=== PATIENT | male | born 1940 | race Caucasian/White ===

== ENCOUNTER 2019-09-02 11:31 | Outpatient (CLI) | payer MEDICARE, SELFPAY ==
--- NOTE | 2019-09-02 11:34 | ECG_ITS ---
Measurements Intervals [place] Rate: 80 P: MA: 0 QRS: -15 QRSD: 91 T: 8 QT: 382 QTc: 441 Interpretive Statements ATRIAL FIBRILLATION CONSIDER INFERIOR INFARCT, AGE INDETERMINATE BASELINE ARTIFACT- II, III, AVF ABNORMAL ECG Electronically Signed On 09-02-2019 12:53:15 CDT by Behzad Flores D.O.
[2019-09-02 12:10] LABS: Basophils Percent Auto 0.3 % (0.2-1.2); Eosinophils Absolute Auto 0.1 K/mm3 (0-0.3); Hematocrit 48.6 % (42.0-52.0); Hemoglobin 15.8 g/dL (14.0-18.0); Immature Granulocyte Absolute 0.06 K/mm3 (0.00-0.031); Immature Granulocyte Percent A 0.5 % (0-0.5); Lymphocytes Absolute Auto 2.02 K/mm3 (0.9-3.2); Lymphocytes Percent Auto 16.3 % (18.3-44.2); Mean Corpuscular HGB Conc 32.5 g/dl (32-36); Mean Corpuscular Hemoglobin 30.6 pg (26-34); Mean Corpuscular Volume 94.2 fl (80-100); Mean Platelet Volume 9.7 fl (7.4-10.4); Monocytes Absolute Auto 1.4 K/mm3 (0.1-0.6); Monocytes Percent Auto 11.6 % (2.6-8.5); Neutrophils Absolute Auto 8.7 K/mm3 (1.3-6.7); Neutrophils Percent Auto 70.3 % (45.5-73.1); Platelet Count Result 212 k/mm3 (150-375); Red Blood Count 5.16 M/mm3 (4.6-6.20); Red Cell Distribution Width 13.8 % (11.5-14.5); White Blood Count 12.4 K/mm3 (4.5-10.0)
[2019-09-02 12:21] LABS: INR 1.7; Partial Thromboplastin Time 32.8 SECONDS (22.3-36.8); Prothrombin Time 19.7 Seconds (11.1-14.7)
[2019-09-02 12:25] LABS: Blood Urea Nitrogen 17 mg/dL (9-20); Calcium 8.9 mg/dL (8.4-10.2); Carbon Dioxide 31 mmol/L (22-30); Chloride 99 mmol/L (98-107); Estimated Glomerular Filt Rate > 60; Glucose 102 mg/dL (75-110); Potassium 4.6 mmol/L (3.4-5.0); Sodium 138 mmol/L (137-145)
== END 2019-09-02 11:32 | disposition home or self-care (01) ==
LOC: ANHSURGERY 11:34
PROVIDERS: PCP Family Medicine; Visit Provider Urology
DX: Z01.818 Encounter for other preprocedural examination (principal); D49.4 Neoplasm of unspecified behavior of bladder; I10 Essential (primary) hypertension; Z79.899 Other long term (current) drug therapy; R94.31 Abnormal electrocardiogram [ECG] [EKG]
CPT/HCPCS: 36415; 80048; 85025; 85610; 85730; 87086; 93005

== ENCOUNTER 2019-11-12 10:12 | Outpatient (CLI) | payer MEDICARE, SELFPAY ==
[2019-11-12 10:54] LABS: Basophils Percent Auto 0.4 % (0.2-1.2); Eosinophils Absolute Auto 0.1 K/mm3 (0-0.3); Eosinophils Percent Auto 1.2 % (0-4.4); Hematocrit 48.9 % (42.0-52.0); Immature Granulocyte Absolute 0.07 K/mm3 (0.00-0.031); Immature Granulocyte Percent A 0.6 % (0-0.5); Lymphocytes Absolute Auto 1.79 K/mm3 (0.9-3.2); Mean Corpuscular HGB Conc 32.7 g/dl (32-36); Mean Corpuscular Hemoglobin 30.5 pg (26-34); Mean Corpuscular Volume 93.1 fl (80-100); Mean Platelet Volume 9.9 fl (7.4-10.4); Monocytes Absolute Auto 1.4 K/mm3 (0.1-0.6); Monocytes Percent Auto 12.3 % (2.6-8.5); Neutrophils Absolute Auto 7.8 K/mm3 (1.3-6.7); Neutrophils Percent Auto 69.5 % (45.5-73.1); Platelet Count Result 223 k/mm3 (150-375); Red Blood Count 5.25 M/mm3 (4.6-6.20); Red Cell Distribution Width 13.4 % (11.5-14.5); White Blood Count 11.2 K/mm3 (4.5-10.0)
[2019-11-12 11:03] LABS: INR 1.7; Prothrombin Time 19.6 Seconds (11.1-14.7)
[2019-11-12 11:04] LABS: Partial Thromboplastin Time 32.6 SECONDS (22.3-36.8)
[2019-11-12 11:08] LABS: Blood Urea Nitrogen 17 mg/dL (9-20); Calcium 8.8 mg/dL (8.4-10.2); Carbon Dioxide 30 mmol/L (22-30); Chloride 99 mmol/L (98-107); Estimated Glomerular Filt Rate > 60; Glucose 117 mg/dL (75-110); Sodium 137 mmol/L (137-145)
== END 2019-11-12 10:13 | disposition home or self-care (01) ==
LOC: ANHSURGERY 10:14
PROVIDERS: PCP Family Medicine; Visit Provider Urology
DX: Z01.818 Encounter for other preprocedural examination (principal); I10 Essential (primary) hypertension; N39.0 Urinary tract infection, site not specified; Z79.01 Long term (current) use of anticoagulants
CPT/HCPCS: 36415; 80048; 85025; 85610; 85730; 87077; 87086; 87088; 87186

== ENCOUNTER 2019-11-20 00:19 | Outpatient (CLI) | payer MEDICARE, SELFPAY ==
[2019-11-20 18:00] LABS: SARS-CoV-2 RNA PCR Negative
== END 2019-11-20 00:20 | disposition home or self-care (01) ==
LOC: ANHCOVIDDT 00:20
PROVIDERS: PCP Family Medicine; Visit Provider Urology
DX: Z01.812 Encounter for preprocedural laboratory examination (principal); Z20.828 Contact with and (suspected) exposure to other viral communicable diseases
CPT/HCPCS: 87635; C9803; U0003

== ENCOUNTER 2019-11-23 00:42 | Day surgery (SDC) | payer MEDICARE, SELFPAY ==
[2019-09-01 12:57] VITALS: BMI 35.2
[2019-11-23] VITALS (12 sets, daily range): BP systolic 91–165; BP diastolic 56–101; PULSE 71–88; RESP 12–20; TEMP 36.5–36.7; O2SAT 98–100
--- NOTE | 2019-11-23 08:21 | P.PNAN_ITS ---
Anes - Initial Pre Proc Eval Procedure: Operation Date: 11/23/19 13:30 Proposed Procedures p Transurethral Resection Bladder Tumor - Johnnie Craft MD Date/Time: 11/23/19 08:21 Surgeon: Johnnie Craft MD Pre Op Diagnosis: Bladder Tumor, Gross Hematuria Patient Data Age: 79 Gender: M Height: 1.7 m Weight: 102.06 kg Allergies Allergy/AdvReac Type Severity Reaction Status Date / Time No Known Allergies Allergy Verified 11/09/19 11:04 Home Medications Medication Instructions Recorded Confirmed Type carbidopa 25 mg-levodopa 100 mg 1 tablet PO TID 05/11/19 11/23/19 History tablet rivaroxaban 20 mg tablet 20 mg PO DAILY #30 tablet 05/17/19 11/23/19 Rx atorvastatin 20 mg tablet 20 mg PO DAILY #30 tablet 07/30/19 11/23/19 Rx metoprolol succinate 100 mg 100 mg PO DAILY #30 tablet 07/30/19 11/23/19 Rx tablet,extended release 24 hr furosemide 40 mg tablet 40 mg PO QAM #30 tablet 08/31/19 11/23/19 Rx potassium chloride 20 mEq 20 meq PO DAILY #30 tablet 08/31/19 11/23/19 Rx tablet,extended release Patient hx anesthesia problems: none Family hx anesthesia problems: none PMFSH Past Medical History Medical History (Updated 11/23/19 @ 08:23 by Jeffry Taylor MD) Bladder tumor HEMATURIA Chronic diastolic heart failure Claudication in peripheral vascular disease Essential (primary) hypertension History of DVT (deep vein thrombosis) 2005. TAKES XARELTO History of pulmonary embolism IFG (impaired fasting glucose) [facility] (current) use of anticoagulants Parkinson disease RT HAND SHAKES,SHUFFLING FEET Persistent atrial fibrillation Primary osteoarthritis, unspecified site Pure hypercholesterolemia Surgical History Surgical History (Updated 11/23/19 @ 08:23 by Jeffry Taylor MD) History of small bowel obstruction SMALL BOWEL RESECTION FOR OBSTRUCTION 2017 Social History Social History (Updated 11/09/19 @ 11:04 by Jenifer Aguirre) Smoking status: Never smoker Second hand tobacco smoke exposure: No Alcohol intake: current Drinks per week: 1 Substance use: never Substance use type: does not use Gender identity (if verbalized by the patient): Male Anes - Eval Final PreProcedure Day of Procedure 11/23/19 08:21 Patient weight: obese Heart: regular rate and rhythm Lungs: clear to auscultation and normal air movement Airway: Mallampati scale class II Neurological: alert and oriented Last oral intake: >/= 8 hours ASA classification: IV Emergent: no Anesthetic plan: proceed Anesthesia type and monitoring: general LMA and ETT Informed Consent: The patient's anesthetic plan and its attendant risks and benefits were discussed with the patient/family/POA. Questions were solicited and answers provided to the satisfaction of the patient/family/POA.
--- NOTE | 2019-11-23 11:12 | WPDHPUPDATE1 ---
History and Physical Update Update Date/Time: 11/23/19 11:12 History and Physical has been reviewed, including an updated exam of the patient. There are NO changes in the patient's condition. Risks, benefits, and alternatives have been discussed and questions answered. Patient agrees to proceed with procedure.
[2019-11-23] MEDS: LACTATED RINGERS 1,000 ML 30 ML IV CONT (12:00)
[2019-11-23 12:18] LABS: INR 1.1
[2019-11-23] MEDS: ceFAZolin 2 GM/D5W 50 ML 2 GM/50 ML BAG IVPB (12:44)
[2019-11-23] MEDS: LIDOCAINE HCL 2% GEL UROJET 10 ML PKG MUCOUS MEM (13:03)
--- NOTE | 2019-11-23 13:19 | SUR.OPER ---
Ebl=10ml
--- NOTE | 2019-11-23 13:21 | PM.PROC ---
Procedure Note - Detailed Date of procedure: 11/23/19 Pre-op diagnosis: Bladder Tumor, Gross Hematuria Post-op diagnosis: same Procedure performed: Transurethral resection of bladder tumor medium size approximately 3 cm Description of procedure: Patient was taken to the operative suite and correctly identified. Once general anesthesia was obtained he was placed in the dorsal lithotomy position and prepped and draped in the usual sterile fashion. Twenty-four [place] resectoscope sheath is inserted in the bladder. He has a tumor that encompassed about least 3 cm on the floor on the left. It was just lateral to the left ureteral orifice. We went ahead and resected the tumor and then sent the base as a separate specimen. Fulguration was used for hemostasis. There was good hemostasis at termination procedure. 2% viscous lidocaine was inserted into the urethra and an [address] This was connected to continuous bladder irrigation. That will be weaned to off in recovery room. He will be discharged home with Cook catheter with plans to remove it on Friday. Will plan on resuming his relative on Friday. Anesthesia: GLMA Surgeon: Johnnie Craft MD Estimated blood loss (mL): 10 Drains: Yes Packing: No Pathology: yes Complications: No immediate complications Condition: stable Disposition: PACU
--- NOTE | 2019-11-23 14:12 | SUR.PHASEI ---
glycine to three way simeon clamped at 1410. watching urine to see if remains clear. and will restart glycine as needed to maintain clear urine.
[2019-11-23] MEDS: hydrALAZINE HCL 20 MG/ML VIAL 5 MG IV PUSH (14:35)
--- NOTE | 2019-11-23 15:09 | SUR.PHASEI ---
1445- cbi bag remains clamped. no c/o pain. pt seems very anxious.
--- NOTE | 2019-11-23 16:11 | SUR.PHASEII ---
1545; PT AWAKE AND ALERT. PT ANXIOUS REGARDING GOING HOME WITH A VEGA. CLEARED WITH DIRECTOR TO BRING SPOUSE TO [place]. 1600; SPOUSE IN ROOM WEARING A MASK.
--- NOTE | 2019-11-23 16:44 | SUR.PHASEII ---
1640; DEMONSTRATED HOW TO CHANGE VEGA BAG TO LEG BAG TO PT AND . VERBALIZED UNDERSTANDING.
== END 2019-11-23 16:51 | disposition home or self-care (01) ==
PROVIDERS: PCP Family Medicine; Visit Provider Urology
PROC: 0TBB8ZZ Excision of Bladder, Via Natural or Artificial Opening Endoscopic (ICD-10-PCS; CPT 52235; principal; 2019-11-23 13:30)
DX: C67.0 Malignant neoplasm of trigone of bladder (principal); I11.0 Hypertensive heart disease with heart failure; I50.32 Chronic diastolic (congestive) heart failure; G20 Parkinson's disease; I70.219 Atherosclerosis of native arteries of extremities with intermittent claudication, unspecified extremity; I48.19 Other persistent atrial fibrillation; E78.00 Pure hypercholesterolemia, unspecified; M19.90 Unspecified osteoarthritis, unspecified site; Z86.711 Personal history of pulmonary embolism; Z86.718 Personal history of other venous thrombosis and embolism; Z79.01 Long term (current) use of anticoagulants; E66.9 Obesity, unspecified; Z68.35 Body mass index [BMI] 35.0-35.9, adult
CPT/HCPCS: 52235; 36415; 85610; 88305; 88307; A9270; J0360; J0690; J1100; J2405; J2704; J3010; J7120

== ENCOUNTER 2020-02-22 14:05 | Outpatient (CLI) | payer MEDICARE, SELFPAY ==
[2020-02-22 14:46] LABS: Anion Gap 9 mmol/L (8-16); Blood Urea Nitrogen 14 mg/dL (9-20); Calcium 8.6 mg/dL (8.4-10.2); Carbon Dioxide 28 mmol/L (22-30); Chloride 100 mmol/L (98-107); Estimated Glomerular Filt Rate > 60; Glucose 97 mg/dL (75-110); Potassium 4.1 mmol/L (3.4-5.0); Sodium 137 mmol/L (137-145)
== END 2020-02-22 14:06 | disposition home or self-care (01) ==
PROVIDERS: PCP Family Medicine; Visit Provider Family Medicine
DX: I10 Essential (primary) hypertension (principal)
CPT/HCPCS: 36415; 80048

== ENCOUNTER 2020-03-02 14:38 | Outpatient (CLI) | payer MEDICARE, SELFPAY ==
--- NOTE | ~2020-03-02 | US_ITS ---
EXAMINATION: US carotid duplex BI DATE: 03/02/2020 15:38 INDICATION: Transient ischemic attack TECHNIQUE: Grayscale, color Doppler, and pulsed Doppler images of the cervical carotid arteries were obtained. The degree of vessel stenosis is placed in one of the following categories: normal, <50%, 5 0-69%, >=70% but less than near-occlusion, near-occlusion, or total occlusion. Note that percent sten osis relative to normal distal artery lumen diameter is indirectly measured from velocity measurement s as described by Sliverio, et al. Radiology 2003; 229:340-346. Notes: Normal: Peak systolic velocity <125 centimeters/sec and no plaque <50%. Peak systolic velocity <125 ( EDV <40; ICA/CCA PSV ratio <2.0; used these factors only a tandem lesions or low cardiac output or co ntralateral disease) 50-69 %: PSV 125-230 (EDV 40-100; ratio 2-4) >= 70% but less than near occlusion: PSV greater than 230 (EDV > 100; ratio> 4.0) Near Occlusion: PSV that is variable; markedly narrowed lumen Occlusion: Absent flow on color/spectral Doppler and no lumen on lynn scale. COMPARISON: None. FINDINGS: RIGHT: The right common carotid artery (CCA) peak systolic velocity (PSV) is 65 cm/s. The right internal car otid artery (ICA) PSV is 90 cm/s. The right ICA end-diastolic velocity (EDV) is 28 cm/s. The right IC A/CCA PSV ratio is 1.4. The external carotid artery (ECA) PSV is 72 cm/s. There is antegrade flow in the right vertebral artery. LEFT: The left CCA PSV is 77 cm/s. The left ICA PSV is 77 cm/s. The left ICA EDV is 25 cm/s. The left ICA/C CA PSV ratio is 1.0. The ECA PSV is 85 cm/s. There is antegrade flow in the left vertebral artery. IMPRESSION: 1. Less than 50% stenosis in the right internal carotid artery by sonographic criteria. 2. Less than 50% stenosis in the left internal carotid artery by sonographic criteria. Reviewed, dictated and finalized at location A. IMPRESSION: 1. Less than 50% stenosis in the right internal carotid artery by sonographic shawna khan. 2. Less than 50% stenosis in the left internal carotid artery by sonographic susanna malloy.
--- NOTE | ~2020-03-02 | CT_ITS ---
EXAMINATION: CT brain wo con DATE: 03/02/2020 15:18 INDICATION: Transient ischemic attack TECHNIQUE: Computed tomography (CT) of the head was performed without intravenous contrast. The mA wa s adjusted according to patient size. Iterative reconstruction technique was employed. Exam dose: 68 1.00 mGy-cm total exam DLP. COMPARISON: None FINDINGS: There are chronic lacunar infarcts in the region of the anterior limb of the internal capsu le bilaterally. There is nonspecific diminished attenuation of the subcortical and periventricular cerebral white mat ter. There are prominent bilateral carotid siphon internal carotid artery calcifications. No intracranial mass lesion or hemorrhage, midline shift or mass effect. No subdural or epidural mil elizabeth. There is cerebral atrophy as well as cerebellar atrophy. No skull fracture or bone destruction. The mastoid air cells and included paranasal sinuses are sherif lly developed and aerated. 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 Reviewed, dictated and finalized at location A. IMPRESSION: Chronic bilateral lacunar infarcts of the anterior limb of the int ernal capsule Cerebral atherosclerosis and chronic small vessel ischemic changes of the cereb ral white matter Cerebral and cerebellar atrophy
== END 2020-03-02 14:39 | disposition home or self-care (01) ==
PROVIDERS: PCP Family Medicine; Visit Provider Family Medicine
DX: G45.9 Transient cerebral ischemic attack, unspecified (principal); I65.23 Occlusion and stenosis of bilateral carotid arteries; I67.2 Cerebral atherosclerosis; G31.9 Degenerative disease of nervous system, unspecified
CPT/HCPCS: 70450; 93880

== ENCOUNTER → 2020-05-09 11:58 | Outpatient (CLI) | payer MEDICARE, SELFPAY ==
--- NOTE | ~2020-05-09 | XR_ITS ---
XR chest 2V DATE: 05/09/2020 13:06 INDICATION: Cough TECHNIQUE: 2 views COMPARISON: 02/13/2018 portable AP chest at 0915 hours FINDINGS: No pulmonary infiltrate or consolidation, pleural effusion or pulmonary vascular congestion or pneumothorax is evident. Heart size appears borderline. There is aortic arch calcification. Degenerative changes of the thoracic and lumbar spine. IMPRESSION: Borderline heart size; no active pulmonary disease Reviewed, dictated and finalized at location B. ERYMAN ASSISTANT
== END ==
PROVIDERS: PCP Family Medicine; Visit Provider Family Medicine
DX: R05 Cough (principal)
CPT/HCPCS: 71046

== ENCOUNTER 2020-07-05 12:29 | Inpatient (IN) | payer MEDICARE, SELFPAY ==
--- NOTE | ~2020-07-05 | XR_ITS ---
XR chest 1V portable 07/09/2020 09:36 Indication: Leukocytosis Procedure: AP portable chest Comparison: Comparison to multiple prior studies sequentially, with oldest reviewed study dated 02/11. Findings: Subtle right upper lobe infiltrates. Heart size normal. No pleural effusion, edema or pneum othorax. Impression: 1: Subtle right upper lobe infiltrates which may represent atelectasis or pneumonia. Reviewed, dictated and finalized at location A. FIELD MANAGER Impression: 1: Subtle right upper lobe infiltrates which may represent atelectasis or pneum onia.
--- NOTE | ~2020-07-05 | XR_ITS ---
EXAMINATION: XR chest 1V portable EXAM DATE: 07/05/2020 13:05 INDICATION: Cough and weakness. TECHNIQUE: Portable AP frontal chest x-ray was obtained. Comparison is made to prior examination from 05/09/2020. FINDINGS: Prominent reticulation bilaterally most likely chronic interstitial lung disease. No conflu ent consolidation, pneumothorax or pleural effusion suspected. The cardiomediastinal silhouette is pr ominent but magnified on this AP technique. There are bony degenerative changes. There is no signific ant interval change. IMPRESSION: Chronic interstitial lung disease without superimposed acute opacities identified. Reviewed, dictated and finalized at location B. DIE INSPECTOR IMPRESSION: Chronic interstitial lung disease without superimposed acute opacit ies identified.
--- NOTE | ~2020-07-05 | CT_ITS ---
EXAMINATION: CT brain wo con DATE: 07/08/2020 10:42 INDICATION: Confusion and generalized weakness. TECHNIQUE: Computed tomography (CT) of the head was performed without intravenous contrast. The dose- length product was 681.00 mGy-cm. The mA was adjusted according to patient size. Iterative reconstruc tion technique was employed. COMPARISON: CT dated 03/02/2020 FINDINGS: Generalized atrophy. There are scattered mild periventricular and subcortical white matter changes, most likely related to small vessel ischemic disease (microangiopathy). Chronic bilateral la cunar infarctions of the caudate nucleus and left internal capsule. There is intracranial atheroscler osis. Paranasal sinuses and mastoids are pneumatized. No depressed skull fractures. IMPRESSION: 1. No acute intracranial abnormality. 2: Chronic bilateral lacunar infarctions. 3: Chronic age-related findings. Reviewed, dictated and finalized at location A. OLL SERVICES ANALYST
--- NOTE | ~2020-07-05 | XR_ITS ---
MODIFIED ESOPHAGRAM HISTORY: Dysphagia. TECHNIQUE: Modified barium esophagram was performed by speech pathologist under radiologist fluorosco pic guidance. This was recorded on tape. The exam was reviewed on 07/09/2020 11:48 WHITING CAN WORKER. The one flu oroscopic image. Fluoroscopy time is 1.2 minutes. FINDINGS: Lateral projection of the cervical spine demonstrates normal alignment. There is trace pe netration without aspiration with thin liquids. IMPRESSION: 1: Trace penetration without evidence for aspiration. 2: Please refer to speech pathologist report for additional detail. Reviewed, dictated and finalized at location A. ING CAN WORKER
--- NOTE | 2020-07-05 12:48 | ECG_ITS ---
Measurements Intervals [place] Rate: 85 P: SD: 0 QRS: -19 QRSD: 83 T: 5 QT: 366 QTc: 437 Interpretive Statements ATRIAL FIBRILLATION LOW QRS VOLTAGE IN PRECORDIAL LEADS CONSIDER INFERIOR INFARCT, AGE INDETERMINATE ABNORMAL ECG Electronically Signed On 07-05-2020 13:18:18 APPRAISAL SPECIALIST by Behzad Flores D.O.
--- NOTE | 2020-07-05 12:56 | ED.GENADULT ---
HPI - General Adult General Chief complaint: Weakness Stated complaint: INCREASED WEAKNESS Time Seen by Provider: 07/05/20 12:34 Source: RN notes reviewed History of Present Illness HPI narrative: Patient presents emergency department from home for weakness. Per the patient's he has had progressive weakness over the past 2 days and has been able to get up and ambulate secondary to weakness in his legs for the past day. The patient was recently seen by Dr. Craft for urology and was placed on Bactrim for urinary tract infection 2 days ago. also notes the patient has had some wheezing today as well as some swelling in his legs. The patient does have a history of heart failure. Per the the patient did have a fever of 100 yesterday denies any chest pain abdominal pain nausea vomiting or any other symptoms Related Data Home Medications Medication Instructions Recorded Confirmed sulfamethoxazole 07/05/20 Allergies Allergy/AdvReac Type Severity Reaction Status Date / Time No Known Allergies Allergy Verified 07/05/20 12:43 Review of Systems Review of Systems: Narrative: Gen.: Reports fever ENT: Denies congestion Respiratory: Reports wheezing and cough CV: Denies chest pain or palpitations GI: Denies abdominal pain nausea, emesis or diarrhea reports current UTI Musculoskeletal: Denies back pain or muscle pain Neuro: Reports weakness Skin: Denies rash Except as documented, all other systems reviewed and negative [facility] Past Medical History Medical History Bladder tumor HEMATURIA Chronic diastolic heart failure Claudication in peripheral vascular disease Essential (primary) hypertension History of DVT (deep vein thrombosis) 2005. TAKES XARELTO History of pulmonary embolism IFG (impaired fasting glucose) nursing home (current) use of anticoagulants Parkinson disease RT HAND SHAKES,SHUFFLING FEET Persistent atrial fibrillation Primary osteoarthritis, unspecified site Pure hypercholesterolemia Surgical History Surgical History (Updated 11/23/19 @ 08:23 by Jeffry Taylor MD) History of small bowel obstruction SMALL BOWEL RESECTION FOR OBSTRUCTION 2017 Family History Family History Father Family history of diabetes mellitus in first degree relative Family history of coronary artery disease Sibling Family history of diabetes mellitus in first degree relative Family history of coronary artery disease Mother Family history of coronary artery disease Social History Social History Smoking status: Never smoker Second hand tobacco smoke exposure: No Alcohol intake: current Drinks per week: 1 Substance use: never Substance use type: does not use Gender identity (if verbalized by the patient): Male Exam Narrative: Exam Narrative: APPEARANCE: No acute distress, nontoxic, resting in bed EYES: EOMI HEENT: Normocephalic, atraumatic, RESPIRATORY: No respiratory distress crackles in bilateral lower lung alfonso with wheezing upper lung alfonso CARDIOVASCULAR: Irregular irregular without murmurs rubs or gallops. ABDOMINAL: Soft, nontender, nondistended, no rebound or guarding MUSCULOSKELETAl: Moves all extremities. No clubbing, cyanosis 3+ edema the bilateral lower extremities NEURO: Awake and alert x 3. Following commands, speech normal, no focal deficits SKIN:: Warm, dry. No rashes lesions or abrasions PSYCHIATRIC: Normal affect/mood, Course Course Emergency Course: Discussed with SIDDHARTHA Acevedo for Dr. Ledbetter presentation work-up agrees with admission at this time. We did review the patient's last urine culture from October which is E. coli was resistant to Bactrim at that time and will place on Rocephin Discussed with JESSICA Ayoub for Dr. Craft presentation and work-up agrees with consult Discussed with patient an
[2020-07-05 13:13] VITALS: BP 119/66; PULSE 90; RESP 24; TEMP 36.6; O2SAT 98
[2020-07-05 13:46] VITALS: PULSE 92; RESP 20
[2020-07-05] MEDS: IPRATROPIUM BR 0.02% INH SOLN 0.5 MG/2.5 ML VIAL INHALATION (13:46)
[2020-07-05] MEDS: ALBUTEROL SULFATE NEB 2.5 MG/0.5 ML INH 5 MG INHALATION (13:46)
[2020-07-05 13:51] LABS: Basophils Percent Auto 0.3 % (0.2-1.2); Eosinophils Absolute Auto 0.2 K/mm3 (0-0.3); Eosinophils Percent Auto 1.4 % (0-4.4); Hematocrit 42.5 % (42.0-52.0); Immature Granulocyte Absolute 0.13 K/mm3 (0.00-0.031); Lymphocytes Percent Auto 8.2 % (18.3-44.2); Mean Corpuscular HGB Conc 32.9 g/dl (32-36); Mean Corpuscular Hemoglobin 30.4 pg (26-34); Mean Corpuscular Volume 92.2 fl (80-100); Mean Platelet Volume 10.5 fl (7.4-10.4); Monocytes Percent Auto 14.6 % (2.6-8.5); Neutrophils Percent Auto 74.5 % (45.5-73.1); Platelet Count Result 165 k/mm3 (150-375); Red Blood Count 4.61 M/mm3 (4.6-6.20); Red Cell Distribution Width 14.3 % (11.5-14.5); White Blood Count 13.4 K/mm3 (4.5-10.0)
[2020-07-05 13:55] VITALS: PULSE 96; RESP 20
[2020-07-05 14:05] LABS: Lactic Acid Reflex 1.4 mmol/L (0.7-2.1)
[2020-07-05 14:06] LABS: Alanine Aminotransferase 16 U/L (4-50); Albumin Level 3.1 g/dL (3.5-5.1); Alkaline Phosphatase 72 U/L (38-126); Anion Gap 4 mmol/L (8-16); Aspartate Amino Transferase 40 U/L (17-59); Bilirubin,Total 0.7 mg/dL (0.2-1.3); Blood Urea Nitrogen 17 mg/dL (9-20); Calcium 7.8 mg/dL (8.4-10.2); Carbon Dioxide 28 mmol/L (22-30); Chloride 99 mmol/L (98-107); Estimated CRCL calculation 75 ml/min; Estimated Glomerular Filt Rate > 60; Glucose 125 mg/dL (75-110); Potassium 4.1 mmol/L (3.4-5.0); Sodium 131 mmol/L (137-145)
[2020-07-05 14:12] LABS: INR 4.2; Prothrombin Time 40.7 Seconds (11.1-14.7)
[2020-07-05 14:13] LABS: Partial Thromboplastin Time 51.7 SECONDS (22.3-36.8)
[2020-07-05 14:17] LABS: NT Pro B Type Natriuretic Pept 1750 PG/ML (5-100); Troponin I < 0.012 ng/mL (0.000-0.034)
[2020-07-05 14:55] LABS: Add Urine Microscopic? YES; Appearance Urine Clear (Clear); Bacteria Urine Trace /hpf; Bilirubin Urine Negative (Negative); Blood Urine 1+ (Negative); Color Urine Yellow (Yellow); Glucose Urine UA Negative (Negative); Ketones Urine Negative (Negative); Leukocyte Esterase Ur 2+ LEU/UL (Negative); Mucus Urine Rare /lpf; Nitrate Urine Negative (Negative); Protein Urine 1+ mg/dL (Negative); Specific Grav Ur 1.018 (1.001-1.035); WBC Urine >75 /hpf
[2020-07-05 15:02] VITALS: BP 137/66; PULSE 60; O2SAT 97
[2020-07-05] MEDS: methylPREDNISolone SOD SUCC 125 MG VIAL IV PUSH (15:58)
--- NOTE | 2020-07-05 16:10 | WPDURCON ---
Assessment and Plan Assessment and plan (1) Acute UTI: Code(s): N39.0 - Urinary tract infection, site not specified Status: Acute Assessment and Plan: Start IV antibiotics, tailor to culture results. Initiate supportive care. Weakness and confusion likely secondary to infection. (2) Bladder tumor: Code(s): D49.4 - Neoplasm of unspecified behavior of bladder Status: Acute Assessment and Plan: Will continue plans to do a TURBT in 09/[address] Craft. No surgical care necessary at this time. Urology Consult Note HPI Date Seen: 07/05/20 Requesting Physician: Percy Ledbetter MD Primary Care Provider: Loy Florian MD Consult Narrative Narrative: Ace Sharp is a 79 year old male who presented to the ER with worsening weakness, wheezing and coughing that developed 2 days ago. He came by EMS. He is a patient of Dr. Craft' who was seen in our office last Friday on 06/28/2020 for a Cystoscopy which revealed a 3-4mm left UO tumor, a 4-5mmlesion and another right hemitrigone lesion at the 10'oclock position. He is to be scheduled for a TURBT in 09/2020. He had a urine culture done on that visit and it grew Klebsiella, sensitive to Bactrim, which he started on 07/03/2020. His WBc is 13.4 and creatinne is 0.80, UA is positive for infection and blood/urine cultures are pending. His states he ran a low grade fever yesterday and has become very confused and lethargic, she also notes a history of CHF and BLE edema within the past few days. Review of Systems Cardiovascular: Cardiovascular: Denies chest pain Respiratory: Respiratory: Reports cough and Reports wheezing Gastrointestinal: Gastrointestinal: Denies abdominal pain, Denies nausea and Denies vomiting Genitourinary: Genitourinary: Denies hematuria, Denies dysuria, Denies flank pain, Denies urinary frequency and Denies urinary urgency Musculoskeletal: Musculoskeletal: Reports muscle weakness PMFSH Past Medical History Medical History Bladder tumor HEMATURIA Chronic diastolic heart failure Claudication in peripheral vascular disease Essential (primary) hypertension History of DVT (deep vein thrombosis) 2005. TAKES XARELTO History of pulmonary embolism IFG (impaired fasting glucose) [facility] (current) use of anticoagulants Parkinson disease RT HAND SHAKES,SHUFFLING FEET Persistent atrial fibrillation Primary osteoarthritis, unspecified site Pure hypercholesterolemia Surgical History Surgical History History of small bowel obstruction SMALL BOWEL RESECTION FOR OBSTRUCTION 2017 Family History Family History Father Family history of diabetes mellitus in first degree relative Family history of coronary artery disease Sibling Family history of diabetes mellitus in first degree relative Family history of coronary artery disease Mother Family history of coronary artery disease Social History Social History Smoking status: Never smoker Second hand tobacco smoke exposure: No Alcohol intake: current Drinks per week: 1 Substance use: never Substance use type: does not use Gender identity (if verbalized by the patient): Male Meds Home Medications and Allergies Home Medications Medication Instructions Recorded Confirmed Type furosemide 40 mg tablet 40 mg PO QAM #30 tablet 08/31/19 11/23/19 Rx potassium chloride 20 mEq 20 meq PO DAILY #30 tablet 08/31/19 11/23/19 Rx tablet,extended release atorvastatin 20 mg tablet 20 mg PO DAILY #30 tablet 01/30/20 Rx metoprolol succinate 100 mg 100 mg PO DAILY #30 tablet 01/30/20 Rx tablet,extended release 24 hr carbidopa 25 mg-levodopa 100 mg 1 tablet PO TID #270 tablet 03/14/20 Rx tablet rivaroxaban 20 mg tablet 2
--- NOTE | 2020-07-05 16:38 | PC.NURSE ---
Addendum entered by Kimberlyn Olivia RN 07/05/20 17:55: BNP results also reviewed with physician. Original Note: Pt continues to have wheezing bilaterally after nebulizer treatment given. Pt has 3 plus lower extremity edema. CXR results reviewed. Notified Dr. Herr of above. New order for solumedrol given and to continue order for NS for admission due to uti and decreased PO intake.
--- NOTE | 2020-07-05 16:45 | ADMGEN ---
This patient, Ace Sharp, was admitted to Medical Room 343-01. Patient/family oriented to hospital policies and general routines including ID bracelet, bed and alarms, visiting hours, pain management, procedures, bathroom and other care routines, personal items, smoking policy, room service/diet, and visiting hours. Information on how to activate the Rapid Response Team has been discussed. Patient/Family are encouraged to report perceived risks to care and to ask questions if they do not understand what they are told or what they should do.
[2020-07-05] MEDS: SODIUM CHLORIDE 0.9% IV 1,000 ML 75 ML IV CONT (16:53)
[2020-07-05 16:56] VITALS: BMI 35.7
--- NOTE | 2020-07-05 17:15 | PM.IMHP ---
H&P: HPI History of Present Illness Date/Time: 07/05/20 17:15 Chief Complaint: Weakness. Narrative: This is a 79-year-old male with history of DVT and pulmonary embolism, persistent atrial fibrillation on long-term 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, chronic interstitial lung disease on imaging, hypertension, hyperlipidemia, parkinsonism, and papillary urothelial carcinoma of the bladder who presented to the emergency department today for evaluation of generalized weakness. He is a fair historian and is not very details with regards to how he has been feeling last couple of days, and in fact his notes that he has been a bit confused. In any regard, he was seen by Dr. Craft in office last Friday on 06/28/2020 for a follow-up cystoscopy and 2 lesions were identified and he has been scheduled for a TURBT in September. In any event, his urine was sampled and cultured at that time and his culture reportedly grew Klebsiella, sensitive to Bactrim, which he started on 07/03/2020. Yesterday he began running a low-grade fever with cough occasionally productive of creamy phlegm, wheezing with mild shortness of breath, and progressive weakness. Today he could barely walk ?because my legs felt like posts? and were weak. He was unaware that he had a fever but reports a low-grade fever of 100? yesterday. He denies chills and sweats. No headache. No sinus congestion, rhinorrhea, otalgia, or odynophagia. No anosmia or dysgeusia. Appetite has been fair any thinks he might be able to eat some dinner tonight. He denies nausea, vomiting, diarrhea. He had dysuria sometime last week but that has since cleared and he goes on to deny urinary frequency, hesitancy, hematuria, abdominal discomfort, and low back discomfort. No known exposure to those positive for COVID-19. Review of Systems Review of Systems: Narrative: Twelve systems were reviewed with pertinent positives and negatives as per HPI. He denies headache. Ambulates with a walker. He wears glasses. Slightly hard of hearing. He has chronic lower extremity edema which fluctuates frequently. He has a shuffling gait and occasional tremors of his upper extremities, worse when he is tired. He denies dysphagia and concerns for aspiration. He has inhaler but does not really use it. It was apparently given to him due to chronic interstitial lung disease. Except as documented, all other systems were reviewed and are negative. [facility] Past Medical History Medical History (Updated 07/05/20 @ 17:57 by Kristina Ge PA-C) Bladder tumor Chronic diastolic heart failure Echocardiogram on 03/23/2020 showed normal left ventricular systolic function and size with mild concentric left ventricular hypertrophy and ejection fraction measured at 74%. 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 Impaired fasting glucose Kidney stones Parkinson's disease Shuffling gait and right hand tremors. Persistent atrial fibrillation Primary osteoarthritis, unspecified site Pure hypercholesterolemia Rosacea Urothelial carcinoma of bladder (~11/2019) Followed by Dr. Craft. Cystoscopy in June 2020 demonstrated new lesions, scheduled for TURBT in September 2020. Surgical History Surgical History (Updated 07/05/20 @ 17:43 by Kristina Ge PA-C) History of ankle surgery ORIF right ankle fracture. History of basal cell carcinoma excision Excised from the left brow. History of resection of small bowel (~01/2018) Secondary to closed loop bowel obstruction. Family History Family History Father Family history of diabetes mellitus in first degree relative Family history of coronary artery disease Sibling Family history of diabetes mellitus in first degree relative Family history of coronary artery disease Mot
[2020-07-05 17:58] VITALS: BP 120/67; PULSE 96; RESP 18; TEMP 36.2; O2SAT 98
--- NOTE | 2020-07-05 18:35 | PC.NURSE ---
Patient being transferred to med/surg room 324 for PUI/covid pending. Report given.
--- NOTE | 2020-07-05 18:49 | ADMGEN ---
This patient, Ace Sharp, was admitted to [facility] Surg Room 324-01. Patient/family oriented to hospital policies and general routines including ID bracelet, bed and alarms, visiting hours, pain management, procedures, bathroom and other care routines, personal items, smoking policy, room service/diet, and visiting hours. Information on how to activate the Rapid Response Team has been discussed. Patient/Family are encouraged to report perceived risks to care and to ask questions if they do not understand what they are told or what they should do.
[2020-07-05 20:00] VITALS: BP 136/79; PULSE 100; RESP 20; RESP 22; TEMP 36.6; O2SAT 97
[2020-07-05 20:10] LABS: Anion Gap 4 mmol/L (8-16); Blood Urea Nitrogen 16 mg/dL (9-20); Calcium 7.9 mg/dL (8.4-10.2); Carbon Dioxide 26 mmol/L (22-30); Chloride 100 mmol/L (98-107); Creatine Kinase 41 U/L (55-170); Estimated CRCL calculation 76 ml/min; Estimated Glomerular Filt Rate > 60; Glucose 234 mg/dL (75-110); Sodium 130 mmol/L (137-145)
[2020-07-05] MEDS: CARBIDOPA/LEVODOPA 25/100 MG TABLET 1 TABLET PO (21:09)
[2020-07-05] MEDS: guaiFENesin 12 HR 600 MG TABCR 1200 MG PO (21:09)
[2020-07-06] VITALS (7 sets, daily range): BP systolic 115–144; BP diastolic 68–82; PULSE 56–88; RESP 18–20; TEMP 36.3–36.7; O2SAT 94–99; BMI 36.9
[2020-07-06 06:41] LABS: Basophils Percent Auto 0.1 % (0.2-1.2); Hematocrit 40.4 % (42.0-52.0); Hemoglobin 13.4 g/dL (14.0-18.0); Immature Granulocyte Absolute 0.15 K/mm3 (0.00-0.031); Immature Granulocyte Percent A 1.5 % (0-0.5); Lymphocytes Absolute Auto 0.56 K/mm3 (0.9-3.2); Lymphocytes Percent Auto 5.6 % (18.3-44.2); Mean Corpuscular HGB Conc 33.2 g/dl (32-36); Mean Corpuscular Hemoglobin 29.9 pg (26-34); Mean Corpuscular Volume 90.2 fl (80-100); Mean Platelet Volume 10.3 fl (7.4-10.4); Monocytes Absolute Auto 0.4 K/mm3 (0.1-0.6); Monocytes Percent Auto 4.3 % (2.6-8.5); Neutrophils Absolute Auto 8.9 K/mm3 (1.3-6.7); Neutrophils Percent Auto 88.5 % (45.5-73.1); Platelet Count Result 161 k/mm3 (150-375); Red Blood Count 4.48 M/mm3 (4.6-6.20)
[2020-07-06 06:49] LABS: INR 2.9
[2020-07-06 06:50] LABS: Partial Thromboplastin Time 43.9 SECONDS (22.3-36.8)
[2020-07-06 07:48] LABS: Anion Gap 3 mmol/L (8-16); Blood Urea Nitrogen 17 mg/dL (9-20); Calcium 7.7 mg/dL (8.4-10.2); Carbon Dioxide 27 mmol/L (22-30); Chloride 103 mmol/L (98-107); Creatine Kinase 44 U/L (55-170); Estimated CRCL calculation 87 ml/min; Estimated Glomerular Filt Rate > 60; Glucose 215 mg/dL (75-110); Lactate Dehydrogenase 339 U/L (313-618); Magnesium 1.9 mg/dL (1.6-2.3); Potassium 3.9 mmol/L (3.4-5.0); Sodium 133 mmol/L (137-145)
[2020-07-06 08:00] LABS: CRP 17.4 mg/dL (<1.0)
[2020-07-06 08:17] LABS: Thyroid Stimulating Hormone Reflex 0.986 uIU/mL (0.465-4.68)
[2020-07-06] MEDS: FUROSEMIDE 40 MG TABLET PO (09:34)
[2020-07-06] MEDS: METOPROLOL SUCCINATE EXT REL 100 MG TABCR PO (09:34)
[2020-07-06] MEDS: CARBIDOPA/LEVODOPA 25/100 MG TABLET 1 TABLET PO ×3 (09:34→17:00)
[2020-07-06] MEDS: POTASSIUM CHLORIDE 20 MEQ TABLET.ER PO (09:34)
[2020-07-06] MEDS: SODIUM CHLORIDE 0.9% IV 1,000 ML 75 ML IV CONT (09:35)
[2020-07-06] MEDS: guaiFENesin 12 HR 600 MG TABCR 1200 MG PO ×2 (09:35→21:04)
--- NOTE | 2020-07-06 12:16 | WPDUROPN2 ---
Progress Note: A&P Assessment and Plan (1) Acute UTI: Code(s): N39.0 - Urinary tract infection, site not specified Status: Acute Assessment and Plan: Improving on antibiotics, await culture results and tailor antibiotics if necessary. Subjective Subjective Date/Time Seen: 07/06/20 12:16 Improved today, patient states he doesn't remember how he got here yesterday or seeing me in the ER. He is sitting up in the chair in the room and is communicating well. He denies pain at this time. WBC is improved today 10.0 on antibiotics. Review of Systems Cardiovascular: Cardiovascular: Denies chest pain Respiratory: Respiratory: Reports no additional respiratory complaints Gastrointestinal: Gastrointestinal: Reports abdominal pain, Denies nausea and Denies vomiting Genitourinary: Genitourinary: Denies hematuria, Reports dysuria, Reports urinary frequency and Denies urinary hesitancy Exam Resp: Effort & Inspection: normal respiratory effort and Actively coughing Cardio: Rate: regular rate GI: GI Palp: Yes Soft to palpation and No Tenderness to palpation present (GI) : General: Yes no CVA tenderness Extrem: General: edema bilateral Objective Data Vital Signs Vital Signs: Vital Signs - 24 hr 07/05/20 13:13 07/05/20 13:46 07/05/20 13:55 Temperature 98 F Pulse Rate 90 92 96 Respiratory Rate 24 H 20 20 Blood Pressure 119/66 Pulse Oximetry 98 07/05/20 15:02 07/05/20 17:58 07/05/20 20:00 Temperature 97.2 F L 97.8 F Pulse Rate 60 96 100 Respiratory Rate 18 20 Blood Pressure 137/66 120/67 136/79 Pulse Oximetry 97 98 97 07/06/20 00:00 07/06/20 04:00 07/06/20 08:00 Temperature 97.3 F L 97.8 F 97.6 F Pulse Rate 56 L 82 88 Respiratory Rate 20 20 18 Blood Pressure 143/70 H 144/82 H 116/77 Pulse Oximetry 99 98 64 L Intake/Output Intake/Output: Intake & Output 07/03/20 07/04/20 07/05/20 07/06/20 23:59 23:59 23:59 23:59 Intake Total 290 1320 Output Total 350 500 Balance -60 820 Meds/Results Medications: Active Medications Generic Name Dose Route Start Last Admin Trade Name Freq PRN Reason Stop Dose Admin Albuterol 2 puff 07/05/20 18:00 Albuterol Sulfate (*Sp) Aerosol 1 Puff INHALATION QIDRT PRN Shortness Of Breath Carbidopa/Levodopa 1 tablet 07/05/20 17:00 07/06/20 09:34 Carbidopa/Levodopa 25/100 Mg Tablet PO 1 tablet TIDWM NAY Administration Furosemide 40 mg 07/06/20 09:00 07/06/20 09:34 Furosemide 40 Mg Tablet PO 40 mg QAM NAY Administration Guaifenesin 1,200 mg 07/05/20 21:00 07/06/20 09:35 Guaifenesin 12 Hr 600 Mg Tabcr PO 1,200 mg Q12HR NAY Administration Ceftriaxone Sodium/Dextrose 1 gm in 50 mls @ 100 mls/hr 07/06/20 14:00 Rocephin 1 Gm/D5w 50 Ml IVPB Q24H NAY Sodium Chloride 1,000 mls @ 75 mls/hr 07/05/20 15:15 07/06/20 09:35 Normal Saline Iv IV CONT 75 mls/hr .[id number] NAY Administration Metoprolol Succinate 100 mg 07/06/20 09:00 07/06/20 09:34 Metoprolol Succinate Ext Rel 100 Mg Tabcr PO 100 mg DAILY NAY Administration Potassium Chloride 20 meq 07/06/20 09:00 07/06/20 09:34 Potassium Chloride 20 Meq Tablet.Er PO 20 meq DAILY NAY Administration Radiology Results: ITS Impressions Chest X-Ray 07/05/20 13:07 IMPRESSION: Chronic interstitial lung disease without superimposed acute opacities identified. Labs Labs: Laboratory Results - last 24 hr 07/05/20 07/05/20 07/05/20 13:37 13:37 13:37 WBC 13.4 H RBC 4.61 Hgb 14.0 Hct 42.5 MCV 92.2 MCH 30.4 MCHC 32.9 RDW 14.3 Plt Count 165 MPV 10.5 H Immature Gran % (Auto) 1.0 H Neut % (Auto) 74.5 H Lymph % (Auto) 8.2 L [place] % (Auto) 14.6 H Eos % (Auto) 1.4 Baso % (Auto) 0.3 Lymph # (Auto) 1.10 [place] # (Auto) 2.0 H Eos # (Auto) 0.2 Baso # (Auto) 0.0 Abs Immat Gran (auto) 0.13 H Absolute Neuts (auto) 10.0 H Absolut
--- NOTE | 2020-07-06 14:22 | PCSTNOTE ---
A Modified Barium Swallow study was ordered but unable to be completed due to pending COVID test. A Bedside Swallow Evaluation was ordered and completed in place of MBS and a plan of care was devised. Please refer to the Bedside Swallow Evaluation in the EMR. Please note, silent aspiration cannot be ruled out at bedside.
--- NOTE | 2020-07-06 16:25 | PM.IMPN ---
Progress Note: A&P Assessment and Plan (1) Urinary tract infection: Code(s): N39.0 - Urinary tract infection, site not specified Status: Acute Assessment and Plan: The patient reports dysuria several days ago which has improved. He was treated with bactrim outpatient. Urinalysis is suspicious for UTI. Continue empiric ceftriaxone Await urine culture and adjust antibiotics per culture results (2) Generalized weakness: Code(s): R53.1 - Weakness Status: Acute Assessment and Plan: Likely secondary to UTI, deconditioning, and underlying Parkinson's disease. He is very eager to participate in physical therapy. Continue PT/OT Patient will likely benefit from rehab once ready for discharge (3) Cough: Code(s): R05 - Cough Status: Acute Assessment and Plan: Improved. Continue supportive care with expectorant COVID-19 test pending (4) Persistent atrial fibrillation: Code(s): I48.19 - Other persistent atrial fibrillation Status: Chronic Assessment and Plan: Chronic and persistent. Rate controlled. Continue metoprolol Continue rivaroxaban (5) Parkinson disease: Code(s): G20 - Parkinson's disease Status: Acute Assessment and Plan: He does note progressive weakness over the past 2-3 years. TORCH OPERATOR evaluated the patient and would like to continue Parkinson-specific therapy. No dietary changes are recommended. Continue carbidopa-levodopa Continue PT/OT (6) Chronic diastolic heart failure: Code(s): I50.32 - Chronic diastolic (congestive) heart failure Status: Chronic Assessment and Plan: He appeared a bit fluid positive on exam today. Will give additional 20mg IV furosemide Continue furosemide 40mg PO QD Monitor volume status closely with strict intake and output, daily weights (7) Essential hypertension: Code(s): I10 - Essential (primary) hypertension Status: Chronic Assessment and Plan: Blood pressures are at target. Most recent BP is 119/75. Continue metoprolol Continue furosemide Continue to monitor and adjust treatment as indicated (8) Hyponatremia: Code(s): E87.1 - Hypo-osmolality and hyponatremia Status: Acute Assessment and Plan: Sodium was low on arrival at 130. Sodium has improved to 133. He did receive gentle IV fluids which will be discontinued as he is tolerating p.o. intake well. Continue to monitor with BMP daily Stop IV fluids (9) Coagulopathy: Code(s): D68.9 - Coagulation defect, unspecified Status: Resolved Assessment and Plan: INR was 4.2 on admission so xarelto was held. He has no bleeding. Repeat INR is 2.9 today. Resume xarelto Subjective Date/time seen: 07/06/20 16:25 Mr. Sharp is a 79 y.o. male with PMH significant for Parkinson's disease, hyperlipidemia, congestive heart failure, hx of DVT, PE, and persistent atrial fibrillation on chronic 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, chronic interstitial lung disease, hypertension, and papillary urothelial carcinoma of the bladder who is seen in follow-up for urinary tract infection. He is doing much better today. He still feels a bit weak and deconditioned but feels better overall. He was having dysuria but this has improved. He has no abdominal pain, nausea, or vomiting. His appetite is good and he is eating well. He does not feel short of breath except with exertion and attributes this to being out of shape. He states that he did have a bit of a cough but this has improved. He notes leg swelling which is a chronic issue but seems a bit worse lately. Review of Systems Review of Systems: All systems reviewed & are unremarkable except as noted in HPI and below Exam Narrative: Exam Narrative: General: Very pleasant, well-developed, and well-nourished elderly 79 y.o. gentleman lying semi-recumbent in bed watching TV in no
[2020-07-06] MEDS: RIVAROXABAN 20 MG TABLET PO (17:00)
[2020-07-06] MEDS: FUROSEMIDE INJ 40 MG/4 ML VIAL 20 MG IV PUSH (17:00)
[2020-07-06 17:44] LABS: SARS-CoV-2 RNA PCR Negative
[2020-07-07 06:00] VITALS: BP 131/81; PULSE 103; RESP 20; TEMP 36.6; O2SAT 99
[2020-07-07 08:00] VITALS: PULSE 70; RESP 20; O2SAT 99
[2020-07-07 08:26] LABS: Basophils Absolute Auto 0.1 K/mm3 (0.0-0.1); Basophils Percent Auto 0.3 % (0.2-1.2); Eosinophils Absolute Auto 0.1 K/mm3 (0-0.3); Eosinophils Percent Auto 0.8 % (0-4.4); Hematocrit 43.7 % (42.0-52.0); Hemoglobin 14.6 g/dL (14.0-18.0); Immature Granulocyte Absolute 0.27 K/mm3 (0.00-0.031); Immature Granulocyte Percent A 1.9 % (0-0.5); Lymphocytes Absolute Auto 1.67 K/mm3 (0.9-3.2); Lymphocytes Percent Auto 11.5 % (18.3-44.2); Mean Corpuscular HGB Conc 33.4 g/dl (32-36); Mean Corpuscular Hemoglobin 30.6 pg (26-34); Mean Corpuscular Volume 91.6 fl (80-100); Mean Platelet Volume 9.9 fl (7.4-10.4); Monocytes Absolute Auto 1.6 K/mm3 (0.1-0.6); Monocytes Percent Auto 10.9 % (2.6-8.5); Neutrophils Absolute Auto 10.8 K/mm3 (1.3-6.7); Neutrophils Percent Auto 74.6 % (45.5-73.1); Platelet Count Result 243 k/mm3 (150-375); Red Blood Count 4.77 M/mm3 (4.6-6.20); Red Cell Distribution Width 14.2 % (11.5-14.5); White Blood Count 14.5 K/mm3 (4.5-10.0)
[2020-07-07 08:38] LABS: Anion Gap 4 mmol/L (8-16); Blood Urea Nitrogen 23 mg/dL (9-20); Calcium 7.7 mg/dL (8.4-10.2); Carbon Dioxide 28 mmol/L (22-30); Chloride 103 mmol/L (98-107); Estimated CRCL calculation 77 ml/min; Estimated Glomerular Filt Rate > 60; Glucose 142 mg/dL (75-110); Sodium 135 mmol/L (137-145)
[2020-07-07] MEDS: POTASSIUM CHLORIDE 20 MEQ TABLET.ER PO (09:44)
[2020-07-07 09:45] VITALS: PULSE 70
[2020-07-07] MEDS: METOPROLOL SUCCINATE EXT REL 100 MG TABCR PO (09:45)
[2020-07-07] MEDS: guaiFENesin 12 HR 600 MG TABCR 1200 MG PO ×2 (09:45→21:09)
[2020-07-07] MEDS: FUROSEMIDE 40 MG TABLET PO (09:45)
[2020-07-07] MEDS: CARBIDOPA/LEVODOPA 25/100 MG TABLET 1 TABLET PO ×4 (09:45→21:08)
[2020-07-07 10:39] LABS: Hemoglobin A1C 6.5 % (<5.7)
[2020-07-07 14:00] VITALS: BP 118/66; PULSE 91; RESP 20; TEMP 36.9; O2SAT 96
--- NOTE | 2020-07-07 14:21 | WPDUROPN2 ---
Progress Note: A&P Assessment and Plan (1) Acute UTI: Code(s): N39.0 - Urinary tract infection, site not specified Status: Acute Assessment and Plan: Continue IV antibiotics, urine culture negative from ER, likely d/t being on Bactrim x 2 days prior which was sensitive on his initial culture from 06/28/[address] Craft. It grew Klebsiella. I recommend going back on Bactrim DS x 7-10 days BID at discharge. The delay between the culture on 06/28/2020 and the date that the Bactrim was given was too long on 07/03/2020, which then caused a complicated UTI. He is responding very nicely to IV antibiotics. (2) Urothelial carcinoma of bladder: Onset Date: ~11/2019 Code(s): C67.9 - Malignant neoplasm of bladder, unspecified Status: Acute Assessment and Plan: Plan to follow up for TURBT in 09/2020 as planned. Will call patient to schedule. No further evaluation needed. Subjective Subjective Date/Time Seen: 07/07/20 14:21 Patient is doing very well, he c/o weakness and fatigue, but denies any abdominal pain, dysuria or flank pain. He is afebrile at this time and tolerating his diet. Review of Systems Cardiovascular: Cardiovascular: Denies chest pain Respiratory: Respiratory: Reports no additional respiratory complaints Gastrointestinal: Gastrointestinal: Denies abdominal pain, Denies nausea and Denies vomiting Genitourinary: Genitourinary: Denies hematuria, Denies dysuria, Denies flank pain, Denies urinary frequency and Denies urinary hesitancy Exam Resp: Effort & Inspection: normal respiratory effort Cardio: Rate: tachycardic GI: GI Palp: Yes Soft to palpation and No Tenderness to palpation present (GI) : General: Yes no CVA tenderness Extrem: General: edema (LE) bilateral Objective Data Vital Signs Vital Signs: Vital Signs - 24 hr 07/06/20 16:00 07/06/20 20:00 07/06/20 22:00 Temperature 97.9 F 97.4 F L Pulse Rate 87 83 Respiratory Rate 20 18 Blood Pressure 120/77 115/68 Pulse Oximetry 98 97 97 07/07/20 06:00 07/07/20 08:00 07/07/20 09:45 Temperature 97.9 F Pulse Rate 103 H 70 70 Respiratory Rate 20 20 Blood Pressure 131/81 Pulse Oximetry 99 99 Intake/Output Intake/Output: Intake & Output 07/04/20 07/05/20 07/06/20 07/07/20 23:59 23:59 23:59 23:59 Intake Total 290 2160 830 Output Total 350 975 550 Balance -60 1185 280 Meds/Results Medications: Active Medications Generic Name Dose Route Start Last Admin Trade Name Freq PRN Reason Stop Dose Admin Albuterol 2 puff 07/05/20 18:00 Albuterol Sulfate (*Sp) Aerosol 1 Puff INHALATION QIDRT PRN Shortness Of Breath Carbidopa/Levodopa 1 tablet 07/05/20 17:00 07/07/20 09:45 Carbidopa/Levodopa 25/100 Mg Tablet PO 1 tablet TIDWM NAY Administration Furosemide 40 mg 07/06/20 09:00 07/07/20 09:45 Furosemide 40 Mg Tablet PO 40 mg QAM NAY Administration Guaifenesin 1,200 mg 07/05/20 21:00 07/07/20 09:45 Guaifenesin 12 Hr 600 Mg Tabcr PO 1,200 mg Q12HR NAY Administration Ceftriaxone Sodium/Dextrose 1 gm in 50 mls @ 100 mls/hr 07/06/20 14:00 07/06/20 14:30 Rocephin 1 Gm/D5w 50 Ml IVPB Infused Q24H NAY Infusion Metoprolol Succinate 100 mg 07/06/20 09:00 07/07/20 09:45 Metoprolol Succinate Ext Rel 100 Mg Tabcr PO 100 mg DAILY NAY Administration Potassium Chloride 20 meq 07/06/20 09:00 07/07/20 09:44 Potassium Chloride 20 Meq Tablet.Er PO 20 meq DAILY NAY Administration Rivaroxaban 20 mg 07/06/20 17:00 07/06/20 17:00 Rivaroxaban 20 Mg Tablet PO 20 mg DAILY@1700 NAY Administration Radiology Results: ITS Impressions Chest X-Ray 07/05/20 13:07 IMPRESSION: Chronic interstitial lung disease without superimposed acute opacities identified. Labs Labs: Laboratory Results - last 24 hr 07/05/20 07/07/20 07/07/20 18:18 08:03 08:03 WBC 14.5 H RBC 4.77 Hgb 14.6 Hct 43.7 M
--- NOTE | 2020-07-07 15:43 | PM.IMPN ---
Progress Note: A&P Assessment and Plan (1) Urinary tract infection: Code(s): N39.0 - Urinary tract infection, site not specified Status: Acute Assessment and Plan: The patient reports dysuria several days ago which has improved. He was treated with bactrim outpatient but there was a delay. Our urine culture was obtained after he received antibiotics and negative but his urine culture outpatient demonstrates klebsiella. He continues to improve on IV antibiotics. WBC has improved. He is afebrile. Continue empiric ceftriaxone Plan for bactrim DS x7-10 days BID at discharge per urology recommendations Continue to monitor CBC (2) Generalized weakness: Code(s): R53.1 - Weakness Status: Acute Assessment and Plan: Likely secondary to UTI, deconditioning, and underlying Parkinson's disease. He is very eager to participate in physical therapy. Discussed with his today who notes progressive weakness over the past 6 months with limited mobility and has not been ambulating for 1 week. She notes he has not been exercising at home and does feel he will benefit from rehab. Vitamin B12 and folate are sufficient. Continue PT/OT Patient will likely benefit from rehab once ready for discharge (3) Cough: Code(s): R05 - Cough Status: Acute Assessment and Plan: Improved. Continue supportive care with expectorant COVID-19 test negative (4) Persistent atrial fibrillation: Code(s): I48.19 - Other persistent atrial fibrillation Status: Chronic Assessment and Plan: Chronic and persistent. Rate controlled. Continue metoprolol Continue rivaroxaban (5) Parkinson disease: Code(s): G20 - Parkinson's disease Status: Acute Assessment and Plan: He does note progressive weakness over the past 2-3 years, worsened in the past 6 months. He has hx of unsteady gait and tremor. ARTIFICIAL INSEMINATOR evaluated the patient and would like to continue Parkinson-specific therapy. No dietary changes are recommended. Continue carbidopa-levodopa, discussed with his who stated this was just increased by his neurologist to carbidopa 25-levodopa 100mg QID Continue PT/OT Rehab is anticipated at discharge (6) Chronic diastolic heart failure: Code(s): I50.32 - Chronic diastolic (congestive) heart failure Status: Chronic Assessment and Plan: He appeared a bit fluid positive on exam 07/08 with significant improvement following IV lasix. Continue furosemide 40mg PO QD Monitor volume status closely with strict intake and output, daily weights (7) Essential hypertension: Code(s): I10 - Essential (primary) hypertension Status: Chronic Assessment and Plan: Blood pressures are at target. Most recent BP is 127/72. Continue metoprolol Continue furosemide Continue to monitor and adjust treatment as indicated (8) Hyponatremia: Code(s): E87.1 - Hypo-osmolality and hyponatremia Status: Acute Assessment and Plan: Sodium was low on arrival at 130. He did receive gentle IV fluids which were discontinued as he is tolerating p.o. intake well and felt to be fluid positive with pedal edema. Sodium is stable at 134. Continue to monitor with BMP daily (9) Coagulopathy: Code(s): D68.9 - Coagulation defect, unspecified Status: Resolved Assessment and Plan: INR was 4.2 on admission so xarelto was held. He has no bleeding and repeat INR 2.9. Continue xarelto (10) Confusion: Code(s): R41.0 - Disorientation, unspecified Status: Acute Assessment and Plan: His noted confusion for 1 week prior to admission. I think this is most likely secondary to metabolic encephalopathy secondary to complicated UTI which is superimposed on underlying Parkinson's disease since there was a bit of delay in initiating antibiotics outpatient which h
[2020-07-07] MEDS: FUROSEMIDE INJ 40 MG/4 ML VIAL 20 MG IV PUSH (18:19)
[2020-07-07] MEDS: RIVAROXABAN 20 MG TABLET PO (18:19)
[2020-07-07 21:00] VITALS: BP 152/86; PULSE 106; RESP 20; TEMP 36.8; O2SAT 94
[2020-07-07 22:00] VITALS: BP 113/82; PULSE 104; RESP 20; TEMP 36; O2SAT 94
[2020-07-08 06:00] VITALS: BP 120/75; PULSE 87; RESP 20; TEMP 36; O2SAT 98
[2020-07-08 07:11] LABS: Basophils Percent Auto 0.3 % (0.2-1.2); Eosinophils Absolute Auto 0.2 K/mm3 (0-0.3); Eosinophils Percent Auto 1.8 % (0-4.4); Hematocrit 42.1 % (42.0-52.0); Hemoglobin 13.8 g/dL (14.0-18.0); Immature Granulocyte Absolute 0.22 K/mm3 (0.00-0.031); Lymphocytes Absolute Auto 1.81 K/mm3 (0.9-3.2); Lymphocytes Percent Auto 16.5 % (18.3-44.2); Mean Corpuscular HGB Conc 32.8 g/dl (32-36); Mean Corpuscular Hemoglobin 30.3 pg (26-34); Mean Corpuscular Volume 92.3 fl (80-100); Mean Platelet Volume 9.5 fl (7.4-10.4); Monocytes Absolute Auto 1.4 K/mm3 (0.1-0.6); Monocytes Percent Auto 13.1 % (2.6-8.5); Neutrophils Absolute Auto 7.3 K/mm3 (1.3-6.7); Neutrophils Percent Auto 66.3 % (45.5-73.1); Platelet Count Result 261 k/mm3 (150-375); Red Blood Count 4.56 M/mm3 (4.6-6.20); Red Cell Distribution Width 14.3 % (11.5-14.5)
[2020-07-08 07:22] LABS: Alanine Aminotransferase 17 U/L (4-50); Albumin Level 2.9 g/dL (3.5-5.1); Alkaline Phosphatase 63 U/L (38-126); Anion Gap 0 mmol/L (8-16); Aspartate Amino Transferase 24 U/L (17-59); Bilirubin,Total 0.5 mg/dL (0.2-1.3); Blood Urea Nitrogen 21 mg/dL (9-20); Carbon Dioxide 33 mmol/L (22-30); Chloride 101 mmol/L (98-107); Estimated CRCL calculation 76 ml/min; Estimated Glomerular Filt Rate > 60; Glucose 131 mg/dL (75-110); Magnesium 1.9 mg/dL (1.6-2.3); Potassium 3.9 mmol/L (3.4-5.0); Sodium 134 mmol/L (137-145)
[2020-07-08 08:09] VITALS: BP 124/82; PULSE 84; RESP 18; O2SAT 96
[2020-07-08 08:10] VITALS: PULSE 84
[2020-07-08] MEDS: METOPROLOL SUCCINATE EXT REL 100 MG TABCR PO (08:10)
[2020-07-08] MEDS: POTASSIUM CHLORIDE 20 MEQ TABLET.ER PO (08:11)
[2020-07-08] MEDS: CARBIDOPA/LEVODOPA 25/100 MG TABLET 1 TABLET PO ×4 (08:11→20:40)
[2020-07-08] MEDS: FUROSEMIDE 40 MG TABLET PO (08:11)
[2020-07-08] MEDS: guaiFENesin 12 HR 600 MG TABCR 1200 MG PO ×2 (08:11→20:40)
[2020-07-08 08:25] LABS: Folic Acid 7.8 ng/mL (2.76->20)
[2020-07-08 13:53] VITALS: BP 127/72; PULSE 92; RESP 16; TEMP 36.7; O2SAT 100
[2020-07-08] MEDS: RIVAROXABAN 20 MG TABLET PO (17:32)
[2020-07-08 21:53] VITALS: BP 121/75; PULSE 85; RESP 18; TEMP 36.1; O2SAT 100
[2020-07-09 06:00] VITALS: BP 141/88; PULSE 83; RESP 18; TEMP 36.1; O2SAT 100
[2020-07-09 08:16] VITALS: BP 134/83; PULSE 90; RESP 18; TEMP 36.4; O2SAT 98
[2020-07-09] MEDS: CARBIDOPA/LEVODOPA 25/100 MG TABLET 1 TABLET PO ×4 (08:19→21:05)
[2020-07-09] MEDS: POTASSIUM CHLORIDE 20 MEQ TABLET.ER PO (08:19)
[2020-07-09] MEDS: guaiFENesin 12 HR 600 MG TABCR 1200 MG PO ×2 (08:19→21:04)
[2020-07-09 08:20] VITALS: PULSE 90
[2020-07-09] MEDS: FUROSEMIDE 40 MG TABLET PO (08:20)
[2020-07-09] MEDS: METOPROLOL SUCCINATE EXT REL 100 MG TABCR PO (08:20)
[2020-07-09 08:31] LABS: Hematocrit 41.6 % (42.0-52.0); Mean Corpuscular HGB Conc 33.7 g/dl (32-36); Mean Platelet Volume 9.6 fl (7.4-10.4); Platelet Count Result 271 k/mm3 (150-375); Red Blood Count 4.52 M/mm3 (4.6-6.20); Red Cell Distribution Width 14.2 % (11.5-14.5); White Blood Count 12.2 K/mm3 (4.5-10.0)
[2020-07-09 08:43] LABS: Anion Gap 0 mmol/L (8-16); Blood Urea Nitrogen 16 mg/dL (9-20); Calcium 8.1 mg/dL (8.4-10.2); Carbon Dioxide 35 mmol/L (22-30); Chloride 99 mmol/L (98-107); Estimated CRCL calculation 87 ml/min; Estimated Glomerular Filt Rate > 60; Glucose 116 mg/dL (75-110); Potassium 4.3 mmol/L (3.4-5.0); Sodium 134 mmol/L (137-145)
--- NOTE | 2020-07-09 12:06 | PCSTNOTE ---
Please refer to the Modified Barium Swallow Evaluation in the EMR.
[2020-07-09 13:39] LABS: Add Urine Microscopic? YES; Appearance Urine Clear (Clear); Bilirubin Urine Negative (Negative); Blood Urine 1+ (Negative); Color Urine Yellow (Yellow); Glucose Urine UA Negative (Negative); Ketones Urine Negative (Negative); Leukocyte Esterase Ur Trace LEU/UL (Negative); Mucus Urine Rare /lpf; Nitrate Urine Negative (Negative); Protein Urine Negative (Negative); Specific Grav Ur 1.014 (1.001-1.035); Urobilinogen Urine Negative mg/dL (<2.0)
[2020-07-09 14:00] VITALS: BP 112/71; PULSE 96; RESP 18; TEMP 36.7; O2SAT 98
--- NOTE | 2020-07-09 15:16 | PM.IMPN ---
Progress Note: A&P Assessment and Plan (1) Urinary tract infection: Code(s): N39.0 - Urinary tract infection, site not specified Status: Acute Assessment and Plan: The patient reports dysuria several days ago which has improved. He was treated with bactrim outpatient but there was a delay. Our urine culture was obtained after he received antibiotics and negative but his urine culture outpatient demonstrates klebsiella. He continues to improve on IV antibiotics. WBC has improved. He is afebrile. Blood cultures demonstrate NGTD. Continue empiric ceftriaxone Plan for bactrim DS x7-10 days BID at discharge per urology recommendations Continue to monitor CBC (2) Generalized weakness: Code(s): R53.1 - Weakness Status: Acute Assessment and Plan: Likely secondary to UTI, deconditioning, and underlying Parkinson's disease. He is very eager to participate in physical therapy. Discussed with his today who notes progressive weakness over the past 6 months with limited mobility and has not been ambulating for 1 week. She notes he has not been exercising at home and does feel he will benefit from rehab. Vitamin B12 and folate are sufficient. Continue PT/OT Patient will likely benefit from rehab once ready for discharge (3) Cough: Code(s): R05 - Cough Status: Acute Assessment and Plan: Improved. Continue supportive care with expectorant COVID-19 test negative (4) Persistent atrial fibrillation: Code(s): I48.19 - Other persistent atrial fibrillation Status: Chronic Assessment and Plan: Chronic and persistent. Rate controlled. Continue metoprolol Continue rivaroxaban (5) Parkinson disease: Code(s): G20 - Parkinson's disease Status: Acute Assessment and Plan: He does note progressive weakness over the past 2-3 years, worsened in the past 6 months. He has hx of unsteady gait and tremor. WARRANTY MANAGER evaluated the patient and would like to continue Parkinson-specific therapy. No dietary changes are recommended. Continue carbidopa-levodopa, discussed with his who stated this was just increased by his neurologist to carbidopa 25-levodopa 100mg QID Continue PT/OT Rehab is anticipated at discharge (6) Chronic diastolic heart failure: Code(s): I50.32 - Chronic diastolic (congestive) heart failure Status: Chronic Assessment and Plan: He appeared a bit fluid positive on exam 07/07 with significant improvement following IV lasix. Continue furosemide 40mg PO QD Monitor volume status closely with strict intake and output, daily weights (7) Essential hypertension: Code(s): I10 - Essential (primary) hypertension Status: Chronic Assessment and Plan: Blood pressures are at target. Most recent BP is 127/72. Continue metoprolol Continue furosemide Continue to monitor and adjust treatment as indicated (8) Hyponatremia: Code(s): E87.1 - Hypo-osmolality and hyponatremia Status: Acute Assessment and Plan: Sodium was low on arrival at 130. He did receive gentle IV fluids which were discontinued as he is tolerating p.o. intake well. Sodium is stable at 134. Continue to monitor with BMP daily (9) Coagulopathy: Code(s): D68.9 - Coagulation defect, unspecified Status: Resolved Assessment and Plan: INR was 4.2 on admission so xarelto was held. He has no bleeding and repeat INR 2.9. Continue xarelto (10) Confusion: Code(s): R41.0 - Disorientation, unspecified Status: Acute Assessment and Plan: His noted confusion for 1 week prior to admission. I think this is most likely secondary to metabolic encephalopathy secondary to complicated UTI which is superimposed on underlying Parkinson's disease since there was a bit of delay in initiating antibiotics outpatient which has resolved. H
[2020-07-09] MEDS: RIVAROXABAN 20 MG TABLET PO (17:19)
--- NOTE | 2020-07-09 18:15 | PM.IMPN ---
Progress Note: A&P Assessment and Plan (1) Urinary tract infection: Code(s): N39.0 - Urinary tract infection, site not specified Status: Acute Assessment and Plan: The patient reports dysuria several days ago which has improved. He was treated with bactrim outpatient but there was a delay. Our urine culture was obtained after he received antibiotics and negative but his urine culture outpatient demonstrates klebsiella. He continues to improve on IV antibiotics. He is afebrile. Blood cultures demonstrate NGTD. WBC was elevated so I did repeat urine cultures. Continue empiric ceftriaxone Plan for bactrim DS x7-10 days BID at discharge per urology recommendations Continue to monitor CBC (2) Generalized weakness: Code(s): R53.1 - Weakness Status: Acute Assessment and Plan: Likely secondary to UTI, deconditioning, and underlying Parkinson's disease. He is very eager to participate in physical therapy. Discussed with his today who notes progressive weakness over the past 6 months with limited mobility and has not been ambulating for 1 week. She notes he has not been exercising at home and does feel he will benefit from rehab. Vitamin B12 and folate are sufficient. He did walk a few steps with therapy today. Continue PT/OT Patient will likely benefit from rehab once ready for discharge (3) Cough: Code(s): R05 - Cough Status: Acute Assessment and Plan: Improved. Continue supportive care with expectorant COVID-19 test negative (4) Persistent atrial fibrillation: Code(s): I48.19 - Other persistent atrial fibrillation Status: Chronic Assessment and Plan: Chronic and persistent. Rate controlled. Continue metoprolol Continue rivaroxaban (5) Parkinson disease: Code(s): G20 - Parkinson's disease Status: Acute Assessment and Plan: He does note progressive weakness over the past 2-3 years, worsened in the past 6 months. He has hx of unsteady gait and tremor. CREW CAR DRIVER evaluated the patient and would like to continue Parkinson-specific therapy. I did notice that his speech seems to be a bit hoarse. Initially, I was concerned that he may be at risk for aspiration if these were wet sounds and ordered modified barium swallow given his underlying Parkinson's disease. Modified barium swallow demonstrates trace penetration without overt aspiration appreciated. CXR demonstrates possible RUL infiltrate vs atelectasis however he is afebrile and this seems more consistent with atelectasis. Discussed with Portia Sumner and will try mildly thick liquids to see if he improves. Continue carbidopa-levodopa, discussed with his who stated this was just increased by his neurologist to carbidopa 25-levodopa 100mg QID Continue PT/OT Rehab is anticipated at discharge (6) Chronic diastolic heart failure: Code(s): I50.32 - Chronic diastolic (congestive) heart failure Status: Chronic Assessment and Plan: He appeared a bit fluid positive on exam 07/07 with significant improvement following IV lasix. Continue furosemide 40mg PO QD Monitor volume status closely with strict intake and output, daily weights (7) Essential hypertension: Code(s): I10 - Essential (primary) hypertension Status: Chronic Assessment and Plan: Blood pressures are at target. Most recent BP is 112/71. Continue metoprolol Continue furosemide Continue to monitor and adjust treatment as indicated (8) Hyponatremia: Code(s): E87.1 - Hypo-osmolality and hyponatremia Status: Acute Assessment and Plan: Sodium was low on arrival at 130. He did receive gentle IV fluids which were discontinued as he is tolerating p.o. intake well. Sodium is stable at 134. Continue to monitor with BMP daily (9) Coagulopathy: Code(s): D68.9 - Coagulation defect, unspecified Status:
[2020-07-09 22:00] VITALS: BP 129/75; PULSE 92; RESP 20; TEMP 36.6; O2SAT 100
[2020-07-10 06:00] VITALS: BP 132/75; PULSE 88; RESP 20; TEMP 36.5; O2SAT 98
[2020-07-10 06:17] LABS: Basophils Absolute Auto 0.1 K/mm3 (0.0-0.1); Basophils Percent Auto 0.6 % (0.2-1.2); Eosinophils Absolute Auto 0.2 K/mm3 (0-0.3); Eosinophils Percent Auto 1.5 % (0-4.4); Hematocrit 42.3 % (42.0-52.0); Hemoglobin 13.9 g/dL (14.0-18.0); Immature Granulocyte Absolute 0.41 K/mm3 (0.00-0.031); Immature Granulocyte Percent A 2.8 % (0-0.5); Lymphocytes Percent Auto 14.3 % (18.3-44.2); Mean Corpuscular HGB Conc 32.9 g/dl (32-36); Mean Corpuscular Hemoglobin 29.6 pg (26-34); Mean Platelet Volume 9.4 fl (7.4-10.4); Monocytes Absolute Auto 1.2 K/mm3 (0.1-0.6); Neutrophils Absolute Auto 10.7 K/mm3 (1.3-6.7); Neutrophils Percent Auto 72.8 % (45.5-73.1); Platelet Count Result 292 k/mm3 (150-375); White Blood Count 14.7 K/mm3 (4.5-10.0)
[2020-07-10 06:45] LABS: Anion Gap 3 mmol/L (8-16); Blood Urea Nitrogen 15 mg/dL (9-20); Carbon Dioxide 30 mmol/L (22-30); Chloride 99 mmol/L (98-107); Estimated CRCL calculation 100 ml/min; Estimated Glomerular Filt Rate > 60; Glucose 120 mg/dL (75-110); Potassium 4.2 mmol/L (3.4-5.0); Sodium 132 mmol/L (137-145)
[2020-07-10] MEDS: CARBIDOPA/LEVODOPA 25/100 MG TABLET 1 TABLET PO ×4 (08:12→21:14)
[2020-07-10] MEDS: guaiFENesin 12 HR 600 MG TABCR 1200 MG PO ×2 (08:12→21:14)
[2020-07-10] MEDS: POTASSIUM CHLORIDE 20 MEQ TABLET.ER PO (08:12)
[2020-07-10 08:13] VITALS: PULSE 77
[2020-07-10] MEDS: METOPROLOL SUCCINATE EXT REL 100 MG TABCR PO (08:13)
[2020-07-10] MEDS: FUROSEMIDE 40 MG TABLET PO (08:14)
--- NOTE | 2020-07-10 12:40 | PM.IMPN ---
Progress Note: A&P Assessment and Plan (1) Urinary tract infection: Code(s): N39.0 - Urinary tract infection, site not specified Status: Acute Assessment and Plan: The patient reports dysuria several days ago which has improved. He was treated with bactrim outpatient but there was a delay. Our urine culture was obtained after he received antibiotics and negative but his urine culture outpatient demonstrates klebsiella. He is afebrile. Blood cultures demonstrate NGTD. WBC increased so repeat urine culture was ordered and shows mixed madisny. Continue empiric ceftriaxone Plan for bactrim DS x7-10 days BID at discharge per urology recommendations Continue to monitor CBC (2) Aspiration pneumonia: Code(s): J69.0 - Pneumonitis due to inhalation of food and vomit Status: Acute Assessment and Plan: Repeat CXR demonstrated possible RUL infiltrate. He is afebrile but rales are worse in the RUL today with concern for possible aspiration with underlying Parkinson's disease and modified barium swallow demonstrating trace penetration uncontrolled with thin liquids. WBC has increased. Will stop ceftriaxone and initiate zosyn Discussed with METAL FABRICATING SHOP HELPER and will continue mildly thick liquids and Parkinson's specific exercises. He is doing very well on mildly thick liquids. Continue METAL FABRICATING SHOP HELPER therapy. If WBC improves, anticipate he can discharge on a PO antibiotic regimen (3) Generalized weakness: Code(s): R53.1 - Weakness Status: Acute Assessment and Plan: Likely secondary to UTI, deconditioning, and underlying Parkinson's disease. He is very eager to participate in physical therapy. Discussed with his today who notes progressive weakness over the past 6 months with limited mobility and has not been ambulating for 1 week. She notes he has not been exercising at home and does feel he will benefit from rehab. Vitamin B12 and folate are sufficient. He increased his walking distance with therapy and is eager to continue. Continue PT/OT Patient will likely benefit from rehab once ready for discharge (4) Cough: Code(s): R05 - Cough Status: Acute Assessment and Plan: Improved. Possibly secondary to aspiration pneumonia with plan as above. Continue supportive care with expectorant COVID-19 test negative (5) Persistent atrial fibrillation: Code(s): I48.19 - Other persistent atrial fibrillation Status: Chronic Assessment and Plan: Chronic and persistent. Rate controlled. Continue metoprolol Continue rivaroxaban (6) Parkinson disease: Code(s): G20 - Parkinson's disease Status: Acute Assessment and Plan: He does note progressive weakness over the past 2-3 years, worsened in the past 6 months. He has hx of unsteady gait and tremor. METAL FABRICATING SHOP HELPER evaluated the patient and would like to continue Parkinson-specific therapy. I did notice that his speech seems to be a bit hoarse. Initially, I was concerned that he may be at risk for aspiration if these were wet sounds and ordered modified barium swallow given his underlying Parkinson's disease. Modified barium swallow demonstrates trace penetration without overt aspiration appreciated. Discussed with Portia Sumner and will continue mildly thick liquids for now as well as speech therapy. Continue carbidopa-levodopa, discussed with his who stated this was just increased by his neurologist to carbidopa 25-levodopa 100mg QID Continue PT/OT Rehab is anticipated at discharge (7) Chronic diastolic heart failure: Code(s): I50.32 - Chronic diastolic (congestive) heart failure Status: Chronic Assessment and Plan: He appeared a bit fluid positive on exam 07/07 with significant improvement following IV lasix. Continue furosemide 40mg PO QD Monitor volume status closely with strict intake and output, daily weights (8) Essential hypertension
[2020-07-10 14:00] VITALS: BP 108/69; PULSE 89; RESP 18; TEMP 36.4; O2SAT 98
[2020-07-10 16:31] LABS: SARS-CoV-2 RNA PCR Negative
[2020-07-10] MEDS: RIVAROXABAN 20 MG TABLET PO (16:58)
[2020-07-10 22:00] VITALS: BP 101/63; PULSE 93; RESP 18; TEMP 36.2; O2SAT 100
[2020-07-11 06:00] VITALS: BP 106/64; PULSE 87; RESP 20; TEMP 36.2; O2SAT 96
[2020-07-11 06:26] LABS: Basophils Absolute Auto 0.1 K/mm3 (0.0-0.1); Basophils Percent Auto 0.6 % (0.2-1.2); Eosinophils Absolute Auto 0.3 K/mm3 (0-0.3); Eosinophils Percent Auto 1.8 % (0-4.4); Hematocrit 42.3 % (42.0-52.0); Immature Granulocyte Absolute 0.38 K/mm3 (0.00-0.031); Immature Granulocyte Percent A 2.5 % (0-0.5); Lymphocytes Absolute Auto 1.72 K/mm3 (0.9-3.2); Lymphocytes Percent Auto 11.2 % (18.3-44.2); Mean Corpuscular HGB Conc 33.1 g/dl (32-36); Mean Corpuscular Hemoglobin 29.7 pg (26-34); Mean Corpuscular Volume 89.8 fl (80-100); Mean Platelet Volume 9.1 fl (7.4-10.4); Monocytes Absolute Auto 1.3 K/mm3 (0.1-0.6); Monocytes Percent Auto 8.3 % (2.6-8.5); Neutrophils Absolute Auto 11.6 K/mm3 (1.3-6.7); Neutrophils Percent Auto 75.6 % (45.5-73.1); Platelet Count Result 294 k/mm3 (150-375); Red Blood Count 4.71 M/mm3 (4.6-6.20); Red Cell Distribution Width 14.1 % (11.5-14.5); White Blood Count 15.4 K/mm3 (4.5-10.0)
[2020-07-11 06:55] LABS: Anion Gap 1 mmol/L (8-16); Blood Urea Nitrogen 14 mg/dL (9-20); Carbon Dioxide 33 mmol/L (22-30); Chloride 97 mmol/L (98-107); Estimated CRCL calculation 77 ml/min; Estimated Glomerular Filt Rate > 60; Glucose 128 mg/dL (75-110); Potassium 4.2 mmol/L (3.4-5.0); Sodium 131 mmol/L (137-145)
[2020-07-11 08:21] LABS: CRP 7.4 mg/dL (<1.0)
[2020-07-11 09:04] VITALS: PULSE 84
[2020-07-11] MEDS: METOPROLOL SUCCINATE EXT REL 100 MG TABCR PO (09:04)
[2020-07-11] MEDS: guaiFENesin 12 HR 600 MG TABCR 1200 MG PO ×2 (09:04→22:36)
[2020-07-11] MEDS: CARBIDOPA/LEVODOPA 25/100 MG TABLET 1 TABLET PO ×4 (09:06→22:37)
[2020-07-11] MEDS: POTASSIUM CHLORIDE 20 MEQ TABLET.ER PO (09:06)
[2020-07-11] MEDS: FUROSEMIDE 40 MG TABLET PO (09:06)
--- NOTE | 2020-07-11 12:28 | PCNFU ---
Nutrition Follow-Up Complete: Inadequate oral Intake as related to UTI as evidenced by poor po intake reported. Goal: Adequate Intake of at least 75% of meals/supplements Progressing towards goal. We will continue current goal. Pt current nutrition is Heart Healthy with Mildly Thick liquids, Level 2. Last recorded weight is 105.3 kg down from 107.1 kg on admit. Bowel Motility:+BM reported 07/08 Labs Reviewed:Glu 128,Na 131 Meds Noted:KCL, Mucinex,Toprol,Lasix. Additional Notes: Nutrition follow up. Spoke with nursing today due to COVID precautions. Patient is alert and oriented today. Oral Intake has improved, today 75% of breakfast. Speech therapy is treating with swallowing exercises. Patient remains on Mildly Thick liquids, Level 2, no straws. Diet supplements: Ensure compact BID providing patient with 220 kcals and 9 gms protein. Monitoring: weight, labs, meds, oral intake every 5 days.
[2020-07-11 14:00] VITALS: BP 112/68; PULSE 75; RESP 18; TEMP 36.6; O2SAT 100
[2020-07-11] MEDS: RIVAROXABAN 20 MG TABLET PO (17:30)
--- NOTE | 2020-07-11 17:36 | PM.IMPN ---
Progress Note: A&P Assessment and Plan (1) Urinary tract infection: Code(s): N39.0 - Urinary tract infection, site not specified Status: Acute Assessment and Plan: The patient reports dysuria several days ago which has improved. He was treated with bactrim outpatient but there was a delay. Urine culture was obtained after he received antibiotics and was negative but his urine culture outpatient demonstrated klebsiella. He is afebrile. Blood cultures demonstrate NGTD. WBC increased so repeat urine culture was ordered and shows mixed madisyn. Continue empiric zosyn Plan for bactrim DS x7-10 days BID at discharge per urology recommendations Continue to monitor CBC (2) Aspiration pneumonia: Code(s): J69.0 - Pneumonitis due to inhalation of food and vomit Status: Acute Assessment and Plan: Repeat CXR demonstrated possible RUL infiltrate. He is afebrile but had worsening of his lung exam on 07/10 with concern for possible aspiration with underlying Parkinson's disease and modified barium swallow demonstrating trace penetration uncontrolled with thin liquids. WBC has increased but clinically he has improved. Continue IV zosyn Discussed with TRACTOR MECHANIC and will continue mildly thick liquids and Parkinson's specific exercises. He is doing very well on mildly thick liquids. Continue TRACTOR MECHANIC therapy. Continue supportive care to include expectorants, antipyretics as needed, cornet valve (3) Generalized weakness: Code(s): R53.1 - Weakness Status: Acute Assessment and Plan: Likely secondary to UTI, deconditioning, and underlying Parkinson's disease. His noted progressive weakness over the past 6 months with limited mobility and has not been ambulating for 1 week. She notes he has not been exercising at home and does feel he will benefit from rehab. Vitamin B12 and folate are sufficient. He increased his walking distance with therapy and is eager to continue. Continue PT/OT Care coordination following. Planning for rehab. He has been accepted for [facility] bed. (4) Persistent atrial fibrillation: Code(s): I48.19 - Other persistent atrial fibrillation Status: Chronic Assessment and Plan: Chronic and persistent. Rate controlled. Continue metoprolol Continue rivaroxaban (5) Parkinson disease: Code(s): G20 - Parkinson's disease Status: Acute Assessment and Plan: He does note progressive weakness over the past 2-3 years, worsened in the past 6 months. He has hx of unsteady gait and tremor. TRACTOR MECHANIC evaluated the patient and would like to continue Parkinson-specific therapy. Modified barium swallow demonstrates trace penetration without overt aspiration appreciated. Discussed with Portia Sumner and will continue mildly thick liquids for now as well as speech therapy. Continue carbidopa-levodopa, discussed with his who stated this was just increased by his neurologist to carbidopa 25-levodopa 100mg QID Continue PT/OT Rehab is anticipated at discharge (6) Chronic diastolic heart failure: Code(s): I50.32 - Chronic diastolic (congestive) heart failure Status: Chronic Assessment and Plan: He appeared a bit fluid positive on exam 07/07 with significant improvement following IV lasix. He is euvolemic on exam today Continue furosemide 40mg PO QD Monitor volume status closely with strict intake and output, daily weights (7) Essential hypertension: Code(s): I10 - Essential (primary) hypertension Status: Chronic Assessment and Plan: Blood pressures are at target. Most recent BP is 112/68. Continue metoprolol Continue furosemide Continue to monitor and adjust treatment as indicated (8) Hyponatremia: Code(s): E87.1 - Hypo-osmolality and hyponatremia Status: Acute Assessment and Plan: Sodium was low on arrival at 130. Sodium improved up to 135, however has slow
[2020-07-11 20:00] VITALS: PULSE 87; RESP 18; O2SAT 100
[2020-07-11 21:55] VITALS: BP 122/74; PULSE 83; RESP 18; TEMP 36.1; O2SAT 99
[2020-07-11] MEDS: SODIUM CHLORIDE 0.9% IV 1,000 ML 100 ML IV CONT (22:46)
[2020-07-12 06:00] VITALS: BP 127/66; PULSE 87; RESP 18; TEMP 36.4; O2SAT 100
[2020-07-12 06:30] LABS: Basophils Absolute Auto 0.1 K/mm3 (0.0-0.1); Basophils Percent Auto 0.5 % (0.2-1.2); Eosinophils Absolute Auto 0.3 K/mm3 (0-0.3); Eosinophils Percent Auto 1.8 % (0-4.4); Hematocrit 41.4 % (42.0-52.0); Hemoglobin 13.3 g/dL (14.0-18.0); Immature Granulocyte Absolute 0.33 K/mm3 (0.00-0.031); Immature Granulocyte Percent A 2.2 % (0-0.5); Lymphocytes Absolute Auto 1.67 K/mm3 (0.9-3.2); Lymphocytes Percent Auto 11.3 % (18.3-44.2); Mean Corpuscular HGB Conc 32.1 g/dl (32-36); Mean Corpuscular Hemoglobin 29.5 pg (26-34); Mean Corpuscular Volume 91.8 fl (80-100); Monocytes Absolute Auto 1.4 K/mm3 (0.1-0.6); Monocytes Percent Auto 9.4 % (2.6-8.5); Neutrophils Absolute Auto 11.1 K/mm3 (1.3-6.7); Neutrophils Percent Auto 74.8 % (45.5-73.1); Platelet Count Result 293 k/mm3 (150-375); Red Blood Count 4.51 M/mm3 (4.6-6.20); Red Cell Distribution Width 14.4 % (11.5-14.5); White Blood Count 14.8 K/mm3 (4.5-10.0)
[2020-07-12 06:45] LABS: Anion Gap -1 mmol/L (8-16); Blood Urea Nitrogen 13 mg/dL (9-20); Calcium 7.5 mg/dL (8.4-10.2); Carbon Dioxide 33 mmol/L (22-30); Chloride 100 mmol/L (98-107); Estimated CRCL calculation 69 ml/min; Estimated Glomerular Filt Rate > 60; Glucose 125 mg/dL (75-110); Potassium 4.2 mmol/L (3.4-5.0); Sodium 132 mmol/L (137-145)
[2020-07-12] MEDS: SODIUM CHLORIDE 0.9% IV 1,000 ML 100 ML IV CONT (08:03)
[2020-07-12 08:20] VITALS: PULSE 84
[2020-07-12] MEDS: FUROSEMIDE 40 MG TABLET PO (08:20)
[2020-07-12] MEDS: CARBIDOPA/LEVODOPA 25/100 MG TABLET 1 TABLET PO ×4 (08:20→19:46)
[2020-07-12] MEDS: guaiFENesin 12 HR 600 MG TABCR 1200 MG PO ×2 (08:20→19:47)
[2020-07-12] MEDS: METOPROLOL SUCCINATE EXT REL 100 MG TABCR PO (08:20)
[2020-07-12] MEDS: POTASSIUM CHLORIDE 20 MEQ TABLET.ER PO (08:21)
--- NOTE | 2020-07-12 12:58 | PM.DS ---
DS: Admitting Diagnosis Admitting Diagnosis Admitting Diagnosis: Weakness DS: Discharge Diagnosis Discharge Diagnosis (1) Urinary tract infection: Code(s): N39.0 - Urinary tract infection, site not specified Status: Acute Assessment and Plan: The patient reported dysuria several days prior to admission which resolved. he had an outpatient urine culture collected by his urologist and was started on Bactrim as an outpatient. Upon presentation to the ED, another urine culture was collected after he had been on antibiotics, therefore this was negative. Blood cultures showed NGTD. He was started on IV ceftriaxone for treatment of Klebsiella UTI, however upon development of aspiration pneumonia, he was transitioned to empiric Zosyn. He remained afebrile. He had mild leukocytosis which began trending downward. He will continue Augmentin for 7 days as an outpatient, based on initial susceptibility culture. This was discussed with Urology. He will need to follow-up with his urologist and will be contacted for an appointment. (2) Aspiration pneumonia: Code(s): J69.0 - Pneumonitis due to inhalation of food and vomit Status: Acute Assessment and Plan: There was concern for aspiration based on wet sounds and cough, especially in light of underlying Parkinson's disease and Trace penetration with thin liquids seen on modified barium swallow. He had worsening of his lung exam on 07/10. Repeat CXR was obtained and demonstrated possible RUL infiltrate. he was started on IV Zosyn. Aspiration precautions were initiated and he was transition to mildly thickened liquids with no straw. He continued to work with speech therapy for swallow exercise and will continue with speech therapy at [facility]. Supportive care provided including expectorants and Cornet valve. His lung sounds improved. He will continue Augmentin for 7 days to cover both UTI and aspiration pneumonia. (3) Generalized weakness: Code(s): R53.1 - Weakness Status: Acute Assessment and Plan: Likely secondary to UTI, deconditioning, and underlying Parkinson's disease. His noted progressive weakness over the past 6 months with limited mobility and he was not ambulating at home for 1 week. She notes he had not been exercising at home and does feel he will benefit from rehab. Vitamin B12 and folate are sufficient. He was evaluated by PT /OT and will continue with therapy at [address] He increased his walking distance with therapy and is eager to continue. (4) Parkinson disease: Code(s): G20 - Parkinson's disease Status: Acute Assessment and Plan: He noted progressive weakness over the past 2-3 years, worsened in the past 6 months. He has hx of unsteady gait and tremor. FRENCH PROFESSOR evaluated the patient and would like to continue Parkinson-specific therapy. Modified barium swallow demonstrated trace penetration without overt aspiration appreciated. Continue mildly thickened liquids with no straw as noted above. Continue speech therapy. Continue carbidopa-levodopa, discussed with his who stated this was just increased by his neurologist to carbidopa 25-levodopa 100mg QID. Continue rehab (5) Persistent atrial fibrillation: Code(s): I48.19 - Other persistent atrial fibrillation Status: Chronic Assessment and Plan: Chronic and persistent. Rate remained well controlled. Continue metoprolol and rivaroxaban (6) Chronic diastolic heart failure: Code(s): I50.32 - Chronic diastolic (congestive) heart failure Status: Chronic Assessment and Plan: He appeared a bit fluid positive on exam 07/07 with significant improvement following IV lasix. He was euvolemic following. Continue furosemide 40mg PO QD. continue heart healthy diet. (7) Essential hypertension: Code(s): I10 - Essential (primary) hypertension Status: Chronic Assessment
[2020-07-12 14:00] VITALS: BP 113/69; PULSE 86; RESP 18; TEMP 36.7; O2SAT 100
[2020-07-12] MEDS: RIVAROXABAN 20 MG TABLET PO (18:04)
[2020-07-12] MEDS: AMOXICILLIN/CLAVULANATE K 875-125 MG TAB 1 TABLET PO (19:45)
== END 2020-07-12 21:24 | disposition swing bed (61) | DRG 689 ==
LOC: ANHED 15:33 → ANH2MED 16:05 → ANH3MED 16:09 → ANH3MEDSUR 18:36
PROVIDERS: Family Medicine; Physician Assistant; Admitting Provider Internal Medicine; Emergency Provider Emergency Medicine; PCP Family Medicine; Visit Provider Physician Assistant
DX: N39.0 Urinary tract infection, site not specified (principal); G93.41 Metabolic encephalopathy; J69.0 Pneumonitis due to inhalation of food and vomit; I50.32 Chronic diastolic (congestive) heart failure; I48.19 Other persistent atrial fibrillation; G20 Parkinson's disease; E87.1 Hypo-osmolality and hyponatremia; Z20.822 Contact with and (suspected) exposure to COVID-19; C67.9 Malignant neoplasm of bladder, unspecified; I11.0 Hypertensive heart disease with heart failure; M19.91 Primary osteoarthritis, unspecified site; E78.5 Hyperlipidemia, unspecified; E78.00 Pure hypercholesterolemia, unspecified; I73.9 Peripheral vascular disease, unspecified; L71.9 Rosacea, unspecified; D68.9 Coagulation defect, unspecified; Z79.01 Long term (current) use of anticoagulants; Z86.711 Personal history of pulmonary embolism; Z86.718 Personal history of other venous thrombosis and embolism; Z85.828 Personal history of other malignant neoplasm of skin
CPT/HCPCS: 36415; 51701; 70450; 71045; 80048; 80053; 81001; 82550; 82607; 82728; 82746; 83036; 83605; 83615; 83735; 83880; 84443; 84484; 85025; 85027; 85610; 85730; 86140; 87040; 87086; 87088; 92526; 92610; 92611; 93005; 94640; 94667; 96361; 96365; 96375; 97110; 97116; 97161; 97165; 97530; 97535; 99285; A9270; C9803; G0378; J0696; J1940; J2543; J2930; J7030; U0003; U0005

== ENCOUNTER 2020-07-12 22:03 | Inpatient (IN) | payer MEDICARE, SELFPAY ==
--- NOTE | 2020-07-12 22:27 | WPDREHABHP ---
H&P: HPI History of Present Illness Date/Time: 07/12/20 22:27 Chief Complaint: Weakness following UTI/PNA and Parkinsons Narrative: Ace Sharp is a 79 year old male that was admitted to swing bed for weakness after a UTI as well as trouble with swallowing and speech. He admits significant frustration with brain fog, and not being able to speak as loud or fast as he wants to. The fatigue and weakness from his Parkinson's gives him significant distress. He really hopes the therapy improves his functioning. He also is anxious to get to and see his . He denies any pain or trouble breathing at this time. Review of Systems Constitutional Constitutional: Denies body ache(s), Denies chills, Reports fatigue, Reports lethargy, Denies night sweats and Reports weakness Eyes Eyes: Reports no additional eye complaints ENT Reports system reviewed and no additional complaints, except as documented Cardiovascular Cardiovascular: Denies chest pain, Denies lightheadedness and Denies palpitations Respiratory Respiratory: Reports no additional respiratory complaints and Denies dyspnea Gastrointestinal Gastrointestinal: Reports no additional gastrointestinal complaints Genitourinary Genitourinary: Reports no additional male genitourinary complaints Musculoskeletal Musculoskeletal: Reports no additional musculoskeletal complaints Integumentary/Breasts Skin/Breast: Reports system reviewed and no additional complaints, except as docu Neurologic Reports Abnormal speech present and Reports abnormal gait Comments: poor swallowing Psychiatric Psychiatric: Reports as per HPI [facility] Past Medical History Medical History Bladder tumor Chronic diastolic heart failure Echocardiogram on 03/23/2020 showed normal left ventricular systolic function and size with mild concentric left ventricular hypertrophy and ejection fraction measured at 74%. Claudication in peripheral vascular disease 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 terminal operations supervisor 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 Deep venous thrombosis (~2005) Essential hypertension History of pulmonary embolism (~2005) On long-term 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. Impaired fasting glucose Kidney stones Parkinson's disease Shuffling gait and right hand tremors. Persistent atrial fibrillation Primary osteoarthritis, unspecified site Pure hypercholesterolemia Rosacea Urothelial carcinoma of bladder (~11/2019) Followed by Dr. Craft. Cystoscopy in June 2020 demonstrated new lesions, scheduled for TURBT in September 2020. Surgical History Surgical History History of ankle surgery ORIF right ankle fracture. History of basal cell carcinoma excision Excised from the left brow. History of resection of small bowel (~01/2018) Secondary to closed loop bowel obstruction. Family History Family History Father Family history of diabetes mellitus in first degree relative Family history of coronary artery disease Sibling Family history of diabetes mellitus in first degree relative Family history of coronary artery disease Mother Family history of coronary artery disease Social History Social History Social History: The patient lives in [place] with his . 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 Lifelong nonsmoker. Consumes perhaps 1 alcoholic beverage a week. No illicit substance use. He designates his Jenise as his surrogate decision maker and wishes to be a full code. Spiritual care concerns: No Meds Home Medications and Allergies Home Medications Medication Instructions Recorded Confirmed Type furosemide 40 mg tablet 40 mg PO QAM #30 tablet 08/31/19 07/12/20 Rx potassium chloride 20 mEq 20 meq PO DAILY #30 tablet 08/31/19 07/12/20 Rx tablet,extended release atorvastatin 20 mg
[2020-07-12 22:29] VITALS: O2SAT 100
--- NOTE | 2020-07-12 22:50 | PC.NURSE ---
Dr Flores at bedside to examine pt
[2020-07-12 23:00] VITALS: BP 123/86; PULSE 80; RESP 18; TEMP 36.8; O2SAT 100
[2020-07-12 23:15] VITALS: BMI 34.8
--- NOTE | 2020-07-13 00:08 | ADMGEN ---
Ace Sharp, was admitted to 2nd Floor Room 205-2. Patient oriented to hospital room and general routines including ID bracelet, bed, pain management, procedures, bathroom and other care routines, personal items, room service/diet, and visiting hours. Patient encouraged to report perceived risks to care and to ask questions if they do not understand what they are told or what they should do.
[2020-07-13] MEDS: AMOXICILLIN/CLAVULANATE K 875-125 MG TAB 1 TABLET PO ×3 (00:11→21:20)
--- NOTE | 2020-07-13 00:15 | PC.NURSE ---
Given ice cream with medication
--- NOTE | 2020-07-13 03:37 | PC.NURSE ---
Very confused; incontinent of urine; trying to climb out of bed. States he has to go there. Reoriented to time, place, and situation. Gown and partial bed changed. Bed alarm activated for safety.
[2020-07-13 07:45] VITALS: BP 126/81; PULSE 89; RESP 18; TEMP 37; O2SAT 96
[2020-07-13 09:11] VITALS: PULSE 77
[2020-07-13] MEDS: POTASSIUM CHLORIDE 20 MEQ TABLET PO (09:11)
[2020-07-13] MEDS: METOPROLOL SUCCINATE EXT REL 50 MG TABCR 100 MG PO (09:11)
[2020-07-13] MEDS: ATORVASTATIN 10 MG TABLET 20 MG PO (09:11)
[2020-07-13] MEDS: FUROSEMIDE 40 MG TABLET PO (09:12)
[2020-07-13] MEDS: CARBIDOPA/LEVODOPA 25/100 MG TABLET 1 TABLET PO ×3 (09:12→18:38)
[2020-07-13 16:00] VITALS: BP 117/83; PULSE 86; RESP 18; TEMP 36.7; O2SAT 97
[2020-07-13] MEDS: RIVAROXABAN 10 MG TABLET 20 MG PO (18:00)
--- NOTE | 2020-07-13 21:13 | PC.NURSE ---
Patient notified nurse he needed to use urinal. Unable to hold himself.
--- NOTE | 2020-07-13 21:24 | PC.NURSE ---
Patient able to take medication whole-but did cut in half.. Offered to put to bed but asked if he could sleep in chair for now. Call light in reach. Able to use call light when needed
--- NOTE | 2020-07-13 23:30 | PC.NURSE ---
Patient resting in recliner. Call light in reach. Offered to assist to bed. Urinal offered. Declined.
[2020-07-14] VITALS: BP 135/89; PULSE 84; RESP 16; TEMP 36.4; O2SAT 94
--- NOTE | 2020-07-14 00:37 | PC.NURSE ---
Urinal offered. declined. Bed offered. declined
--- NOTE | 2020-07-14 03:01 | PC.NURSE ---
Patient resting in bedside chair.
--- NOTE | 2020-07-14 05:47 | PC.NURSE ---
Patient confused. Insisted he had not received am medication. When told he had stated nurse was a liar.Could not be convinced he had taken meds. Continues to insist he had a meeting today about Parkinsons.
--- NOTE | 2020-07-14 06:43 | PC.NURSE ---
Patient up in bedside chair. Still insists did not get medication.
[2020-07-14 07:20] VITALS: BP 118/75; PULSE 80; RESP 18; TEMP 37.3; O2SAT 95
[2020-07-14 09:22] VITALS: PULSE 80
[2020-07-14] MEDS: AMOXICILLIN/CLAVULANATE K 875-125 MG TAB 1 TABLET PO ×2 (09:22→21:27)
[2020-07-14] MEDS: POTASSIUM CHLORIDE 20 MEQ TABLET PO (09:22)
[2020-07-14] MEDS: ATORVASTATIN 10 MG TABLET 20 MG PO (09:22)
[2020-07-14] MEDS: CARBIDOPA/LEVODOPA 25/100 MG TABLET 1 TABLET PO ×3 (09:22→17:34)
[2020-07-14] MEDS: METOPROLOL SUCCINATE EXT REL 50 MG TABCR 100 MG PO (09:22)
[2020-07-14] MEDS: FUROSEMIDE 40 MG TABLET PO (09:23)
[2020-07-14 15:50] VITALS: BP 122/75; PULSE 87; RESP 18; TEMP 36.6; O2SAT 97
[2020-07-14] MEDS: RIVAROXABAN 10 MG TABLET 20 MG PO (17:34)
[2020-07-14 23:53] VITALS: BP 126/83; PULSE 86; RESP 20; TEMP 36.6; O2SAT 97
[2020-07-15 08:00] VITALS: BP 134/84; PULSE 86; RESP 18; TEMP 36.4; O2SAT 98
[2020-07-15 09:37] VITALS: PULSE 84
[2020-07-15] MEDS: ATORVASTATIN 10 MG TABLET 20 MG PO (09:37)
[2020-07-15] MEDS: FUROSEMIDE 40 MG TABLET PO (09:37)
[2020-07-15] MEDS: METOPROLOL SUCCINATE EXT REL 50 MG TABCR 100 MG PO (09:37)
[2020-07-15] MEDS: AMOXICILLIN/CLAVULANATE K 875-125 MG TAB 1 TABLET PO ×2 (09:37→21:06)
[2020-07-15] MEDS: POTASSIUM CHLORIDE 20 MEQ TABLET PO (09:37)
[2020-07-15] MEDS: CARBIDOPA/LEVODOPA 25/100 MG TABLET 1 TABLET PO ×3 (09:37→17:04)
[2020-07-15 16:00] VITALS: BP 120/77; PULSE 83; RESP 18; TEMP 36.2; O2SAT 97
[2020-07-15] MEDS: RIVAROXABAN 10 MG TABLET 20 MG PO (17:03)
[2020-07-15 23:25] VITALS: BP 145/90; PULSE 86; RESP 18; TEMP 36.7; O2SAT 97
--- NOTE | 2020-07-15 23:27 | PC.NURSE ---
Responded to call light, assisted patient with urinal, denies pain, oriented to person and place, re oriented on time of day, call light in reach
--- NOTE | 2020-07-16 00:41 | PC.NURSE ---
Called to room, assisted with urinal
--- NOTE | 2020-07-16 02:11 | PC.NURSE ---
Responded to call light, assisted with urinal, re oriented to time of day, states will stay in chair at this time, legs elevated
--- NOTE | 2020-07-16 03:40 | PC.NURSE ---
Responded to call light, assisted with urinal, voided 100ml, patient updated on time of day, denies any other needs
--- NOTE | 2020-07-16 04:30 | PC.NURSE ---
remains in chair per patient request to rest better, call light in reach, legs elevated
[2020-07-16 06:11] LABS: Hematocrit 45.4 % (37.0-46.0); Hemoglobin 14.4 g/dL (12.4-15.3); Mean Corpuscular HGB Conc 31.7 g/dL (32.0-36.0); Mean Corpuscular Hemoglobin 29.3 pg (27.0-31.0); Mean Corpuscular Volume 92.5 fL (78.0-102.0); Platelet Count Result 293 K/mm3 (150-420); Red Blood Count 4.91 M/mm3 (4.70-6.10); Red Cell Distribution Width 13.9 % (11.6-14.4); White Blood Count 10.8 K/mm3 (4.8-10.8)
--- NOTE | 2020-07-16 06:21 | PC.NURSE ---
Calling for urinal as needed, call light in reach, rested fair
[2020-07-16 06:22] LABS: Anion Gap 9 mmol/L (8-16); Blood Urea Nitrogen 9 mg/dL (7-18); Calcium 8.4 mg/dL (8.5-10.1); Carbon Dioxide 28 mmol/L (21-32); Chloride 99 mmol/L (98-108); Estimated CRCL calculation 77 ml/min; Estimated Glomerular Filt Rate > 60; Glucose 116 mg/dL (70-99); Osmolality Calculated 281 mOsm/kg (285-295); Potassium 4.2 mmol/L (3.5-5.1); Sodium 136 mmol/L (136-145)
--- NOTE | 2020-07-16 07:43 | PM.IMPN ---
Progress Note: A&P Assessment and Plan (1) Generalized weakness: Code(s): R53.1 - Weakness Status: Acute Assessment and Plan: 07/16/2020 physical therapy and occupational therapy working with patient and ordered increase strength and endurance with a goal of patient being able to perform some level of ADLs, also monitoring dietary intake for proper nutrition (2) Aspiration pneumonia: Code(s): J69.0 - Pneumonitis due to inhalation of food and vomit Status: Acute Assessment and Plan: 07/16/2020 patient is being given Augmentin twice a day last full day of dosing will be 07/17/2020, again speech therapy has been working with patient, patient has a flutter valve to assist with coughing up any phlegm (3) Parkinson disease: Code(s): G20 - Parkinson's disease Status: Acute Assessment and Plan: 07/16/2020 continue carbidopa levodopa combination, speech therapy assisting patient, continue with thickened liquids (4) Essential hypertension: Code(s): I10 - Essential (primary) hypertension Status: Chronic Assessment and Plan: 07/16/2020 continue metoprolol and Lasix, monitor vital signs, heart healthy diet, adjust medications as needed (5) Hyperlipidemia: Code(s): E78.5 - Hyperlipidemia, unspecified Status: Acute Assessment and Plan: 07/16/2020 continue atorvastatin home medication (6) Atrial fibrillation: Code(s): I48.91 - Unspecified atrial fibrillation Status: Acute Assessment and Plan: 07/16/2020 patient has history of atrial fibrillation will continue with metoprolol and Xarelto, may changed medications as needed Additional Plan 07/16/2020 patient has a history of PE and DVT, will continue Xarelto Subjective Date/time seen: 07/16/20 07:43 Patient says he is having a better time with speaking. He believes he is doing okay with physical therapy. Patient denies any difficulty with breathing no chest pain no abdominal issues. He says that his bowel and bladder function are normal. The only question patient had today was when physical therapy was going to show up. Review of Systems Constitutional: Constitutional: Reports no additional constitutional complaints Cardiovascular: Cardiovascular: Reports no additional cardiovascular complaints, Denies chest pain, Denies chest pain at rest and Denies chest pain with activity Respiratory: Respiratory: Reports no additional respiratory complaints, Denies dyspnea and Denies dyspnea on exertion Gastrointestinal: Gastrointestinal: Reports no additional gastrointestinal complaints Genitourinary: Genitourinary: Reports no additional male genitourinary complaints Musculoskeletal: Musculoskeletal: Reports muscle weakness Comments: Had some difficulty pulling himself up in his chair Exam Const: General: cooperative, comfortable, no acute distress, alert, awake, Physically active and tired appearing Nutritional Appearance: overweight Resp: Effort & Inspection: normal respiratory effort Auscultation: rhonchi (scattered throughout minimal) Cardio: Rate: regular rate Heart sounds: S1 normal heart sound present and S2 normal heart sound present GI: GI Palp: Yes Soft to palpation and No Tenderness to palpation present (GI) Auscultation: normal bowel sounds Extrem: General: other (tenderness bilateral lower extremities with nonpitting edema) Objective Data Vital Signs Vital Signs: Vital Signs - 24 hr 07/15/20 08:00 07/15/20 09:37 07/15/20 16:00 Temperature 97.6 F 97.2 F L Pulse Rate 86 84 83 Respiratory Rate 18 18 Blood Pressure 134/84 120/77 Pulse Oximetry 98 97 07/15/20 23:25 Temperature 98.1 F Pulse Rate 86 Respiratory Rate 18 Blood Pressure 145/90 H Pulse Oximetry 97 Intake/Output Intake/Output: Intake & Output 07/13/20 07/14/20 07/15/20 07/16/20 23:59 23:59 23:59 23:59 Intake Total 240 204 2402 100 Output Total 8328 421 4808 350 Balance -405 40 -
[2020-07-16 08:00] VITALS: BP 123/80; PULSE 94; RESP 16; TEMP 37.1; O2SAT 96
[2020-07-16] MEDS: FUROSEMIDE 40 MG TABLET PO (09:38)
[2020-07-16] MEDS: CARBIDOPA/LEVODOPA 25/100 MG TABLET 1 TABLET PO ×3 (09:38→17:16)
[2020-07-16] MEDS: ATORVASTATIN 10 MG TABLET 20 MG PO (09:38)
[2020-07-16 09:39] VITALS: PULSE 94
[2020-07-16] MEDS: METOPROLOL SUCCINATE EXT REL 50 MG TABCR 100 MG PO (09:39)
[2020-07-16] MEDS: AMOXICILLIN/CLAVULANATE K 875-125 MG TAB 1 TABLET PO ×2 (09:40→21:29)
[2020-07-16] MEDS: POTASSIUM CHLORIDE 20 MEQ TABLET PO (09:40)
[2020-07-16 16:00] VITALS: BP 118/87; PULSE 96; RESP 18; TEMP 36.8; O2SAT 96
[2020-07-16] MEDS: RIVAROXABAN 10 MG TABLET 20 MG PO (17:16)
--- NOTE | 2020-07-16 22:56 | PC.NURSE ---
Freelance Director and ore charger assisted patient with repositioning. Patient choosing not to get into bed and to sleep in recliner in room. Patient was assisted to standing positioning and cream applied to bottom per patient request, sore present to bottom, right side. Patient was educated per flex o writer operator about turning and repositioning and relieving pressure to bottom to promote healing.
--- NOTE | 2020-07-16 22:59 | PC.NURSE ---
Core Laying Machine Operator encouraging urinal use per patient. Core Laying Machine Operator to assist as needed. Patient able to hold urinal and place. Continue to encourage.
[2020-07-17] VITALS: BP 121/79; PULSE 88; RESP 20; TEMP 36.2; O2SAT 95
--- NOTE | 2020-07-17 06:32 | PC.NURSE ---
Patient has not slept this evening. Patient up in recliner, per request. Confusion noted redirection given several times. Patient continues to urinate frequently, small amounts between 75-125cc each time. Urine is yellow and slightly turbid. Currently patient is eating applesauce and alma crackers.
[2020-07-17 07:25] VITALS: BP 119/84; PULSE 94; RESP 18; TEMP 37.2; O2SAT 95
[2020-07-17 08:58] VITALS: PULSE 94
[2020-07-17] MEDS: FUROSEMIDE 40 MG TABLET PO (08:58)
[2020-07-17] MEDS: ATORVASTATIN 10 MG TABLET 20 MG PO (08:58)
[2020-07-17] MEDS: METOPROLOL SUCCINATE EXT REL 50 MG TABCR 100 MG PO (08:58)
[2020-07-17] MEDS: AMOXICILLIN/CLAVULANATE K 875-125 MG TAB 1 TABLET PO ×2 (08:58→21:45)
[2020-07-17] MEDS: CARBIDOPA/LEVODOPA 25/100 MG TABLET 1 TABLET PO ×3 (08:58→17:55)
[2020-07-17] MEDS: POTASSIUM CHLORIDE 20 MEQ TABLET PO (08:59)
[2020-07-17] MEDS: ACETAMINOPHEN 325 MG TABLET 650 MG PO (14:27)
[2020-07-17 16:45] VITALS: BP 104/67; PULSE 89; RESP 18; TEMP 37.1; O2SAT 97
[2020-07-17] MEDS: RIVAROXABAN 10 MG TABLET 20 MG PO (17:55)
--- NOTE | 2020-07-17 23:59 | PC.NURSE ---
Sitting up in recliner, states comfortable, call light, phone and belongings within reach. Reviewed use of call light.
[2020-07-18] VITALS: BP 110/80; PULSE 87; RESP 16; TEMP 36.8; O2SAT 94
--- NOTE | 2020-07-18 05:19 | PC.NURSE ---
Sleeping in recliner; skin pink, respirations easy/unlabored.
[2020-07-18 07:25] VITALS: BP 118/86; PULSE 92; RESP 18; TEMP 36.9; O2SAT 96
[2020-07-18 08:43] VITALS: PULSE 92
[2020-07-18] MEDS: METOPROLOL SUCCINATE EXT REL 50 MG TABCR 100 MG PO (08:43)
[2020-07-18] MEDS: POTASSIUM CHLORIDE 20 MEQ TABLET PO (08:43)
[2020-07-18] MEDS: ATORVASTATIN 10 MG TABLET 20 MG PO (08:44)
[2020-07-18] MEDS: AMOXICILLIN/CLAVULANATE K 875-125 MG TAB 1 TABLET PO ×2 (08:44→21:10)
[2020-07-18] MEDS: FUROSEMIDE 40 MG TABLET PO (08:44)
[2020-07-18] MEDS: CARBIDOPA/LEVODOPA 25/100 MG TABLET 1 TABLET PO ×3 (08:45→16:43)
[2020-07-18 16:40] VITALS: BP 113/66; PULSE 87; RESP 18; TEMP 37.1; O2SAT 95
[2020-07-18] MEDS: RIVAROXABAN 10 MG TABLET 20 MG PO (16:42)
[2020-07-19] VITALS: BP 114/87; PULSE 86; RESP 18; TEMP 36.6; O2SAT 98
--- NOTE | 2020-07-19 04:13 | PC.NURSE ---
pt incontinent of urine, assisted to stand with jyoti steady/ gait belt x2 RN, tiffany care provided and clean linens, returned to chair, pt tolerated well
[2020-07-19 07:50] VITALS: BP 108/66; PULSE 96; RESP 18; TEMP 36.6; O2SAT 97
[2020-07-19 08:53] VITALS: PULSE 96
[2020-07-19] MEDS: CARBIDOPA/LEVODOPA 25/100 MG TABLET 1 TABLET PO ×3 (08:53→16:53)
[2020-07-19] MEDS: FUROSEMIDE 40 MG TABLET PO (08:53)
[2020-07-19] MEDS: METOPROLOL SUCCINATE EXT REL 50 MG TABCR 100 MG PO (08:53)
[2020-07-19] MEDS: POTASSIUM CHLORIDE 20 MEQ TABLET PO (08:53)
[2020-07-19] MEDS: ATORVASTATIN 10 MG TABLET 20 MG PO (08:54)
[2020-07-19] MEDS: AMOXICILLIN/CLAVULANATE K 875-125 MG TAB 1 TABLET PO ×2 (08:55→21:10)
[2020-07-19 16:00] VITALS: BP 98/72; PULSE 95; RESP 18; TEMP 36.3; O2SAT 96
[2020-07-19] MEDS: RIVAROXABAN 10 MG TABLET 20 MG PO (16:53)
[2020-07-20] VITALS: BP 100/71; PULSE 86; RESP 20; TEMP 36.7; O2SAT 95
[2020-07-20 08:00] VITALS: BP 110/68; PULSE 90; RESP 20; TEMP 37.2; O2SAT 95
[2020-07-20 08:44] VITALS: PULSE 84
[2020-07-20] MEDS: POTASSIUM CHLORIDE 20 MEQ TABLET PO (08:44)
[2020-07-20] MEDS: FUROSEMIDE 40 MG TABLET PO (08:44)
[2020-07-20] MEDS: AMOXICILLIN/CLAVULANATE K 875-125 MG TAB 1 TABLET PO ×2 (08:44→22:08)
[2020-07-20] MEDS: ATORVASTATIN 10 MG TABLET 20 MG PO (08:44)
[2020-07-20] MEDS: METOPROLOL SUCCINATE EXT REL 50 MG TABCR 100 MG PO (08:44)
[2020-07-20] MEDS: CARBIDOPA/LEVODOPA 25/100 MG TABLET 1 TABLET PO ×3 (08:45→16:51)
[2020-07-20 16:00] VITALS: BP 108/68; PULSE 78; RESP 20; TEMP 36.6; O2SAT 95
[2020-07-20] MEDS: RIVAROXABAN 10 MG TABLET 20 MG PO (16:50)
[2020-07-21] VITALS: BP 109/65; PULSE 90; RESP 20; TEMP 37.1; O2SAT 96
[2020-07-21 05:44] LABS: Hematocrit 44.4 % (37.0-46.0); Hemoglobin 14.2 g/dL (12.4-15.3); Mean Corpuscular Hemoglobin 29.9 pg (27.0-31.0); Mean Corpuscular Volume 93.5 fL (78.0-102.0); Mean Platelet Volume 9.4 fl (8.7-11.0); Platelet Count Result 226 K/mm3 (150-420); Red Blood Count 4.75 M/mm3 (4.70-6.10); Red Cell Distribution Width 14.2 % (11.6-14.4)
[2020-07-21 06:02] LABS: Anion Gap 8 mmol/L (8-16); Blood Urea Nitrogen 17 mg/dL (7-18); Calcium 8.4 mg/dL (8.5-10.1); Carbon Dioxide 28 mmol/L (21-32); Chloride 101 mmol/L (98-108); Estimated CRCL calculation 81 ml/min; Estimated Glomerular Filt Rate > 60; Glucose 118 mg/dL (70-99); Osmolality Calculated 286 mOsm/kg (285-295); Potassium 3.9 mmol/L (3.5-5.1); Sodium 137 mmol/L (136-145)
[2020-07-21 08:00] VITALS: BP 174/66; PULSE 80; RESP 20; TEMP 37.2; O2SAT 96
[2020-07-21 09:12] VITALS: PULSE 74
[2020-07-21] MEDS: FUROSEMIDE 40 MG TABLET PO (09:12)
[2020-07-21] MEDS: AMOXICILLIN/CLAVULANATE K 875-125 MG TAB 1 TABLET PO ×2 (09:12→22:04)
[2020-07-21] MEDS: METOPROLOL SUCCINATE EXT REL 50 MG TABCR 100 MG PO (09:12)
[2020-07-21] MEDS: CARBIDOPA/LEVODOPA 25/100 MG TABLET 1 TABLET PO ×3 (09:12→17:02)
[2020-07-21] MEDS: ATORVASTATIN 10 MG TABLET 20 MG PO (09:12)
[2020-07-21] MEDS: POTASSIUM CHLORIDE 20 MEQ TABLET PO (09:13)
[2020-07-21 16:00] VITALS: BP 112/69; PULSE 85; RESP 18; TEMP 37; O2SAT 98
[2020-07-21] MEDS: RIVAROXABAN 10 MG TABLET 20 MG PO (17:02)
--- NOTE | 2020-07-21 20:58 | PC.NURSE ---
Pt. sitting in chair, watching TV, legs elevated. Denies any c/o at this time. Call whatley in reach.
[2020-07-22] VITALS: BP 112/78; PULSE 84; RESP 20; TEMP 36.3; O2SAT 98
--- NOTE | 2020-07-22 07:19 | P.PN_ITS ---
Progress Note: A&P Assessment and Plan (1) Generalized weakness: Code(s): R53.1 - Weakness <Roque GomesPATRICK - Last Filed: 07/22/20 07:33> Status: Acute <Roque GomesPATRICK - Last Filed: 07/22/20 07:33> Assessment and Plan: ? Exhibit tolerance during physical activity as evidenced by a normal fluctuation of vital signs during physical activity. ? Patient will be ability to perform required activities of daily living. ? Provide appropriate nutrition for healing and strength. ? Use appropriate to prevent falls. ? Continue physical therapy/occupational therapy. <Ikertristan ThaiPATRICK Jay - Last Filed: 07/22/20 07:33> (2) Aspiration pneumonia: Qualifiers: Aspiration pneumonia type: unspecified Laterality: unspecified laterality Lung location: unspecified part of lung Qualified Code(s): J69.0 - Pneumonitis due to inhalation of food and vomit <Roque ThaiPATRICK Jay - Last Filed: 07/22/20 07:33> Code(s): J69.0 - Pneumonitis due to inhalation of food and vomit <Roque AndreRICO JayBradyKary - Last Filed: 07/22/20 07:33> Status: Acute <Roque GomesRICOBradyKary - Last Filed: 07/22/20 07:33> Assessment and Plan: * Augmentin completed on 07/17/2020 * Continue speech therapy * flutter valve to assist with coughing up any phlegm <PATRICK Echevarria - Last Filed: 07/22/20 07:33> (3) Parkinson disease: Code(s): G20 - Parkinson's disease <Ikertristan ThaiPTARICK Jay - Last Filed: 07/22/20 07:33> Status: Acute <Roque GomesPATRICK - Last Filed: 07/22/20 07:33> Assessment and Plan: * continue carbidopa levodopa combination, speech therapy assisting patient, * continue with thickened liquids <Roque ThaiPATRICK Jay - Last Filed: 07/22/20 07:33> (4) Essential (primary) hypertension: Code(s): I10 - Essential (primary) hypertension <Roque GomesPATRICK - Last Filed: 07/22/20 07:33> Status: Acute <Roque GomesPATRICK - Last Filed: 07/22/20 07:33> Assessment and Plan: * Continue metoprolol and Lasix * Vital signs as ordered * Adjust medications <Roque GomesPATRICK - Last Filed: 07/22/20 07:33> (5) Hyperlipidemia: Qualifiers: Hyperlipidemia type: unspecified Qualified Code(s): E78.5 - Hyperlipidemia, unspecified <Roque GomesPATRICK - Last Filed: 07/22/20 07:33> Code(s): E78.5 - Hyperlipidemia, unspecified <Roque GomesPATRICK - Last Filed: 07/22/20 07:33> Status: Acute <Roque GomesPATRICK - Last Filed: 07/22/20 07:33> Assessment and Plan: * Continue atorvastatin <Roque Lopez PATRICK Gomes - Last Filed: 07/22/20 07:33> (6) Atrial fibrillation: Qualifiers: Atrial fibrillation type: unspecified Qualified Code(s): I48.91 - Unspecified atrial fibrillation <Roque GomesPATRCIK - Last Filed: 07/22/20 07:33> Code(s): I48.91 - Unspecified atrial fibrillation <Roque GomesPATRICK - Last Filed: 07/22/20 07:33> Status: Acute <Roque GomesPATRICK - Last Filed: 07/22/20 07:33> Assessment and Plan: * Controlled * Continue metoprolol and Xarelto <Roque Lopez PATRICK Gomes - Last Filed: 06/25 07:33> Review of Systems Review of Systems: All systems reviewed & are unremarkable except as noted in HPI and below (10 point system review) <Roque Lopez PATRICK Gomes - Last Filed: 07/22/20 07:33> Exam Narrative: Exam Narrative: GENERAL: This is a well-nourished
--- NOTE | 2020-07-22 07:19 | WPDPN ---
Progress Note: A&P Assessment and Plan (1) Generalized weakness: Code(s): R53.1 - Weakness <Roque ThaiPATRICK Jay - Last Filed: 07/22/20 07:33> Status: Acute <Ikertristan ThaiPATRICK Jay - Last Filed: 07/22/20 07:33> Assessment and Plan: ? Exhibit tolerance during physical activity as evidenced by a normal fluctuation of vital signs during physical activity. ? Patient will be ability to perform required activities of daily living. ? Provide appropriate nutrition for healing and strength. ? Use appropriate to prevent falls. ? Continue physical therapy/occupational therapy. <PATRICK Echevarria - Last Filed: 07/22/20 07:33> (2) Aspiration pneumonia: Qualifiers: Aspiration pneumonia type: unspecified Laterality: unspecified laterality Lung location: unspecified part of lung Qualified Code(s): J69.0 - Pneumonitis due to inhalation of food and vomit <PATRICK Echevarria - Last Filed: 07/22/20 07:33> Code(s): J69.0 - Pneumonitis due to inhalation of food and vomit <PATRICK Echevarria - Last Filed: 07/22/20 07:33> Status: Acute <PATRICK Echevarria - Last Filed: 07/22/20 07:33> Assessment and Plan: Augmentin completed on 07/17/2020 Continue speech therapy flutter valve to assist with coughing up any phlegm <PATRICK Echevarria - Last Filed: 07/22/20 07:33> (3) Parkinson disease: Code(s): G20 - Parkinson's disease <PATRICK Echevarria - Last Filed: 07/22/20 07:33> Status: Acute <PATRICK Echevarria - Last Filed: 07/22/20 07:33> Assessment and Plan: continue carbidopa levodopa combination, speech therapy assisting patient, continue with thickened liquids <PATRICK Echevarria - Last Filed: 07/22/20 07:33> (4) Essential (primary) hypertension: Code(s): I10 - Essential (primary) hypertension <Roque Gomes SAP SOLUTION MANAGER CONSULTANT-C - Last Filed: 07/22/20 07:33> Status: Acute <Roque Gomes SAP SOLUTION MANAGER CONSULTANTBradyKary - Last Filed: 07/22/20 07:33> Assessment and Plan: Continue metoprolol and Lasix Vital signs as ordered Adjust medications <Roque Gomes SAP SOLUTION MANAGER CONSULTANT-C - Last Filed: 07/22/20 07:33> (5) Hyperlipidemia: Qualifiers: Hyperlipidemia type: unspecified Qualified Code(s): E78.5 - Hyperlipidemia, unspecified <Roque Gomes SAP SOLUTION MANAGER CONSULTANT-C - Last Filed: 07/22/20 07:33> Code(s): E78.5 - Hyperlipidemia, unspecified <Roque Gomes SAP SOLUTION MANAGER CONSULTANTBradyKary - Last Filed: 07/22/20 07:33> Status: Acute <Roque Gomes SAP SOLUTION MANAGER CONSULTANT-C - Last Filed: 07/22/20 07:33> Assessment and Plan: Continue atorvastatin <Roque GomesPATRICK - Last Filed: 07/22/20 07:33> (6) Atrial fibrillation: Qualifiers: Atrial fibrillation type: unspecified Qualified Code(s): I48.91 - Unspecified atrial fibrillation <Roque GomesPATRICK - Last Filed: 07/22/20 07:33> Code(s): I48.91 - Unspecified atrial fibrillation <Roque Gomes SAP SOLUTION MANAGER CONSULTANT-C - Last Filed: 07/22/20 07:33> Status: Acute <Roque GomesPATRICK - Last Filed: 07/22/20 07:33> Assessment and Plan: Controlled Continue metoprolol and Xarelto <Roque Gomes SAP SOLUTION MANAGER CONSULTANT-C - Last Filed: 07/22/20 07:33> Review of Systems Review of Systems: All systems reviewed & are unremarkable except as noted in HPI and below (10 point system review) <Roque GomesPATRICK - Last Filed: 07/22/20 07:33> Exam Narrative: Exam Narrative: GENERAL: This is a well-nourished, well-developed patient, in no apparent distress. HEAD: normocephalic, atraumatic. EYES: PERRL. Sclera clear/white. Vision is grossly intact. EARS: External ears normal, auditory canals clear and without drainage, TMs normal without perforation. Hearing grossly intact. NOSE: External nose normal with no obvious nasal discharge, nares without redness, no rhinorrhea. THROAT: Mucous membran
[2020-07-22 08:00] VITALS: BP 117/77; PULSE 90; RESP 16; TEMP 37.3; O2SAT 98
[2020-07-22] MEDS: ATORVASTATIN 10 MG TABLET 20 MG PO (08:42)
[2020-07-22] MEDS: FUROSEMIDE 40 MG TABLET PO (08:42)
[2020-07-22] MEDS: AMOXICILLIN/CLAVULANATE K 875-125 MG TAB 1 TABLET PO ×2 (08:42→21:12)
[2020-07-22 08:43] VITALS: PULSE 90
[2020-07-22] MEDS: METOPROLOL SUCCINATE EXT REL 50 MG TABCR 100 MG PO (08:43)
[2020-07-22] MEDS: POTASSIUM CHLORIDE 20 MEQ TABLET PO (08:44)
[2020-07-22] MEDS: CARBIDOPA/LEVODOPA 25/100 MG TABLET 1 TABLET PO ×3 (08:44→17:21)
[2020-07-22 16:00] VITALS: BP 120/84; PULSE 84; RESP 18; TEMP 36.9; O2SAT 99
[2020-07-22] MEDS: RIVAROXABAN 10 MG TABLET 20 MG PO (17:21)
[2020-07-23] VITALS: BP 114/81; PULSE 90; RESP 20; TEMP 36.7; O2SAT 97
[2020-07-23 05:07] LABS: Hematocrit 45.7 % (37.0-46.0); Hemoglobin 14.4 g/dL (12.4-15.3); Mean Corpuscular HGB Conc 31.5 g/dL (32.0-36.0); Mean Corpuscular Hemoglobin 29.2 pg (27.0-31.0); Mean Corpuscular Volume 92.7 fL (78.0-102.0); Mean Platelet Volume 9.6 fl (8.7-11.0); Platelet Count Result 214 K/mm3 (150-420); Red Blood Count 4.93 M/mm3 (4.70-6.10); Red Cell Distribution Width 14.4 % (11.6-14.4); White Blood Count 10.6 K/mm3 (4.8-10.8)
[2020-07-23 05:17] LABS: Anion Gap 8 mmol/L (8-16); Blood Urea Nitrogen 14 mg/dL (7-18); Calcium 8.4 mg/dL (8.5-10.1); Carbon Dioxide 28 mmol/L (21-32); Chloride 98 mmol/L (98-108); Estimated CRCL calculation 75 ml/min; Estimated Glomerular Filt Rate > 60; Glucose 121 mg/dL (70-99); Osmolality Calculated 279 mOsm/kg (285-295); Sodium 134 mmol/L (136-145)
[2020-07-23 08:00] VITALS: BP 111/65; PULSE 95; RESP 20; TEMP 36.9; O2SAT 94
[2020-07-23 08:27] VITALS: PULSE 95
[2020-07-23] MEDS: METOPROLOL SUCCINATE EXT REL 50 MG TABCR 100 MG PO (08:27)
[2020-07-23] MEDS: CARBIDOPA/LEVODOPA 25/100 MG TABLET 1 TABLET PO ×3 (08:27→16:48)
[2020-07-23] MEDS: ATORVASTATIN 10 MG TABLET 20 MG PO (08:27)
[2020-07-23] MEDS: POTASSIUM CHLORIDE 20 MEQ TABLET PO (08:28)
[2020-07-23] MEDS: FUROSEMIDE 40 MG TABLET PO (08:28)
--- NOTE | 2020-07-23 12:55 | PC.NURSE ---
Sitting in recliner sleeping.
--- NOTE | 2020-07-23 14:16 | PC.NURSE ---
Ambulated to bed after passing stool with steady gait. Assisted to get into bed. Turned to right side. Back and buttock washed with skin cleanser wipes. Lotion applied to back, skin cream applied to buttocks. Buttocks dull red purple, advised patient of need to stay on side for two hours to prevent pressure sore formation. Patient agrees to same. Call light, phone and belongings within reach.
--- NOTE | 2020-07-23 15:50 | PC.NURSE ---
Found sitting at side of bed; States he wants Jenise called to pick him up. States he's at [facility] house and needs to get home to go to school. Reoriented, agitated, called Jenise and patient spoke with Jenise at length, verbalizes understanding of need to stay at hospital.
[2020-07-23 16:00] VITALS: BP 117/79; PULSE 94; RESP 20; TEMP 37.2; O2SAT 100
[2020-07-23] MEDS: RIVAROXABAN 10 MG TABLET 20 MG PO (16:48)
[2020-07-23 18:07] LABS: BNP 87.8 pg/mL (0-100)
--- NOTE | 2020-07-23 21:11 | PC.NURSE ---
pt assisted to bed with walker, gait belt and 2 RN's, pt tolerated well. pt confused, bed alarm on
[2020-07-23 23:32] VITALS: BP 109/67; PULSE 90; RESP 20; TEMP 36.6; O2SAT 98
--- NOTE | 2020-07-24 00:14 | PC.NURSE ---
pt confused and attempted to get out of bed, bed alarm activated, pt sitting on side of bed stated he was wet, pt cleaned with bath wipes, barrier cream applied, linen changed, pt assisted to supine position, bed alarm reset
--- NOTE | 2020-07-24 02:00 | PC.NURSE ---
pt sleeping, no evidence of distress noted, call light and belongings within reach
[2020-07-24 08:00] VITALS: BP 109/74; PULSE 84; RESP 18; TEMP 36.9; O2SAT 96
[2020-07-24 09:49] VITALS: PULSE 72
[2020-07-24] MEDS: CARBIDOPA/LEVODOPA 25/100 MG TABLET 1 TABLET PO ×3 (09:49→16:42)
[2020-07-24] MEDS: FUROSEMIDE 40 MG TABLET PO (09:49)
[2020-07-24] MEDS: POTASSIUM CHLORIDE 20 MEQ TABLET PO (09:49)
[2020-07-24] MEDS: METOPROLOL SUCCINATE EXT REL 50 MG TABCR 100 MG PO (09:49)
[2020-07-24] MEDS: ATORVASTATIN 10 MG TABLET 20 MG PO (09:49)
[2020-07-24 15:32] VITALS: BP 103/71; PULSE 80; RESP 20; TEMP 36.4; O2SAT 98
[2020-07-24] MEDS: RIVAROXABAN 10 MG TABLET 20 MG PO (16:42)
--- NOTE | 2020-07-24 19:12 | PC.NURSE ---
[facility] Ur[facility] offered but declined. Call light in reach.
--- NOTE | 2020-07-24 20:10 | PC.NURSE ---
Patient sitting up in recliner. Repositioned for comfort. Offered and encouraged to sleep in bed. Patient refused. Urinal offered.
--- NOTE | 2020-07-24 22:04 | PC.NURSE ---
Assisted patient to bed. Up with gait belt and assist of 1.
--- NOTE | 2020-07-24 23:45 | PC.NURSE ---
Patient rquested useo urinal. Barrrier cream applied to groin
[2020-07-25] VITALS: BP 108/70; PULSE 72; RESP 16; TEMP 36.6; O2SAT 96
--- NOTE | 2020-07-25 03:48 | PC.NURSE ---
Patient requested gibran
--- NOTE | 2020-07-25 04:21 | PC.NURSE ---
Patient resting in bed at this time.
[2020-07-25 07:59] VITALS: BP 101/74; PULSE 96; RESP 16; TEMP 37.2; O2SAT 95
[2020-07-25 08:34] VITALS: PULSE 96
[2020-07-25] MEDS: METOPROLOL SUCCINATE EXT REL 50 MG TABCR 100 MG PO (08:34)
[2020-07-25] MEDS: CARBIDOPA/LEVODOPA 25/100 MG TABLET 1 TABLET PO ×2 (08:35→12:57)
[2020-07-25] MEDS: FUROSEMIDE 40 MG TABLET PO (08:35)
[2020-07-25] MEDS: POTASSIUM CHLORIDE 20 MEQ TABLET PO (08:35)
[2020-07-25] MEDS: ATORVASTATIN 10 MG TABLET 20 MG PO (08:35)
--- NOTE | 2020-07-25 12:50 | PM.DS ---
DS: Admitting Diagnosis Admitting Diagnosis Admitting Diagnosis: atrial fib aspiration pneumonia generalized weakness Parkinson's DS: Discharge Diagnosis Discharge Diagnosis (1) Generalized weakness: Code(s): R53.1 - Weakness Status: Acute Assessment and Plan: 07/25/2020 patient has been working with physical therapy and occupational therapy to increase his strength and endurance to the may perform his activities of daily living with as minimal assistance as possible upon discharge, patient is to have [facility] for alf and physical therapy. (2) Aspiration pneumonia: Qualifiers: Aspiration pneumonia type: unspecified Laterality: unspecified laterality Lung location: unspecified part of lung Qualified Code(s): J69.0 - Pneumonitis due to inhalation of food and vomit Code(s): J69.0 - Pneumonitis due to inhalation of food and vomit Status: Acute Assessment and Plan: Augmentin completed on 07/17/2020 Continue speech therapy flutter valve to assist with coughing up any phlegm (3) Parkinson disease: Code(s): G20 - Parkinson's disease Status: Acute Assessment and Plan: continue carbidopa levodopa combination, speech therapy assisting patient, continue with thickened liquids 07/25/2020 patient may benefit from follow-up with primary care provider or neurologist as medications may need to be increased her changed (4) Essential (primary) hypertension: Code(s): I10 - Essential (primary) hypertension Status: Acute Assessment and Plan: Continue metoprolol and Lasix Vital signs as ordered Adjust medications 07/25/2020 no changes made (5) Hyperlipidemia: Qualifiers: Hyperlipidemia type: unspecified Qualified Code(s): E78.5 - Hyperlipidemia, unspecified Code(s): E78.5 - Hyperlipidemia, unspecified Status: Acute Assessment and Plan: Continue atorvastatin (6) Atrial fibrillation: Qualifiers: Atrial fibrillation type: unspecified Qualified Code(s): I48.91 - Unspecified atrial fibrillation Code(s): I48.91 - Unspecified atrial fibrillation Status: Acute Assessment and Plan: Controlled Continue metoprolol and Xarelto DS: Summary Hospital Course Hospital Course: patient was admitted to swing bed for physical reconditioning and speech therapy and according to PTSD notes patient has been improving however would still benefit from physical therapy at home Time Spent with Patient Time attestation: Total time spent providing and/or coordinating discharge services: < 30 minutes Exam Const: General: cooperative, comfortable, no acute distress, alert, awake and Physically active Nutritional Appearance: overweight Resp: Effort & Inspection: normal respiratory effort Auscultation: clear to auscultation bilaterally Cardio: Rate: regular rate Heart sounds: S1 normal heart sound present and S2 normal heart sound present GI: GI Palp: Yes Soft to palpation and No Tenderness to palpation present (GI) Auscultation: normal bowel sounds Extrem: General: edema (nonpitting) Other: right arm resistance to passive movement due to Parkinson's Discharge Plan Discharge Attending physician on discharge: Mg Bradshaw Discharging Clinician: Ace Acosta Anticipated Discharge Date/Time: 07/24/20 11:00 Patient Disposition: Home Health Service Activity: other - see discharge instructions Diet: heart healthy Discharge Instructions: [facility] TO FOLLOW AT DISCHARGE- PHONE: [phone] FAX: [phone] NURSING TO FAX DISCHARGE INSTRUCTION. patients have alf to assist with medications and physical therapy to continue with reconditioning and stamina patient to follow-up primary care provider within a week and if he has a neurologist the same as well Patient Instructions: Weakness (GEN) Stand Alone Forms: General Discharge Information
--- NOTE | 2020-07-25 14:04 | PC.NURSE ---
Patient left the floor via wheelchair. Discharge instruction given to both patient and patient's . Both patient and patient's verbalized understanding. Patient assisted into suv, assist of 1. Gait belt used.
--- NOTE | 2020-07-26 13:21 | PC.NURSE ---
Pt's states she received and understood the discharge instructions. She also states he said his care was really good .
== END 2020-07-25 13:50 | disposition home health service (06) | DRG 947 ==
PROVIDERS: Nurse Practitioner; Nurse Practitioner Family; Admitting Provider Family Medicine; PCP Family Medicine; Visit Provider Family Medicine
DX: R53.1 Weakness (principal); J69.0 Pneumonitis due to inhalation of food and vomit; I50.32 Chronic diastolic (congestive) heart failure; I48.19 Other persistent atrial fibrillation; N39.0 Urinary tract infection, site not specified; G20 Parkinson's disease; I73.9 Peripheral vascular disease, unspecified; Z79.01 Long term (current) use of anticoagulants; Z86.718 Personal history of other venous thrombosis and embolism; I11.0 Hypertensive heart disease with heart failure; Z86.711 Personal history of pulmonary embolism; M19.91 Primary osteoarthritis, unspecified site; E78.00 Pure hypercholesterolemia, unspecified; L71.9 Rosacea, unspecified; C67.9 Malignant neoplasm of bladder, unspecified; R13.10 Dysphagia, unspecified; R47.02 Dysphasia
CPT/HCPCS: 36415; 80048; 83880; 85027; 92507; 92523; 92526; 92610; 97110; 97161; 97165; 97530; 97535; A9270

== ENCOUNTER 2020-08-10 10:35 | Outpatient (NON) | payer MEDICARE, SELFPAY ==
[2020-08-10 10:51] LABS: Appearance Urine Clear (Clear); Bilirubin Urine Negative (Negative); Color Urine Yellow (Yellow); Glucose Urine UA Negative (Negative); Ketones Urine Negative (Negative); Leukocyte Esterase Ur 1+ LEU/UL (Negative); Nitrate Urine Negative (Negative); Protein Urine Negative (Negative); Specific Grav Ur >= 1.030 (1.010-1.020)
[2020-08-10 10:59] LABS: Add Urine Microscopic? YES; Bacteria Urine 2+ /hpf; Blood Urine Trace-Intact (Negative); Squamous Epithelial Cell Urine None seen /hpf (Few); WBC Urine 16-20 /hpf (0-3)
[2020-08-10 11:00] LABS: Mucus Urine Few /lpf
== END 2020-08-10 10:36 ==
LOC: CHSLAB 10:37 → CHSHH 08-11 08:59
PROVIDERS: Visit Provider Family Medicine
DX: J69.0 Pneumonitis due to inhalation of food and vomit (principal); N39.0 Urinary tract infection, site not specified; G20 Parkinson's disease; G93.41 Metabolic encephalopathy
CPT/HCPCS: 81001; 87086

== ENCOUNTER 2020-09-21 10:20 | Outpatient (CLI) | payer MEDICARE, SELFPAY ==
[2020-09-21 10:54] LABS: Basophils Percent Auto 0.4 % (0.2-1.2); Eosinophils Absolute Auto 0.2 K/mm3 (0-0.3); Eosinophils Percent Auto 2.1 % (0-4.4); Hematocrit 47.7 % (42.0-52.0); Hemoglobin 15.5 g/dL (14.0-18.0); Immature Granulocyte Absolute 0.04 K/mm3 (0.00-0.031); Immature Granulocyte Percent A 0.4 % (0-0.5); Lymphocytes Percent Auto 15.4 % (18.3-44.2); Mean Corpuscular HGB Conc 32.5 g/dl (32-36); Mean Corpuscular Hemoglobin 31.1 pg (26-34); Mean Corpuscular Volume 95.6 fl (80-100); Mean Platelet Volume 10.1 fl (7.4-10.4); Monocytes Absolute Auto 1.5 K/mm3 (0.1-0.6); Monocytes Percent Auto 13.4 % (2.6-8.5); Neutrophils Absolute Auto 7.5 K/mm3 (1.3-6.7); Neutrophils Percent Auto 68.3 % (45.5-73.1); Platelet Count Result 191 k/mm3 (150-375); Red Blood Count 4.99 M/mm3 (4.6-6.20); Red Cell Distribution Width 14.4 % (11.5-14.5)
[2020-09-21 11:04] LABS: Anion Gap 3 mmol/L (8-16); Blood Urea Nitrogen 17 mg/dL (9-20); Carbon Dioxide 35 mmol/L (22-30); Chloride 101 mmol/L (98-107); Estimated Glomerular Filt Rate > 60; Glucose 88 mg/dL (75-110); Potassium 4.2 mmol/L (3.4-5.0); Sodium 139 mmol/L (137-145)
[2020-09-21 11:07] LABS: INR 1.2; Prothrombin Time 15.5 Seconds (11.1-14.7)
[2020-09-21 11:08] LABS: Partial Thromboplastin Time 23.9 SECONDS (22.3-36.8)
== END 2020-09-21 10:21 | disposition home or self-care (01) ==
PROVIDERS: PCP Family Medicine; Visit Provider Urology
DX: Z01.812 Encounter for preprocedural laboratory examination (principal); C67.9 Malignant neoplasm of bladder, unspecified; Z51.81 Encounter for therapeutic drug level monitoring; Z79.899 Other long term (current) drug therapy
CPT/HCPCS: 36415; 80048; 85025; 85610; 85730; 87077; 87086; 87088; 87186

== ENCOUNTER → 2020-09-23 01:48 | Outpatient (CLI) | payer MEDICARE, SELFPAY ==
[2020-09-23 19:34] LABS: SARS-CoV-2 RNA PCR Negative
== END ==
PROVIDERS: PCP Family Medicine; Visit Provider Urology
DX: Z01.812 Encounter for preprocedural laboratory examination (principal); Z20.822 Contact with and (suspected) exposure to COVID-19
CPT/HCPCS: C9803; U0003; U0005

== ENCOUNTER 2020-09-29 10:25 | Outpatient (CLI) | payer MEDICARE, SELFPAY | END 2020-09-29 10:26 | disposition home or self-care (01) | LOC: ANHSURGERY 10:31 | PROVIDERS: PCP Family Medicine; Visit Provider Urology | DX: D49.4 Neoplasm of unspecified behavior of bladder (principal); Z01.818 Encounter for other preprocedural examination | CPT/HCPCS: 87086 ==

== ENCOUNTER → 2020-09-30 01:29 | Outpatient (CLI) | payer MEDICARE, SELFPAY ==
[2020-09-30 18:52] LABS: SARS-CoV-2 RNA PCR Negative
== END ==
PROVIDERS: PCP Family Medicine; Visit Provider Urology
DX: Z01.812 Encounter for preprocedural laboratory examination (principal); Z20.822 Contact with and (suspected) exposure to COVID-19
CPT/HCPCS: C9803; U0003; U0005

== ENCOUNTER 2020-10-03 01:48 | Day surgery (SDC) | payer MEDICARE, SELFPAY ==
[2020-09-14 09:44] VITALS: BMI 36.6
[2020-10-03] VITALS (15 sets, daily range): BP systolic 135–171; BP diastolic 81–101; PULSE 70–78; RESP 10–19; TEMP 36.3; O2SAT 95–100
[2020-10-03] MEDS: LACTATED RINGERS 1,000 ML 30 ML IV CONT (09:10)
--- NOTE | 2020-10-03 09:26 | WPDHPUPDATE1 ---
History and Physical Update Update Date/Time: 10/03/20 09:26 History and Physical has been reviewed, including an updated exam of the patient. There are NO changes in the patient's condition. Risks, benefits, and alternatives have been discussed and questions answered. Patient agrees to proceed with procedure. Proceed with transurethral resection of bladder tumor.
--- NOTE | 2020-10-03 09:42 | WPDANESEPPF ---
Anes - Initial Pre Proc Eval Procedure: Operation Date: 10/03/20 10:30 Proposed Procedures p Trans Urethral Resection Bladder Tumor - Johnnie Craft MD Date/Time: 10/03/20 09:42 Surgeon: Johnnie Craft MD Pre Op Diagnosis: bladder tumor Patient Data Age: 80 Gender: M Height: 5 ft 5 in Weight: 102.2 kg Allergies Allergy/AdvReac Type Severity Reaction Status Date / Time No Known Allergies Allergy Verified 10/03/20 09:32 Home Medications Medication Instructions Recorded Confirmed Type rivaroxaban 20 mg tablet 20 mg PO DAILY #30 tablet 05/31/20 10/03/20 Rx furosemide 40 mg tablet 40 mg PO QAM #30 tablet 08/09/20 10/03/20 Rx atorvastatin 20 mg PO QAM 09/14/20 10/03/20 History carbidopa-levodopa 1 tablet PO QID 09/14/20 10/03/20 History metoprolol succinate 100 mg PO QAM 09/14/20 10/03/20 History potassium chloride 20 meq PO QAM 09/14/20 10/03/20 History Patient hx anesthesia problems: none Family hx anesthesia problems: none PMFSH Past Medical History Medical History Atrial fibrillation Bladder tumor Chronic diastolic heart failure Echocardiogram on 03/23/2020 showed normal left ventricular systolic function and size with mild concentric left ventricular hypertrophy and ejection fraction measured at 74%. Claudication in peripheral vascular disease 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 intermediate card tender 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 Deep venous thrombosis (~2005) Essential hypertension History of pulmonary embolism (~2005) On long-term 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. Hyperlipidemia Impaired fasting glucose Kidney stones Parkinson's disease Shuffling gait and right hand tremors. Persistent atrial fibrillation Primary osteoarthritis, unspecified site Pure hypercholesterolemia Rosacea Urothelial carcinoma of bladder (~11/2019) Followed by Dr. Craft. Cystoscopy in June 2020 demonstrated new lesions, scheduled for TURBT in September 2020. Surgical History Surgical History History of ankle surgery ORIF right ankle fracture. History of basal cell carcinoma excision Excised from the left brow. History of resection of small bowel (~01/2018) Secondary to closed loop bowel obstruction. Family History Family History Father Family history of diabetes mellitus in first degree relative Family history of coronary artery disease Sibling Family history of diabetes mellitus in first degree relative Family history of coronary artery disease Mother Family history of coronary artery disease Social History Social History Social History: The patient lives in [place] with his . 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 Lifelong nonsmoker. Consumes perhaps 1 alcoholic beverage a week. No illicit substance use. He designates his Jenise as his surrogate decision maker and wishes to be a full code. Smoking status: Never smoker Second hand tobacco smoke exposure: No Alcohol intake: current Drinks per week: 1 Substance use: never Substance use type: does not use Living arrangements: with family Gender identity (if verbalized by the patient): Male Spiritual care concerns: No Anes - Eval Final PreProcedure Day of Procedure 10/03/20 09:42 Patient weight: obese Heart: regular rate and rhythm Lungs: decreased breath sounds Airway: Mallampati scale class II Neurological: other (alert) Last oral intake: >/= 8 hours ASA classification: III Emergent: no Anesthetic plan: proceed Anesthesia type and monitoring: general LMA and standard monitoring Informed Consent: The patient's anesthetic plan and its attendant risks and benefits were discussed with the patient/family/POA. Questions were solicited and answers provided to the satisfaction of the patient/fami
[2020-10-03] MEDS: ceFAZolin 2 GM/D5W 50 ML 2 GM/50 ML BAG IVPB (10:29)
[2020-10-03] MEDS: LIDOCAINE HCL 2% GEL UROJET 10 ML PKG MUCOUS MEM (10:44)
--- NOTE | 2020-10-03 11:17 | P.OP_ITS ---
Procedure Note - Detailed Date of procedure: 10/03/20 Pre-op diagnosis: bladder tumor Post-op diagnosis: same (5 cm area) Procedure performed: Transurethral section of bladder tumor-at least 5 cm area in total Description of procedure: Patient is taken the operative suite and correctly identified. Once anesthesia was obtained he was placed in dorsal lithotomy position and prepped and draped usual sterile fashion. Twenty-four Argentine resec toscope sheath inserted in the bladder. It was noted that he has some tumors at the bladder neck area at approximately 10 to 12 o'clock position. He also has multiple tumors along the floor as well as the dome of the bladder. We went ahead and resected all of these areas. We used a rollerball to fulgurate the base. There was good hemostasis at termination procedure. Given the fact that it was at the bladder neck with resection of some prostatic tissue we went ahead and left an [address] to continuous bladder irrigation. 2% viscous lidocaine had been placed prior to that. If his urine remains clear in recovery room he will be discharged home with a Cook catheter and have that removed on or Friday. Anesthesia: GLMA Surgeon: Johnnie Craft MD Drains: Yes Packing: No Pathology: yes Complications: No immediate complications Condition: stable Disposition: PACU
--- NOTE | 2020-10-03 13:08 | SUR.PHASEI ---
NOTIFIED DR LEAL OF ELEVATED BP. NO ORDERS AT THIS TIME.
== END 2020-10-03 16:05 | disposition home or self-care (01) ==
PROVIDERS: PCP Family Medicine; Visit Provider Urology
PROC: 0TBB8ZZ Excision of Bladder, Via Natural or Artificial Opening Endoscopic (ICD-10-PCS; CPT 52235; principal; 2020-10-03 10:30)
DX: C67.5 Malignant neoplasm of bladder neck (principal); C67.1 Malignant neoplasm of dome of bladder; C67.0 Malignant neoplasm of trigone of bladder; I48.91 Unspecified atrial fibrillation; I11.0 Hypertensive heart disease with heart failure; I50.32 Chronic diastolic (congestive) heart failure; E78.5 Hyperlipidemia, unspecified; G20 Parkinson's disease; I48.19 Other persistent atrial fibrillation; I87.8 Other specified disorders of veins; Z86.718 Personal history of other venous thrombosis and embolism; Z86.711 Personal history of pulmonary embolism; Z79.01 Long term (current) use of anticoagulants; Z90.49 Acquired absence of other specified parts of digestive tract; E66.9 Obesity, unspecified; Z68.37 Body mass index [BMI] 37.0-37.9, adult
CPT/HCPCS: 52235; 88305; 88307; A9270; J0690; J1100; J2405; J2704; J3010; J7120

== ENCOUNTER 2020-11-14 12:01 | Outpatient (CLI) | payer MEDICARE, SELFPAY ==
[2020-11-14 12:20] LABS: Hematocrit 48.7 % (42.0-52.0); Hemoglobin 15.4 g/dL (14.0-18.0); Mean Corpuscular HGB Conc 31.6 g/dl (32-36); Mean Corpuscular Hemoglobin 29.8 pg (26-34); Mean Corpuscular Volume 94.2 fl (80-100); Mean Platelet Volume 9.8 fl (7.4-10.4); Platelet Count Result 212 k/mm3 (150-375); Red Blood Count 5.17 M/mm3 (4.6-6.20); Red Cell Distribution Width 13.2 % (11.5-14.5)
[2020-11-14 12:40] LABS: Alanine Aminotransferase 8 U/L (4-50); Albumin Level 4.2 g/dL (3.5-5.1); Alkaline Phosphatase 69 U/L (38-126); Anion Gap 9 mmol/L (8-16); Aspartate Amino Transferase 22 U/L (17-59); Bilirubin,Total 0.7 mg/dL (0.2-1.3); Blood Urea Nitrogen 17 mg/dL (9-20); Carbon Dioxide 28 mmol/L (22-30); Chloride 101 mmol/L (98-107); Estimated Glomerular Filt Rate > 60; Glucose 103 mg/dL (75-110); Potassium 4.4 mmol/L (3.4-5.0); Sodium 138 mmol/L (137-145)
== END 2020-11-14 12:02 | disposition home or self-care (01) ==
LOC: ANHLAB 12:05
PROVIDERS: PCP Family Medicine; Visit Provider Family Medicine
DX: E78.00 Pure hypercholesterolemia, unspecified (principal); R53.83 Other fatigue
CPT/HCPCS: 36415; 80053; 84443; 85027

== ENCOUNTER 2020-12-23 09:14 | Emergency (ER) | payer MEDICARE, SELFPAY ==
--- NOTE | ~2020-12-23 | XR_ITS ---
EXAMINATION: XR chest 1V portable INDICATION: Weakness TECHNIQUE: Portable AP chest at 1026 hours COMPARISON: 07/09/2020 FINDINGS: There are diffuse opacities throughout all lung zones. The heart size is normal for techniq ue. No pleural effusion or pneumothorax is identified. Advanced osteoarthritis of the left shoulder. IMPRESSION: 1. Diffuse lung disease which could reflect pneumonia and/or pulmonary edema and/or atelectasis. Reviewed, dictated and finalized at location A. IMPRESSION: 1. Diffuse lung disease which could reflect pneumonia and/or pulmonary edema an d/or atelectasis.
[2020-12-23 09:15] VITALS: BP 148/90; PULSE 74; RESP 20; TEMP 36.7; O2SAT 99
--- NOTE | 2020-12-23 09:27 | ECG_ITS ---
Measurements Intervals [place] Rate: 76 P: MO: 0 QRS: -3 QRSD: 80 T: 2 QT: 396 QTc: 447 Interpretive Statements ATRIAL FIBRILLATION BORDERLINE T WAVE ABNORMALITY- INFERIOR LEADS BASELINE ARTIFACT- I, II, III, AVR, AVL, AVF ABNORMAL ECG Electronically Signed On 12-23-2020 20:45:17 CDT by Behzad Flores D.O.
[2020-12-23 10:13] LABS: Basophils Percent Auto 0.4 % (0.2-1.2); Eosinophils Absolute Auto 0.2 K/mm3 (0-0.3); Eosinophils Percent Auto 2.1 % (0-4.4); Hematocrit 50.3 % (42.0-52.0); Hemoglobin 15.9 g/dL (14.0-18.0); Immature Granulocyte Absolute 0.05 K/mm3 (0.00-0.031); Immature Granulocyte Percent A 0.5 % (0-0.5); Lymphocytes Absolute Auto 1.75 K/mm3 (0.9-3.2); Lymphocytes Percent Auto 16.5 % (18.3-44.2); Mean Corpuscular HGB Conc 31.6 g/dl (32-36); Mean Corpuscular Hemoglobin 29.7 pg (26-34); Mean Corpuscular Volume 93.8 fl (80-100); Mean Platelet Volume 10.2 fl (7.4-10.4); Monocytes Absolute Auto 1.3 K/mm3 (0.1-0.6); Monocytes Percent Auto 12.3 % (2.6-8.5); Neutrophils Absolute Auto 7.2 K/mm3 (1.3-6.7); Neutrophils Percent Auto 68.2 % (45.5-73.1); Platelet Count Result 208 k/mm3 (150-375); Red Blood Count 5.36 M/mm3 (4.6-6.20); Red Cell Distribution Width 13.7 % (11.5-14.5); White Blood Count 10.6 K/mm3 (4.5-10.0)
[2020-12-23 10:22] LABS: Add Urine Microscopic? YES; Appearance Urine Clear (Clear); Bilirubin Urine Negative (Negative); Blood Urine Negative (Negative); Color Urine Yellow (Yellow); Glucose Urine UA Negative (Negative); Ketones Urine Negative (Negative); Leukocyte Esterase Ur Trace LEU/UL (Negative); Mucus Urine Rare /lpf; Nitrate Urine Negative (Negative); Protein Urine 2+ mg/dL (Negative); RBC Urine 0-2 /hpf (0-2); Specific Grav Ur 1.023 (1.001-1.035)
[2020-12-23 10:26] LABS: Alanine Aminotransferase 6 U/L (4-50); Albumin Level 4.3 g/dL (3.5-5.1); Alkaline Phosphatase 62 U/L (38-126); Anion Gap 7 mmol/L (8-16); Aspartate Amino Transferase 21 U/L (17-59); Bilirubin,Total 0.9 mg/dL (0.2-1.3); Blood Urea Nitrogen 17 mg/dL (9-20); Carbon Dioxide 31 mmol/L (22-30); Chloride 100 mmol/L (98-107); Estimated CRCL calculation 71 ml/min; Estimated Glomerular Filt Rate > 60; Glucose 99 mg/dL (75-110); Sodium 138 mmol/L (137-145)
[2020-12-23] MEDS: SODIUM CHLORIDE 0.9% IV 500 ML 999 ML IV CONT (10:55)
--- NOTE | 2020-12-23 11:27 | PC.NURSE ---
chem, Jonna, added on BNP
--- NOTE | 2020-12-23 11:32 | ED.GENADULT ---
HPI - General Adult General Chief complaint: Weakness Stated complaint: WEAKNESS Time Seen by Provider: 12/23/20 10:03 Source: patient and RN notes reviewed Mode of arrival: ambulatory Limitations: no limitations History of Present Illness HPI narrative: Patient is a 80-year-old male who presents to emergency department with family for evaluation of weakness that began on patient began having weakness with activity and now is having difficulty with standing has history of Parkinson's typically ambulates with a walker. Patient was concerned that he may be developing a urinary tract infection having had a similar occurrence in the past. Patient denies any URI symptoms fever chills nausea vomiting diarrhea chest pain shortness of breath or any fall. Patient lives at home with his Related Data Home Medications Medication Instructions Recorded Confirmed atorvastatin 20 mg PO QAM 09/14/20 11/07/20 carbidopa-levodopa 1 tablet PO QID 09/14/20 11/07/20 metoprolol succinate 100 mg PO QAM 09/14/20 11/07/20 potassium chloride 20 meq PO QAM 09/14/20 11/07/20 Allergies Allergy/AdvReac Type Severity Reaction Status Date / Time No Known Allergies Allergy Verified 11/07/20 11:00 Review of Systems Review of Systems: All systems reviewed & are unremarkable except as noted in HPI and below [facility] Past Medical History Medical History Atrial fibrillation Bladder tumor Chronic diastolic heart failure Echocardiogram on 03/23/2020 showed normal left ventricular systolic function and size with mild concentric left ventricular hypertrophy and ejection fraction measured at 74%. Claudication in peripheral vascular disease 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 mcc 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 Deep venous thrombosis (~2005) Essential hypertension History of pulmonary embolism (~2005) On long-term 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. Hyperlipidemia Impaired fasting glucose Kidney stones Parkinson's disease Shuffling gait and right hand tremors. Persistent atrial fibrillation Primary osteoarthritis, unspecified site Pure hypercholesterolemia Rosacea Urothelial carcinoma of bladder (~11/2019) Followed by Dr. Craft. Cystoscopy in June 2020 demonstrated new lesions, scheduled for TURBT in September 2020. Surgical History Surgical History History of ankle surgery ORIF right ankle fracture. History of basal cell carcinoma excision Excised from the left brow. History of resection of small bowel (~01/2018) Secondary to closed loop bowel obstruction. Family History Family History Father Family history of diabetes mellitus in first degree relative Family history of coronary artery disease Sibling Family history of diabetes mellitus in first degree relative Family history of coronary artery disease Mother Family history of coronary artery disease Social History Social History Social History: The patient lives in [place] with his . 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. Lifelong nonsmoker. Consumes perhaps 1 alcoholic beverage a week. No illicit substance use. He designates his Jenise as his surrogate decision maker and wishes to be a full code. Smoking status: Never smoker Second hand tobacco smoke exposure: No Alcohol intake: current Drinks per week: 1 Substance use: never Substance use type: does not use Gender identity (if verbalized by the patient): Male Spiritual care concerns: No Exam Narrative: Exam Narrative: GENERAL: Well-appearing, well-nourished, and in no acute distress. HEAD: Normocephalic, atraumatic. EYES: PERRLA and EOMI. ENT: Nares clear, no rhinorrhea or epistaxis. Mucous membranes moist. Oropharynx without tonsillar hypertrophy exudate or other
[2020-12-23 11:46] LABS: NT Pro B Type Natriuretic Pept 1500 pg/mL (5-100)
--- NOTE | 2020-12-23 11:50 | PC.NURSE ---
Patient's reports increase in weakness that began on night with increasing confusion over the last few weeks. Prior to she tells me that he has been having generalized weakness over the last year. Additionally she reports he had a UTI with similar symptoms and presentation in june of this year. His states that she has been having increasing difficulty caring for patient at home and was concerned he may be having another UTI. Pertinent history of parkinson's disease is reported by the patient's . Patient is awake, alert, and oriented x 4 although he has to think about answers such as month, day, and date. Patient does not report further complaints to me at this time and his does not report other concerns at this time. For mobility patient uses a wheelchair when out and a walker at home. states that he was having difficulty with the walker, stating the were very slow and not doing well, especially his right leg, it was just stiff. No falls in the last three months are reported.
[2020-12-23 11:58] VITALS: BP 161/99; PULSE 76; RESP 17; O2SAT 98
[2020-12-23 13:15] VITALS: BP 163/97; PULSE 77; RESP 22; TEMP 36.6; O2SAT 99
== END 2020-12-23 13:15 | disposition home or self-care (01) ==
PROVIDERS: Emergency Medicine Emergency Medical Services; Emergency Provider Emergency Medicine; PCP Family Medicine
DX: R53.1 Weakness (principal); I48.19 Other persistent atrial fibrillation; I11.0 Hypertensive heart disease with heart failure; I50.32 Chronic diastolic (congestive) heart failure; E78.5 Hyperlipidemia, unspecified; Z86.718 Personal history of other venous thrombosis and embolism
CPT/HCPCS: 36415; 71045; 80053; 81001; 83605; 83880; 85025; 87040; 87086; 87088; 93005; 96360; 99284; J7040

== ENCOUNTER 2021-01-07 09:28 | Inpatient (IN) | payer MEDICARE, SELFPAY ==
[2021-01-07] VITALS (28 sets, daily range): BP systolic 110–131; BP diastolic 58–88; PULSE 87–106; RESP 14–27; TEMP 36.5–36.7; O2SAT 94–100; BMI 34.9
--- NOTE | ~2021-01-07 | XR_ITS ---
EXAMINATION: XR chest 2V DATE: 01/07/2021 09:47 INDICATION: Shortness of breath and cough TECHNIQUE: AP and lateral views of the chest are obtained. COMPARISON: 12/23/2020 FINDINGS: Diffuse opacities persist throughout all lung zones with slight worsening in the right lung base. There is no pleural effusion or pneumothorax. The cardiomediastinal silhouette is normal. Ther e is moderate thoracic spondylosis. IMPRESSION: 1. Diffuse lung disease with slight worsening in the right lung base, consistent with pneumonia and/o r pulmonary edema and/or atelectasis. Reviewed, dictated and finalized at location A. IMPRESSION: 1. Diffuse lung disease with slight worsening in the right lung base, consisten t with pneumonia and/or pulmonary edema and/or atelectasis.
--- NOTE | ~2021-01-07 | XR_ITS ---
XR chest 1V portable 01/15/2021 12:39 Indication: Pneumonia. Procedure: AP portable chest Comparison: Comparison to multiple prior studies sequentially, with oldest reviewed study dated 07/09. Findings: Improving patchy bilateral airspace disease, consistent with resolving pneumonia. No signif icant effusion. Impression: 1: Improving patchy bilateral airspace disease, consistent with resolving pneumonia. Reviewed, dictated and finalized at location A. Impression: 1: Improving patchy bilateral airspace disease, consistent with resolving pneum onia.
--- NOTE | ~2021-01-07 | XR_ITS ---
EXAMINATION: XR chest 1V portable INDICATION: Increased wheezing and shortness of breath TECHNIQUE: Portable AP chest at 1033 hours COMPARISON: 01/07/2021 FINDINGS: The lung volumes are low. Diffuse opacities are present throughout all lung zones with inte rval worsening in the right mid and upper lung zones. There is no pleural effusion or pneumothorax. T he cardiomediastinal silhouette is stable. IMPRESSION: 1. Diffuse lung disease with interval worsening in the right mid and upper lung zones, consistent wit h pneumonia and/or pulmonary edema and/or acute respiratory distress syndrome (ARDS). Reviewed, dictated and finalized at location B. IMPRESSION: 1. Diffuse lung disease with interval worsening in the right mid and upper lung zones, consistent with pneumonia and/or pulmonary edema and/or acute respirato ry distress syndrome (ARDS).
--- NOTE | ~2021-01-07 | US_ITS ---
EXAMINATION: US venous doppler [facility] DATE: 01/07/2021 12:35 INDICATION: Bilateral lower limb swelling TECHNIQUE: Paredes scale images without and with compression and Doppler images of the bilateral lower e xtremity veins were obtained. COMPARISON: None FINDINGS: The right common femoral vein, profunda femoral vein, femoral vein, popliteal vein, posterior tibial veins, and greater saphenous vein are patent. The peroneal veins are not visualized due to edema. The left common femoral vein, profunda femoral vein, femoral vein, popliteal vein, posterior tibial v eins, and greater saphenous vein are patent. The peroneal veins are not visualized due to edema. IMPRESSION: 1. Patent bilateral lower extremity veins. No evidence of deep venous thrombosis. Reviewed, dictated and finalized at location A. IMPRESSION: 1. Patent bilateral lower extremity veins. No evidence of deep venous thrombosi s.
--- NOTE | 2021-01-07 09:34 | ECG_ITS ---
Measurements Intervals [place] Rate: 94 P: GA: 0 QRS: 5 QRSD: 85 T: -34 QT: 364 QTc: 457 Interpretive Statements ATRIAL FIBRILLATION DELAYED PRECORDIAL R/S TRANSITION LOW QRS VOLTAGE IN PRECORDIAL LEADS CONSIDER INFERIOR INFARCT, AGE INDETERMINATE BASELINE ARTIFACT- I, II, III, AVR, AVL, AVF, V1-V6 ABNORMAL ECG Electronically Signed On 01-07-2021 12:38:48 CDT by Behzad Flores D.O.
[2021-01-07 10:16] LABS: Basophils Percent Auto 0.3 % (0.2-1.2); Eosinophils Absolute Auto 0.2 K/mm3 (0-0.3); Eosinophils Percent Auto 3.1 % (0-4.4); Hematocrit 48.6 % (42.0-52.0); Hemoglobin 15.3 g/dL (14.0-18.0); Immature Granulocyte Absolute 0.04 K/mm3 (0.00-0.031); Immature Granulocyte Percent A 0.6 % (0-0.5); Lymphocytes Absolute Auto 1.82 K/mm3 (0.9-3.2); Lymphocytes Percent Auto 25.3 % (18.3-44.2); Mean Corpuscular HGB Conc 31.5 g/dl (32-36); Mean Corpuscular Hemoglobin 29.6 pg (26-34); Mean Platelet Volume 9.3 fl (7.4-10.4); Monocytes Absolute Auto 1.4 K/mm3 (0.1-0.6); Monocytes Percent Auto 19.6 % (2.6-8.5); Neutrophils Absolute Auto 3.7 K/mm3 (1.3-6.7); Neutrophils Percent Auto 51.1 % (45.5-73.1); Platelet Count Result 195 k/mm3 (150-375); Red Blood Count 5.17 M/mm3 (4.6-6.20); Red Cell Distribution Width 14.2 % (11.5-14.5); White Blood Count 7.2 K/mm3 (4.5-10.0)
[2021-01-07 10:27] LABS: Alveolar/Arterial O2 Gradient 22.6 mmHg; Base Excess ABG 2.8 mEq/l (+/-2.0); Carboxyhemoglobin 1.7 % THb (0-2.0); Fractional Inspired Oxygen 21 %; HCO3 ABG 26.8 mEq/l (22.0-26.0); Methemoglobin ABG 0.3 %THb (0-1.5); Oxygen Content ABG 21.7 %vol (16.0-22.0); Oxygen Saturation ABG 96.3 % (95.0-100.0); Oxyhemoglobin 94.3 % THb (90.0-100.0); PCO2 ABG 39.2 mmHg (35.0-45.0); PO2 ABG 80.2 mmHg (80.0-100.0); PO2 FiO2 Ratio Arterial Blood 3.82 %; Reduced Hemoglobin 3.7 %THb (0-5.0); Total Hemoglobin 16.4 g/dL (12.0-18.0); pH ABG 7.453 (7.350-7.450)
[2021-01-07 10:28] LABS: Device ROOM AIR; Modified Allen's Test Pass; Site Drawn LEFT RADIAL
[2021-01-07 10:28] LABS: Anion Gap 7 mmol/L (8-16); Blood Urea Nitrogen 17 mg/dL (9-20); Calcium 8.7 mg/dL (8.4-10.2); Carbon Dioxide 31 mmol/L (22-30); Chloride 98 mmol/L (98-107); Estimated CRCL calculation 66 ml/min; Estimated Glomerular Filt Rate > 60; Glucose 126 mg/dL (65-110); Potassium 3.6 mmol/L (3.4-5.0); Sodium 136 mmol/L (137-145)
[2021-01-07] MEDS: ALBUTEROL SULFATE NEB 2.5 MG/0.5 ML INH 5 MG INHALATION ×3 (10:33→20:22)
[2021-01-07] MEDS: IPRATROPIUM BR 0.02% INH SOLN 0.5 MG/2.5 ML VIAL INHALATION ×3 (10:34→20:22)
[2021-01-07] MEDS: FUROSEMIDE INJ 40 MG/4 ML VIAL 20 MG IV PUSH (11:04)
[2021-01-07 11:05] LABS: NT Pro B Type Natriuretic Pept 717 pg/mL (5-100); Troponin I < 0.012 ng/mL (0.000-0.034)
[2021-01-07] MEDS: methylPREDNISolone SOD SUCC 125 MG VIAL 80 MG IV PUSH (11:06)
[2021-01-07 11:10] LABS: Add Urine Microscopic? YES; Appearance Urine Clear (Clear); Bacteria Urine Trace /hpf; Bilirubin Urine Negative (Negative); Blood Urine Negative (Negative); Color Urine Yellow (Yellow); Glucose Urine UA Negative (Negative); Ketones Urine Negative (Negative); Leukocyte Esterase Ur 2+ LEU/UL (Negative); Mucus Urine Rare /lpf; Nitrate Urine Negative (Negative); Protein Urine Negative (Negative); Specific Grav Ur 1.014 (1.001-1.035); Squamous Epithelial Cell Urine Rare /hpf (Few); Urobilinogen Urine Negative mg/dL (<2.0); WBC Urine 31-50 /hpf
[2021-01-07 11:10] LABS: Lipase 67 U/L (23-300); Magnesium 1.8 mg/dL (1.6-2.3); Phosphorus 3.3 mg/dL (2.5-4.5)
[2021-01-07 11:16] LABS: INR 1.7; Lactic Acid Reflex 2.1 mmol/L (0.7-2.1); Prothrombin Time 19.9 Seconds (11.1-14.7)
[2021-01-07 11:17] LABS: Partial Thromboplastin Time 30.7 SECONDS (22.3-36.8)
[2021-01-07 11:24] LABS: CRP 3.7 mg/dL (<1.0)
[2021-01-07 12:02] LABS: Procalcitonin 0.1 ng/mL
--- NOTE | 2021-01-07 12:16 | ED.SOB ---
HPI - SOB/Dyspnea General Chief Complaint: Shortness of Breath/Dyspnea Stated Complaint: sob cough Time Seen by Provider: 01/07/21 10:07 Source: patient and RN notes reviewed Mode of arrival: ambulatory Limitations: no limitations History of Present Illness HPI Narrative: Patient is a 80-year-old male who presents to emergency department for evaluation of shortness of breath and wheezing for the last couple of days has been having rhinorrhea and a cough notes that he has been more weak and very wheezy she attempted to have him use his incentive spirometer with mild improvement patient on arrival is in the bed denying any shortness of breath or complaints but does have a cough in the room has been vaccinated for Covid. Denies chest pain vomiting notes that he is also had some loose stools Related Data Home Medications Medication Instructions Recorded Confirmed atorvastatin 20 mg PO QAM 09/14/20 11/07/20 carbidopa-levodopa 1 tablet PO QID 09/14/20 11/07/20 potassium chloride 20 meq PO QAM 09/14/20 11/07/20 Allergies Allergy/AdvReac Type Severity Reaction Status Date / Time No Known Allergies Allergy Verified 11/07/20 11:00 Review of Systems Review of Systems: All systems reviewed & are unremarkable except as noted in HPI and below [facility] Past Medical History Medical History Atrial fibrillation Bladder tumor Chronic diastolic heart failure Echocardiogram on 03/23/2020 showed normal left ventricular systolic function and size with mild concentric left ventricular hypertrophy and ejection fraction measured at 74%. Claudication in peripheral vascular disease 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 rn long term care 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 Deep venous thrombosis (~2005) Essential hypertension History of pulmonary embolism (~2005) On long-term 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. Hyperlipidemia Impaired fasting glucose Kidney stones Parkinson's disease Shuffling gait and right hand tremors. Persistent atrial fibrillation Primary osteoarthritis, unspecified site Pure hypercholesterolemia Rosacea Urothelial carcinoma of bladder (~11/2019) Followed by Dr. Craft. Cystoscopy in June 2020 demonstrated new lesions, scheduled for TURBT in September 2020. Surgical History Surgical History History of ankle surgery ORIF right ankle fracture. History of basal cell carcinoma excision Excised from the left brow. History of resection of small bowel (~01/2018) Secondary to closed loop bowel obstruction. Family History Family History Father Family history of diabetes mellitus in first degree relative Family history of coronary artery disease Sibling Family history of diabetes mellitus in first degree relative Family history of coronary artery disease Mother Family history of coronary artery disease Social History Social History Social History: The patient lives in [place] with his . 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 Lifelong nonsmoker. Consumes perhaps 1 alcoholic beverage a week. No illicit substance use. He designates his Jenise as his surrogate decision maker and wishes to be a full code. Smoking status: Never smoker Second hand tobacco smoke exposure: No Alcohol intake: current Drinks per week: 1 Alcohol use details: occasional Substance use: never Substance use type: does not use Gender identity (if verbalized by the patient): Male Spiritual care concerns: No Exam Narrative: Exam Narrative: GENERAL: Ill-appearing, well-nourished, and in no acute distress. HEAD: Normocephalic, atraumatic. EYES: PERRLA and EOMI. ENT: Nares clear, no rhinorrhea or epistaxis. Mucous membranes moist. NECK: Supple. No adenopathy or masses. CHEST: Diminished on auscultati
[2021-01-07 14:03] LABS: Reflex Lactic Acid Yes or No Add Lactic
[2021-01-07 14:14] LABS: Troponin I < 0.012 ng/mL (0.000-0.034)
--- NOTE | 2021-01-07 14:27 | PC.NURSE ---
This patient, Ace Sharp, was admitted to [facility] Surg Room 310-01. Patient/family oriented to hospital policies and general routines including ID bracelet, bed and alarms, visiting hours, pain management, procedures, bathroom and other care routines, personal items, smoking policy, room service/diet, and visiting hours. Information on how to activate the Rapid Response Team has been discussed. Patient/Family are encouraged to report perceived risks to care and to ask questions if they do not understand what they are told or what they should do.
--- NOTE | 2021-01-07 14:32 | PM.IMHP ---
H&P: HPI History of Present Illness Date/Time: 01/07/21 14:32 this is a 80-year-old male patient who has Parkinson's disease. He also has a history of congestive heart failure and atrial fibrillation. The patient came to the emergency room today for evaluation of shortness of breath and wheezing for the last several days. The patient has had his full dose of COVID-19 vaccine. The patient has been complaining of having rhinorrhea and a cough. He is also wheezing. He attempted to use his incentive spirometry that his gave him with the minimal improvement. The patient also static he is having some loose stools as well. Troponin negative x2. EKG was read as AFib. Patient has bilateral lower extremity edema and a venous Doppler was performed which was read as negative. Chest x-ray was read as diffuse lung disease with slight worsening in the right lung base consistent with pneumonia and/or pulmonary edema and or atelectasis. The patient was given a nebulizer treat, azithromycin, and Rocephin, Solu-Medrol and Lasix. Patient is being admitted to inpatient services on the date of service of 01/07/2021. Chief Complaint: cough Review of Systems Review of Systems: All systems reviewed & are unremarkable except as noted in HPI and below Constitutional: Constitutional: Reports as per HPI and Reports no additional constitutional complaints Eyes: Eyes: Reports as per HPI and Reports no additional eye complaints ENT: Reports system reviewed and no additional complaints, except as documented and Reports Normal hearing present Cardiovascular: Cardiovascular: Reports no additional cardiovascular complaints Respiratory: Respiratory: Reports no additional respiratory complaints and Reports no additional respiratory complaints Gastrointestinal: Gastrointestinal: Reports as per HPI and Reports no additional gastrointestinal complaints Musculoskeletal: Musculoskeletal: Reports no additional musculoskeletal complaints Integumentary/Breasts: Skin/Breast: Reports system reviewed and no additional complaints, except as docu and Reports as per HPI Neurologic: Reports system reviewed and no additional complaints, except as documented, Reports as per HPI and Reports Normal hearing present Psychiatric: Psychiatric: Reports no additional psychiatric complaints and Reports as per HPI Endocrine: Endocrine: Reports no additional endocrine complaints Hematologic/Lymphatic: Hematologic/Lymphatic: Reports no additional hematologic/lymphatic complaints Allergic/Immunologic: Allergic/Immunologic: Reports no additional allergic/immunologic complaints [facility] Past Medical History Medical History (Updated 01/07/21 @ 14:58 by Cindy Cummins NP) Atrial fibrillation Bladder tumor Chronic diastolic heart failure Echocardiogram on 03/23/2020 showed normal left ventricular systolic function and size with mild concentric left ventricular hypertrophy and ejection fraction measured at 74%. Claudication in peripheral vascular disease 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 intermodal dispatcher 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 CVA (cerebral vascular accident) chronic lacunar infarcts in the region of the anterior limb of the internal capsule bilaterally. There is nonspecific diminished attenuation of the subcortical and periventricular cerebral white matter. Deep venous thrombosis (~2005) Essential hypertension History of pulmonary embolism (~2005) On long-term 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. Hyperlipidemia Impaired fasting glucose Kidney stones Parkinson's disease Shuffling gait and right hand tremors. Persistent atrial fibrillation Primary osteoarthritis, unspecified site Pure hypercholesterolemia Rosacea Urothelial carcinoma of bladder (~11/2019) Followed by Dr. Craft. Cystoscopy in June 2020 demonstrated new lesions, scheduled for TURBT in September 2020. Surgical History Surgical History History of ankle surgery ORIF right ankle fracture. History of basal cell
[2021-01-07 14:55] LABS: Lactic Acid 2.9 mmol/L (0.7-2.1)
[2021-01-07 17:11] LABS: Troponin I < 0.012 ng/mL (0.000-0.034)
[2021-01-07] MEDS: LACTATED RINGERS 1,000 ML 70 ML IV CONT (18:39)
[2021-01-07] MEDS: FAMOTIDINE 20 MG/2 ML VIAL IV PUSH (22:59)
[2021-01-08] VITALS (13 sets, daily range): BP systolic 111–146; BP diastolic 63–78; PULSE 72–117; RESP 18–24; TEMP 36.3–36.4; O2SAT 86–98
--- NOTE | 2021-01-08 | ECHO_ITS ---
Patient Info Name: Ace Sharp Age: 80 years : 1940 Gender: Male Ht: 67 in Wt: 222 lbs BSA: 2.22 m2 HR: 85 bpm BP: 136 / 63 mmHg Heart Rhythm: Atrial Fibrillation Technical Quality: Good Exam Date: 01/08/2021 11:17 AM Exam Location: [facility] Patient Status: Inpatient Admit Date: 01/07/2021 Staff Ordering Physician: Cindy Cummins NP Gun Welder: Pepper Polk RDCS Attending Provider: David Garrison MD Referring Physician: Maria G OLIVAS; Exam Type: CA echo doppler color flow Study Info Indications R60.9 - Edema, unspecified Complete two-dimensional, color flow and Doppler transthoracic echocardiogram is performed. Summary 1. Technically difficult study with limited views. 2. Left ventricular systolic function is normal, estimated at 60-65%. 3. There is mildly increased left ventricular wall thickness. 4. Left ventricular chamber dimension is normal. 5. Left atrial chamber dimension is severely enlarged. 6. Right atrial chamber dimension is severely enlarged. 7. Right ventricular chamber dimension is mildly enlarged. 8. Right ventricular systolic function is mildly reduced. 9. There is mild tricuspid valve regurgitation. 10. Mild pulmonary hypertension, estimated pulmonary arterial systolic pressure is 42 mmHg. Left Ventricle Left ventricular chamber dimension is normal. Left ventricular systolic function is normal, estimated at 60-65%. There is mildly increased left ventricular wall thickness. The left ventricular diastolic function is indeterminate. Technically difficult study with limited views. Right Ventricle Right ventricular chamber dimension is mildly enlarged. Right ventricular systolic function is mildly reduced. Left Atria Left atrial chamber dimension is severely enlarged. Right Atria Right atrial chamber dimension is severely enlarged. Aortic Valve The aortic valve is probable trileaflet although not well visualized.. There is no aortic valve stenosis. Pulmonic Valve The pulmonic valve is not well visualized. There is trace pulmonic regurgitation. Mitral Valve The mitral valve has thickened leaflets. There is trace mitral valve regurgitation. The mitral valve annulus is moderately calcified. Tricuspid Valve The tricuspid valve leaflets are normal. There is mild tricuspid valve regurgitation. Mild pulmonary hypertension, estimated pulmonary arterial systolic pressure is 42 mmHg. Pericardium/Pleural The pericardium appears normal. There is small pericardial effusion. Aorta The aortic root size at the sinus of Valsalva is normal. There is mild aortic atherosclerosis. Left Ventricular Outflow Tract Name Value Normal LVOT 2D LVOT Diameter 2.1 cm LVOT Doppler LVOT Peak Gradient 4 mmHg LVOT Mean Gradient 2 mmHg LVOT VTI 20 cm LVOT VTI/AV VTI Ratio 0.8 LVOT Stroke Volume 69 ml LVOT CO 14.4 l/min LVOT CI 6.5 l/mi
[2021-01-08] MEDS: RIVAROXABAN 20 MG TABLET PO ×2 (00:10→22:31)
[2021-01-08] MEDS: ALBUTEROL SULFATE NEB 2.5 MG/0.5 ML INH 5 MG INHALATION ×4 (02:38→20:05)
[2021-01-08] MEDS: IPRATROPIUM BR 0.02% INH SOLN 0.5 MG/2.5 ML VIAL INHALATION ×4 (02:38→20:05)
[2021-01-08 06:50] LABS: Basophils Percent Auto 0.2 % (0.2-1.2); Hematocrit 46.4 % (42.0-52.0); Hemoglobin 15.1 g/dL (14.0-18.0); Immature Granulocyte Absolute 0.06 K/mm3 (0.00-0.031); Immature Granulocyte Percent A 0.6 % (0-0.5); Lymphocytes Absolute Auto 0.82 K/mm3 (0.9-3.2); Mean Corpuscular HGB Conc 32.5 g/dl (32-36); Mean Corpuscular Hemoglobin 29.5 pg (26-34); Mean Corpuscular Volume 90.8 fl (80-100); Mean Platelet Volume 9.7 fl (7.4-10.4); Monocytes Percent Auto 9.8 % (2.6-8.5); Neutrophils Absolute Auto 8.4 K/mm3 (1.3-6.7); Neutrophils Percent Auto 81.4 % (45.5-73.1); Platelet Count Result 225 k/mm3 (150-375); Red Blood Count 5.11 M/mm3 (4.6-6.20); Red Cell Distribution Width 13.5 % (11.5-14.5); White Blood Count 10.3 K/mm3 (4.5-10.0)
[2021-01-08 07:30] LABS: Alanine Aminotransferase 23 U/L (4-50); Alkaline Phosphatase 64 U/L (38-126); Anion Gap 16 mmol/L (8-16); Aspartate Amino Transferase 23 U/L (17-59); Bilirubin,Total 0.6 mg/dL (0.2-1.3); Blood Urea Nitrogen 16 mg/dL (9-20); Calcium 8.7 mg/dL (8.4-10.2); Carbon Dioxide 22 mmol/L (22-30); Chloride 98 mmol/L (98-107); Estimated CRCL calculation 83 ml/min; Estimated Glomerular Filt Rate > 60; Glucose 186 mg/dL (65-110); Lipase 63 U/L (23-300); Magnesium 1.8 mg/dL (1.6-2.3); Potassium 3.2 mmol/L (3.4-5.0); Sodium 136 mmol/L (137-145)
[2021-01-08] MEDS: ATORVASTATIN 20 MG TABLET PO (09:23)
[2021-01-08] MEDS: METOPROLOL SUCCINATE EXT REL 100 MG TABCR PO (09:24)
[2021-01-08] MEDS: FUROSEMIDE 40 MG TABLET PO (09:25)
[2021-01-08] MEDS: POTASSIUM CHLORIDE 20 MEQ TABLET.ER PO (09:36)
[2021-01-08] MEDS: POTASSIUM CHLORIDE 20 MEQ TABLET PO (09:47)
[2021-01-08] MEDS: FAMOTIDINE 20 MG/2 ML VIAL IV PUSH ×2 (11:53→22:30)
[2021-01-08] MEDS: LACTATED RINGERS 1,000 ML 70 ML IV CONT (13:14)
--- NOTE | 2021-01-08 16:03 | PM.IMPN ---
Progress Note: A&P Assessment and Plan (1) Pneumonia: Code(s): J18.9 - Pneumonia, unspecified organism Status: Acute Assessment and Plan: Continue with azithromycin Rocephin Continue with nebulizer treatments follow BC (2) Urinary (tract) obstruction: Code(s): N13.9 - Obstructive and reflux uropathy, unspecified Status: Acute Assessment and Plan: Urine cultures are pending Patient is already on Rocephin for. (3) Atrial fibrillation: Qualifiers: Atrial fibrillation type: unspecified Qualified Code(s): I48.91 - Unspecified atrial fibrillation Code(s): I48.91 - Unspecified atrial fibrillation Status: Acute Assessment and Plan: Continue with metoprolol and Xarelto Monitor (4) Hyperlipidemia: Qualifiers: Hyperlipidemia type: unspecified Qualified Code(s): E78.5 - Hyperlipidemia, unspecified Code(s): E78.5 - Hyperlipidemia, unspecified Status: Acute Assessment and Plan: Continue with atorvastatin (5) Essential hypertension: Code(s): I10 - Essential (primary) hypertension Status: Chronic Assessment and Plan: Continue metoprolol On Lasix Monitor (6) History of pulmonary embolism: Onset Date: ~2005 Code(s): Z86.711 - Personal history of pulmonary embolism Status: Acute Assessment and Plan: continue with Xarelto (7) Chronic diastolic heart failure: Code(s): I50.32 - Chronic diastolic (congestive) heart failure Status: Chronic Assessment and Plan: ECHO Continue with metoprolol and Lasix Monitor I/O Daily weights (8) Parkinson's disease: Code(s): G20 - Parkinson's disease Status: Chronic Assessment and Plan: continue with carbidopa levodopa (9) Hypokalemia: Code(s): E87.6 - Hypokalemia Status: Acute Assessment and Plan: Mild Continue daily supplement Add 20 meq KCL Monitor Subjective Date/time seen: 01/08/21 16:03 pt seen and evaluated; +SOB, wheezes, denies CP; no acute events overnight Review of Systems Review of Systems: All systems reviewed & are unremarkable except as noted in HPI and below Exam Const: General: no acute distress, alert and awake Orientation/consciousness: patient oriented x3 HENMT: Head: normocephalic and atraumatic Ears: hearing grossly normal bilaterally and external ears normal Face and sinus: face symmetric Mouth: Yes Normal oral and palatal mucosa present Eyes: Pupils: Equal, round and reactive pupils present EOM: EOMs intact bilaterally Neck: Neck: full ROM, trachea midline and no JVD Thyroid: thyroid normal Chest: Chest palpation & inspection: normal inspection of the chest Resp: Effort & Inspection: normal respiratory effort and audible wheezes Auscultation: diminished lung sounds Cardio: Jugular venous distension: no JVD Rate: regular rate Rhythm: regular rhythm Heart sounds: S1 normal heart sound present and S2 normal heart sound present GI: Inspection: normal to inspection GI Palp: Yes Soft to palpation Percussion: Yes normal to percussion Auscultation: normal bowel sounds : General: Yes no CVA tenderness Back/Spine/Pelvis: Back: no CVA tenderness Skin: General skin exam: normal color Rashes: no rashes Neuro: General: patient oriented x3 and CN's II-XI intact bilaterally Cranial nerves: Yes Equal, round and reactive pupils present Speech: normal speech Psych: Appearance: grossly normal Affect: normal affect Judgement: Good judgement present (Psych) Objective Data Vital Signs Vital Signs: Vital Signs - 24 hr 01/07/21 20:00 01/07/21 20:26 01/07/21 20:27 Temperature Pulse Rate 93 91 Respiratory Rate 18 18 Blood Pressure Pulse Oximetry 94 95 01/07/21 20:36 01/07/21 22:00 01/08/21 02:42 Temperature 36.6 C Pulse Rate 101 H 93 98 Respiratory Rate 18 18 18 Blood Pressure 128/72 Pulse Oximetry 94
[2021-01-09] VITALS (14 sets, daily range): BP systolic 133–168; BP diastolic 74–90; PULSE 88–112; RESP 18–20; TEMP 36.3–36.6; O2SAT 96–97
[2021-01-09] MEDS: ALBUTEROL SULFATE NEB 2.5 MG/0.5 ML INH 5 MG INHALATION ×4 (02:09→21:28)
[2021-01-09] MEDS: IPRATROPIUM BR 0.02% INH SOLN 0.5 MG/2.5 ML VIAL INHALATION ×4 (02:09→21:28)
[2021-01-09] MEDS: LACTATED RINGERS 1,000 ML 70 ML IV CONT (06:04)
[2021-01-09] MEDS: METOPROLOL SUCCINATE EXT REL 100 MG TABCR PO (08:44)
[2021-01-09] MEDS: FUROSEMIDE 40 MG TABLET PO (08:44)
[2021-01-09] MEDS: POTASSIUM CHLORIDE 20 MEQ TABLET.ER PO (08:44)
[2021-01-09] MEDS: ATORVASTATIN 20 MG TABLET PO (08:44)
[2021-01-09] MEDS: FAMOTIDINE 20 MG/2 ML VIAL IV PUSH ×2 (08:44→21:10)
[2021-01-09 10:45] LABS: Hematocrit 44.8 % (42.0-52.0); Hemoglobin 14.2 g/dL (14.0-18.0); Mean Corpuscular HGB Conc 31.7 g/dl (32-36); Mean Corpuscular Hemoglobin 29.3 pg (26-34); Mean Corpuscular Volume 92.6 fl (80-100); Mean Platelet Volume 9.5 fl (7.4-10.4); Platelet Count Result 213 k/mm3 (150-375); Red Blood Count 4.84 M/mm3 (4.6-6.20); Red Cell Distribution Width 13.9 % (11.5-14.5); White Blood Count 11.2 K/mm3 (4.5-10.0)
[2021-01-09 10:56] LABS: Anion Gap 10 mmol/L (8-16); Blood Urea Nitrogen 16 mg/dL (9-20); Calcium 8.5 mg/dL (8.4-10.2); Carbon Dioxide 27 mmol/L (22-30); Chloride 98 mmol/L (98-107); Estimated CRCL calculation 83 ml/min; Estimated Glomerular Filt Rate > 60; Glucose 132 mg/dL (65-110); Potassium 4.3 mmol/L (3.4-5.0); Sodium 135 mmol/L (137-145)
[2021-01-09] MEDS: SODIUM CHLORIDE 0.9% IV 1,000 ML 50 ML IV CONT (12:02)
[2021-01-09] MEDS: FUROSEMIDE INJ 40 MG/4 ML VIAL 20 MG IV PUSH (12:03)
[2021-01-09] MEDS: methylPREDNISolone SOD SUCC 40 MG VIAL IV PUSH ×2 (12:04→21:09)
[2021-01-09 15:55] LABS: Alveolar/Arterial O2 Gradient 30.8 mmHg; Base Excess ABG 3.5 mEq/l (+/-2.0); Fractional Inspired Oxygen 21 %; HCO3 ABG 26.5 mEq/l (22.0-26.0); Oxygen Content ABG 21.6 %vol (16.0-22.0); Oxygen Saturation ABG 96.3 % (95.0-100.0); Oxyhemoglobin 95.3 % THb (90.0-100.0); PCO2 ABG 35.5 mmHg (35.0-45.0); PO2 ABG 76.4 mmHg (80.0-100.0); PO2 FiO2 Ratio Arterial Blood 3.64 %; Total Hemoglobin 16.1 g/dL (12.0-18.0); pH ABG 7.491 (7.350-7.450)
[2021-01-09 15:56] LABS: Device ROOM AIR; Modified Allen's Test Unable to perform; Site Drawn RIGHT RADIAL
[2021-01-09] MEDS: methylPREDNISolone SOD SUCC 125 MG VIAL IV PUSH (17:06)
--- NOTE | 2021-01-09 18:02 | PM.IMPN ---
Progress Note: A&P Assessment and Plan (1) Pneumonia: Code(s): J18.9 - Pneumonia, unspecified organism Status: Acute Assessment and Plan: Continue with azithromycin Rocephin Continue with nebulizer treatments BC NGTD Repeat CXR shows worsening pna Solu medrol initiated 1 dose of IV lasix given ABG noted Pt on RA Will check COVID pcr (2) Urinary (tract) obstruction: Code(s): N13.9 - Obstructive and reflux uropathy, unspecified Status: Acute Assessment and Plan: Urine cultures are neg (3) Atrial fibrillation: Qualifiers: Atrial fibrillation type: unspecified Qualified Code(s): I48.91 - Unspecified atrial fibrillation Code(s): I48.91 - Unspecified atrial fibrillation Status: Acute Assessment and Plan: Continue with metoprolol and Xarelto Monitor (4) Hyperlipidemia: Qualifiers: Hyperlipidemia type: unspecified Qualified Code(s): E78.5 - Hyperlipidemia, unspecified Code(s): E78.5 - Hyperlipidemia, unspecified Status: Acute Assessment and Plan: Continue with atorvastatin (5) Essential hypertension: Code(s): I10 - Essential (primary) hypertension Status: Chronic Assessment and Plan: Continue metoprolol On Lasix Monitor (6) History of pulmonary embolism: Onset Date: ~2005 Code(s): Z86.711 - Personal history of pulmonary embolism Status: Acute Assessment and Plan: continue with Xarelto (7) Chronic diastolic heart failure: Code(s): I50.32 - Chronic diastolic (congestive) heart failure Status: Chronic Assessment and Plan: ECHO pending Continue with metoprolol and Lasix Monitor I/O Daily weights (8) Parkinson's disease: Code(s): G20 - Parkinson's disease Status: Chronic Assessment and Plan: continue with carbidopa levodopa (9) Hypokalemia: Code(s): E87.6 - Hypokalemia Status: Acute Assessment and Plan: Resolved 4.3 today Continue daily supplement Monitor Subjective Date/time seen: 01/09/21 9:02 pt seen and evaluated; noted with wheezing; +SOB; denies CP or cough; states he feels fine Review of Systems Review of Systems: All systems reviewed & are unremarkable except as noted in HPI and below Exam Const: General: cooperative, healthy appearing, comfortable, no acute distress, well developed, alert, awake and Physically active Nutritional Appearance: average body habitus and overweight Orientation/consciousness: oriented to person, oriented to place, oriented to time and patient oriented x3 Limitations: no limitations HENMT: Head: normal to inspection, No palpable skull fracture present, normocephalic and atraumatic Ears: hearing grossly normal bilaterally and external ears normal General nose exam: Normal external nose present and Normal nares present Face and sinus: face symmetric Mouth: Yes Normal oral and palatal mucosa present Eyes: General: appearance normal, both eyes and all related structures Alignment and Position: alignment normal Periorbital: periorbital findings normal Eyelids: eyelids normal Conjunctivae: conjunctivae normal Sclera: sclerae normal Cornea: corneas normal Pupils: Equal, round and reactive pupils present EOM: EOMs intact bilaterally Neck: Neck: normal visual inspection, full ROM, no lymphadenopathy, trachea midline, supple and no JVD Thyroid: thyroid normal Carotids: normal carotid upstroke Lymphatic: no lymphadenopathy noted Chest: Chest palpation & inspection: normal inspection of the chest Resp: Effort & Inspection: normal respiratory effort and audible wheezes Auscultation: wheezes and diminished lung sounds Percussion: percussion normal Cardio: Jugular venous distension: no JVD Palpation: normal PMI Rate: regular rate Rhythm: regular rhythm and abnormal rhythm irregularly irregular Heart sounds: S1 normal heart sound present and S2 normal heart
[2021-01-09] MEDS: RIVAROXABAN 20 MG TABLET PO (21:10)
--- NOTE | 2021-01-09 22:18 | PM.EVENT ---
Event Note Event Note Event Note: The patient was having some wheezing in the upper airway. We sat him up and suctioned him and had him cough some. The patint sounded somewhat better after the coughing and suctioning
[2021-01-10] VITALS (15 sets, daily range): BP systolic 115–148; BP diastolic 60–114; PULSE 78–105; RESP 18–20; TEMP 36.4–36.8; O2SAT 92–98
[2021-01-10] MEDS: IPRATROPIUM BR 0.02% INH SOLN 0.5 MG/2.5 ML VIAL INHALATION ×4 (03:19→21:33)
[2021-01-10] MEDS: ALBUTEROL SULFATE NEB 2.5 MG/0.5 ML INH 5 MG INHALATION ×4 (03:19→21:34)
[2021-01-10 06:31] LABS: Hematocrit 45.4 % (42.0-52.0); Hemoglobin 14.6 g/dL (14.0-18.0); Immature Granulocyte Absolute 0.06 K/mm3 (0.00-0.031); Immature Granulocyte Percent A 0.6 % (0-0.5); Lymphocytes Absolute Auto 0.92 K/mm3 (0.9-3.2); Lymphocytes Percent Auto 9.5 % (18.3-44.2); Mean Corpuscular HGB Conc 32.2 g/dl (32-36); Mean Corpuscular Hemoglobin 29.7 pg (26-34); Mean Corpuscular Volume 92.3 fl (80-100); Mean Platelet Volume 9.6 fl (7.4-10.4); Monocytes Absolute Auto 0.4 K/mm3 (0.1-0.6); Monocytes Percent Auto 3.9 % (2.6-8.5); Neutrophils Absolute Auto 8.3 K/mm3 (1.3-6.7); Platelet Count Result 209 k/mm3 (150-375); Red Blood Count 4.92 M/mm3 (4.6-6.20); Red Cell Distribution Width 13.8 % (11.5-14.5); White Blood Count 9.7 K/mm3 (4.5-10.0)
[2021-01-10 06:39] LABS: Anion Gap 6 mmol/L (8-16); Blood Urea Nitrogen 20 mg/dL (9-20); Calcium 8.7 mg/dL (8.4-10.2); Carbon Dioxide 32 mmol/L (22-30); Chloride 96 mmol/L (98-107); Estimated CRCL calculation 84 ml/min; Estimated Glomerular Filt Rate > 60; Glucose 203 mg/dL (65-110); Sodium 134 mmol/L (137-145)
[2021-01-10] MEDS: methylPREDNISolone SOD SUCC 40 MG VIAL IV PUSH ×3 (06:43→20:36)
[2021-01-10] MEDS: FAMOTIDINE 20 MG/2 ML VIAL IV PUSH ×2 (09:44→20:36)
[2021-01-10] MEDS: POTASSIUM CHLORIDE 20 MEQ TABLET.ER PO (09:44)
[2021-01-10] MEDS: FUROSEMIDE 40 MG TABLET PO (09:44)
[2021-01-10] MEDS: METOPROLOL SUCCINATE EXT REL 100 MG TABCR PO (09:44)
[2021-01-10] MEDS: ATORVASTATIN 20 MG TABLET PO (09:44)
--- NOTE | 2021-01-10 14:35 | PM.IMPN ---
Progress Note: A&P Assessment and Plan (1) Pneumonia: Code(s): J18.9 - Pneumonia, unspecified organism Status: Acute Assessment and Plan: Continue with azithromycin Rocephin Continue with nebulizer treatments BC NGTD Repeat CXR shows worsening pna Solu medrol initiated 1 dose of IV lasix given ABG noted Pt on RA COVID pcr pending F/u labs (2) Urinary (tract) obstruction: Code(s): N13.9 - Obstructive and reflux uropathy, unspecified Status: Acute Assessment and Plan: Urine cultures are neg (3) Atrial fibrillation: Qualifiers: Atrial fibrillation type: unspecified Qualified Code(s): I48.91 - Unspecified atrial fibrillation Code(s): I48.91 - Unspecified atrial fibrillation Status: Acute Assessment and Plan: Continue with metoprolol and Xarelto Monitor (4) Hyperlipidemia: Qualifiers: Hyperlipidemia type: unspecified Qualified Code(s): E78.5 - Hyperlipidemia, unspecified Code(s): E78.5 - Hyperlipidemia, unspecified Status: Acute Assessment and Plan: Continue with atorvastatin (5) Essential hypertension: Code(s): I10 - Essential (primary) hypertension Status: Chronic Assessment and Plan: Continue metoprolol On Lasix Monitor (6) History of pulmonary embolism: Onset Date: ~2005 Code(s): Z86.711 - Personal history of pulmonary embolism Status: Acute Assessment and Plan: continue with Xarelto (7) Chronic diastolic heart failure: Code(s): I50.32 - Chronic diastolic (congestive) heart failure Status: Chronic Assessment and Plan: ECHO pending Continue with metoprolol and Lasix Monitor I/O Daily weights (8) Parkinson's disease: Code(s): G20 - Parkinson's disease Status: Chronic Assessment and Plan: continue with carbidopa levodopa (9) Hypokalemia: Code(s): E87.6 - Hypokalemia Status: Acute Assessment and Plan: Resolved 4.3-->4.0 today Continue daily supplement Monitor Subjective Date/time seen: 01/10/21 14:35 Pt is confused and agitated today; Na slightyly decreased at 134; wheezing has improved Review of Systems Review of Systems: ROS unobtainable: Yes unobtainable due to medical condition Exam Const: General: cooperative, healthy appearing, comfortable, no acute distress, well developed, alert, awake and Physically active Nutritional Appearance: average body habitus and overweight Orientation/consciousness: oriented to person, oriented to place, oriented to time and patient oriented x3 Limitations: no limitations HENMT: Head: normal to inspection, No palpable skull fracture present, normocephalic and atraumatic Ears: hearing grossly normal bilaterally and external ears normal General nose exam: Normal external nose present and Normal nares present Face and sinus: face symmetric Mouth: Yes Normal oral and palatal mucosa present Eyes: General: appearance normal, both eyes and all related structures Alignment and Position: alignment normal Periorbital: periorbital findings normal Eyelids: eyelids normal Conjunctivae: conjunctivae normal Sclera: sclerae normal Cornea: corneas normal Pupils: Equal, round and reactive pupils present EOM: EOMs intact bilaterally Neck: Neck: normal visual inspection, full ROM, no lymphadenopathy, trachea midline, supple and no JVD Thyroid: thyroid normal Carotids: normal carotid upstroke Lymphatic: no lymphadenopathy noted Chest: Chest palpation & inspection: normal inspection of the chest Resp: Effort & Inspection: normal respiratory effort and audible wheezes Auscultation: wheezes and diminished lung sounds Percussion: percussion normal Cardio: Jugular venous distension: no JVD Palpation: normal PMI Rate: regular rate Rhythm: regular rhythm and abnormal rhythm irregularly irregular Heart sounds: S1 normal heart sound present and S2 normal heart s
[2021-01-10 16:09] LABS: D Dimer 0.68 ug/mL (<0.48)
[2021-01-10 16:10] LABS: Alanine Aminotransferase 12 U/L (4-50); Albumin Level 3.7 g/dL (3.5-5.1); Alkaline Phosphatase 55 U/L (38-126); Anion Gap 10 mmol/L (8-16); Aspartate Amino Transferase 21 U/L (17-59); Bilirubin,Total 0.8 mg/dL (0.2-1.3); Blood Urea Nitrogen 24 mg/dL (9-20); Calcium 8.7 mg/dL (8.4-10.2); Carbon Dioxide 28 mmol/L (22-30); Chloride 97 mmol/L (98-107); Creatine Kinase 56 U/L (55-170); Estimated CRCL calculation 74 ml/min; Estimated Glomerular Filt Rate > 60; Glucose 153 mg/dL (65-110); Potassium 3.9 mmol/L (3.4-5.0); Sodium 135 mmol/L (137-145)
[2021-01-10 16:14] LABS: CRP 3.1 mg/dL (<1.0); Lactate Dehydrogenase 377 U/L (313-618)
[2021-01-10 16:59] LABS: Glucose Point of Care 150 mg/dl (65-105)
[2021-01-10 19:08] LABS: SARS-CoV-2 RNA PCR Negative
[2021-01-10] MEDS: RIVAROXABAN 20 MG TABLET PO (20:37)
[2021-01-11] VITALS (9 sets, daily range): BP systolic 97–162; BP diastolic 60–88; PULSE 78–104; RESP 16–22; TEMP 36.3–36.6; O2SAT 91–96
[2021-01-11] MEDS: ALBUTEROL SULFATE NEB 2.5 MG/0.5 ML INH 5 MG INHALATION ×3 (02:19→13:37)
[2021-01-11] MEDS: IPRATROPIUM BR 0.02% INH SOLN 0.5 MG/2.5 ML VIAL INHALATION ×3 (02:19→13:37)
[2021-01-11] MEDS: methylPREDNISolone SOD SUCC 40 MG VIAL IV PUSH ×3 (05:29→23:18)
[2021-01-11 09:09] LABS: Glucose Point of Care 166 mg/dl (65-105)
[2021-01-11] MEDS: POTASSIUM CHLORIDE 20 MEQ TABLET.ER PO (09:22)
[2021-01-11] MEDS: FUROSEMIDE 40 MG TABLET PO (09:23)
[2021-01-11] MEDS: FAMOTIDINE 20 MG/2 ML VIAL IV PUSH ×2 (09:23→23:17)
[2021-01-11] MEDS: ATORVASTATIN 20 MG TABLET PO (09:23)
[2021-01-11] MEDS: METOPROLOL SUCCINATE EXT REL 100 MG TABCR PO (09:23)
--- NOTE | 2021-01-11 09:43 | PM.IMPN ---
Progress Note: A&P Assessment and Plan (1) Pneumonia: Code(s): J18.9 - Pneumonia, unspecified organism Status: Acute Assessment and Plan: Continue with azithromycin Rocephin Continue with nebulizer treatments BC NGTD Repeat CXR shows worsening pna Solu medrol initiated 1 dose of IV lasix given ABG noted Pt on RA COVID neg ferritin, crp and d-dimer elevated; ldr wnl PT/OT (2) Urinary (tract) obstruction: Code(s): N13.9 - Obstructive and reflux uropathy, unspecified Status: Acute Assessment and Plan: Urine cultures are neg (3) Atrial fibrillation: Qualifiers: Atrial fibrillation type: unspecified Qualified Code(s): I48.91 - Unspecified atrial fibrillation Code(s): I48.91 - Unspecified atrial fibrillation Status: Acute Assessment and Plan: Continue with metoprolol and Xarelto Monitor (4) Hyperlipidemia: Qualifiers: Hyperlipidemia type: unspecified Qualified Code(s): E78.5 - Hyperlipidemia, unspecified Code(s): E78.5 - Hyperlipidemia, unspecified Status: Acute Assessment and Plan: Continue with atorvastatin (5) Essential hypertension: Code(s): I10 - Essential (primary) hypertension Status: Chronic Assessment and Plan: Continue metoprolol On Lasix Monitor (6) History of pulmonary embolism: Onset Date: ~2005 Code(s): Z86.711 - Personal history of pulmonary embolism Status: Acute Assessment and Plan: continue with Xarelto (7) Chronic diastolic heart failure: Code(s): I50.32 - Chronic diastolic (congestive) heart failure Status: Chronic Assessment and Plan: ECHO-->pending EF 60-65%; mildly increased left ventricular wall thickness; mild pulmonary HTN 42 mmHg Continue with metoprolol and Lasix Monitor I/O Daily weights (8) Parkinson's disease: Code(s): G20 - Parkinson's disease Status: Chronic Assessment and Plan: continue with carbidopa levodopa (9) Hypokalemia: Code(s): E87.6 - Hypokalemia Status: Acute Assessment and Plan: Resolved 4.3-->4.0 01/09 Continue daily supplement Monitor Subjective Date/time seen: 01/11/21 09:43 Interval history: Pt is AOX3 today; denies any SOB or CP; no wheezes is up to chair; would benefit from rehab Review of Systems Review of Systems: All systems reviewed & are unremarkable except as noted in HPI and below Exam Const: General: cooperative, healthy appearing, comfortable, no acute distress, well developed, alert, awake and Physically active Nutritional Appearance: average body habitus and overweight Orientation/consciousness: oriented to person, oriented to place, oriented to time and patient oriented x3 Limitations: no limitations HENMT: Head: normal to inspection, No palpable skull fracture present, normocephalic and atraumatic Ears: hearing grossly normal bilaterally and external ears normal General nose exam: Normal external nose present and Normal nares present Face and sinus: face symmetric Mouth: Yes Normal oral and palatal mucosa present Eyes: General: appearance normal, both eyes and all related structures Alignment and Position: alignment normal EOM: EOMs intact bilaterally Neck: Neck: normal visual inspection, full ROM, no lymphadenopathy, trachea midline, supple and no JVD Thyroid: thyroid normal Carotids: normal carotid upstroke Lymphatic: no lymphadenopathy noted Chest: Chest palpation & inspection: normal inspection of the chest Resp: Effort & Inspection: normal respiratory effort Auscultation: diminished lung sounds Percussion: percussion normal Cardio: Jugular venous distension: no JVD Palpation: normal PMI Rate: regular rate Rhythm: regular rhythm and abnormal rhythm irregularly irregular Heart sounds: S1 normal heart sound present and S2 normal heart sound present Peripheral pulses: Peripheral pulses 2+ throughout GI:
[2021-01-11 13:16] LABS: Glucose Point of Care 181 mg/dl (65-105)
[2021-01-11] MEDS: INSULIN ASPART (*BKC) 100 UNITS/ML SUB-Q (17:34)
[2021-01-11 21:55] LABS: Glucose Point of Care 236 mg/dl (65-105)
[2021-01-11] MEDS: RIVAROXABAN 20 MG TABLET PO (23:17)
--- NOTE | 2021-01-11 23:37 | PCRCNOTE ---
Window of time for administration has passed. See next scheduled administration.
[2021-01-12] VITALS (8 sets, daily range): BP systolic 115–141; BP diastolic 69–89; PULSE 78–94; RESP 16–18; TEMP 36.5–36.7; O2SAT 94–98
[2021-01-12] MEDS: ALBUTEROL SULFATE NEB 2.5 MG/0.5 ML INH 5 MG INHALATION ×2 (02:09→11:32)
[2021-01-12] MEDS: IPRATROPIUM BR 0.02% INH SOLN 0.5 MG/2.5 ML VIAL INHALATION ×2 (02:10→11:32)
[2021-01-12] MEDS: methylPREDNISolone SOD SUCC 40 MG VIAL IV PUSH ×3 (06:18→22:05)
[2021-01-12 06:45] LABS: Basophils Percent Auto 0.2 % (0.2-1.2); Hematocrit 44.4 % (42.0-52.0); Hemoglobin 14.4 g/dL (14.0-18.0); Immature Granulocyte Percent A 0.8 % (0-0.5); Lymphocytes Absolute Auto 0.79 K/mm3 (0.9-3.2); Lymphocytes Percent Auto 6.5 % (18.3-44.2); Mean Corpuscular HGB Conc 32.4 g/dl (32-36); Mean Corpuscular Hemoglobin 29.4 pg (26-34); Mean Corpuscular Volume 90.8 fl (80-100); Mean Platelet Volume 9.6 fl (7.4-10.4); Monocytes Absolute Auto 0.6 K/mm3 (0.1-0.6); Monocytes Percent Auto 4.8 % (2.6-8.5); Neutrophils Absolute Auto 10.7 K/mm3 (1.3-6.7); Neutrophils Percent Auto 87.7 % (45.5-73.1); Platelet Count Result 226 k/mm3 (150-375); Red Blood Count 4.89 M/mm3 (4.6-6.20); Red Cell Distribution Width 13.6 % (11.5-14.5); White Blood Count 12.2 K/mm3 (4.5-10.0)
[2021-01-12 06:57] LABS: Anion Gap 7 mmol/L (8-16); Blood Urea Nitrogen 28 mg/dL (9-20); Calcium 8.1 mg/dL (8.4-10.2); Carbon Dioxide 30 mmol/L (22-30); Chloride 98 mmol/L (98-107); Estimated CRCL calculation 75 ml/min; Estimated Glomerular Filt Rate > 60; Glucose 200 mg/dL (65-110); Potassium 4.2 mmol/L (3.4-5.0); Sodium 135 mmol/L (137-145)
[2021-01-12] MEDS: ATORVASTATIN 20 MG TABLET PO (08:10)
[2021-01-12] MEDS: POTASSIUM CHLORIDE 20 MEQ TABLET.ER PO (08:10)
[2021-01-12] MEDS: FUROSEMIDE 40 MG TABLET PO ×2 (08:10→22:05)
[2021-01-12] MEDS: METOPROLOL SUCCINATE EXT REL 100 MG TABCR PO (08:11)
[2021-01-12] MEDS: FAMOTIDINE 20 MG/2 ML VIAL IV PUSH ×2 (08:12→22:05)
[2021-01-12 08:28] LABS: Glucose Point of Care 204 mg/dl (65-105)
[2021-01-12] MEDS: INSULIN ASPART (*BKC) 100 UNITS/ML SUB-Q (09:29)
--- NOTE | 2021-01-12 10:49 | PCRCNOTE ---
Window of time for administration has passed. See next scheduled administration.
[2021-01-12 11:00] LABS: NT Pro B Type Natriuretic Pept 1940 pg/mL (5-100)
[2021-01-12 11:55] LABS: Glucose Point of Care 203 mg/dl (65-105)
[2021-01-12 13:08] LABS: Glucose Point of Care 160 mg/dl (65-105)
--- NOTE | 2021-01-12 14:40 | PM.IMPN ---
Progress Note: A&P Assessment and Plan (1) Pneumonia: Code(s): J18.9 - Pneumonia, unspecified organism Status: Acute Assessment and Plan: Continue with azithromycin Rocephin Continue with nebulizer treatments BC NGTD Repeat CXR shows worsening pna Solu medrol initiated 1 dose of IV lasix given ABG noted Pt on RA COVID neg ferritin, crp and d-dimer elevated; ldr wnl PT/OT (2) Urinary (tract) obstruction: Code(s): N13.9 - Obstructive and reflux uropathy, unspecified Status: Acute Assessment and Plan: Urine cultures are neg (3) Atrial fibrillation: Qualifiers: Atrial fibrillation type: unspecified Qualified Code(s): I48.91 - Unspecified atrial fibrillation Code(s): I48.91 - Unspecified atrial fibrillation Status: Acute Assessment and Plan: Continue with metoprolol and Xarelto Monitor (4) Hyperlipidemia: Qualifiers: Hyperlipidemia type: unspecified Qualified Code(s): E78.5 - Hyperlipidemia, unspecified Code(s): E78.5 - Hyperlipidemia, unspecified Status: Acute Assessment and Plan: Continue with atorvastatin (5) Essential hypertension: Code(s): I10 - Essential (primary) hypertension Status: Chronic Assessment and Plan: Continue metoprolol On Lasix Monitor (6) History of pulmonary embolism: Onset Date: ~2005 Code(s): Z86.711 - Personal history of pulmonary embolism Status: Acute Assessment and Plan: continue with Xarelto (7) Chronic diastolic heart failure: Code(s): I50.32 - Chronic diastolic (congestive) heart failure Status: Chronic Assessment and Plan: proBNP 1940 ECHO-->pending EF 60-65%; mildly increased left ventricular wall thickness; mild pulmonary HTN 42 mmHg Continue with metoprolol Increase Lasix BID Monitor I/O Daily weights (8) Parkinson's disease: Code(s): G20 - Parkinson's disease Status: Chronic Assessment and Plan: continue with carbidopa levodopa (9) Hypokalemia: Code(s): E87.6 - Hypokalemia Status: Acute Assessment and Plan: Resolved 4.3-->4.0-->4.2 today Continue daily supplement Monitor Subjective Date/time seen: 01/12/21 14:40 Interval history: Pt is AOX3 today; denies any SOB or CP; no wheezes is up to chair; would benefit from rehab Review of Systems Review of Systems: All systems reviewed & are unremarkable except as noted in HPI and below ROS unobtainable: Yes unobtainable due to medical condition Exam Const: General: cooperative, healthy appearing, comfortable, no acute distress, well developed, alert, awake and Physically active Nutritional Appearance: average body habitus and overweight Orientation/consciousness: oriented to person, oriented to place, oriented to time and patient oriented x3 Limitations: no limitations HENMT: Head: normal to inspection, No palpable skull fracture present, normocephalic and atraumatic Ears: hearing grossly normal bilaterally and external ears normal General nose exam: Normal external nose present and Normal nares present Face and sinus: face symmetric Mouth: Yes Normal oral and palatal mucosa present Eyes: General: appearance normal, both eyes and all related structures Alignment and Position: alignment normal Periorbital: periorbital findings normal Eyelids: eyelids normal Conjunctivae: conjunctivae normal Sclera: sclerae normal Cornea: corneas normal EOM: EOMs intact bilaterally Neck: Neck: normal visual inspection, full ROM, no lymphadenopathy, trachea midline, supple and no JVD Thyroid: thyroid normal Carotids: normal carotid upstroke Lymphatic: no lymphadenopathy noted Chest: Chest palpation & inspection: normal inspection of the chest Resp: Effort & Inspection: normal respiratory effort Auscultation: diminished lung sounds Percussion: percussion normal Cardio: Jugular venous distension: no JVD Palp
--- NOTE | 2021-01-12 15:23 | PCOTNOTE ---
The OT treatment was unable to be completed this date. Will continue plan of care tomorrow, 01/13/21.
[2021-01-12 17:08] LABS: Glucose Point of Care 166 mg/dl (65-105)
[2021-01-12] MEDS: RIVAROXABAN 20 MG TABLET PO (22:05)
[2021-01-12 22:15] LABS: Glucose Point of Care 167 mg/dl (65-105)
[2021-01-13] VITALS (11 sets, daily range): BP systolic 116–137; BP diastolic 71–99; PULSE 82–98; RESP 16–20; TEMP 36.6–36.9; O2SAT 95–100
[2021-01-13] MEDS: ALBUTEROL SULFATE NEB 2.5 MG/0.5 ML INH 5 MG INHALATION ×3 (04:13→15:04)
[2021-01-13] MEDS: IPRATROPIUM BR 0.02% INH SOLN 0.5 MG/2.5 ML VIAL INHALATION ×3 (04:14→15:04)
[2021-01-13] MEDS: methylPREDNISolone SOD SUCC 40 MG VIAL IV PUSH ×3 (06:32→22:16)
[2021-01-13] MEDS: FUROSEMIDE 40 MG TABLET PO ×2 (08:02→22:16)
[2021-01-13] MEDS: METOPROLOL SUCCINATE EXT REL 100 MG TABCR PO (08:02)
[2021-01-13] MEDS: FAMOTIDINE 20 MG/2 ML VIAL IV PUSH ×2 (08:02→22:16)
[2021-01-13] MEDS: POTASSIUM CHLORIDE 20 MEQ TABLET.ER PO (08:03)
[2021-01-13 08:29] LABS: Glucose Point of Care 179 mg/dl (65-105)
[2021-01-13] MEDS: ATORVASTATIN 20 MG TABLET PO (10:49)
[2021-01-13 12:25] LABS: Glucose Point of Care 224 mg/dl (65-105)
[2021-01-13] MEDS: INSULIN ASPART (*BKC) 100 UNITS/ML SUB-Q ×2 (12:30→18:15)
[2021-01-13 13:36] LABS: Anion Gap 12 mmol/L (8-16); Blood Urea Nitrogen 31 mg/dL (9-20); Calcium 8.2 mg/dL (8.4-10.2); Carbon Dioxide 29 mmol/L (22-30); Chloride 92 mmol/L (98-107); Estimated CRCL calculation 74 ml/min; Estimated Glomerular Filt Rate > 60; Glucose 186 mg/dL (65-110); Potassium 4.2 mmol/L (3.4-5.0); Sodium 133 mmol/L (137-145)
--- NOTE | 2021-01-13 14:31 | PM.IMPN ---
Progress Note: A&P Assessment and Plan (1) Pneumonia: Code(s): J18.9 - Pneumonia, unspecified organism Status: Acute Assessment and Plan: Continue with azithromycin Rocephin Continue with nebulizer treatments BC NGTD Repeat CXR shows worsening pna Solu medrol initiated 1 dose of IV lasix given ABG noted Pt on RA COVID neg ferritin, crp and d-dimer elevated; ldr wnl PT/OT (2) Urinary (tract) obstruction: Code(s): N13.9 - Obstructive and reflux uropathy, unspecified Status: Acute Assessment and Plan: Urine cultures are neg (3) Atrial fibrillation: Qualifiers: Atrial fibrillation type: unspecified Qualified Code(s): I48.91 - Unspecified atrial fibrillation Code(s): I48.91 - Unspecified atrial fibrillation Status: Acute Assessment and Plan: Continue with metoprolol and Xarelto Monitor (4) Hyperlipidemia: Qualifiers: Hyperlipidemia type: unspecified Qualified Code(s): E78.5 - Hyperlipidemia, unspecified Code(s): E78.5 - Hyperlipidemia, unspecified Status: Acute Assessment and Plan: Continue with atorvastatin (5) Essential hypertension: Code(s): I10 - Essential (primary) hypertension Status: Chronic Assessment and Plan: Continue metoprolol On Lasix Monitor (6) History of pulmonary embolism: Onset Date: ~2005 Code(s): Z86.711 - Personal history of pulmonary embolism Status: Acute Assessment and Plan: continue with Xarelto (7) Chronic diastolic heart failure: Code(s): I50.32 - Chronic diastolic (congestive) heart failure Status: Chronic Assessment and Plan: proBNP 1938 ECHO-->pending EF 60-65%; mildly increased left ventricular wall thickness; mild pulmonary HTN 42 mmHg Continue with metoprolol Increased Lasix BID on 01/12, resume home dose if weight stable and BNP improved Monitor I/O Daily weights Repeat proBNP (8) Parkinson's disease: Code(s): G20 - Parkinson's disease Status: Chronic Assessment and Plan: continue with carbidopa levodopa (9) Hypokalemia: Code(s): E87.6 - Hypokalemia Status: Acute Assessment and Plan: Resolved 4.3-->4.0-->4.2 today Continue daily supplement Monitor Subjective Date/time seen: 01/13/21 14:31 Interval history: Pt is AOX3 today; denies any SOB or CP; no wheezes is up to chair; rehab at d/c Exam Const: General: cooperative, healthy appearing, comfortable, no acute distress, well developed, alert, awake and Physically active Nutritional Appearance: average body habitus and overweight Orientation/consciousness: oriented to person, oriented to place, oriented to time and patient oriented x3 Limitations: no limitations HENMT: Head: normal to inspection, No palpable skull fracture present, normocephalic and atraumatic Ears: hearing grossly normal bilaterally and external ears normal General nose exam: Normal external nose present and Normal nares present Face and sinus: face symmetric Mouth: Yes Normal oral and palatal mucosa present Eyes: General: appearance normal, both eyes and all related structures Alignment and Position: alignment normal Periorbital: periorbital findings normal Eyelids: eyelids normal Conjunctivae: conjunctivae normal Sclera: sclerae normal Cornea: corneas normal EOM: EOMs intact bilaterally Neck: Neck: normal visual inspection, full ROM, no lymphadenopathy, trachea midline, supple and no JVD Thyroid: thyroid normal Carotids: normal carotid upstroke Lymphatic: no lymphadenopathy noted Chest: Chest palpation & inspection: normal inspection of the chest Resp: Effort & Inspection: normal respiratory effort Auscultation: diminished lung sounds Percussion: percussion normal Cardio: Jugular venous distension: no JVD Palpation: normal PMI Rate: regular rate Rhythm: regular rhythm and abnormal rhythm irregularly irregular Heart so
[2021-01-13 17:43] LABS: Glucose Point of Care 226 mg/dl (65-105)
[2021-01-13] MEDS: RIVAROXABAN 20 MG TABLET PO (22:16)
[2021-01-13 22:42] LABS: Glucose Point of Care 174 mg/dl (65-105)
--- NOTE | 2021-01-13 23:24 | PCRCNOTE ---
Window of time for administration has passed. See next scheduled administration.
[2021-01-14] VITALS (11 sets, daily range): BP systolic 114–145; BP diastolic 79–94; PULSE 84–100; RESP 16–20; TEMP 36.4–36.7; O2SAT 92–99
[2021-01-14] MEDS: methylPREDNISolone SOD SUCC 40 MG VIAL IV PUSH ×2 (06:06→21:14)
[2021-01-14 07:02] LABS: Basophils Percent Auto 0.2 % (0.2-1.2); Hematocrit 46.5 % (42.0-52.0); Hemoglobin 15.4 g/dL (14.0-18.0); Immature Granulocyte Absolute 0.26 K/mm3 (0.00-0.031); Immature Granulocyte Percent A 1.9 % (0-0.5); Lymphocytes Absolute Auto 1.03 K/mm3 (0.9-3.2); Lymphocytes Percent Auto 7.4 % (18.3-44.2); Mean Corpuscular HGB Conc 33.1 g/dl (32-36); Mean Corpuscular Hemoglobin 29.6 pg (26-34); Mean Corpuscular Volume 89.4 fl (80-100); Mean Platelet Volume 9.4 fl (7.4-10.4); Monocytes Absolute Auto 0.7 K/mm3 (0.1-0.6); Neutrophils Absolute Auto 11.9 K/mm3 (1.3-6.7); Neutrophils Percent Auto 85.5 % (45.5-73.1); Platelet Count Result 237 k/mm3 (150-375); Red Cell Distribution Width 13.2 % (11.5-14.5); White Blood Count 13.9 K/mm3 (4.5-10.0)
[2021-01-14 07:09] LABS: Anion Gap 4 mmol/L (8-16); Blood Urea Nitrogen 30 mg/dL (9-20); Calcium 7.8 mg/dL (8.4-10.2); Carbon Dioxide 32 mmol/L (22-30); Chloride 95 mmol/L (98-107); Estimated CRCL calculation 83 ml/min; Estimated Glomerular Filt Rate > 60; Glucose 191 mg/dL (65-110); Potassium 4.1 mmol/L (3.4-5.0); Sodium 131 mmol/L (137-145)
[2021-01-14 07:15] LABS: NT Pro B Type Natriuretic Pept 1570 pg/mL (5-100)
[2021-01-14 08:13] LABS: Glucose Point of Care 187 mg/dl (65-105)
[2021-01-14 08:37] LABS: Glucose Point of Care 186 mg/dl (65-105)
--- NOTE | 2021-01-14 08:47 | P.PN_ITS ---
Progress Note: A&P Assessment and Plan (1) Pneumonia: Code(s): J18.9 - Pneumonia, unspecified organism Status: Acute Assessment and Plan: * Continue with azithromycin Rocephin day 5 * Continue with nebulizer treatments * BC NGTD * Repeat CXR indicate Diffuse lung disease with interval worsening in the right mid and upper lung zones, consistent with pneumonia and/or pulmonary edema and/or acute respiratory distress syndrome (ARDS). * continue Solu-Medrol 40 mg IV push b.i.d. was transition to p.o. prednisone eventually * continue Lasix 40 mg b.i.d. will slowly decrease * COVID neg * ferritin, crp and d-dimer elevated; ldr wnl * PT/OT (2) Urinary (tract) obstruction: Code(s): N13.9 - Obstructive and reflux uropathy, unspecified Status: Acute Assessment and Plan: * Urine cultures are neg (3) Atrial fibrillation: Qualifiers: Atrial fibrillation type: unspecified Qualified Code(s): I48.91 - Unspecified atrial fibrillation Code(s): I48.91 - Unspecified atrial fibrillation Status: Acute Assessment and Plan: * Continue with metoprolol and Xarelto * Monitor (4) Hyperlipidemia: Qualifiers: Hyperlipidemia type: unspecified Qualified Code(s): E78.5 - Hyperlipidemia, unspecified Code(s): E78.5 - Hyperlipidemia, unspecified Status: Acute Assessment and Plan: * Continue with atorvastatin (5) Essential hypertension: Code(s): I10 - Essential (primary) hypertension Status: Chronic Assessment and Plan: * Continue metoprolol On Lasix Monitor (6) History of pulmonary embolism: Onset Date: ~2005 Code(s): Z86.711 - Personal history of pulmonary embolism Status: Acute Assessment and Plan: * diagnosed with PE previous to this admission * continue with Xarelto (7) Chronic diastolic heart failure: Code(s): I50.32 - Chronic diastolic (congestive) heart failure Status: Chronic Assessment and Plan: * BNP 1940>1570 repeat for tomorrow * ECHO-->pending EF 60-65%; mildly increased left ventricular wall thickness; mild pulmonary HTN 42 mmHg * Continue with metoprolol * Increased Lasix BID on 01/12, resume home dose if weight stable and BNP improved * Monitor I/O review * Daily weights review (8) Parkinson's disease: Code(s): G20 - Parkinson's disease Status: Chronic Assessment and Plan: * continue with carbidopa levodopa (9) Hypokalemia: Code(s): E87.6 - Hypokalemia Status: Acute Assessment and Plan: * Resolved * 4.3-->4.0-->4.2>4.1 * Continue daily supplement * Monitor Subjective Date/time seen: 01/14/21 08:47 today patient is alert orientated to self and is aware that he is in a hospital is unsure of which hospital he is at. According to nursing staff patient is alert than the day of his admission. He does seen still confused and occasionally says inappropriate things during our conversation. Patient denies cp, sob, palpitation, diarrhea, constipation, lightheadness, headache, dizziness or chills and fevers. Disposition: discharge to rehab Review of Systems Review of Systems: Narrative: A 14 organ system Review of Systems was performed and pertinent positives included in the HPI, otherwise remaining ROS is negative. All systems reviewed & are unremarkable except as noted in HPI and below Exam Narrative: Exam Narrative: GENERAL: This is a well-nourished, wel
--- NOTE | 2021-01-14 08:47 | WPDPN ---
Progress Note: A&P Assessment and Plan (1) Pneumonia: Code(s): J18.9 - Pneumonia, unspecified organism Status: Acute Assessment and Plan: Continue with azithromycin Rocephin day 5 Continue with nebulizer treatments BC NGTD Repeat CXR indicate Diffuse lung disease with interval worsening in the right mid and upper lung zones, consistent with pneumonia and/or pulmonary edema and/or acute respiratory distress syndrome (ARDS). continue Solu-Medrol 40 mg IV push b.i.d. was transition to p.o. prednisone eventually continue Lasix 40 mg b.i.d. will slowly decrease COVID neg ferritin, crp and d-dimer elevated; ldr wnl PT/OT (2) Urinary (tract) obstruction: Code(s): N13.9 - Obstructive and reflux uropathy, unspecified Status: Acute Assessment and Plan: Urine cultures are neg (3) Atrial fibrillation: Qualifiers: Atrial fibrillation type: unspecified Qualified Code(s): I48.91 - Unspecified atrial fibrillation Code(s): I48.91 - Unspecified atrial fibrillation Status: Acute Assessment and Plan: Continue with metoprolol and Xarelto Monitor (4) Hyperlipidemia: Qualifiers: Hyperlipidemia type: unspecified Qualified Code(s): E78.5 - Hyperlipidemia, unspecified Code(s): E78.5 - Hyperlipidemia, unspecified Status: Acute Assessment and Plan: Continue with atorvastatin (5) Essential hypertension: Code(s): I10 - Essential (primary) hypertension Status: Chronic Assessment and Plan: Continue metoprolol On Lasix Monitor (6) History of pulmonary embolism: Onset Date: ~2005 Code(s): Z86.711 - Personal history of pulmonary embolism Status: Acute Assessment and Plan: diagnosed with PE previous to this admission continue with Xarelto (7) Chronic diastolic heart failure: Code(s): I50.32 - Chronic diastolic (congestive) heart failure Status: Chronic Assessment and Plan: BNP 1940>1570 repeat for tomorrow ECHO-->pending EF 60-65%; mildly increased left ventricular wall thickness; mild pulmonary HTN 42 mmHg Continue with metoprolol Increased Lasix BID on 01/12, resume home dose if weight stable and BNP improved Monitor I/O review Daily weights review (8) Parkinson's disease: Code(s): G20 - Parkinson's disease Status: Chronic Assessment and Plan: continue with carbidopa levodopa (9) Hypokalemia: Code(s): E87.6 - Hypokalemia Status: Acute Assessment and Plan: Resolved 4.3-->4.0-->4.2>4.1 Continue daily supplement Monitor Subjective Date/time seen: 01/14/21 08:47 today patient is alert orientated to self and is aware that he is in a hospital is unsure of which hospital he is at. According to nursing staff patient is alert than the day of his admission. He does seen still confused and occasionally says inappropriate things during our conversation. Patient denies cp, sob, palpitation, diarrhea, constipation, lightheadness, headache, dizziness or chills and fevers. Disposition: discharge to rehab Review of Systems Review of Systems: Narrative: A 14 organ system Review of Systems was performed and pertinent positives included in the HPI, otherwise remaining ROS is negative. All systems reviewed & are unremarkable except as noted in HPI and below Exam Narrative: Exam Narrative: GENERAL: This is a well-nourished, well-developed patient, in no apparent distress. HEAD: normocephalic, atraumatic. EYES: PERRL. Sclera clear/white. Vision is grossly intact. EARS: External ears normal, auditory canals clear and without drainage, TMs normal without perforation. Hearing grossly intact. NOSE: External nose normal with no obvious nasal discharge, nares without redness, no rhinorrhea. THROAT: Mucous membranes moist, posterior pharynx clear. NECK: Neck supple, non-tender without lymphadenopathy, masses or
[2021-01-14] MEDS: POTASSIUM CHLORIDE 20 MEQ TABLET.ER PO (08:50)
[2021-01-14] MEDS: predniSONE 20 MG TABLET PO (08:51)
[2021-01-14] MEDS: ATORVASTATIN 20 MG TABLET PO (08:51)
[2021-01-14] MEDS: FUROSEMIDE 40 MG TABLET PO ×2 (08:51→21:13)
[2021-01-14] MEDS: METOPROLOL SUCCINATE EXT REL 100 MG TABCR PO (08:51)
[2021-01-14] MEDS: FAMOTIDINE 20 MG/2 ML VIAL IV PUSH ×2 (08:51→21:13)
[2021-01-14] MEDS: ALBUTEROL SULFATE NEB 2.5 MG/0.5 ML INH 5 MG INHALATION ×3 (10:06→19:55)
[2021-01-14] MEDS: IPRATROPIUM BR 0.02% INH SOLN 0.5 MG/2.5 ML VIAL INHALATION ×3 (10:07→19:55)
[2021-01-14 12:11] LABS: Glucose Point of Care 212 mg/dl (65-105)
[2021-01-14] MEDS: INSULIN ASPART (*BKC) 100 UNITS/ML SUB-Q (12:13)
[2021-01-14 17:35] LABS: Glucose Point of Care 160 mg/dl (65-105)
[2021-01-14] MEDS: RIVAROXABAN 20 MG TABLET PO (21:14)
[2021-01-14 21:49] LABS: Glucose Point of Care 222 mg/dl (65-105)
[2021-01-15] VITALS (9 sets, daily range): BP systolic 111–146; BP diastolic 74–86; PULSE 77–93; RESP 16–18; TEMP 36.6–36.7; O2SAT 98
[2021-01-15] MEDS: ALBUTEROL SULFATE NEB 2.5 MG/0.5 ML INH 5 MG INHALATION ×3 (01:49→15:16)
[2021-01-15] MEDS: IPRATROPIUM BR 0.02% INH SOLN 0.5 MG/2.5 ML VIAL INHALATION ×3 (01:50→15:16)
[2021-01-15 06:52] LABS: Hematocrit 48.4 % (42.0-52.0); Hemoglobin 15.8 g/dL (14.0-18.0); Mean Corpuscular HGB Conc 32.6 g/dl (32-36); Mean Corpuscular Hemoglobin 29.3 pg (26-34); Mean Corpuscular Volume 89.6 fl (80-100); Mean Platelet Volume 10.1 fl (7.4-10.4); Platelet Count Result 230 k/mm3 (150-375); Red Cell Distribution Width 13.2 % (11.5-14.5); White Blood Count 17.1 K/mm3 (4.5-10.0)
[2021-01-15 07:05] LABS: NT Pro B Type Natriuretic Pept 1080 pg/mL (5-100)
[2021-01-15 07:12] LABS: Alanine Aminotransferase 14 U/L (4-50); Albumin Level 3.1 g/dL (3.5-5.1); Alkaline Phosphatase 47 U/L (38-126); Anion Gap 8 mmol/L (8-16); Aspartate Amino Transferase 20 U/L (17-59); Bilirubin,Total 0.8 mg/dL (0.2-1.3); Blood Urea Nitrogen 30 mg/dL (9-20); Calcium 7.5 mg/dL (8.4-10.2); Carbon Dioxide 28 mmol/L (22-30); Chloride 96 mmol/L (98-107); Estimated CRCL calculation 83 ml/min; Estimated Glomerular Filt Rate > 60; Glucose 206 mg/dL (65-110); Sodium 132 mmol/L (137-145)
[2021-01-15 08:11] LABS: Glucose Point of Care 192 mg/dl (65-105)
[2021-01-15] MEDS: POTASSIUM CHLORIDE 20 MEQ TABLET.ER PO (09:18)
[2021-01-15] MEDS: ATORVASTATIN 20 MG TABLET PO (09:18)
[2021-01-15] MEDS: FUROSEMIDE 40 MG TABLET PO (09:18)
[2021-01-15] MEDS: METOPROLOL SUCCINATE EXT REL 100 MG TABCR PO (09:19)
[2021-01-15] MEDS: FAMOTIDINE 20 MG/2 ML VIAL IV PUSH (09:19)
[2021-01-15] MEDS: methylPREDNISolone SOD SUCC 40 MG VIAL IV PUSH (09:22)
[2021-01-15] MEDS: FUROSEMIDE INJ 40 MG/4 ML VIAL 20 MG IV PUSH (09:25)
--- NOTE | 2021-01-15 11:07 | PCNWS ---
Weekly nutritional screen. Patient is tolerating current diet with adequate intake. No weight loss reported. No nutritional needs at this time.
[2021-01-15 12:11] LABS: Glucose Point of Care 180 mg/dl (65-105)
--- NOTE | 2021-01-15 12:50 | P.DS_ITS ---
DS: Admitting Diagnosis Admitting Diagnosis pneumonia/CHF DS: Discharge Diagnosis Discharge Diagnosis (1) Pneumonia: Code(s): J18.9 - Pneumonia, unspecified organism Status: Acute Assessment and Plan: * Continue with azithromycin Rocephin day 5 * Continue with nebulizer treatments * BC NGTD * Repeat CXR indicate Diffuse lung disease with interval worsening in the right mid and upper lung zones, consistent with pneumonia and/or pulmonary edema and/or acute respiratory distress syndrome (ARDS). * continue Solu-Medrol 40 mg IV push b.i.d. was transition to p.o. prednisone eventually * continue Lasix 40 mg b.i.d. will slowly decrease * COVID neg * ferritin, crp and d-dimer elevated; ldr wnl * PT/OT repeat chest x-ray showed (2) Urinary (tract) obstruction: Code(s): N13.9 - Obstructive and reflux uropathy, unspecified Status: Acute Assessment and Plan: * Urine cultures are neg (3) Atrial fibrillation: Qualifiers: Atrial fibrillation type: unspecified Qualified Code(s): I48.91 - Unspecified atrial fibrillation Code(s): I48.91 - Unspecified atrial fibrillation Status: Acute Assessment and Plan: * Continue with metoprolol and Xarelto * Monitor (4) Hyperlipidemia: Qualifiers: Hyperlipidemia type: unspecified Qualified Code(s): E78.5 - Hyperlipidemia, unspecified Code(s): E78.5 - Hyperlipidemia, unspecified Status: Acute Assessment and Plan: * Continue with atorvastatin (5) Essential hypertension: Code(s): I10 - Essential (primary) hypertension Status: Chronic Assessment and Plan: * Continue metoprolol On Lasix Monitor (6) History of pulmonary embolism: Onset Date: ~2005 Code(s): Z86.711 - Personal history of pulmonary embolism Status: Acute Assessment and Plan: * diagnosed with PE previous to this admission * continue with Xarelto (7) Chronic diastolic heart failure: Code(s): I50.32 - Chronic diastolic (congestive) heart failure Status: Chronic Assessment and Plan: * BNP today was 1080 * ECHO-->pending EF 60-65%; mildly increased left ventricular wall thickness; mild pulmonary HTN 42 mmHg * Continue with metoprolol * Increased Lasix BID on 01/12, resume home dose if weight stable and BNP improved * Monitor I/O review * Daily weights review (8) Parkinson's disease: Code(s): G20 - Parkinson's disease Status: Chronic Assessment and Plan: * continue with carbidopa levodopa (9) Hypokalemia: Code(s): E87.6 - Hypokalemia Status: Acute Assessment and Plan: * Resolved * 4.3-->4.0-->4.2>4.1 * Continue daily supplement * Monitor DS: Summary Hospital Course Hospital Course: patient is a 80-year-old male with a history of Parkinson's disease, congestive heart failure, and AFib who comes to the emergency room for evaluation of shortness of breath and wheezing. Patient also stated the patient was confused. Patient has been treated with IV antibiotics for pneumonia. A Zithromax and Rocephin were given for 6 days. Along with steroids 40 mg b.i.d. chest x-ray also showed some pulmonary edema. patient was treated with Lasix 40 mg b.i.d.. Patient has also been working with PT and OT for strength and endurance. Labs have remained stable this whole visit. Sodium is noted to be a little low today 132 and potassium of 4. Glucose has been elevated through the admission running abo
--- NOTE | 2021-01-15 12:50 | PM.DS ---
DS: Admitting Diagnosis Admitting Diagnosis pneumonia/CHF DS: Discharge Diagnosis Discharge Diagnosis (1) Pneumonia: Code(s): J18.9 - Pneumonia, unspecified organism Status: Acute Assessment and Plan: Continue with azithromycin Rocephin day 5 Continue with nebulizer treatments BC NGTD Repeat CXR indicate Diffuse lung disease with interval worsening in the right mid and upper lung zones, consistent with pneumonia and/or pulmonary edema and/or acute respiratory distress syndrome (ARDS). continue Solu-Medrol 40 mg IV push b.i.d. was transition to p.o. prednisone eventually continue Lasix 40 mg b.i.d. will slowly decrease COVID neg ferritin, crp and d-dimer elevated; ldr wnl PT/OT repeat chest x-ray showed (2) Urinary (tract) obstruction: Code(s): N13.9 - Obstructive and reflux uropathy, unspecified Status: Acute Assessment and Plan: Urine cultures are neg (3) Atrial fibrillation: Qualifiers: Atrial fibrillation type: unspecified Qualified Code(s): I48.91 - Unspecified atrial fibrillation Code(s): I48.91 - Unspecified atrial fibrillation Status: Acute Assessment and Plan: Continue with metoprolol and Xarelto Monitor (4) Hyperlipidemia: Qualifiers: Hyperlipidemia type: unspecified Qualified Code(s): E78.5 - Hyperlipidemia, unspecified Code(s): E78.5 - Hyperlipidemia, unspecified Status: Acute Assessment and Plan: Continue with atorvastatin (5) Essential hypertension: Code(s): I10 - Essential (primary) hypertension Status: Chronic Assessment and Plan: Continue metoprolol On Lasix Monitor (6) History of pulmonary embolism: Onset Date: ~2005 Code(s): Z86.711 - Personal history of pulmonary embolism Status: Acute Assessment and Plan: diagnosed with PE previous to this admission continue with Xarelto (7) Chronic diastolic heart failure: Code(s): I50.32 - Chronic diastolic (congestive) heart failure Status: Chronic Assessment and Plan: BNP today was 1080 ECHO-->pending EF 60-65%; mildly increased left ventricular wall thickness; mild pulmonary HTN 42 mmHg Continue with metoprolol Increased Lasix BID on 01/12, resume home dose if weight stable and BNP improved Monitor I/O review Daily weights review (8) Parkinson's disease: Code(s): G20 - Parkinson's disease Status: Chronic Assessment and Plan: continue with carbidopa levodopa (9) Hypokalemia: Code(s): E87.6 - Hypokalemia Status: Acute Assessment and Plan: Resolved 4.3-->4.0-->4.2>4.1 Continue daily supplement Monitor DS: Summary Hospital Course Hospital Course: patient is a 80-year-old male with a history of Parkinson's disease, congestive heart failure, and AFib who comes to the emergency room for evaluation of shortness of breath and wheezing. Patient also stated the patient was confused. Patient has been treated with IV antibiotics for pneumonia. A Zithromax and Rocephin were given for 6 days. Along with steroids 40 mg b.i.d. chest x-ray also showed some pulmonary edema. patient was treated with Lasix 40 mg b.i.d.. Patient has also been working with PT and OT for strength and endurance. Labs have remained stable this whole visit. Sodium is noted to be a little low today 132 and potassium of 4. Glucose has been elevated through the admission running about 150-225. Patient does have a cough this morning which she said was chills mother with just that he which is at work out. The patient does seem confused, but knows where he is, the year, and president. He does have good conversation, but then will confabulate a story. His ankles are also a bit swollen, but his lung sounds are clearer. Patient denies chest pain, shortness of breath, sweats, chills, fevers, nausea, diarrhea. Status at Discharge Function
== END 2021-01-15 15:50 | disposition swing bed (61) | DRG 194 ==
LOC: ANHED 12:38 → ANH3MEDSUR 19:07
PROVIDERS: Emergency Medicine Emergency Medical Services; Nurse Practitioner; Nurse Practitioner Adult Health; Admitting Provider Internal Medicine Critical Care Medicine; Emergency Provider Emergency Medicine; PCP Family Medicine; Visit Provider Nurse Practitioner
DX: J18.9 Pneumonia, unspecified organism (principal); I50.32 Chronic diastolic (congestive) heart failure; I48.19 Other persistent atrial fibrillation; I11.0 Hypertensive heart disease with heart failure; Z20.822 Contact with and (suspected) exposure to COVID-19; E78.5 Hyperlipidemia, unspecified; G20 Parkinson's disease; E87.6 Hypokalemia; I73.9 Peripheral vascular disease, unspecified; N13.9 Obstructive and reflux uropathy, unspecified; M19.91 Primary osteoarthritis, unspecified site; L71.9 Rosacea, unspecified; Z86.711 Personal history of pulmonary embolism; Z79.01 Long term (current) use of anticoagulants; Z86.718 Personal history of other venous thrombosis and embolism; Z85.51 Personal history of malignant neoplasm of bladder; Z85.828 Personal history of other malignant neoplasm of skin; Z86.73 Personal history of transient ischemic attack (TIA), and cerebral infarction without residual deficits; Z87.442 Personal history of urinary calculi; Z87.898 Personal history of other specified conditions
CPT/HCPCS: 36415; 36600; 71045; 71046; 80048; 80053; 81001; 82375; 82550; 82728; 82805; 82948; 83050; 83605; 83615; 83690; 83735; 83880; 84100; 84145; 84443; 84484; 85025; 85027; 85380; 85610; 85730; 86140; 87040; 87086; 87088; 93005; 93306; 93970; 94640; 96374; 96375; 97110; 97116; 97161; 97165; 97530; 97535; 99285; A9270; C9803; J0456; J0696; J1815; J1940; J2920; J2930; J7030; J7060; J7120; J7512; U0003; U0005

== ENCOUNTER 2021-01-15 16:53 | Inpatient (IN) | payer MEDICARE, SELFPAY ==
--- NOTE | ~2021-01-15 | XR_ITS ---
XR chest 1V portable 01/18/2021 09:49 Indication: Leukocytosis Procedure: AP portable chest Comparison: Comparison to multiple prior studies sequentially, with oldest reviewed study dated 08/2020. Findings: There is subtle peripheral interstitial infiltrates bilaterally. Low lung volumes. Heart si ze normal. No significant effusion or pneumothorax. No acute osseous abnormality. Impression: 1: Subtle peripheral interstitial infiltrates, consistent with chronic fibrosis. Reviewed, dictated and finalized at location A. Impression: 1: Subtle peripheral interstitial infiltrates, consistent with chronic fibrosis .
--- NOTE | ~2021-01-15 | CT_ITS ---
EXAMINATION: CT abdomen pelvis wo con DATE: 01/23/2021 16:53 INDICATION: Bladder cancer. Gross hematuria. TECHNIQUE: Computed tomography (CT) of the abdomen and pelvis was performed without intravenous contr ast. Automated exposure control and iterative reconstruction technique were employed. The dose-length product was 1020.23 mGy-cm. COMPARISON: CT abdomen and pelvis 07/17/2019 FINDINGS: The visualized portions of the lung bases demonstrate peripheral septal thickening and arch itectural distortion and mild bronchiectasis in the lower lobes, consistent with chronic interstitial lung disease. No pleural effusion. There is left atrial enlargement of the heart. There are coronary artery calcifications. No pericardial effusion. The liver, gallbladder, spleen, pancreas, adrenal gl ands, and kidneys are normal. The prostate is moderately enlarged. There is diverticulosis of the col on without evidence of diverticulitis. There are no dilated loops of bowel. The appendix is normal. T here are no pathologically enlarged lymph nodes. There is no free intraperitoneal fluid. There is mod erate lumbar spondylosis and severe lower thoracic spondylosis. There are a few scattered benign bone islands. IMPRESSION: 1. No evidence of malignancy. No etiology for hematuria. 2. Chronic interstitial lung disease. Reviewed, dictated and finalized at location A.
[2021-01-15 17:25] LABS: Glucose Point of Care 146 mg/dl (65-105)
[2021-01-15 17:40] VITALS: BP 119/72; PULSE 92; RESP 16; TEMP 36.4; O2SAT 94
[2021-01-15 18:26] VITALS: BMI 36.1
[2021-01-15] MEDS: CARBIDOPA/LEVODOPA 25/100 MG TABLET 1 TABLET (21:38)
[2021-01-15] MEDS: AMOXICILLIN/CLAVULANATE K 875-125 MG TAB 1 TABLET PO (21:38)
[2021-01-15] MEDS: RIVAROXABAN 10 MG TABLET 20 MG PO (21:38)
[2021-01-15 21:44] LABS: Glucose Point of Care 131 mg/dl (65-105)
--- NOTE | 2021-01-15 23:30 | PC.NURSE ---
Patient calling out for help. Answered immediately, but he forgot what he was calling out for. Asked him if he needed to potty, responded yes. Held urinal for him; took a long while to start to urinate. When finished, cleaned him up, used cream on reddened areas of pubic area. Patient covered up, and taught how to use the call light.
[2021-01-16] VITALS: BP 134/101; PULSE 92; RESP 20; TEMP 37.9; O2SAT 96
--- NOTE | 2021-01-16 00:54 | PC.NURSE ---
Patient successfully used call light and asked for help with urinal. Turned off TV at patient's request, and turned lights down to night light only. Again reminded patient to use call light for help.
--- NOTE | 2021-01-16 01:08 | PM.IMHP ---
H&P: HPI History of Present Illness Date/Time: 01/16/21 01:08 Chief Complaint: Weakness, debility Narrative: 80-year-old man with a history of Parkinson's disease, chronic 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 for atrial fibrillation and pulmonary emboli, and diastolic congestive heart failure admitted to a swing bed today after hospitalization for pneumonia and heart failure. Patient was admitted to [facility] on 01/07 with shortness of breath and wheezing. Patient was found to have CHF and pneumonia for which he was treated with diuretics, Rocephin and azithromycin. He was discharged on Augmentin. Patient remains stable throughout the stay and gradually improved. Patient denies any complaints at this time. Denies having chest pain, shortness of breath, nausea, decreased appetite, and abdominal pain. Review of Systems Review of Systems: All systems reviewed & are unremarkable except as noted in HPI and below Constitutional: Constitutional: Denies anorexia, Denies body ache(s), Denies chills, Denies fatigue, Denies fever(s) and Denies headache(s) Eyes: Eyes: Denies change in vision and Denies loss of vision ENT: Denies nasal congestion and Denies nasal discharge Cardiovascular: Cardiovascular: Denies chest pain, Denies diaphoresis and Reports leg edema Respiratory: Respiratory: Reports cough ( Mild), Denies excessive phlegm production, Denies pain with cough, Denies dyspnea and Denies wheezing Gastrointestinal: Gastrointestinal: Denies abdominal pain, Denies diarrhea and Denies vomiting Musculoskeletal: Musculoskeletal: Reports abnormal gait, Denies arthralgias and Denies joint swelling Integumentary/Breasts: Skin/Breast: Denies change in pigmentation, Denies pruritus, Denies lesions, Denies erythema and Denies rash Neurologic: Reports Neuro-related abnormal movements, Reports abnormal gait and Denies focal weakness Hematologic/Lymphatic: Hematologic/Lymphatic: Denies easy bleeding and Reports easy bruising Allergic/Immunologic: Allergic/Immunologic: Denies urticaria, Denies lip swelling and Denies throat swelling PMFSH Past Medical History Medical History Atrial fibrillation Bladder tumor Chronic diastolic heart failure Echocardiogram on 03/23/2020 showed normal left ventricular systolic function and size with mild concentric left ventricular hypertrophy and ejection fraction measured at 74%. Claudication in peripheral vascular disease 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 intermediate project manager 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 CVA (cerebral vascular accident) chronic lacunar infarcts in the region of the anterior limb of the internal capsule bilaterally. There is nonspecific diminished attenuation of the subcortical and periventricular cerebral white matter. Deep venous thrombosis (~2005) Essential hypertension History of pulmonary embolism (~2005) On long-term 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. Hyperlipidemia Impaired fasting glucose Kidney stones Parkinson's disease Shuffling gait and right hand tremors. Persistent atrial fibrillation Primary osteoarthritis, unspecified site Pure hypercholesterolemia Rosacea Urothelial carcinoma of bladder (~11/2019) Followed by Dr. Craft. Cystoscopy in June 2020 demonstrated new lesions, scheduled for TURBT in September 2020. Surgical History Surgical History History of ankle surgery ORIF right ankle fracture. History of basal cell carcinoma excision Excised from the left brow. History of resection of small bowel (~01/2018) Secondary to closed loop bowel obstruction. Family History Family History Father Family history of diabetes mellitus in first degree relative Family history of coronary artery disease Sibling Family history of diabetes mellitus in first degree relative Family history of coronary artery disease Mother Family history of coronary artery disease Social History
--- NOTE | 2021-01-16 02:45 | PC.NURSE ---
Rounding on patient found him calling out, stating I peed . The sheets and blankets were wet. Patient did not want to cooperate with changing the bed. He refused to roll, and said that he was afraid that he would fall in a hole. Attempts were again made to change the sheet, and patient became agitated, and refused to cooperate. After contacting the nurse's desk, two more nurses came to help. Even with three people, it was very difficult to change the sheets'. Patient fought against rolling, and attempted to push and kick. Eventually, the bed was changed. The other nurses left, and patient eventually quieted after a calm and quiet voice was used to help him recall some of the activities accomplished earlier in the evening. He was reminded of the time, and that patients were sleeping. Patient was observed from the hallway until it became apparent he was going to remain in bed.
--- NOTE | 2021-01-16 02:59 | PC.NURSE ---
Dr. Murillo notified of pt's belligerent and combative behavior while staff was changing pt's bed linens. No new orders at this time.
[2021-01-16 05:00] VITALS: TEMP 37.2
[2021-01-16 05:42] LABS: Basophils Absolute Auto 0.04 K/mm3 (0.00-0.10); Basophils Percent Auto 0.2 % (0.0-1.0); Hemoglobin 16.2 g/dL (12.4-15.3); Immature Granulocyte Absolute 0.27 K/mm3 (0.00-0.00); Immature Granulocyte Percent A 1.5 % (0.0-0.0); Lymphocytes Absolute Auto 1.52 K/mm3 (1.10-4.50); Lymphocytes Percent Auto 8.2 % (18.0-42.0); Mean Corpuscular HGB Conc 32.4 g/dL (32.0-36.0); Mean Corpuscular Hemoglobin 29.1 pg (27.0-31.0); Mean Corpuscular Volume 89.8 fL (78.0-102.0); Mean Platelet Volume 9.9 fl (8.7-11.0); Monocytes Absolute Auto 1.74 K/mm3 (0.10-0.90); Monocytes Percent Auto 9.4 % (2.0-11.0); Neutrophils Percent Auto 80.7 % (50.0-70.0); Platelet Count Result 256 K/mm3 (150-420); Red Blood Count 5.57 M/mm3 (4.70-6.10); White Blood Count 18.5 K/mm3 (4.8-10.8)
[2021-01-16 06:03] LABS: Alanine Aminotransferase 30 U/L (16-63); Albumin Level 2.9 g/dL (3.4-5.0); Alkaline Phosphatase 50 U/L (46-116); Anion Gap 8 mmol/L (8-16); Aspartate Amino Transferase 30 U/L (15-37); Bilirubin,Total 1.1 mg/dL (0.00-1.00); Blood Urea Nitrogen 30 mg/dL (7-18); Calcium 7.7 mg/dL (8.5-10.1); Carbon Dioxide 32 mmol/L (21-32); Chloride 99 mmol/L (98-108); Estimated CRCL calculation 63 ml/min; Estimated Glomerular Filt Rate > 60; Glucose 128 mg/dL (70-99); NT Pro B Type Natriuretic Pept 1260 pg/mL (0-450); Osmolality Calculated 296 mOsm/kg (285-295); Potassium 3.9 mmol/L (3.5-5.1); Sodium 139 mmol/L (136-145); Total Protein 5.6 g/dL (6.4-8.2)
--- NOTE | 2021-01-16 06:30 | PC.NURSE ---
patient began yelling for help. He did not quit yelling, even after response made to his calls. He wanted to speak to his and his children, and he wanted to eat breakfast. Patient's was contacted, and asked to call the patient. Made sure that he was able to take the call and left him to speak to privately.
[2021-01-16 07:45] VITALS: BP 131/86; PULSE 87; RESP 18; TEMP 36.3; O2SAT 96
[2021-01-16 08:19] LABS: Glucose Point of Care 116 mg/dl (65-105)
[2021-01-16] MEDS: FUROSEMIDE 40 MG TABLET PO (09:06)
[2021-01-16] MEDS: ATORVASTATIN 10 MG TABLET 20 MG PO (09:06)
[2021-01-16] MEDS: AMOXICILLIN/CLAVULANATE K 875-125 MG TAB 1 TABLET PO ×2 (09:06→21:38)
[2021-01-16 09:07] VITALS: PULSE 87
[2021-01-16] MEDS: CARBIDOPA/LEVODOPA 25/100 MG TABLET 1.5 TABLET PO ×4 (09:07→21:37)
[2021-01-16] MEDS: METOPROLOL SUCCINATE EXT REL 50 MG TABCR 100 MG PO (09:07)
[2021-01-16] MEDS: POTASSIUM CHLORIDE 20 MEQ TABLET PO (09:11)
--- NOTE | 2021-01-16 11:27 | PHAR ---
01/16/21 11:30 - verified pt.'s home med Nuplazid 10mg tablet. pt. was not taking when at [facility] prior to transfer to [facility], but confirmed with SANDBLAST OPERATOR pt is to restart therapy. She spoke w/ and confirmed. tls
[2021-01-16 11:39] LABS: Glucose Point of Care 97 mg/dl (65-105)
[2021-01-16 16:15] VITALS: BP 106/74; PULSE 80; RESP 18; TEMP 36.6; O2SAT 96
[2021-01-16 17:40] LABS: Glucose Point of Care 130 mg/dl (65-105)
[2021-01-16 20:45] LABS: Appearance Urine Clear (Clear); Bilirubin Urine Negative (Negative); Color Urine Light Yellow (Yellow); Glucose Urine UA Negative (Negative); Ketones Urine Negative (Negative); Leukocyte Esterase Ur Trace LEU/UL (Negative); Nitrate Urine Negative (Negative); Protein Urine Negative (Negative); Specific Grav Ur 1.015 (1.010-1.020); Urobilinogen Urine 0.2 mg/dL (0.2-1.0)
[2021-01-16 20:46] LABS: Add Urine Microscopic? YES; Bacteria Urine Trace /hpf; Blood Urine Trace (Negative); RBC Urine 0-2 /hpf (0-2)
[2021-01-16] MEDS: diphenhydrAMINE HCl CAP 25 MG CAPSULE PO (21:37)
[2021-01-16] MEDS: RIVAROXABAN 10 MG TABLET 20 MG PO (21:37)
[2021-01-16] MEDS: TOLNAFTATE 1% POWDER 45 GM BTL 1 APPLIC TOPICAL (21:38)
[2021-01-17] VITALS: BP 135/80; PULSE 80; RESP 18; TEMP 36.4; O2SAT 96
--- NOTE | 2021-01-17 07:40 | PC.NURSE ---
Assisted with use of urinal, tolerated well, used gait belt and Laura Steady to get up to chair for breakfast
[2021-01-17 08:00] VITALS: BP 153/97; PULSE 86; RESP 18; TEMP 36.6; O2SAT 99
[2021-01-17] MEDS: AMOXICILLIN/CLAVULANATE K 875-125 MG TAB 1 TABLET PO ×2 (09:17→21:36)
[2021-01-17] MEDS: ATORVASTATIN 10 MG TABLET 20 MG PO (09:18)
[2021-01-17] MEDS: CARBIDOPA/LEVODOPA 25/100 MG TABLET 1.5 TABLET PO ×4 (09:18→21:37)
[2021-01-17 09:19] VITALS: PULSE 80
[2021-01-17] MEDS: METOPROLOL SUCCINATE EXT REL 50 MG TABCR 100 MG PO (09:19)
[2021-01-17] MEDS: FUROSEMIDE 40 MG TABLET PO (09:19)
[2021-01-17] MEDS: POTASSIUM CHLORIDE 20 MEQ TABLET PO (09:19)
[2021-01-17] MEDS: TOLNAFTATE 1% POWDER 45 GM BTL 1 APPLIC TOPICAL ×2 (09:21→21:37)
--- NOTE | 2021-01-17 13:15 | P.PN_ITS ---
Progress Note: A&P Assessment and Plan (1) Parkinson's disease: Code(s): G20 - Parkinson's disease Status: Chronic Assessment and Plan: * continue with carbidopa levodopa (2) Urinary (tract) obstruction: Code(s): N13.9 - Obstructive and reflux uropathy, unspecified Status: Acute Assessment and Plan: * Repeat UA pending (3) Pneumonia: Code(s): J18.9 - Pneumonia, unspecified organism Status: Acute Assessment and Plan: * Patient treated with azithromycin and Rocephin at an outside hospital * Currently on Augmentin * WBCs elevated * Will repeat chest x-ray * Continue albuterol as needed (4) Atrial fibrillation: Qualifiers: Atrial fibrillation type: unspecified Qualified Code(s): I48.91 - Unspecified atrial fibrillation Code(s): I48.91 - Unspecified atrial fibrillation Status: Acute Assessment and Plan: * Last EKG controlled A. fib with a heart rate of 84 * Continue metoprolol and Xarelto (5) Hyperlipidemia: Qualifiers: Hyperlipidemia type: unspecified Qualified Code(s): E78.5 - Hyperlipidemia, unspecified Code(s): E78.5 - Hyperlipidemia, unspecified Status: Acute Assessment and Plan: * Continue atorvastatin (6) Essential hypertension: Code(s): I10 - Essential (primary) hypertension Status: Chronic Assessment and Plan: * Blood [id number]/97, will continue to monitor this is the only elevated blood pressure reading * Continue metoprolol 100 mg daily * Vital signs as ordered * Will adjust medication as needed (7) Generalized weakness: Code(s): R53.1 - Weakness Status: Acute Assessment and Plan: ? Exhibit tolerance during physical activity as evidenced by a normal fluctuation of vital signs during physical activity. ? Patient will be ability to perform required activities of daily living. ? Provide appropriate nutrition for healing and strength. ? Use appropriate to prevent falls. ? Continue physical therapy/occupational therapy. 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 Craft cystoscope in June 2020 demonstrated no lesion. (9) CHF (congestive heart failure): Code(s): I50.9 - Heart failure, unspecified Status: Acute Assessment and Plan: * Diastolic * Continue Lasix * BNP 01/16/2021 1260 * Daily weights * ECHO-->pending EF 60-65%; mildly increased left ventricular wall thickness; mild pulmonary HTN 42 mmHg (10) Elevated white blood cell count, unspecified: Code(s): D72.829 - Elevated white blood cell count, unspecified Status: Acute Assessment and Plan: * WBCs 18.5 * Etiology unknown repeat in the a.m., UA ordered, chest x-ray in the a.m. * Patient currently on Augmentin * UA culture from 01/07/2021 with no growth Subjective Date/time seen: 01/17/21 13:15 this is a 80-year-old male that presented to [facility] with shortness of breath and with. Patient has a past medical history of HTN, bladder tumor, congestive heart failure, CVA, DVT PE, hypertension, pulmonary embolism, hyperlipidemia, impaired fasting glucose, Parkinson disease, A. fib, osteoarthritis, and hypercholesterolemia. Patient was found to have pneumonia and uncompensated congestive heart failure. Patient admitted in swing bed for rehabilitation due to decreased balance decreased mobility in severe limit
--- NOTE | 2021-01-17 13:15 | WPDPN ---
Progress Note: A&P Assessment and Plan (1) Parkinson's disease: Code(s): G20 - Parkinson's disease Status: Chronic Assessment and Plan: continue with carbidopa levodopa (2) Urinary (tract) obstruction: Code(s): N13.9 - Obstructive and reflux uropathy, unspecified Status: Acute Assessment and Plan: Repeat UA pending (3) Pneumonia: Code(s): J18.9 - Pneumonia, unspecified organism Status: Acute Assessment and Plan: Patient treated with azithromycin and Rocephin at an outside hospital Currently on Augmentin WBCs elevated Will repeat chest x-ray Continue albuterol as needed (4) Atrial fibrillation: Qualifiers: Atrial fibrillation type: unspecified Qualified Code(s): I48.91 - Unspecified atrial fibrillation Code(s): I48.91 - Unspecified atrial fibrillation Status: Acute Assessment and Plan: Last EKG controlled A. fib with a heart rate of 84 Continue metoprolol and Xarelto (5) Hyperlipidemia: Qualifiers: Hyperlipidemia type: unspecified Qualified Code(s): E78.5 - Hyperlipidemia, unspecified Code(s): E78.5 - Hyperlipidemia, unspecified Status: Acute Assessment and Plan: Continue atorvastatin (6) Essential hypertension: Code(s): I10 - Essential (primary) hypertension Status: Chronic Assessment and Plan: Blood [id number]/97, will continue to monitor this is the only elevated blood pressure reading Continue metoprolol 100 mg daily Vital signs as ordered Will adjust medication as needed (7) Generalized weakness: Code(s): R53.1 - Weakness Status: Acute Assessment and Plan: ? Exhibit tolerance during physical activity as evidenced by a normal fluctuation of vital signs during physical activity. ? Patient will be ability to perform required activities of daily living. ? Provide appropriate nutrition for healing and strength. ? Use appropriate to prevent falls. ? Continue physical therapy/occupational therapy. 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 Craft cystoscope in June 2020 demonstrated no lesion. (9) CHF (congestive heart failure): Code(s): I50.9 - Heart failure, unspecified Status: Acute Assessment and Plan: Diastolic Continue Lasix BNP 01/16/2021 1260 Daily weights ECHO-->pending EF 60-65%; mildly increased left ventricular wall thickness; mild pulmonary HTN 42 mmHg (10) Elevated white blood cell count, unspecified: Code(s): D72.829 - Elevated white blood cell count, unspecified Status: Acute Assessment and Plan: WBCs 18.5 Etiology unknown repeat in the a.m., UA ordered, chest x-ray in the a.m. Patient currently on Augmentin UA culture from 01/07/2021 with no growth Subjective Date/time seen: 01/17/21 13:15 this is a 80-year-old male that presented to [facility] with shortness of breath and with. Patient has a past medical history of HTN, bladder tumor, congestive heart failure, CVA, DVT PE, hypertension, pulmonary embolism, hyperlipidemia, impaired fasting glucose, Parkinson disease, A. fib, osteoarthritis, and hypercholesterolemia. Patient was found to have pneumonia and uncompensated congestive heart failure. Patient admitted in swing bed for rehabilitation due to decreased balance decreased mobility in severe limited function endurant and/or mobility. The patient denies SOB, CP, palpitation, extremity numbness, lightheadedness, dizziness, constipation, diarrhea, chills, or fever. Patient tolerating meals well, resting has no complaints of pain. Patient more alert today than with previous visits he is alert and orientated to self location and year Review of Systems Review of Systems: A 14 organ system Review of Systems was p
[2021-01-17 16:00] VITALS: BP 110/71; PULSE 84; RESP 16; TEMP 36.1; O2SAT 97
[2021-01-17] MEDS: RIVAROXABAN 10 MG TABLET 20 MG PO (21:36)
[2021-01-17] MEDS: diphenhydrAMINE HCl CAP 25 MG CAPSULE PO (21:57)
[2021-01-18] VITALS: BP 109/71; PULSE 82; RESP 20; TEMP 36.7; O2SAT 97
--- NOTE | 2021-01-18 00:30 | PC.NURSE ---
Bedside report completed, and board updated. Patient is sleeping comfortably.
[2021-01-18 05:57] LABS: Hematocrit 50.8 % (37.0-46.0); Hemoglobin 16.5 g/dL (12.4-15.3); Mean Corpuscular HGB Conc 32.5 g/dL (32.0-36.0); Mean Corpuscular Hemoglobin 29.6 pg (27.0-31.0); Mean Platelet Volume 9.8 fl (8.7-11.0); Platelet Count Result 212 K/mm3 (150-420); Red Blood Count 5.58 M/mm3 (4.70-6.10); Red Cell Distribution Width 13.3 % (11.6-14.4); White Blood Count 19.1 K/mm3 (4.8-10.8)
[2021-01-18 06:11] LABS: Anion Gap 4 mmol/L (8-16); Blood Urea Nitrogen 22 mg/dL (7-18); Calcium 7.8 mg/dL (8.5-10.1); Carbon Dioxide 32 mmol/L (21-32); Chloride 100 mmol/L (98-108); Estimated CRCL calculation 58 ml/min; Estimated Glomerular Filt Rate > 60; Glucose 131 mg/dL (70-99); Osmolality Calculated 287 mOsm/kg (285-295); Potassium 4.3 mmol/L (3.5-5.1); Sodium 136 mmol/L (136-145)
--- NOTE | 2021-01-18 06:37 | PC.NURSE ---
Patient was asleep at the start of the shift. He slept through most of the night, until he needed to be changed. Patient went right back to sleep after the first change, but woke up again about 30 minutes later, asking for the bedpan for a BM. Patient was unable to have a BM, but tried for more than 20 minutes. Patient is now asking to call his mother. Patient remided of the early hour. Patient indicates he has no other needs, and is not in any pain.
[2021-01-18 08:00] VITALS: BP 109/77; PULSE 94; RESP 16; TEMP 36.3; O2SAT 97
[2021-01-18 09:46] VITALS: PULSE 94
[2021-01-18] MEDS: AMOXICILLIN/CLAVULANATE K 875-125 MG TAB 1 TABLET PO ×2 (09:46→20:57)
[2021-01-18] MEDS: METOPROLOL SUCCINATE EXT REL 50 MG TABCR 100 MG PO (09:46)
[2021-01-18] MEDS: ATORVASTATIN 10 MG TABLET 20 MG PO (09:47)
[2021-01-18] MEDS: CARBIDOPA/LEVODOPA 25/100 MG TABLET 1.5 TABLET PO ×4 (09:47→21:05)
[2021-01-18] MEDS: POTASSIUM CHLORIDE 20 MEQ TABLET PO (09:47)
[2021-01-18] MEDS: FUROSEMIDE 40 MG TABLET PO (09:48)
[2021-01-18] MEDS: TOLNAFTATE 1% POWDER 45 GM BTL 1 APPLIC TOPICAL ×2 (09:51→22:22)
[2021-01-18 16:00] VITALS: BP 95/66; PULSE 93; RESP 18; TEMP 36.1; O2SAT 96
[2021-01-18] MEDS: RIVAROXABAN 10 MG TABLET 20 MG PO (20:56)
[2021-01-19 00:45] VITALS: BP 99/63; PULSE 89; RESP 20; TEMP 35.6; O2SAT 94
[2021-01-19 08:00] VITALS: BP 136/80; PULSE 94; RESP 16; TEMP 36.6; O2SAT 98
[2021-01-19 08:35] VITALS: PULSE 94
[2021-01-19] MEDS: METOPROLOL SUCCINATE EXT REL 50 MG TABCR 100 MG PO (08:35)
[2021-01-19] MEDS: AMOXICILLIN/CLAVULANATE K 875-125 MG TAB 1 TABLET PO ×2 (08:35→20:43)
[2021-01-19] MEDS: POTASSIUM CHLORIDE 20 MEQ TABLET PO (08:35)
[2021-01-19] MEDS: ATORVASTATIN 10 MG TABLET 20 MG PO (08:36)
[2021-01-19] MEDS: CARBIDOPA/LEVODOPA 25/100 MG TABLET 1.5 TABLET PO ×4 (08:36→20:43)
[2021-01-19] MEDS: FUROSEMIDE 40 MG TABLET PO (08:36)
[2021-01-19] MEDS: TOLNAFTATE 1% POWDER 45 GM BTL 1 APPLIC TOPICAL (08:39)
[2021-01-19 15:55] VITALS: BP 103/67; PULSE 90; RESP 16; TEMP 36.4; O2SAT 94
[2021-01-19] MEDS: RIVAROXABAN 10 MG TABLET 20 MG PO (20:43)
[2021-01-20] VITALS: BP 117/86; PULSE 84; RESP 18; TEMP 36.4; O2SAT 93
[2021-01-20] MEDS: ACETAMINOPHEN 500 MG TABLET 1000 MG PO (06:29)
[2021-01-20 08:00] VITALS: BP 131/69; PULSE 78; RESP 16; TEMP 35.8; O2SAT 93
[2021-01-20] MEDS: FUROSEMIDE 40 MG TABLET PO (08:30)
[2021-01-20] MEDS: AMOXICILLIN/CLAVULANATE K 875-125 MG TAB 1 TABLET PO ×2 (08:30→19:53)
[2021-01-20] MEDS: CARBIDOPA/LEVODOPA 25/100 MG TABLET 1.5 TABLET PO ×4 (08:31→19:53)
[2021-01-20] MEDS: ATORVASTATIN 10 MG TABLET 20 MG PO (08:33)
[2021-01-20 08:34] VITALS: PULSE 95
[2021-01-20] MEDS: TOLNAFTATE 1% POWDER 45 GM BTL 1 APPLIC TOPICAL ×2 (08:34→19:53)
[2021-01-20] MEDS: METOPROLOL SUCCINATE EXT REL 50 MG TABCR 100 MG PO (08:34)
[2021-01-20] MEDS: POTASSIUM CHLORIDE 20 MEQ TABLET PO (08:34)
[2021-01-20 16:00] VITALS: BP 114/73; PULSE 86; RESP 18; TEMP 36; O2SAT 96
[2021-01-20] MEDS: RIVAROXABAN 10 MG TABLET 20 MG PO (19:52)
[2021-01-21] VITALS: BP 106/67; PULSE 93; RESP 20; TEMP 36.3; O2SAT 95
[2021-01-21] MEDS: ACETAMINOPHEN 500 MG TABLET 1000 MG PO (02:10)
--- NOTE | 2021-01-21 07:34 | PM.EVENT ---
Event Note Event Note Event Note: Leukocytosis -WBCs elevated at 19 -Chest x-ray consistent with chronic fibrosis -UA culture with no growth -Repeat CBC pending -Patient previously diagnosed with pneumonia currently on Augmentin will and 01/22/2021 for a total of 7 days -We will trend
[2021-01-21 07:56] VITALS: BP 115/82; PULSE 83; RESP 15; TEMP 36.9; O2SAT 97
[2021-01-21 07:59] VITALS: BP 115/82; PULSE 83; RESP 15; TEMP 36.3; O2SAT 97
[2021-01-21] MEDS: CARBIDOPA/LEVODOPA 25/100 MG TABLET 1.5 TABLET PO ×4 (09:30→21:31)
[2021-01-21 09:33] VITALS: PULSE 72
[2021-01-21] MEDS: METOPROLOL SUCCINATE EXT REL 50 MG TABCR 100 MG PO (09:33)
[2021-01-21] MEDS: POTASSIUM CHLORIDE 20 MEQ TABLET PO (09:33)
[2021-01-21] MEDS: AMOXICILLIN/CLAVULANATE K 875-125 MG TAB 1 TABLET PO ×2 (09:34→21:30)
[2021-01-21] MEDS: FUROSEMIDE 40 MG TABLET PO (09:34)
[2021-01-21] MEDS: ATORVASTATIN 10 MG TABLET 20 MG PO (09:34)
--- NOTE | 2021-01-21 15:14 | PC.NURSE ---
Completed bedside report, and updated board. Patient indicated no needs at this time. Patient's is visiting. He is comfortable resting in his recliner.
[2021-01-21 16:00] VITALS: BP 106/64; PULSE 79; RESP 18; TEMP 36.1; O2SAT 98
[2021-01-21 17:15] LABS: Glucose Point of Care 130 mg/dl (65-105)
[2021-01-21] MEDS: diphenhydrAMINE HCl CAP 25 MG CAPSULE PO (21:30)
[2021-01-21] MEDS: TOLNAFTATE 1% POWDER 45 GM BTL 1 APPLIC TOPICAL (21:31)
[2021-01-21] MEDS: RIVAROXABAN 10 MG TABLET 20 MG PO (21:31)
[2021-01-22] VITALS: BP 107/83; PULSE 72; RESP 18; TEMP 36.8; O2SAT 97
[2021-01-22 05:38] LABS: Hematocrit 48.8 % (37.0-46.0); Hemoglobin 15.5 g/dL (12.4-15.3); Mean Corpuscular HGB Conc 31.8 g/dL (32.0-36.0); Mean Corpuscular Hemoglobin 29.6 pg (27.0-31.0); Mean Corpuscular Volume 93.3 fL (78.0-102.0); Mean Platelet Volume 10.3 fl (8.7-11.0); Platelet Count Result 226 K/mm3 (150-420); Red Blood Count 5.23 M/mm3 (4.70-6.10); Red Cell Distribution Width 13.9 % (11.6-14.4); White Blood Count 13.7 K/mm3 (4.8-10.8)
--- NOTE | 2021-01-22 07:29 | PM.EVENT ---
Event Note Event Note Event Note: repeat wbc indicate wbc trending down 19>13. will continue to trend.
[2021-01-22 07:45] VITALS: BP 118/71; PULSE 86; RESP 18; TEMP 36.4; O2SAT 98
[2021-01-22] MEDS: AMOXICILLIN/CLAVULANATE K 875-125 MG TAB 1 TABLET PO ×2 (09:15→21:51)
[2021-01-22] MEDS: ATORVASTATIN 10 MG TABLET 20 MG PO (09:15)
[2021-01-22] MEDS: POTASSIUM CHLORIDE 20 MEQ TABLET PO (09:15)
[2021-01-22 09:16] VITALS: PULSE 86
[2021-01-22] MEDS: METOPROLOL SUCCINATE EXT REL 50 MG TABCR 100 MG PO (09:16)
[2021-01-22] MEDS: CARBIDOPA/LEVODOPA 25/100 MG TABLET 1.5 TABLET PO ×4 (09:16→21:51)
[2021-01-22] MEDS: FUROSEMIDE 40 MG TABLET PO (09:17)
[2021-01-22] MEDS: TOLNAFTATE 1% POWDER 45 GM BTL 1 APPLIC TOPICAL ×2 (09:18→21:52)
[2021-01-22 16:00] VITALS: BP 98/62; PULSE 84; RESP 18; TEMP 36.2; O2SAT 97
[2021-01-22] MEDS: RIVAROXABAN 10 MG TABLET 20 MG PO (21:51)
[2021-01-23] VITALS: BP 122/68; PULSE 82; RESP 18; TEMP 36.1; O2SAT 98
[2021-01-23 08:00] VITALS: BP 144/65; PULSE 80; RESP 16; TEMP 36.6; O2SAT 96
[2021-01-23 08:58] VITALS: PULSE 80
[2021-01-23] MEDS: CARBIDOPA/LEVODOPA 25/100 MG TABLET 1.5 TABLET PO ×4 (08:58→21:09)
[2021-01-23] MEDS: METOPROLOL SUCCINATE EXT REL 50 MG TABCR 100 MG PO (08:58)
[2021-01-23] MEDS: POTASSIUM CHLORIDE 20 MEQ TABLET PO (08:59)
[2021-01-23] MEDS: FUROSEMIDE 40 MG TABLET PO (08:59)
[2021-01-23] MEDS: ATORVASTATIN 10 MG TABLET 20 MG PO (08:59)
[2021-01-23] MEDS: TOLNAFTATE 1% POWDER 45 GM BTL 1 APPLIC TOPICAL ×2 (09:00→21:10)
[2021-01-23 13:45] LABS: Add Urine Microscopic? YES; Appearance Urine Cloudy (Clear); Bilirubin Urine Negative (Negative); Blood Urine 3+ (Negative); Color Urine Red (Yellow); Glucose Urine UA Negative (Negative); Ketones Urine Negative (Negative); Leukocyte Esterase Ur Trace (Negative); Nitrate Urine Negative (Negative); Protein Urine 1+ (Negative); Specific Grav Ur 1.015 (1.010-1.020); Urobilinogen Urine 0.2 mg/dL (0.2-1.0); pH Urine 7.5 (5.0-8.0)
[2021-01-23 13:57] LABS: Bacteria Urine Trace /hpf; RBC Urine >75 /hpf (0-2); WBC Urine 0-3 /hpf (0-3)
--- NOTE | 2021-01-23 15:50 | P.PNIM_ITS ---
Progress Note: A&P Assessment and Plan (1) Parkinson's disease: Code(s): G20 - Parkinson's disease <Ace Salcido VIPIN Acosta - Last Filed: 01/23/21 16:22> Status: Chronic <Ace Salcido VIPIN Acosta - Last Filed: 01/23/21 16:22> Assessment and Plan: * continue with carbidopa levodopa <Ace NitishVIPIN Hdz - Last Filed: 01/23/21 16:22> (2) Urinary (tract) obstruction: Code(s): N13.9 - Obstructive and reflux uropathy, unspecified <Ace NitishVIPIN Hdz - Last Filed: 01/23/21 16:22> Status: Acute <Ace NitishVIPIN Hdz - Last Filed: 01/23/21 16:22> Assessment and Plan: * Repeat UA pending 01/23/2021 Pt had hematuria this AM and started to clear, frequent urination in small amounts 125-175 mls Q30 to Q2 hours, will try Flomax and may need Cook, will see how Pt does tomorrow. 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 fib with a heart rate of 84 * Continue metoprolol and Xarelto <Ace Acosta LOCKSTITCH WAISTLINE JOINER-C - Last Filed: 01/23/21 16:22> (5) Hyperlipidemia: Qualifiers: Hyperlipidemia type: unspecified Qualified Code(s): E78.5 - Hyperlipidemia, unspecified <MICHELLE ColonN-C - Last Filed: 01/23/21 16:22> Code(s): E78.5 - Hyperlipidemia, unspecified <Ace Acosta LOCKSTITCH WAISTLINE JOINER-C - Last Filed: 01/23/21 16:22> Status: Acute <MICHELLE ColonN-C - Last Filed: 01/23/21 16:22> Assessment and Plan: * Continue atorvastatin <Ace Acosta LOCKSTITCH WAISTLINE JOINER-C - Last Filed: 01/23/21 16:22> (6) Essential hypertension: Code(s): I10 - Essential (primary) hypertension <Ace Acosta LOCKSTITCH WAISTLINE JOINER-C - Last Filed: 01/23/21 16:22> Status: Chronic <Ace Acosta LOCKSTITCH WAISTLINE JOINER-C - Last Filed: 01/23/21 16:22> Assessment and Plan: * Blood /97, will continue to monitor this is the only elevated blood pressure reading * Continue metoprolol 100 mg daily * Vital signs as ordered * Will adjust medication as needed 01/23/2021 VSS, no changes to medications needed at this time <Ace Acosta LOCKSTITCH WAISTLINE JOINER-C - Last Filed: 01/23/21 16:22> (7) Generalized weakness: Code(s): R53.1 - Weakness <Ace Acosta LOCKSTITCH WAISTLINE JOINER-C - Last Filed: 01/23/21 16:22> Status: Acute <Ace Acosta LOCKSTITCH WAISTLINE JOINER-C - Last Filed: 01/23/21 16:22> Assessment and Plan: ? Exhibit tolerance during physical activity as evidenced by a normal fluctuation of vital signs during physical activity. ? Patient will be abil
--- NOTE | 2021-01-23 15:50 | PM.IMPN ---
Progress Note: A&P Assessment and Plan (1) Parkinson's disease: Code(s): G20 - Parkinson's disease <Ace Salcido VIPIN Acosta - Last Filed: 01/23/21 16:22> Status: Chronic <Ace Salcido VIPIN Acosta - Last Filed: 01/23/21 16:22> Assessment and Plan: continue with carbidopa levodopa <Ace NitishVIPIN Hdz - Last Filed: 01/23/21 16:22> (2) Urinary (tract) obstruction: Code(s): N13.9 - Obstructive and reflux uropathy, unspecified <Ace TalbertVIPIN Hdz - Last Filed: 01/23/21 16:22> Status: Acute <Ace TalbertVIPIN Hdz - Last Filed: 01/23/21 16:22> Assessment and Plan: Repeat UA pending 01/23/2021 Pt had hematuria this AM and started to clear, frequent urination in small amounts 125-175 mls Q30 to Q2 hours, will try Flomax and may need Cook, will see how Pt does tomorrow. 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 fib with a heart rate of 84 Continue metoprolol and Xarelto <Ace Acosta REGIONAL TRANSPORTATION MANAGER-C - Last Filed: 01/23/21 16:22> (5) Hyperlipidemia: Qualifiers: Hyperlipidemia type: unspecified Qualified Code(s): E78.5 - Hyperlipidemia, unspecified <Ace Acosta REGIONAL TRANSPORTATION MANAGER-C - Last Filed: 01/23/21 16:22> Code(s): E78.5 - Hyperlipidemia, unspecified <Ace Acosta REGIONAL TRANSPORTATION MANAGER-C - Last Filed: 01/23/21 16:22> Status: Acute <Ace Acosta REGIONAL TRANSPORTATION MANAGER-C - Last Filed: 01/23/21 16:22> Assessment and Plan: Continue atorvastatin <Ace Acosta REGIONAL TRANSPORTATION MANAGER-C - Last Filed: 01/23/21 16:22> (6) Essential hypertension: Code(s): I10 - Essential (primary) hypertension <Ace Acosta REGIONAL TRANSPORTATION MANAGER-C - Last Filed: 01/23/21 16:22> Status: Chronic <Ace Acosta REGIONAL TRANSPORTATION MANAGER-C - Last Filed: 01/23/21 16:22> Assessment and Plan: Blood [id number]/97, will continue to monitor this is the only elevated blood pressure reading Continue metoprolol 100 mg daily Vital signs as ordered Will adjust medication as needed 01/23/2021 VSS, no changes to medications needed at this time <Ace Acosta REGIONAL TRANSPORTATION MANAGER-C - Last Filed: 01/23/21 16:22> (7) Generalized weakness: Code(s): R53.1 - Weakness <Ace Acosta REGIONAL TRANSPORTATION MANAGER-C - Last Filed: 01/23/21 16:22> Status: Acute <Ace Acosta REGIONAL TRANSPORTATION MANAGER-C - Last Filed: 01/23/21 16:22> Assessment and Plan: ? Exhibit tolerance during physical activity as evidenced by a normal fluctuation of vital signs during physical activity. ? Patient will be ability to perform required activities of daily living. ? Provide appropriate nutrition for healing and strength. ? Use appropriate to prevent falls. ? Continue physical therapy/occupational therapy. 01/23/2021 Continue to work with PT/OT, Pt states he is doing well, he is able to stand without assistance with a walker and shuffle from chair to bed only needing a manjit
[2021-01-23 16:00] VITALS: BP 109/74; PULSE 84; RESP 16; TEMP 36.1; O2SAT 99
[2021-01-23] MEDS: RIVAROXABAN 10 MG TABLET 20 MG PO (21:09)
--- NOTE | 2021-01-23 21:30 | PC.NURSE ---
Nurse Auditor entered room and noted patient had ambulated self from recliner chair to bed. Patient stated boy im glad you came in . Patient was ready to leave the house and has been looking for his boys. Redirection was successful and story writer assisted with toileting and assisted patient to bed. post adoption coordinator notified.
[2021-01-23 23:57] VITALS: BP 119/82; PULSE 90; RESP 18; TEMP 36.2; O2SAT 97
--- NOTE | 2021-01-24 02:14 | PC.NURSE ---
Patient's bed alarm was sounding. Product Communications Manager entered room and noted patient attempting to get out of bed. Stated it was time to get up, what's for breakfast . Product Communications Manager attempted to redirect patient, unsuccessful, patient became agitated and argumentative. Continued to get out of bed. Kept calling writer producer pat and liar . Redirection was successful after several attempts. Patient laying in bed at this time. bus and trolley dispatcher notified of behaviors.
[2021-01-24 07:40] VITALS: BP 106/77; PULSE 86; RESP 16; TEMP 36.4; O2SAT 97
[2021-01-24 09:13] VITALS: PULSE 86
[2021-01-24] MEDS: POTASSIUM CHLORIDE 20 MEQ TABLET PO (09:13)
[2021-01-24] MEDS: METOPROLOL SUCCINATE EXT REL 50 MG TABCR 100 MG PO (09:13)
[2021-01-24] MEDS: TAMSULOSIN HCL 0.4 MG CAPSULE PO (09:13)
[2021-01-24] MEDS: ATORVASTATIN 10 MG TABLET 20 MG PO (09:13)
[2021-01-24] MEDS: CARBIDOPA/LEVODOPA 25/100 MG TABLET 1.5 TABLET PO ×4 (09:14→20:10)
[2021-01-24] MEDS: FUROSEMIDE 40 MG TABLET PO (09:14)
[2021-01-24] MEDS: TOLNAFTATE 1% POWDER 45 GM BTL 1 APPLIC TOPICAL ×2 (09:15→20:12)
[2021-01-24 16:00] VITALS: BP 98/68; PULSE 80; RESP 18; TEMP 36.1; O2SAT 100
[2021-01-24] MEDS: RIVAROXABAN 10 MG TABLET 20 MG PO (20:10)
[2021-01-24] MEDS: ACETAMINOPHEN 500 MG TABLET 1000 MG PO (20:11)
[2021-01-25] VITALS: BP 97/70; PULSE 78; RESP 18; TEMP 36.4; O2SAT 97
[2021-01-25 08:00] VITALS: BP 105/80; PULSE 87; RESP 14; TEMP 36.3; O2SAT 95
[2021-01-25] MEDS: TOLNAFTATE 1% POWDER 45 GM BTL 1 APPLIC TOPICAL (08:30)
[2021-01-25 09:16] VITALS: PULSE 80
[2021-01-25] MEDS: METOPROLOL SUCCINATE EXT REL 50 MG TABCR 100 MG PO (09:16)
[2021-01-25] MEDS: FUROSEMIDE 40 MG TABLET PO (09:16)
[2021-01-25] MEDS: CARBIDOPA/LEVODOPA 25/100 MG TABLET 1.5 TABLET PO ×2 (09:16→13:37)
[2021-01-25] MEDS: POTASSIUM CHLORIDE 20 MEQ TABLET PO (09:17)
[2021-01-25] MEDS: ATORVASTATIN 10 MG TABLET 20 MG PO (09:17)
[2021-01-25] MEDS: TAMSULOSIN HCL 0.4 MG CAPSULE PO (09:18)
--- NOTE | 2021-01-25 12:52 | PM.DS ---
DS: Admitting Diagnosis Admitting Diagnosis Weakness s/p Pneumonia, CHF DS: Discharge Diagnosis Discharge Diagnosis (1) Parkinson's disease: Code(s): G20 - Parkinson's disease Status: Chronic Assessment and Plan: continue with carbidopa levodopa (2) Urinary (tract) obstruction: Code(s): N13.9 - Obstructive and reflux uropathy, unspecified Status: Acute Assessment and Plan: Repeat UA pending 01/23/2021 Pt had hematuria this AM and started to clear, frequent urination in small amounts 125-175 mls Q30 to Q2 hours, will try Flomax and may need Cook, will see how Pt does tomorrow. 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 fib with a heart rate of 84 Continue metoprolol and Xarelto (5) Hyperlipidemia: Qualifiers: Hyperlipidemia type: unspecified Qualified Code(s): E78.5 - Hyperlipidemia, unspecified Code(s): E78.5 - Hyperlipidemia, unspecified Status: Acute Assessment and Plan: Continue atorvastatin (6) Essential hypertension: Code(s): I10 - Essential (primary) hypertension Status: Chronic Assessment and Plan: Blood [id number]/97, will continue to monitor this is the only elevated blood pressure reading Continue metoprolol 100 mg daily Vital signs as ordered Will adjust medication as needed 01/23/2021 VSS, no changes to medications needed at this time 01/25/2021 No changes to be made, BP soft this AM (7) Generalized weakness: Code(s): R53.1 - Weakness Status: Acute Assessment and Plan: ? Exhibit tolerance during physical activity as evidenced by a normal fluctuation of vital signs during physical activity. ? Patient will be ability to perform required activities of daily living. ? Provide appropriate nutrition for healing and strength. ? Use appropriate to prevent falls. ? Continue physical therapy/occupational therapy. 01/23/2021 Continue to work with PT/OT, Pt states he is doing well, he is able to stand without assistance with a walker and shuffle from chair to bed only needing a little direction. 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 Craft cystoscope in June 2020 demonstrated no lesion. 01/23/2021 CT scan June 2020 showed 1.3 cm mass suspicious for CA, obtaining Abd/Pel CT, also Pt had Hematuria this AM with frequent urination negative for UTI (9) CHF (congestive heart failure): Code(s): I50.9 - Heart failure, unspecified Status: Acute Assessment and Plan: Diastolic Continue Lasix BNP 01/16/2021 1260 Daily weights ECHO-->pending EF 60-65%; mildly increased left ventricular wall thickness; mild pulmonary HTN 42 mmHg 01/23/2021 Chronic stable condition 01/25/2021 stable (10) Elevated white blood cell count, unspecified: Code(s): D72.829 - Elevated white blood cell count, unspecified Status: Acute Assessment and Plan:
--- NOTE | 2021-01-25 14:50 | PC.NURSE ---
Pt discharged to home. Pt and given discharge instructions and both verbalize understanding. All personal items returned to pt. RN took pt by to family car and assisted him into the car.
== END 2021-01-25 14:20 | disposition home health service (06) | DRG 947 ==
PROVIDERS: Nurse Practitioner; Nurse Practitioner Family; Admitting Provider Emergency Medicine; PCP Family Medicine; Visit Provider Emergency Medicine
DX: R53.1 Weakness (principal); J18.9 Pneumonia, unspecified organism; I50.32 Chronic diastolic (congestive) heart failure; I48.19 Other persistent atrial fibrillation; E87.1 Hypo-osmolality and hyponatremia; I11.0 Hypertensive heart disease with heart failure; I73.9 Peripheral vascular disease, unspecified; C67.9 Malignant neoplasm of bladder, unspecified; G20 Parkinson's disease; E78.5 Hyperlipidemia, unspecified; E78.00 Pure hypercholesterolemia, unspecified; N13.9 Obstructive and reflux uropathy, unspecified; M19.90 Unspecified osteoarthritis, unspecified site; L71.9 Rosacea, unspecified; R73.01 Impaired fasting glucose; Z86.73 Personal history of transient ischemic attack (TIA), and cerebral infarction without residual deficits; Z86.711 Personal history of pulmonary embolism; Z86.718 Personal history of other venous thrombosis and embolism; Z79.01 Long term (current) use of anticoagulants
CPT/HCPCS: 36415; 71045; 74176; 80048; 80053; 81001; 82948; 83880; 85025; 85027; 87086; 97110; 97116; 97161; 97166; 97530; 97535; A9270

== ENCOUNTER 2021-02-06 12:56 | Outpatient (RCR) | payer MEDICARE, SELFPAY ==
--- NOTE | 2021-02-06 14:00 | PTOPEVAL ---
Thank you for referring Ace Sharp to [facility].? The patient is scheduled to be seen for therapy? ____x/week for ___ weeks. Please review, sign, date and return this plan of care ASHA. I agree with and certify that the following plan of care is medically necessary. Referring Physician Date Admitting Provider: Attending Provider: VIPIN Malin Referring Provider: MartinezPT Outpatient Evaluation Start: 02/06/21 12:59 Freq: Status: Active Protocol: Document 02/06/21 12:59 ACR (Rec: 02/06/21 14:00 ACR [id number]) Therapy Assessment Status Assessment Status Assessment Status Evaluation Outpatient Past Medical History Neurological History Hx Parkinson's Disease Yes: RT HAND SHAKES,SHUFFLING FEET Hx Transient Ischemic Attacks (TIA) Yes Cardiovascular History Hx Atrial Fibrillation Yes: HX Hx Congestive Heart Failure Yes Hx Deep Vein Thrombosis Yes: 2005. 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 Respiratory History Hx Pulmonary Embolism Yes: 2005 Gastrointestinal History Hx Bowel Surgery Yes: SMALL BOWEL RESECTION FOR OBSTRUCTION 2017 Hx Obstructive Bowel Yes: 2017 Genitourinary History Hx Urinary Tract Infection Yes Hx Other Genitourinary Disorders Yes: BLADDER TUMOR - TURBT NOVEMBER 2019 Musculoskeletal History Hx Arthritis Yes Hx Crutches or Walker Use Yes Query Text:If Yes, Enter Crutches, Walker, or Both in the Comment Hx Fractures Yes: RT LEG REPAIR 1975 Hx Orthopedic Surgery Yes Hematological History Hx Hematological Disorders No Significant History Endocrine History Hx Diabetes Yes: 2020 HEENT History Hx Cataracts Yes: BILAT SURG. Hx Other HEENT Disorders Yes: READING GLASSES Integumentary History Hx Skin Disorders No Significant History Reproductive History Hx Reproductive Disorders No Significant History Psychosocial History Hx Psychiatric Disorders No Significant History Pain History History of Any Previous or Ongoing No Significant History Instance of Pain Anesthesia History Hx Anesthesia Reactions No Significant History Other History Hx Cancer Yes: bladder cancer Evaluation Information Problem Diagnosis weakness Onset 02/01/21 Subjective Information Patient reports he was Query Text:As Reported By Patient/ [facility] and he is having a
--- NOTE | 2021-02-27 14:08 | PTOPEVAL ---
Thank you for referring Ace Sharp to [facility].? The patient is scheduled to be seen for therapy? ____x/week for ___ weeks. Please review, sign, date and return this plan of care ASHA. I agree with and certify that the following plan of care is medically necessary. Referring Physician Date Admitting Provider: Attending Provider: VIPIN Malin Referring Provider: MartinezPT Outpatient Evaluation Start: 02/06/21 12:59 Freq: Status: Active Protocol: Document 02/27/21 12:58 ACR (Rec: 02/27/21 14:07 ACR [id number]) Therapy Assessment Status Assessment Status Assessment Status Progress Outpatient Past Medical History Neurological History Hx Parkinson's Disease Yes: RT HAND SHAKES,SHUFFLING FEET Hx Transient Ischemic Attacks (TIA) Yes Cardiovascular History Hx Atrial Fibrillation Yes: HX Hx Congestive Heart Failure Yes Hx Deep Vein Thrombosis Yes: 2005. TAKES XARELTO Hx Hypercholesterolemia Yes Hx Hypertension Yes Hx Peripheral Vascular Disease Yes Hx Other Cardiac Disorders Yes: PRESS HAND Respiratory History Hx Pulmonary Embolism Yes: 2005 Gastrointestinal History Hx Bowel Surgery Yes: SMALL BOWEL RESECTION FOR OBSTRUCTION 2017 Hx Obstructive Bowel Yes: 2017 Genitourinary History Hx Urinary Tract Infection Yes Hx Other Genitourinary Disorders Yes: BLADDER TUMOR - TURBT NOVEMBER 2019 Musculoskeletal History Hx Arthritis Yes Hx Crutches or Walker Use Yes Query Text:If Yes, Enter Crutches, Walker, or Both in the Comment Hx Fractures Yes: RT LEG REPAIR 1975 Hx Orthopedic Surgery Yes Hematological History Hx Hematological Disorders No Significant History Endocrine History Hx Diabetes Yes: 2020 HEENT History Hx Cataracts Yes: BILAT SURG. Hx Other HEENT Disorders Yes: READING GLASSES Integumentary History Hx Skin Disorders No Significant History Reproductive History Hx Reproductive Disorders No Significant History Psychosocial History Hx Psychiatric Disorders No Significant History Pain History History of Any Previous or Ongoing No Significant History Instance of Pain Anesthesia History Hx Anesthesia Reactions No Significant History Other History Hx Cancer Yes: bladder cancer Evaluation Information Problem Diagnosis weakness Onset 02/01/21 Subjective Information Patient states that since Query Text:As Reported By Patient/ beginning therapy, everything Family has gotten easier from getting
--- NOTE | 2021-04-12 12:03 | PTOPEVAL ---
Thank you for referring Ace Sharp to [facility][Note 3].? The patient is scheduled to be seen for therapy? ____x/week for ___ weeks. Please review, sign, date and return this plan of care ASHA. I agree with and certify that the following plan of care is medically necessary. Referring Physician Date Admitting Provider: Attending Provider: VIPIN Malin Referring Provider: MartienzPT Outpatient Evaluation Start: 02/06/21 12:59 Freq: Status: Active Protocol: Document 04/12/21 10:58 ACR (Rec: 04/12/21 12:01 ACR [id number]) Therapy Assessment Status Assessment Status Assessment Status Discharge Outpatient Past Medical History Neurological History Hx Parkinson's Disease Yes: RT HAND SHAKES,SHUFFLING FEET Hx Transient Ischemic Attacks (TIA) Yes Cardiovascular History Hx Atrial Fibrillation Yes: HX Hx Congestive Heart Failure Yes Hx Deep Vein Thrombosis Yes: 2005. 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 Respiratory History Hx Pulmonary Embolism Yes: 2005 Gastrointestinal History Hx Bowel Surgery Yes: SMALL BOWEL RESECTION FOR OBSTRUCTION 2017 Hx Obstructive Bowel Yes: 2017 Genitourinary History Hx Urinary Tract Infection Yes Hx Other Genitourinary Disorders Yes: BLADDER TUMOR - TURBT NOVEMBER 2019 Musculoskeletal History Hx Arthritis Yes Hx Crutches or Walker Use Yes Query Text:If Yes, Enter Crutches, Walker, or Both in the Comment Hx Fractures Yes: RT LEG REPAIR 1975 Hx Orthopedic Surgery Yes Hematological History Hx Hematological Disorders No Significant History Endocrine History Hx Diabetes Yes: 2020 HEENT History Hx Cataracts Yes: BILAT SURG. Hx Other HEENT Disorders Yes: READING GLASSES Integumentary History Hx Skin Disorders No Significant History Reproductive History Hx Reproductive Disorders No Significant History Psychosocial History Hx Psychiatric Disorders No Significant History Pain History History of Any Previous or Ongoing No Significant History Instance of Pain Anesthesia History Hx Anesthesia Reactions No Significant History Other History Hx Cancer Yes: bladder cancer Evaluation Information Problem Diagnosis weakness Onset 02/01/21 Subjective Information Patient states that he has Query Text:As Reported By Patient/ been doing a little betting Family since beginning therapy. He
== END 2021-05-24 23:59 | disposition home or self-care (01) ==
LOC: CHSPT 12:56
PROVIDERS: PCP Family Medicine; Visit Provider Nurse Practitioner Family
DX: R53.1 Weakness (principal)
CPT/HCPCS: 97014; 97110; 97161; 97530; G0283

== ENCOUNTER 2021-05-02 08:26 | Outpatient (CLI) | payer MEDICARE, SELFPAY ==
[2021-05-02 08:54] LABS: Add Urine Microscopic? YES; Appearance Urine Clear (Clear); Bilirubin Urine Negative (Negative); Blood Urine 3+ (Negative); Color Urine Yellow (Yellow); Glucose Urine UA Negative (Negative); Ketones Urine Trace (Negative); Leukocyte Esterase Ur Trace (Negative); Nitrate Urine Negative (Negative); Protein Urine Trace (Negative); Specific Grav Ur 1.025 (1.010-1.020)
[2021-05-02 09:07] LABS: RBC Urine 21-50 /hpf (0-2); Squamous Epithelial Cell Urine Rare /hpf (Few)
[2021-05-02 09:08] LABS: Bacteria Urine 1+ /hpf
== END 2021-05-02 08:27 | disposition home or self-care (01) ==
LOC: CHSLAB 08:28
PROVIDERS: PCP Family Medicine; Visit Provider Family Medicine
DX: N39.0 Urinary tract infection, site not specified (principal)
CPT/HCPCS: 81001; 87086

== ENCOUNTER 2021-05-22 08:00 | Outpatient (CLI) | payer MEDICARE, SELFPAY ==
[2021-05-22 08:21] LABS: Hematocrit 50.7 % (42.0-52.0); Hemoglobin 16.4 g/dL (14.0-18.0); Mean Corpuscular HGB Conc 32.3 g/dl (32-36); Mean Corpuscular Hemoglobin 31.1 pg (26-34); Mean Platelet Volume 9.5 fl (7.4-10.4); Platelet Count Result 220 k/mm3 (150-375); Red Blood Count 5.28 M/mm3 (4.6-6.20); Red Cell Distribution Width 12.7 % (11.5-14.5)
[2021-05-22 08:30] LABS: Add Urine Microscopic? YES; Appearance Urine Clear (Clear); Bilirubin Urine Negative (Negative); Blood Urine Negative (Negative); Color Urine Yellow (Yellow); Glucose Urine UA Negative (Negative); Ketones Urine Negative (Negative); Leukocyte Esterase Ur 1+ LEU/UL (NEGATIVE); Mucus Urine Rare /lpf; Nitrate Urine Negative (Negative); Protein Urine Negative (Negative); Specific Grav Ur 1.017 (1.001-1.035); Squamous Epithelial Cell Urine Rare /hpf (Few)
[2021-05-22 08:31] LABS: Alanine Aminotransferase 12 U/L (4-50); Albumin Level 3.8 g/dL (3.5-5.1); Alkaline Phosphatase 54 U/L (38-126); Anion Gap 5 mmol/L (8-16); Aspartate Amino Transferase 20 U/L (17-59); Bilirubin,Total 0.9 mg/dL (0.2-1.3); Blood Urea Nitrogen 21 mg/dL (9-20); Calcium 8.7 mg/dL (8.4-10.2); Carbon Dioxide 33 mmol/L (22-30); Chloride 95 mmol/L (98-107); Cholesterol 122 mg/dL (0-200); Estimated Glomerular Filt Rate > 60; Glucose 121 mg/dL (65-110); HDL Direct 38 mg/dL; Potassium 4.1 mmol/L (3.4-5.0); Sodium 133 mmol/L (137-145); Triglycerides 111 mg/dL (<150)
[2021-05-22 08:41] LABS: LDL Cholesterol Direct 65 mg/dL
== END 2021-05-22 08:01 | disposition home or self-care (01) ==
PROVIDERS: PCP Family Medicine; Visit Provider Family Medicine
DX: E78.00 Pure hypercholesterolemia, unspecified (principal); E78.5 Hyperlipidemia, unspecified; I10 Essential (primary) hypertension; R53.83 Other fatigue; Z00.00 Encounter for general adult medical examination without abnormal findings
CPT/HCPCS: 36415; 80053; 80061; 81001; 84443; 85027

== ENCOUNTER 2021-07-07 06:33 | Emergency (ER) | payer MEDICARE, SELFPAY ==
[2021-07-07 06:52] VITALS: BP 145/80; PULSE 90; RESP 18; TEMP 36.6; O2SAT 95
[2021-07-07 07:06] LABS: Add Urine Microscopic? YES; Appearance Urine Cloudy (Clear); Bilirubin Urine Negative (Negative); Blood Urine 3+ (Negative); Color Urine Brown (Yellow); Glucose Urine UA Negative (Negative); Ketones Urine Negative (Negative); Leukocyte Esterase Ur Trace LEU/UL (Negative); Nitrate Urine Negative (Negative); Protein Urine 1+ (Negative); pH Urine 6.5 (5.0-8.0)
[2021-07-07 07:10] LABS: RBC Urine >75 /hpf (0-2); Squamous Epithelial Cell Urine None seen /hpf (Few); WBC Urine None seen /hpf (0-3)
[2021-07-07 07:11] LABS: Bacteria Urine Trace /hpf
--- NOTE | 2021-07-07 07:23 | ED.MALEGU ---
HPI - Male Genitourinary General Chief complaint: Unspecified Stated complaint: blood in urine Time Seen by Provider: 07/07/21 07:23 Source: patient Mode of arrival: ambulatory Limitations: no limitations History of Present Illness HPI Narrative: 80-year-old man with a history of atrial fibrillation, bladder tumor, VTE, and urolithiasis comes to the ER with 2 days of blood in his urine. Patient states that was intermittent for the last 2 days and has been with every episode today. His urine has a bad odor however he has had no urgency, frequency, difficulty urinating, abdominal or flank pain, fever, vomiting or passing clots. Complaint: other (Hematuria) Onset (ago): day(s) (3) Duration: constant Associated symptoms: Reports blood in urine Related Data Home Medications Medication Instructions Recorded Confirmed carbidopa-levodopa 1.5 tablet PO QID 09/14/20 07/07/21 amoxicillin See Rx Instructions .ROUTE .COMPLEX 07/07/21 07/07/21 metoprolol succinate 50 mg PO QAM 07/07/21 07/07/21 Allergies Allergy/AdvReac Type Severity Reaction Status Date / Time No Known Allergies Allergy Verified 05/14/21 11:03 Review of Systems Review of Systems: All systems reviewed & are unremarkable except as noted in HPI and below Constitutional: Constitutional: Denies chills and Denies fever(s) ENT: Denies nasal congestion and Denies sore throat Cardiovascular: Cardiovascular: Denies chest pain and Denies radiating jaw, neck or arm pain Respiratory: Respiratory: Denies cough, Denies dyspnea and Denies wheezing Gastrointestinal: Gastrointestinal: Denies abdominal pain, Denies nausea and Denies vomiting Genitourinary: Genitourinary: Reports hematuria, Denies oliguria, Denies dysuria, Denies urinary frequency and Denies urinary incontinence Musculoskeletal: Musculoskeletal: Denies back pain, Denies arthralgias and Denies joint swelling Integumentary/Breasts: Skin/Breast: Denies pruritus, Denies erythema and Denies rash Neurologic: Denies vertigo, Denies dizziness and Denies syncope Hematologic/Lymphatic: Hematologic/Lymphatic: Reports easy bruising PMFSH Past Medical History Medical History Atrial fibrillation Bladder tumor Chronic diastolic heart failure Echocardiogram on 03/23/2020 showed normal left ventricular systolic function and size with mild concentric left ventricular hypertrophy and ejection fraction measured at 74%. Claudication in peripheral vascular disease 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 penitentiary 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 CVA (cerebral vascular accident) chronic lacunar infarcts in the region of the anterior limb of the internal capsule bilaterally. There is nonspecific diminished attenuation of the subcortical and periventricular cerebral white matter. Deep venous thrombosis (~2005) Essential hypertension History of pulmonary embolism (~2005) On long-term 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. Hyperlipidemia Impaired fasting glucose Kidney stones Parkinson's disease Shuffling gait and right hand tremors. Persistent atrial fibrillation Primary osteoarthritis, unspecified site Pure hypercholesterolemia Rosacea Urothelial carcinoma of bladder (~11/2019) Followed by Dr. Craft. Cystoscopy in June 2020 demonstrated new lesions, scheduled for TURBT in September 2020. Surgical History Surgical History History of ankle surgery ORIF right ankle fracture. History of basal cell carcinoma excision Excised from the left brow. History of resection of small bowel (~01/2018) Secondary to closed loop bowel obstruction. Family History Family History Father Family history of diabetes mellitus in first degree relative Family history of coronary artery disease Sibling Family history of diabetes mellitus in first degree relative Family history of coronary artery disease Mother Family history of
[2021-07-07 07:58] LABS: Basophils Absolute Auto 0.05 K/mm3 (0.00-0.10); Basophils Percent Auto 0.5 % (0.0-1.0); Eosinophils Absolute Auto 0.25 K/mm3 (0.02-0.50); Eosinophils Percent Auto 2.6 % (1.0-6.0); Hematocrit 46.2 % (37.0-46.0); Immature Granulocyte Absolute 0.07 K/mm3 (0.00-0.00); Immature Granulocyte Percent A 0.7 % (0.0-0.0); Lymphocytes Absolute Auto 1.62 K/mm3 (1.10-4.50); Lymphocytes Percent Auto 17.1 % (18.0-42.0); Mean Corpuscular HGB Conc 32.5 g/dL (32.0-36.0); Mean Corpuscular Hemoglobin 30.5 pg (27.0-31.0); Mean Corpuscular Volume 94.1 fL (78.0-102.0); Mean Platelet Volume 9.5 fl (8.7-11.0); Monocytes Absolute Auto 1.28 K/mm3 (0.10-0.90); Monocytes Percent Auto 13.5 % (2.0-11.0); Neutrophils Absolute Auto 6.2 K/mm3 (1.7-7.2); Neutrophils Percent Auto 65.6 % (50.0-70.0); Platelet Count Result 229 K/mm3 (150-420); Red Blood Count 4.91 M/mm3 (4.70-6.10); Red Cell Distribution Width 13.1 % (11.6-14.4); White Blood Count 9.5 K/mm3 (4.8-10.8)
[2021-07-07 08:10] LABS: Alanine Aminotransferase 10 U/L (16-63); Albumin Level 3.1 g/dL (3.4-5.0); Alkaline Phosphatase 68 U/L (46-116); Anion Gap 8 mmol/L (8-16); Aspartate Amino Transferase 12 U/L (15-37); Bilirubin,Total 0.5 mg/dL (0.00-1.00); Blood Urea Nitrogen 14 mg/dL (7-18); Calcium 8.5 mg/dL (8.5-10.1); Carbon Dioxide 31 mmol/L (21-32); Chloride 99 mmol/L (98-108); Estimated CRCL calculation 46 ml/min; Estimated Glomerular Filt Rate > 60; Glucose 102 mg/dL (70-99); Osmolality Calculated 286 mOsm/kg (285-295); Potassium 4.2 mmol/L (3.5-5.1); Sodium 138 mmol/L (136-145); Total Protein 6.4 g/dL (6.4-8.2)
[2021-07-07 08:45] VITALS: BP 133/95; PULSE 76; RESP 18; O2SAT 97
== END 2021-07-07 08:48 | disposition home or self-care (01) ==
PROVIDERS: Emergency Medicine; Emergency Provider Emergency Medicine; PCP Family Medicine
DX: R31.0 Gross hematuria (principal); Z79.01 Long term (current) use of anticoagulants; Z86.73 Personal history of transient ischemic attack (TIA), and cerebral infarction without residual deficits; E78.5 Hyperlipidemia, unspecified; I10 Essential (primary) hypertension; E78.00 Pure hypercholesterolemia, unspecified
CPT/HCPCS: 36415; 80053; 81001; 85025; 87086; 87088; 99283

== ENCOUNTER 2021-08-14 13:58 | Outpatient (CLI) | payer MEDICARE, SELFPAY ==
[2021-08-14 14:53] LABS: Basophils Absolute Auto 0.1 K/mm3 (0.0-0.1); Basophils Percent Auto 0.6 % (0.2-1.2); Eosinophils Absolute Auto 0.2 K/mm3 (0-0.3); Eosinophils Percent Auto 1.6 % (0-4.4); Hematocrit 45.3 % (42.0-52.0); Hemoglobin 14.7 g/dL (14.0-18.0); Immature Granulocyte Absolute 0.13 K/mm3 (0.00-0.031); Immature Granulocyte Percent A 1.1 % (0-0.5); Lymphocytes Absolute Auto 1.82 K/mm3 (0.9-3.2); Lymphocytes Percent Auto 15.4 % (18.3-44.2); Mean Corpuscular HGB Conc 32.5 g/dl (32-36); Mean Corpuscular Hemoglobin 29.9 pg (26-34); Mean Corpuscular Volume 92.1 fl (80-100); Mean Platelet Volume 9.2 fl (7.4-10.4); Monocytes Absolute Auto 1.5 K/mm3 (0.1-0.6); Monocytes Percent Auto 12.6 % (2.6-8.5); Neutrophils Absolute Auto 8.1 K/mm3 (1.3-6.7); Neutrophils Percent Auto 68.7 % (45.5-73.1); Platelet Count Result 341 k/mm3 (150-375); Red Blood Count 4.92 M/mm3 (4.6-6.20); Red Cell Distribution Width 13.9 % (11.5-14.5); White Blood Count 11.8 K/mm3 (4.5-10.0)
== END 2021-08-14 13:59 | disposition home or self-care (01) ==
PROVIDERS: PCP Family Medicine; Visit Provider Physician Assistant
DX: E78.00 Pure hypercholesterolemia, unspecified (principal); L03.90 Cellulitis, unspecified
CPT/HCPCS: 36415; 85025

== ENCOUNTER 2021-08-14 21:50 | Inpatient (IN) | payer MEDICARE, SELFPAY ==
--- NOTE | ~2021-08-14 | XR_ITS ---
EXAMINATION: XR chest 1V portable DATE: 08/16/2021 14:47 INDICATION: Pulmonary edema. TECHNIQUE: A single frontal view of the chest was obtained. COMPARISON: Chest single view 08/14/2021, CT abdomen and pelvis 01/23/2021 FINDINGS: The patient is rotated to his left. The lung volumes are small with mild relative elevation of right hemidiaphragm. There is a diffuse interstitial pattern in the lungs with a peripheral predo minance. No pleural effusion or pneumothorax. Cardiomegaly is noted. IMPRESSION: 1. Persistently small lung volumes with stable diffuse interstitial pattern with a peripheral predomi nance, consistent with chronic interstitial lung disease. 2. Cardiomegaly. Reviewed, dictated and finalized at location A. ESS BED DRUM SANDER IMPRESSION: 1. Persistently small lung volumes with stable diffuse interstitial pattern wit h a peripheral predominance, consistent with chronic interstitial lung disease. 2. Cardiomegaly.
--- NOTE | ~2021-08-14 | XR_ITS ---
EXAMINATION: XR chest 1V portable INDICATION: Chest pain TECHNIQUE: Portable AP chest at 2255 hours COMPARISON: 01/18/2021 FINDINGS: Cardiomegaly is noted. There is a mild diffuse interstitial pattern. A small right pleural effusion is present. There is no pneumothorax. There are minimal airspace opacities of the lung bases . IMPRESSION: 1. Cardiomegaly with mild pulmonary edema. 2. Small right pleural effusion. 3. Minimal bibasilar airspace opacities, likely atelectasis. Reviewed, dictated and finalized at location F. STMENT ASSOCIATE
--- NOTE | ~2021-08-14 | CT_ITS ---
EXAMINATION: CT brain wo con DATE: 08/21/2021 12:20 INDICATION: Mental status changes. TECHNIQUE: Computed tomography (CT) of the head was performed without intravenous contrast. The dose- length product was 681.00 mGy-cm. Automated exposure control and iterative reconstruction technique w ere employed. COMPARISON: CT dated 08/14/2021 FINDINGS: Chronic bilateral lacunar infarctions. Generalized atrophy. There are scattered mild perive ntricular and subcortical white matter changes, most likely related to small vessel ischemic disease (microangiopathy). There is intracranial atherosclerosis. No acute intracranial hemorrhage, infarctio n, mass or mass effect. No ventriculomegaly or midline shift. Paranasal sinuses and mastoids are pneu matized. No depressed skull fractures. IMPRESSION: 1. No acute intracranial abnormality. 2: Chronic bilateral lacunar infarctions. 3: Chronic age-related findings. Reviewed, dictated and finalized at location A. [facility]
--- NOTE | ~2021-08-14 | XR_ITS ---
XR chest 1V portable 08/17/2021 08:47 Indication: Pulmonary edema Procedure: AP portable chest Comparison: Comparison to multiple prior studies sequentially, with oldest reviewed study dated 01/15. Findings: Cardiomegaly. Mild interstitial edema. Dilated bowel loops are present in the upper abdomen , nonspecific. No significant effusion or pneumothorax. Impression: 1: Cardiomegaly with mild interstitial edema. Reviewed, dictated and finalized at location B. UNT TECHNICIAN Impression: 1: Cardiomegaly with mild interstitial edema.
--- NOTE | ~2021-08-14 | CT_ITS ---
EXAMINATION: CT brain wo con INDICATION: Headache COMPARISON: None TECHNIQUE: Standard unenhanced head CT. The dose-length product (DLP) was 605.33 mGy-cm. The mA was a djusted according to patient size. Iterative reconstruction technique was employed. FINDINGS: There is no acute intraparenchymal hemorrhage. No evidence of mass lesion. No evidence of a cute infarction. There is an old lacunar infarct of the right basal ganglia. There is mild periventri cular and subcortical hypodensity probably related to small vessel ischemic disease. There is mild pr ominence of the sulci and ventricles related to cerebral atrophy. Intracranial calcified cerebral ath erosclerosis is noted. There are no extra-axial collections. There is no mass effect or midline shift . Changes in the globes are likely from ocular lens surgery. The visualized sinuses and mastoid air c ells are well aerated. IMPRESSION: 1. No acute intracranial abnormality. 2. Age related findings. Reviewed, dictated and finalized at location F. NESS PROJECT MANAGER
--- NOTE | ~2021-08-14 | XR_ITS ---
EXAMINATION: XR chest 2V DATE: 08/22/2021 13:36 INDICATION: Congestive heart failure TECHNIQUE: AP and lateral views of the chest are obtained. COMPARISON: 08/17/2021 FINDINGS: There are chronic peripheral predominant opacities of the lungs. There is no pleural effusi on or pneumothorax. Cardiomegaly is noted. There is moderate thoracic spondylosis. IMPRESSION: 1. Cardiomegaly. Reviewed, dictated and finalized at location D. R CHISEL OPERATOR IMPRESSION: 1. Cardiomegaly.
--- NOTE | ~2021-08-14 | US_ITS ---
EXAMINATION: US venous doppler LE RT EXAM DATE: 08/18/2021 12:59 INDICATION: Right lower extremity swelling. TECHNIQUE: Multiple grayscale, color flow and Doppler images of the right lower extremity deep venous system were obtained and reviewed. Comparison is made to prior examination from 01/07/2021. FINDINGS: The right common femoral, femoral and profunda veins demonstrate normal color flow, respira tory variation, augmentation and compressibility. Compressibility, color flow confirmed within the r ight popliteal, posterior tibial, peroneal, and greater saphenous veins. IMPRESSION: No acute right lower extremity deep venous thrombosis. Reviewed, dictated and finalized at location A. ER TAPING MACHINE OFFBEARER
[2021-08-14 21:52] VITALS: BP 150/95; PULSE 92; RESP 22; TEMP 36.7; O2SAT 98
--- NOTE | 2021-08-14 22:11 | ECG_ITS ---
Measurements Intervals Arena Rate: 87 P: WI: 0 QRS: -16 QRSD: 81 T: -1 QT: 374 QTc: 451 Interpretive Statements ATRIAL FIBRILLATION BORDERLINE T WAVE ABNORMALITY- INFERIOR LEADS BASELINE ARTIFACT- I, II, III, AVR, AVL, AVF, V1, V3 ABNORMAL ECG Electronically Signed On 08-15-2021 6:25:10 WATER AND GAS HELPER by Behzad Flores D.O.
--- NOTE | 2021-08-14 22:25 | ED.WEAKNESS ---
HPI - Weakness General Chief complaint: Weakness Stated complaint: increase leg swelling and weakness Time Seen by Provider: 08/14/21 22:02 Source: patient and family Limitations: no limitations History of Present Illness HPI Narrative: Patient is an 81-year-old male complaining of increasing generalized weakness and lower extremity edema for the past week. According to the patient was so weak this past weekend he was unable to ambulate even with the help of a walker. Patient has a history of lower extremity edema and CHF and currently on Lasix for it. Patient states that he is usually short of breath on exertion due to his CHF but the past few days noticed it being worse. Patient denies any chest pain, abdominal pain, increased abdominal distention, fever or chills. Patient was seen by his PCP earlier today and increase his Lasix from 40 mg to 60 mg p.o. daily. Related Data Home Medications Medication Instructions Recorded Confirmed carbidopa-levodopa 1.5 tablet PO QID 09/14/20 08/14/21 amoxicillin See Rx Instructions .ROUTE .COMPLEX 07/07/21 08/14/21 Allergies Allergy/AdvReac Type Severity Reaction Status Date / Time No Known Allergies Allergy Verified 08/14/21 12:53 Review of Systems Review of Systems: All systems reviewed & are unremarkable except as noted in HPI and below Constitutional: Constitutional: Denies body ache(s), Denies chills, Denies excessive sweating, Denies fatigue, Denies fever(s), Denies headache(s), Denies lethargy, Denies malaise and Denies weight loss Eyes: Eyes: Denies blurry vision, Denies change in vision and Denies loss of vision ENT: Denies dizziness, Denies ear discharge, Denies headache(s), Denies lip swelling, Denies epistaxis, Denies nasal congestion, Denies neck pain, Denies throat swelling and Denies tongue swelling Cardiovascular: Cardiovascular: Denies chest pain, Denies chest pain at rest, Denies chest pain with activity, Denies diaphoresis, Denies rapid heart rate, Denies irregular heart rhythm, Denies lightheadedness, Denies palpitations and Denies dyspnea Respiratory: Respiratory: Denies chest congestion, Denies cough, Denies hemoptysis and Denies dyspnea Gastrointestinal: Gastrointestinal: Denies abdominal pain, Denies melena, Denies hematochezia, Denies diarrhea, Denies nausea, Denies vomiting and Denies hematemesis Musculoskeletal: Musculoskeletal: Denies abnormal gait, Denies deformity, Denies joint swelling, Denies limited range of motion, Denies neck pain and Denies numbness Neurologic: Denies Abnormal speech present, Denies abnormal gait, Denies confusion, Denies dizziness, Denies headache(s), Denies focal weakness, Denies loss of vision, Denies numbness, Denies Other visual disturbances and Denies Sensory deficit (Neuro) Psychiatric: Psychiatric: Denies confusion, Denies depression, Denies auditory hallucinations, Denies homicidal ideation and Denies suicidal ideation Endocrine: Endocrine: Denies cold intolerance, Denies excessive sweating, Denies fatigue, Denies heat intolerance and Denies palpitations Hematologic/Lymphatic: Hematologic/Lymphatic: Denies easy bleeding and Denies easy bruising Allergic/Immunologic: Allergic/Immunologic: Denies lip swelling, Denies throat swelling and Denies tongue swelling PMFSH Past Medical History Medical History Atrial fibrillation Bladder tumor Chronic diastolic heart failure Echocardiogram on 03/23/2020 showed normal left ventricular systolic function and size with mild concentric left ventricular hypertrophy and ejection fraction measured at 74%. 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 There is nonspecific diminished attenuation of the subcortical and periventricular cerebral white matter. Deep veno
[2021-08-14 22:38] LABS: Basophils Absolute Auto 0.1 K/mm3 (0.0-0.1); Basophils Percent Auto 0.5 % (0.2-1.2); Eosinophils Absolute Auto 0.2 K/mm3 (0-0.3); Eosinophils Percent Auto 1.9 % (0-4.4); Hematocrit 47.1 % (42.0-52.0); Hemoglobin 15.1 g/dL (14.0-18.0); Immature Granulocyte Absolute 0.12 K/mm3 (0.00-0.031); Lymphocytes Absolute Auto 2.03 K/mm3 (0.9-3.2); Lymphocytes Percent Auto 16.9 % (18.3-44.2); Mean Corpuscular HGB Conc 32.1 g/dl (32-36); Mean Corpuscular Volume 93.5 fl (80-100); Monocytes Absolute Auto 1.3 K/mm3 (0.1-0.6); Monocytes Percent Auto 11.1 % (2.6-8.5); Neutrophils Absolute Auto 8.3 K/mm3 (1.3-6.7); Neutrophils Percent Auto 68.6 % (45.5-73.1); Platelet Count Result 307 k/mm3 (150-375); Red Blood Count 5.04 M/mm3 (4.6-6.20); Red Cell Distribution Width 13.9 % (11.5-14.5)
[2021-08-14 22:50] LABS: INR 3.3; Prothrombin Time 32.6 Seconds (11.1-14.7)
[2021-08-14 22:51] LABS: Alanine Aminotransferase 14 U/L (4-50); Albumin Level 3.9 g/dL (3.5-5.1); Alkaline Phosphatase 70 U/L (38-126); Anion Gap 4 mmol/L (8-16); Aspartate Amino Transferase 24 U/L (17-59); Bilirubin,Total 0.6 mg/dL (0.2-1.3); Blood Urea Nitrogen 20 mg/dL (9-20); Calcium 8.6 mg/dL (8.4-10.2); Carbon Dioxide 31 mmol/L (22-30); Chloride 98 mmol/L (98-107); Estimated CRCL calculation 64 ml/min; Estimated Glomerular Filt Rate > 60; Glucose 120 mg/dL (65-110); Partial Thromboplastin Time 40.4 SECONDS (22.3-36.8); Potassium 4.2 mmol/L (3.4-5.0); Sodium 133 mmol/L (137-145)
[2021-08-14 22:59] LABS: NT Pro B Type Natriuretic Pept 948 pg/mL (5-100)
[2021-08-14] MEDS: FUROSEMIDE INJ 40 MG/4 ML VIAL IV PUSH (23:03)
[2021-08-14 23:06] LABS: Troponin I < 0.012 ng/mL (0.000-0.034)
[2021-08-14 23:27] VITALS: BP 124/93; PULSE 90; RESP 21; O2SAT 98
--- NOTE | 2021-08-14 23:45 | PM.IMHP ---
H&P: HPI History of Present Illness Date/Time: 08/14/21 23:45 Chief Complaint: Bilateral lower extremity swelling Narrative: 81 years old male with past medical history of parkinsonism CHF stroke bladder tumor impaired glucose tolerance presented to the hospital with generalized weakness worsening gradually associated with worsening lower extremity edema patient normally is able to walk with a walker but currently patient is having difficulty with ambulating is not able to help patient to ambulate patient recently visited his primary care physician his Lasix dose has increased but his condition continued to worsen at the ER patient was found to have probable pulmonary edema CHF exacerbation admitted for further evaluation and treatment CT scan was done as patient was complaining of generalized weakness and on oral 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 no evidence of intracranial bleed. Review of Systems Review of Systems: All systems reviewed & are unremarkable except as noted in HPI and below PMFSH Past Medical History Medical History Atrial fibrillation Bladder tumor Chronic diastolic heart failure Echocardiogram on 03/23/2020 showed normal left ventricular systolic function and size with mild concentric left ventricular hypertrophy and ejection fraction measured at 74%. Claudication in peripheral vascular disease 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 senior living 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 CVA (cerebral vascular accident) chronic lacunar infarcts in the region of the anterior limb of the internal capsule bilaterally. There is nonspecific diminished attenuation of the subcortical and periventricular cerebral white matter. Deep venous thrombosis (~2005) Essential hypertension History of pulmonary embolism (~2005) On long-term 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. Hyperlipidemia Impaired fasting glucose Kidney stones Parkinson's disease Shuffling gait and right hand tremors. Persistent atrial fibrillation Primary osteoarthritis, unspecified site Pure hypercholesterolemia Rosacea Urothelial carcinoma of bladder (~11/2019) Followed by Dr. Craft. Cystoscopy in June 2020 demonstrated new lesions, scheduled for TURBT in September 2020. Surgical History Surgical History History of ankle surgery ORIF right ankle fracture. History of basal cell carcinoma excision Excised from the left brow. History of resection of small bowel (~01/2018) Secondary to closed loop bowel obstruction. Family History Family History Father Family history of diabetes mellitus in first degree relative Family history of coronary artery disease Sibling Family history of diabetes mellitus in first degree relative Family history of coronary artery disease Mother Family history of coronary artery disease Social History Social History Social History: The patient lives in [place] with his . 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 Lifelong nonsmoker. Consumes perhaps 1 alcoholic beverage a week. No illicit substance use. He designates his Jenise as his surrogate decision maker and wishes to be a full code. They have 2 children. Smoking status: Never smoker Second hand tobacco smoke exposure: No Alcohol intake: never Alcohol use details: occasional Substance use: never Gender identity (if verbalized by the patient): Male Sexual Orientation (if Verbalized by the Patient): Straight or Heterosexual Spiritual care concerns: No Meds Home Medications and Allergies Home Medications Medication Instructions Recorded Confirmed Type carbidopa-levodopa 1.5 tablet PO QID 09/14/20 08/14/21 History furosemide 40 mg tablet 40 mg PO QAM #30 tablet 05/29/21 08/14/21 Rx potassium chloride 20 mEq 20 meq PO QAM #30 tablet
[2021-08-15] VITALS (10 sets, daily range): BP systolic 95–146; BP diastolic 56–80; PULSE 80–98; RESP 18–20; TEMP 36–36.8; O2SAT 94–100
[2021-08-15 00:02] LABS: Magnesium 2.1 mg/dL (1.6-2.3)
[2021-08-15 00:25] LABS: Add Urine Microscopic? YES; Appearance Urine Clear (Clear); Bilirubin Urine Negative (Negative); Blood Urine 1+ (Negative); Color Urine Straw (Yellow); Glucose Urine UA Negative (Negative); Ketones Urine Negative (Negative); Leukocyte Esterase Ur Negative LEU/UL (Negative); Nitrate Urine Negative (Negative); Protein Urine Negative (Negative); Urobilinogen Urine Negative mg/dL (<2.0); WBC Urine 0-3 /hpf
--- NOTE | 2021-08-15 01:34 | ADMGEN ---
This patient, Ace Sharp, was admitted to [facility] Surg Room 315-01. Patient/family oriented to hospital policies and general routines including ID bracelet, bed and alarms, visiting hours, pain management, procedures, bathroom and other care routines, personal items, smoking policy, room service/diet, and visiting hours. Information on how to activate the Rapid Response Team has been discussed. Patient/Family are encouraged to report perceived risks to care and to ask questions if they do not understand what they are told or what they should do.
[2021-08-15 01:35] LABS: Free T4 Free Thyroxine 1.31 ng/mL (0.78-2.19)
[2021-08-15 02:58] LABS: Troponin I < 0.012 ng/mL (0.000-0.034)
[2021-08-15 05:47] LABS: Basophils Absolute Auto 0.1 K/mm3 (0.0-0.1); Basophils Percent Auto 0.5 % (0.2-1.2); Eosinophils Absolute Auto 0.2 K/mm3 (0-0.3); Eosinophils Percent Auto 1.7 % (0-4.4); Hematocrit 47.4 % (42.0-52.0); Hemoglobin 15.2 g/dL (14.0-18.0); Immature Granulocyte Absolute 0.12 K/mm3 (0.00-0.031); Lymphocytes Absolute Auto 1.94 K/mm3 (0.9-3.2); Lymphocytes Percent Auto 16.9 % (18.3-44.2); Mean Corpuscular HGB Conc 32.1 g/dl (32-36); Mean Corpuscular Hemoglobin 29.9 pg (26-34); Mean Corpuscular Volume 93.3 fl (80-100); Mean Platelet Volume 9.3 fl (7.4-10.4); Monocytes Absolute Auto 1.5 K/mm3 (0.1-0.6); Monocytes Percent Auto 13.2 % (2.6-8.5); Neutrophils Absolute Auto 7.7 K/mm3 (1.3-6.7); Neutrophils Percent Auto 66.7 % (45.5-73.1); Platelet Count Result 306 k/mm3 (150-375); Red Blood Count 5.08 M/mm3 (4.6-6.20); White Blood Count 11.5 K/mm3 (4.5-10.0)
[2021-08-15 06:11] LABS: Potassium 3.8 mmol/L (3.4-5.0); Troponin I < 0.012 ng/mL (0.000-0.034)
[2021-08-15 07:27] LABS: Alanine Aminotransferase 18 U/L (4-50); Albumin Level 3.8 g/dL (3.5-5.1); Alkaline Phosphatase 70 U/L (38-126); Anion Gap 5 mmol/L (8-16); Aspartate Amino Transferase 25 U/L (17-59); Bilirubin,Total 0.9 mg/dL (0.2-1.3); Blood Urea Nitrogen 19 mg/dL (9-20); Calcium 8.4 mg/dL (8.4-10.2); Carbon Dioxide 33 mmol/L (22-30); Chloride 97 mmol/L (98-107); Estimated CRCL calculation 72 ml/min; Estimated Glomerular Filt Rate > 60; Glucose 127 mg/dL (65-110); Sodium 135 mmol/L (137-145)
[2021-08-15] MEDS: AMOXICILLIN 500 MG CAPSULE BY MOUTH ×2 (08:43→16:26)
[2021-08-15] MEDS: METOPROLOL SUCCINATE EXT REL 50 MG TABCR PO (08:43)
[2021-08-15] MEDS: FUROSEMIDE INJ 40 MG/4 ML VIAL IV PUSH ×2 (08:43→16:27)
[2021-08-15] MEDS: CARBIDOPA/LEVODOPA 12.5/50 MG 1 TABLET, CARBIDOPA/LEVODOPA 25/100 MG 1 TABLET 2 TABLET PO ×3 (08:44→16:27)
[2021-08-15] MEDS: DOXYCYCLINE HYCLATE 100 MG TABLET PO (08:44)
--- NOTE | 2021-08-15 13:51 | PM.CNCAR ---
Assessment and Plan Additional Plan This is an 81-year-old man chronic atrial fibrillation who appears to have heart failure with preserved ejection fraction. He is volume overloaded and despite his clear sounding chest has some pulmonary congestion on chest x-ray. He is being given IV furosemide at a dosage double his baseline dosage in he does report that he is noticing a decline in edema compared to yesterday. Obviously he has a lot of lower extremity edema and I have never examined this man personally in the past he has chronic skin changes of chronic venous insufficiency and the notes in the chart from the office also indicate the presence of chronic appearing lower extremity edema. I would be highly suspicious that since he has a pre-existing history of DVT/PE in the remote past he probably had also has an element of lower extremity venous insufficiency. For now his rate control with metoprolol is adequate his anticoagulated with rivaroxaban is appropriate and we will follow him with you. I do not feel compelled to obtain another echocardiogram since he had 1 done less than a year ago which demonstrated vigorous LV systolic function. Nelson Sullivan MD [facility] History of Present Illness History of Present Illness Consult date/time: 08/15/21 13:51 Consult reason: atrial fibrillation and congestive heart failure Reason For Visit: CHF Exacerbation, Pulmonary Edema,Generalized Weak Narrative: This is an 81-year-old man who apparently is known to my partner, Dr. Neville with a history of chronic atrial fibrillation who is being seen at the request of the hospitalist because of increasing lower extremity edema. The patient apparently has chronic lower extremity edema according to what I read in his chart but he states his recent weeks it became much more profound and much more concerning to him he became alarmed and so he came to the emergency room for evaluation. He states he was not having any other cardiac symptoms and specifically denies any chest pain or shortness of breath he denies any sense of orthopnea or PND. He has quite a bit of edema on examination and presentation to the emergency room. He is chest x-ray also shows evidence of some pulmonary congestion despite his lack of some symptoms of dyspnea. He is being seen at the request of the hospitalist in this setting. He follows with Dr. Neville primarily for history of chronic atrial fibrillation. The patient was found to have atrial fibrillation in 2018 when he was in the hospital here with abdominal pain and had a small bowel obstruction. He does have a history of PE/DVT in 2006 prior to that and was anticoagulated following that. After being found to be in atrial fibrillation he was treated with metoprolol for rate control and Xarelto for systemic 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. He was offered cardioversion later that same year and declined to be interested in that. The last office visit since then have demonstrated reduced fairly well and was not really complaining of any significant cardiac issues although Dr. Bush no notes to indicate he does have obvious chronic lower extremity edema. His home regimen consists of atorvastatin 20 mg per day furosemide 40 mg per day metoprolol 100 mg daily Xarelto 20 mg per day and potassium chloride 20 mEq per day. Entering the room to see him he is supine in bed head of the bed is elevated at about 45? he is breathing room air and watching television and has no other complaints. Electrocardiogram demonstrates atrial fibrillation with modest nonspecific T-wave abnormalities. Patient had an echocardiogram done most recently in December of 2020 which demonstrated vigorous left ventricular systolic function and no significant valvular abnormalities. He has severe biatrial dilation. Review of Systems Constitutional: Constitutional: Reports lethargy Eyes: Eyes: Reports no additional eye complaints ENT: Reports system reviewed and no additional complaints, except as doc
--- NOTE | 2021-08-15 15:01 | PM.IMPN ---
Progress Note: A&P Assessment and Plan (1) Pulmonary edema with congestive heart failure: Code(s): I50.1 - Left ventricular failure, unspecified Status: Acute Assessment and Plan: Patient is currently admitted for acutely decompensated heart failure. He is comfortable while lying down. He was started on IV Lasix after he Failed outpatient treatment. Initial chest x-ray positive for pulmonary edema. Will continue IV Lasix while monitoring his serum chemistries closely. (2) Generalized weakness: Code(s): R53.1 - Weakness Status: Acute Assessment and Plan: Most likely related to CHF exacerbation PT OT evaluation continue diuresis (3) Atrial fibrillation: Qualifiers: Atrial fibrillation type: unspecified chronic Qualified Code(s): I48.20 - Chronic atrial fibrillation, unspecified Code(s): I48.91 - Unspecified atrial fibrillation Status: Acute Assessment and Plan: Pending home medication reconciliation Continue oral 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 (4) Parkinson's disease: Code(s): G20 - Parkinson's disease Status: Chronic Assessment and Plan: Pending home medication reconciliation (5) Urothelial carcinoma of bladder: Onset Date: ~11/2019 Code(s): C67.9 - Malignant neoplasm of bladder, unspecified Status: Acute Assessment and Plan: Follow-up with urology as outpatient (6) History of pulmonary embolism: Onset Date: ~2005 Code(s): Z86.711 - Personal history of pulmonary embolism Status: Acute Assessment and Plan: Continue oral 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 and monitor (7) IFG (impaired fasting glucose): Code(s): R73.01 - Impaired fasting glucose Status: Acute Assessment and Plan: Diabetic diet monitor (8) CHF exacerbation: Code(s): I50.9 - Heart failure, unspecified Status: Acute Assessment and Plan: Patient was seen examined by Cardiology. Echocardiogram from less than 1 year ago demonstrates recurs the ventricular function. Currently patient is rate controlled with metoprolol. Continue chronic 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. Subjective Date/time seen: 08/15/21 19:55 Narrative:81 years old male with past medical history of parkinsonism CHF stroke bladder tumor impaired glucose tolerance presented to the hospital with generalized weakness worsening gradually associated with worsening lower extremity edema patient normally is able to walk with a walker but currently patient is having difficulty with ambulating is not able to help patient to ambulate patient recently visited his primary care physician his Lasix dose has increased but his condition continued to worsen at the ER patient was found to have probable pulmonary edema CHF exacerbation admitted for further evaluation and treatment CT scan was done as patient was complaining of generalized weakness and on oral 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 no evidence of intracranial bleed. S: Patient was seen examined at the bedside. He is feeling a little better. Significant bilateral lower extremity edema is observed. Review of Systems Review of Systems: All systems reviewed & are unremarkable except as noted in HPI and below Exam Narrative: Const: Looks ill Appearance: obese Orientation/consciousness: oriented to person, oriented to place, oriented to time, patient oriented x3 and No confusion Limitations: no limitations HENMT: Head: normal to inspection, normocephalic and atraumatic Neck: Neck: normal visual inspection, full ROM, no lymphadenopathy and no meningeal signs Chest: Chest palpation & inspection: normal inspection of the chest Resp: Decreased air entry bilateral positive crackles Cardio: Rate: regular rate Rhythm: regular rhythm GI: Inspection: normal to inspection GI Palp: No abdominal tenderness, Yes Soft to palpation, No Tenderness to palpation present (GI), No Guarding due to palpation present (GI), No Rigid due to palpation and
[2021-08-15] MEDS: RIVAROXABAN 20 MG TABLET PO (16:27)
[2021-08-16] VITALS (10 sets, daily range): BP systolic 91–124; BP diastolic 56–74; PULSE 83–110; RESP 16–20; TEMP 35.7–36.8; O2SAT 92–97
[2021-08-16] MEDS: CARBIDOPA/LEVODOPA 12.5/50 MG 1 TABLET, CARBIDOPA/LEVODOPA 25/100 MG 1 TABLET 2 TABLET PO ×4 (09:31→20:29)
[2021-08-16] MEDS: AMOXICILLIN 500 MG CAPSULE BY MOUTH ×2 (09:32→17:16)
[2021-08-16] MEDS: METOPROLOL SUCCINATE EXT REL 50 MG TABCR PO (09:32)
[2021-08-16] MEDS: FUROSEMIDE INJ 40 MG/4 ML VIAL IV PUSH ×2 (09:35→17:16)
[2021-08-16] MEDS: DOXYCYCLINE HYCLATE 100 MG TABLET PO (09:36)
--- NOTE | 2021-08-16 14:25 | PM.IMPN ---
Progress Note: A&P Assessment and Plan (1) Pulmonary edema with congestive heart failure: Code(s): I50.1 - Left ventricular failure, unspecified Status: Acute Assessment and Plan: Patient is currently admitted for acutely decompensated heart failure. He is comfortable while lying down. He was started on IV Lasix after he Failed outpatient treatment. Initial chest x-ray positive for pulmonary edema. Will continue IV Lasix while monitoring his serum chemistries closely. (2) Generalized weakness: Code(s): R53.1 - Weakness Status: Acute Assessment and Plan: Most likely related to CHF exacerbation PT OT evaluation continue diuresis (3) Atrial fibrillation: Qualifiers: Atrial fibrillation type: unspecified chronic Qualified Code(s): I48.20 - Chronic atrial fibrillation, unspecified Code(s): I48.91 - Unspecified atrial fibrillation Status: Acute Assessment and Plan: Pending home medication reconciliation Continue oral 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 (4) Parkinson's disease: Code(s): G20 - Parkinson's disease Status: Chronic Assessment and Plan: Pending home medication reconciliation (5) Urothelial carcinoma of bladder: Onset Date: ~11/2019 Code(s): C67.9 - Malignant neoplasm of bladder, unspecified Status: Acute Assessment and Plan: Follow-up with urology as outpatient (6) History of pulmonary embolism: Onset Date: ~2005 Code(s): Z86.711 - Personal history of pulmonary embolism Status: Acute Assessment and Plan: Continue oral 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 and monitor (7) IFG (impaired fasting glucose): Code(s): R73.01 - Impaired fasting glucose Status: Acute Assessment and Plan: Diabetic diet monitor (8) CHF exacerbation: Code(s): I50.9 - Heart failure, unspecified Status: Acute Assessment and Plan: Patient was seen examined by Cardiology. Echocardiogram from less than 1 year ago demonstrates recurs the ventricular function. Currently patient is rate controlled with metoprolol. Continue chronic 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. Subjective Date/time seen: 08/16/21 10:45 S: Patient was seen examined at the bedside. His comfortable breathing on room air. Significant lower extremity edema was persists. Review of Systems Review of Systems: All systems reviewed & are unremarkable except as noted in HPI and below Exam Narrative: Const: Looks ill Appearance: obese Orientation/consciousness: oriented to person, oriented to place, oriented to time, patient oriented x3 and No confusion Limitations: no limitations HENMT: Head: normal to inspection, normocephalic and atraumatic Neck: Neck: normal visual inspection, full ROM, no lymphadenopathy and no meningeal signs Chest: Chest palpation & inspection: normal inspection of the chest Resp: Decreased air entry bilateral positive crackles Cardio: Rate: regular rate Rhythm: regular rhythm GI: Inspection: normal to inspection GI Palp: No abdominal tenderness, Yes Soft to palpation, No Tenderness to palpation present (GI), No Guarding due to palpation present (GI), No Rigid due to palpation and No Rebound tenderness present Auscultation: normal bowel sounds : General: Yes no CVA tenderness Back/Spine/Pelvis: Back: no CVA tenderness Skin: General skin exam: no rashes or lesions noted, elasticity normal and turgor normal Other: Erythema right lower extremity greater than the left Neuro: General: oriented to person, oriented to place, oriented to time, patient oriented x3, tone normal, moves all extremities, Normal light touch and pain sensation, no meningeal signs, no focal motor deficits, CN's II-XI intact bilaterally and No confusion Cranial nerves: Yes Equal, round and reactive pupils present Speech: No Abnormal speech present Sensory Exam: No Sensory deficit (Neuro) Extrem: General: full ROM, capillary refill normal and edema
[2021-08-16] MEDS: RIVAROXABAN 20 MG TABLET PO (17:16)
[2021-08-16] MEDS: ACETAMINOPHEN 325 MG TABLET 650 MG PO (17:21)
[2021-08-16] MEDS: ATORVASTATIN 20 MG TABLET PO (20:27)
[2021-08-16] MEDS: traZODone HCL 50 MG TABLET PO (20:27)
[2021-08-17] VITALS (9 sets, daily range): BP systolic 102–113; BP diastolic 56–68; PULSE 69–100; RESP 18–20; TEMP 35.8–36.8; O2SAT 90–100
[2021-08-17] MEDS: DOXYCYCLINE HYCLATE 100 MG TABLET PO ×3 (00:04→20:23)
[2021-08-17] MEDS: AMOXICILLIN 500 MG CAPSULE BY MOUTH ×2 (08:21→16:25)
[2021-08-17] MEDS: CARBIDOPA/LEVODOPA 12.5/50 MG 1 TABLET, CARBIDOPA/LEVODOPA 25/100 MG 1 TABLET 2 TABLET PO ×4 (08:22→20:23)
[2021-08-17] MEDS: METOPROLOL SUCCINATE EXT REL 50 MG TABCR PO (08:23)
[2021-08-17] MEDS: FUROSEMIDE INJ 40 MG/4 ML VIAL IV PUSH ×2 (08:23→16:25)
--- NOTE | 2021-08-17 09:00 | PM.IMPN ---
Progress Note: A&P Assessment and Plan (1) Pulmonary edema with congestive heart failure: Code(s): I50.1 - Left ventricular failure, unspecified Status: Acute Assessment and Plan: Patient is currently admitted for acutely decompensated heart failure. He is comfortable while lying down. He was started on IV Lasix after he Failed outpatient treatment. Initial chest x-ray positive for pulmonary edema. Will continue IV Lasix while monitoring his serum chemistries closely. He is eeling better with improved respiratory status based on clinical grounds and recession of his edemas. Mild discrepancy between both legs edema, related to remote surgical intervention on the right side. Continue IV diuresis while monitoring renal function, electrolytes closely. (2) Generalized weakness: Code(s): R53.1 - Weakness Status: Acute Assessment and Plan: Most likely related to CHF exacerbation PT OT evaluation continue diuresis (3) Atrial fibrillation: Qualifiers: Atrial fibrillation type: unspecified chronic Qualified Code(s): I48.20 - Chronic atrial fibrillation, unspecified Code(s): I48.91 - Unspecified atrial fibrillation Status: Acute Assessment and Plan: Pending home medication reconciliation Continue oral 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 (4) Parkinson's disease: Code(s): G20 - Parkinson's disease Status: Chronic Assessment and Plan: Continue home meds (5) Urothelial carcinoma of bladder: Onset Date: ~11/2019 Code(s): C67.9 - Malignant neoplasm of bladder, unspecified Status: Acute Assessment and Plan: Follow-up with urology as outpatient (6) History of pulmonary embolism: Onset Date: ~2005 Code(s): Z86.711 - Personal history of pulmonary embolism Status: Acute Assessment and Plan: Continue oral 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 and monitor (7) IFG (impaired fasting glucose): Code(s): R73.01 - Impaired fasting glucose Status: Acute Assessment and Plan: Diabetic diet monitor (8) CHF exacerbation: Code(s): I50.9 - Heart failure, unspecified Status: Acute Assessment and Plan: Patient was seen examined by Cardiology. Echocardiogram from less than 1 year ago demonstrates recurs the ventricular function. Currently patient is rate controlled with metoprolol. Continue chronic 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. Subjective Date/time seen: 08/17/21 09:00 S: Patient was seen and examined at the bedside. No complaints. He was not sleeping at night the day before and was sleepy troughout next day. Today the patient is more awake, alert. No complaints. His edema is improving. Skin is wrinkled. Review of Systems Review of Systems: All systems reviewed & are unremarkable except as noted in HPI and below Exam Narrative: Const: Looks ill Appearance: obese Orientation/consciousness: oriented to person, oriented to place, oriented to time, patient oriented x3 and No confusion Limitations: no limitations HENMT: Head: normal to inspection, normocephalic and atraumatic Neck: Neck: normal visual inspection, full ROM, no lymphadenopathy and no meningeal signs Chest: Chest palpation & inspection: normal inspection of the chest Resp: Decreased air entry bilateral positive crackles Cardio: Rate: regular rate Rhythm: regular rhythm GI: Inspection: normal to inspection GI Palp: No abdominal tenderness, Yes Soft to palpation, No Tenderness to palpation present (GI), No Guarding due to palpation present (GI), No Rigid due to palpation and No Rebound tenderness present Auscultation: normal bowel sounds : General: Yes no CVA tenderness Back/Spine/Pelvis: Back: no CVA tenderness Skin: General skin exam: no rashes or lesions noted, elasticity normal and turgor normal Other: Erythema right lower extremity greater than the left Neuro: General: oriented to person, oriented to place, oriented to time, patient oriented x3, ton
--- NOTE | 2021-08-17 12:24 | PM.PNCARD ---
Progress Note: A&P Assessment and Plan (1) CHF exacerbation: Code(s): I50.9 - Heart failure, unspecified Status: Acute Assessment and Plan: Presented to the hospital with volume overload. Chest x-ray demonstrated some pulmonary congestion. Diastolic HF. Has been diuresed with IV furosemide. Continue furosemide 40mg IV b.i.d Will give him 2.5mg Zaroxolyn tonight. Daily BMP Accurate I&O Daily weights Compression stockings Encourage OOB activity (2) Atrial fibrillation: Qualifiers: Atrial fibrillation type: unspecified chronic Qualified Code(s): I48.20 - Chronic atrial fibrillation, unspecified Code(s): I48.91 - Unspecified atrial fibrillation Status: Acute Assessment and Plan: History of atrial fibrillation that is followed by Dr. Neville. He is rate controlled on metoprolol. Continue Xarelto 20 mg daily (3) Bilateral edema of lower extremity: Code(s): R60.0 - Localized edema Status: Acute Assessment and Plan: Secondary to CHF and lower extremity venous insufficiency. Subjective Date/time seen: 08/17/21 12:24 cardiology follow-up for CHF Patient is very lethargic today. Patient's is at bedside and states that this is how he is most of the time during the daytime at home. She states that he sleeps most of the day and then is awake throughout the night. Still has significant swelling. Review of Systems Constitutional: Constitutional: Reports lethargy Eyes: Eyes: Reports no additional eye complaints ENT: Reports system reviewed and no additional complaints, except as documented Cardiovascular: Cardiovascular: Reports as per HPI Respiratory: Respiratory: Reports no additional respiratory complaints Gastrointestinal: Gastrointestinal: Reports no additional gastrointestinal complaints Musculoskeletal: Musculoskeletal: Reports back pain and Reports arthralgias Integumentary/Breasts: Skin/Breast: Reports system reviewed and no additional complaints, except as docu Neurologic: Reports system reviewed and no additional complaints, except as documented Endocrine: Endocrine: Reports no additional endocrine complaints Hematologic/Lymphatic: Hematologic/Lymphatic: Reports no additional hematologic/lymphatic complaints Allergic/Immunologic: Allergic/Immunologic: Reports no additional allergic/immunologic complaints Exam Const: General: comfortable and no acute distress HENMT: Mouth: Yes moist mucous membranes Eyes: Sclera: sclerae normal Pupils: Equal, round and reactive pupils present Neck: Neck: supple Resp: Effort & Inspection: normal respiratory effort Auscultation: clear to auscultation bilaterally Cardio: Rhythm: abnormal rhythm irregularly irregular GI: Auscultation: normal bowel sounds Skin: General skin exam: normal color Neuro: Cranial nerves: Yes Equal, round and reactive pupils present Cognition (Neuro): normal cognition Extrem: General: abnormal to inspection, edema and pedal edema Objective Data Vital Signs Vital Signs: Vital Signs - 24 hr 08/16/21 16:00 08/16/21 20:20 08/16/21 22:00 Temperature 35.7 C L 36.8 C Pulse Rate 92 92 85 Respiratory Rate 16 16 20 Blood Pressure 105/56 L 113/60 Pulse Oximetry 96 96 97 08/17/21 00:00 08/17/21 04:00 08/17/21 05:00 Temperature 36.8 C Pulse Rate 92 99 69 Respiratory Rate 20 Blood Pressure 113/65 Pulse Oximetry 90 08/17/21 08:00 08/17/21 08:23 Temperature Pulse Rate 100 99 Respiratory Rate Blood Pressure Pulse Oximetry Intake/Output Intake/Output: Intake & Output 08/14/21 08/15/21 08/16/21 08/17/21 23:59 23:59 23:59 23:59 Intake Total 690 970 200 Output Total 1350 400 Balance -660 570 200 Meds/Results Medications: Active Medications Generic Name Dose Route Start Last Admin Trade Name Andrés PRN Reason Stop Dose Admin Acetaminophen 650 mg 08/14/21 23:39 08/16/21 17:21 Acetaminophen
[2021-08-17 13:29] LABS: Anion Gap 7 mmol/L (8-16); Blood Urea Nitrogen 23 mg/dL (9-20); Calcium 7.9 mg/dL (8.4-10.2); Carbon Dioxide 29 mmol/L (22-30); Chloride 97 mmol/L (98-107); Estimated CRCL calculation 72 ml/min; Estimated Glomerular Filt Rate > 60; Glucose 139 mg/dL (65-110); Potassium 3.3 mmol/L (3.4-5.0); Sodium 133 mmol/L (137-145)
[2021-08-17] MEDS: metOLazone 2.5 MG TABLET PO (16:25)
[2021-08-17] MEDS: RIVAROXABAN 20 MG TABLET PO (16:26)
[2021-08-17] MEDS: ATORVASTATIN 20 MG TABLET PO (20:23)
[2021-08-18] VITALS (7 sets, daily range): BP systolic 116–150; BP diastolic 53–85; PULSE 82–110; RESP 14–18; TEMP 36.3–36.9; O2SAT 95–97
[2021-08-18] MEDS: FUROSEMIDE INJ 40 MG/4 ML VIAL IV PUSH ×2 (09:06→17:22)
[2021-08-18] MEDS: AMOXICILLIN 500 MG CAPSULE BY MOUTH ×2 (09:06→17:25)
[2021-08-18] MEDS: CARBIDOPA/LEVODOPA 12.5/50 MG 1 TABLET, CARBIDOPA/LEVODOPA 25/100 MG 1 TABLET 2 TABLET PO ×3 (09:08→20:39)
[2021-08-18] MEDS: DOXYCYCLINE HYCLATE 100 MG TABLET PO ×2 (09:10→20:39)
[2021-08-18] MEDS: METOPROLOL SUCCINATE EXT REL 50 MG TABCR PO (09:10)
[2021-08-18] MEDS: POTASSIUM CHLORIDE 20 MEQ PACKET (FOR LIQUID) 40 MEQ PO ×2 (10:24→17:25)
[2021-08-18 11:31] LABS: Basophils Percent Auto 0.3 % (0.2-1.2); Eosinophils Absolute Auto 0.1 K/mm3 (0-0.3); Eosinophils Percent Auto 0.5 % (0-4.4); Hematocrit 45.8 % (42.0-52.0); Hemoglobin 14.8 g/dL (14.0-18.0); Immature Granulocyte Absolute 0.13 K/mm3 (0.00-0.031); Immature Granulocyte Percent A 0.8 % (0-0.5); Lymphocytes Absolute Auto 1.31 K/mm3 (0.9-3.2); Lymphocytes Percent Auto 8.5 % (18.3-44.2); Mean Corpuscular HGB Conc 32.3 g/dl (32-36); Mean Corpuscular Volume 92.9 fl (80-100); Mean Platelet Volume 9.5 fl (7.4-10.4); Monocytes Absolute Auto 2.2 K/mm3 (0.1-0.6); Neutrophils Absolute Auto 11.7 K/mm3 (1.3-6.7); Neutrophils Percent Auto 75.9 % (45.5-73.1); Platelet Count Result 262 k/mm3 (150-375); Red Blood Count 4.93 M/mm3 (4.6-6.20); Red Cell Distribution Width 14.3 % (11.5-14.5); White Blood Count 15.4 K/mm3 (4.5-10.0)
[2021-08-18 11:45] LABS: Anion Gap 6 mmol/L (8-16); Blood Urea Nitrogen 26 mg/dL (9-20); Calcium 8.2 mg/dL (8.4-10.2); Carbon Dioxide 31 mmol/L (22-30); Chloride 93 mmol/L (98-107); Estimated CRCL calculation 62 ml/min; Estimated Glomerular Filt Rate > 60; Glucose 148 mg/dL (65-110); Potassium 3.5 mmol/L (3.4-5.0); Sodium 130 mmol/L (137-145)
--- NOTE | 2021-08-18 12:23 | PM.PNCARD ---
Progress Note: A&P Additional Plan 81-year-old man with: Volume overload with peripheral edema presumably because of diastolic dysfunction with chronic AFib. He is benefiting from IV furosemide. Did receive 1 dose of metolazone yesterday. Edema on exam is much better than it was several days ago when I saw him at that time. His renal function is still fine so I would recommend continuing the IV furosemide for at least another day. He is not developing any signs of pre renal azotemia. Nelson Sullivan MD [facility] Subjective Date/time seen: 08/18/21 12:23 Interval history: Follow-up visit in this 81-year-old man with: Chronic atrial fibrillation being managed with rate control and 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. Also with some diastolic heart failure and lower extremity edema on admission. Patient offers no new complaints today has noticed significant improvement in his edema in the last couple of days. No dyspnea visiting with his when I entered the room to see him today. Exam Const: General: comfortable and no acute distress Other: Pleasant obese elderly man BMI 38 comfortable cooperative no distress HENMT: Mouth: Yes moist mucous membranes Eyes: Sclera: sclerae normal Pupils: Equal, round and reactive pupils present Neck: Neck: supple Other: No bruits, difficult to assess for JVD given his body habitus no obvious venous distention Resp: Effort & Inspection: normal respiratory effort Auscultation: clear to auscultation bilaterally Other: Breath sounds remarkably clear in both lung alfonso Cardio: Rhythm: abnormal rhythm irregularly irregular GI: Auscultation: normal bowel sounds Skin: General skin exam: normal color Neuro: Cranial nerves: Yes Equal, round and reactive pupils present Cognition (Neuro): normal cognition Extrem: General: abnormal to inspection and edema Objective Data Vital Signs Vital Signs: Vital Signs - 24 hr 08/17/21 16:00 08/17/21 20:00 08/17/21 20:20 Temperature 35.8 C L 36.6 C Pulse Rate 98 95 95 Respiratory Rate 20 18 18 Blood Pressure 102/56 L 111/68 Pulse Oximetry 95 100 100 08/18/21 00:00 08/18/21 04:00 08/18/21 08:00 Temperature 36.9 C 36.6 C 36.6 C Pulse Rate 91 88 90 Respiratory Rate 18 18 14 Blood Pressure 150/53 H 133/85 125/67 Pulse Oximetry 95 96 95 08/18/21 09:10 Temperature Pulse Rate 110 H Respiratory Rate Blood Pressure Pulse Oximetry Intake/Output Intake/Output: Intake & Output 08/15/21 08/16/21 08/17/21 08/18/21 23:59 23:59 23:59 23:59 Intake Total 690 970 500 370 Output Total 1350 400 400 2 Balance -660 570 100 368 Meds/Results Medications: Active Medications Generic Name Dose Route Start Last Admin Trade Name Freq PRN Reason Stop Dose Admin Acetaminophen 650 mg 08/14/21 23:39 08/16/21 17:21 Acetaminophen 325 Mg Tablet PO 650 mg Q4H PRN Administration Mild Pain (1-3) or Fever Amoxicillin 500 mg 08/15/21 09:00 08/18/21 09:06 Amoxicillin 500 Mg Capsule BY MOUTH 500 mg BID NAY Administration Atorvastatin Calcium 20 mg 08/15/21 21:00 08/17/21 20:23 Atorvastatin 20 Mg Tablet PO 20 mg HS NAY Administration Bisacodyl 5 mg 08/14/21 23:39 Bisacodyl 5 Mg Tablet Ec PO DAILY PRN Constipation Carbidopa/Levodopa 1 tablet/ 2 tablet 08/15/21 09:00 08/18/21 09:08 Carbidopa/Levodopa 1 tablet PO 2 tablet QID NAY Administration Doxycycline Hyclate 100 mg 08/15/21 09:00 08/18/21 09:10 Doxycycline Hyclate 100 Mg Tablet PO 100 mg Q12H NAY Administration Furosemide 40 mg 08/15/21 09:00 08/18/21 09:06 Furosemide Inj 40 Mg/4 Ml Vial IV PUSH 40 mg BID NAY Administration Metoprolol Succinate 50 mg 08/15/21 09:00 08/18/21 09:10 Metoprolol Succinate Ext Rel 50 Mg Tabcr PO 50 mg QAM NAY Administration Ondansetron HCl 4 mg 08/14/21 23:39 Ondansetron Inj 4 Mg/2 Ml Vial IV PUSH Q6H PRN Nausea And Vomiting Potassium Chloride 40 meq 08/18
[2021-08-18 13:22] LABS: Lactic Acid Reflex 1.6 mmol/L (0.7-2.1)
[2021-08-18 13:23] LABS: Anion Gap 7 mmol/L (8-16); Blood Urea Nitrogen 26 mg/dL (9-20); Calcium 8.1 mg/dL (8.4-10.2); Carbon Dioxide 31 mmol/L (22-30); Chloride 93 mmol/L (98-107); Estimated CRCL calculation 62 ml/min; Estimated Glomerular Filt Rate > 60; Glucose 168 mg/dL (65-110); Potassium 3.3 mmol/L (3.4-5.0); Sodium 131 mmol/L (137-145)
[2021-08-18 16:24] LABS: Add Urine Microscopic? NO; Appearance Urine Clear (Clear); Bilirubin Urine Negative (Negative); Blood Urine Negative (Negative); Color Urine Yellow (Yellow); Glucose Urine UA Negative (Negative); Ketones Urine Negative (Negative); Leukocyte Esterase Ur Negative LEU/UL (NEGATIVE); Nitrate Urine Negative (Negative); Protein Urine Negative (Negative); Specific Grav Ur 1.012 (1.001-1.035); Urobilinogen Urine Negative mg/dL (<2.0)
[2021-08-18 16:46] LABS: Glucose Point of Care 148 mg/dl (65-105)
[2021-08-18] MEDS: RIVAROXABAN 20 MG TABLET PO (17:25)
[2021-08-18] MEDS: ATORVASTATIN 20 MG TABLET PO (20:39)
[2021-08-18] MEDS: ACETAMINOPHEN 325 MG TABLET 650 MG PO (22:38)
[2021-08-19] VITALS (9 sets, daily range): BP systolic 111–141; BP diastolic 56–96; PULSE 80–94; RESP 16–20; TEMP 35.8–37.8; O2SAT 95–100
[2021-08-19] MEDS: ACETAMINOPHEN 325 MG TABLET 650 MG PO (05:35)
[2021-08-19] MEDS: AMOXICILLIN 500 MG CAPSULE BY MOUTH ×2 (08:30→17:26)
[2021-08-19] MEDS: METOPROLOL SUCCINATE EXT REL 50 MG TABCR PO (08:31)
[2021-08-19] MEDS: DOXYCYCLINE HYCLATE 100 MG TABLET PO ×2 (08:31→20:04)
[2021-08-19] MEDS: CARBIDOPA/LEVODOPA 12.5/50 MG 1 TABLET, CARBIDOPA/LEVODOPA 25/100 MG 1 TABLET 2 TABLET PO ×4 (08:32→20:04)
[2021-08-19] MEDS: FUROSEMIDE INJ 40 MG/4 ML VIAL IV PUSH (08:36)
--- NOTE | 2021-08-19 09:11 | PM.IMPN ---
Progress Note: A&P Assessment and Plan (1) Pulmonary edema with congestive heart failure: Code(s): I50.1 - Left ventricular failure, unspecified Status: Acute Assessment and Plan: Patient is currently admitted for acutely decompensated heart failure. He is comfortable while lying down. He was started on IV Lasix after he Failed outpatient treatment. Initial chest x-ray positive for pulmonary edema. Will continue IV Lasix while monitoring his serum chemistries closely. He is eeling better with improved respiratory status based on clinical grounds and recession of his edemas. Mild discrepancy between both legs edema, related to remote surgical intervention on the right side. Patient will be transition to p.o. Lasix in the morning. Consider discharge if continuous improvement tomorrow. (2) Generalized weakness: Code(s): R53.1 - Weakness Status: Acute Assessment and Plan: Most likely related to CHF exacerbation PT OT evaluation continue diuresis. Encourage physical therapy and occupational therapy. (3) Atrial fibrillation: Qualifiers: Atrial fibrillation type: unspecified chronic Qualified Code(s): I48.20 - Chronic atrial fibrillation, unspecified Code(s): I48.91 - Unspecified atrial fibrillation Status: Acute Assessment and Plan: A control on metoprolol succinate 50 mg p.o. daily. Continue home medication at symptoms. 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 Currently patient is rate controlled with metoprolol. Continue chronic 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. His edema has receded and can be transitioned to p.o. diuretic in the morning. Subjective Date/time seen: 08/19/21 19:11 S: Patient was seen examined at the bedside. o patient is sleeping comfortably. He had no complaints upon awakening. He continues to display mild residual edema at this time. Review of Systems Review of Systems: All systems reviewed & are unremarkable except as noted in HPI and below Exam Narrative: Const: Looks ill Appearance: obese Orientation/consciousness: oriented to person, oriented to place, oriented to time, patient oriented x3 and No confusion Limitations: no limitations HENMT: Head: normal to inspection, normocephalic and atraumatic Neck: Neck: normal visual inspection, full ROM, no lymphadenopathy and no meningeal signs Chest: Chest palpation & inspection: normal inspection of the chest Resp: Decreased air entry bilateral positive crackles Cardio: Rate: regular rate Rhythm: regular rhythm GI: Inspection: normal to inspection GI Palp: No abdominal tenderness, Yes Soft to palpation, No Tenderness to palpation present (GI), No Guarding due to palpation present (GI), No Rigid due to palpation and No Rebound tenderness present Auscultation: normal bowel sounds : General: Yes no CVA tenderness Back/Spine/Pelvis: Back: no CVA tenderness Skin: General skin exam: no rashes or lesions noted, elasticity normal and turgor normal Other: Erythema right lower extremity greater than the left Neuro: General: or
[2021-08-19] MEDS: POTASSIUM CHLORIDE 20 MEQ PACKET (FOR LIQUID) 40 MEQ PO ×2 (09:32→17:29)
[2021-08-19 09:34] LABS: Glucose Point of Care 127 mg/dl (65-105)
--- NOTE | 2021-08-19 12:20 | PM.PNCARD ---
Progress Note: A&P Additional Plan Patient is all essentially euvolemic. Still has a modest amount of peripheral edema but as BUN is chronic climbing we are starting to see a pre renal state developing. I believe we should stop IV furosemide and resume 80 mg p.o. daily starting tomorrow morning. At this point discharge from a cardiac standpoint is fine with me. Follow-up in our office will be continued with Dr. Neville. Nelson Sullivan MD [facility] Subjective Date/time seen: Date of service: 08/19/21 12:20 Interval history: Follow-up visit in this 81-year-old man with: Chronic atrial fibrillation being managed with rate control and 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. Also with some diastolic heart failure and lower extremity edema on admission. 08/19/2021: Today patient is resting comfortably. Upon awakening offers no complaints. Very mild residual edema rate remaining at this time. Exam Const: General: comfortable and no acute distress Other: Pleasant obese elderly man BMI 38 comfortable cooperative no distress HENMT: Mouth: Yes moist mucous membranes Eyes: Sclera: sclerae normal Pupils: Equal, round and reactive pupils present Neck: Neck: supple Other: No bruits, difficult to assess for JVD given his body habitus no obvious venous distention Resp: Effort & Inspection: normal respiratory effort Auscultation: clear to auscultation bilaterally Other: Breath sounds remarkably clear in both lung alfonso Cardio: Rhythm: abnormal rhythm irregularly irregular GI: Auscultation: normal bowel sounds Skin: General skin exam: normal color Neuro: Cranial nerves: Yes Equal, round and reactive pupils present Cognition (Neuro): normal cognition Extrem: General: abnormal to inspection and edema (Mild residual edema markedly improved) Objective Data Vital Signs Vital Signs: Vital Signs - 24 hr 08/18/21 16:00 08/18/21 20:00 08/19/21 00:00 Temperature 36.6 C 36.3 C L 36.3 C L Pulse Rate 96 82 82 Respiratory Rate 14 18 18 Blood Pressure 116/73 126/56 L 126/56 L Pulse Oximetry 97 95 95 08/19/21 02:28 08/19/21 04:00 08/19/21 06:25 Temperature 37.2 C 37.8 C H 36.2 C L Pulse Rate 94 Respiratory Rate 16 Blood Pressure 141/59 H Pulse Oximetry 99 08/19/21 08:31 08/19/21 12:00 Temperature 35.8 C L Pulse Rate 80 94 Respiratory Rate 20 Blood Pressure 111/69 Pulse Oximetry 100 Intake/Output Intake/Output: Intake & Output 08/16/21 08/17/21 08/18/21 08/19/21 23:59 23:59 23:59 23:59 Intake Total 412 688 2210 750 Output Total 400 400 202 Balance 624 416 0641 750 Meds/Results Medications: Active Medications Generic Name Dose Route Start Last Admin Trade Name Freq PRN Reason Stop Dose Admin Acetaminophen 650 mg 08/14/21 23:39 08/19/21 05:35 Acetaminophen 325 Mg Tablet PO 650 mg Q4H PRN Administration Mild Pain (1-3) or Fever Amoxicillin 500 mg 08/15/21 09:00 08/19/21 08:30 Amoxicillin 500 Mg Capsule BY MOUTH 500 mg BID NAY Administration Atorvastatin Calcium 20 mg 08/15/21 21:00 08/18/21 20:39 Atorvastatin 20 Mg Tablet PO 20 mg HS NAY Administration Bisacodyl 5 mg 08/14/21 23:39 Bisacodyl 5 Mg Tablet Ec PO DAILY PRN Constipation Carbidopa/Levodopa 1 tablet/ 2 tablet 08/15/21 09:00 08/19/21 08:32 Carbidopa/Levodopa 1 tablet PO 2 tablet QID NAY Administration Doxycycline Hyclate 100 mg 08/15/21 09:00 08/19/21 08:31 Doxycycline Hyclate 100 Mg Tablet PO 100 mg Q12H NAY Administration Metoprolol Succinate 50 mg 08/15/21 09:00 08/19/21 08:31 Metoprolol Succinate Ext Rel 50 Mg Tabcr PO 50 mg QAM NAY Administration Ondansetron HCl 4 mg 08/14/21 23:39 Ondansetron Inj 4 Mg/2 Ml Vial IV PUSH Q6H PRN Nausea And Vomiting Potassium Chloride 40 meq 08/18/21 17:00 08/19/21 09:32 Potassium Chloride 20 Meq Packet (For Liquid) PO 40 meq BID NAY Administration Rivaroxaban 20 mg 08/15/21 17:00 08/18
[2021-08-19 12:48] LABS: Anion Gap 6 mmol/L (8-16); Blood Urea Nitrogen 29 mg/dL (9-20); Calcium 8.1 mg/dL (8.4-10.2); Carbon Dioxide 32 mmol/L (22-30); Chloride 94 mmol/L (98-107); Estimated CRCL calculation 68 ml/min; Estimated Glomerular Filt Rate > 60; Glucose 145 mg/dL (65-110); Potassium 3.7 mmol/L (3.4-5.0); Sodium 132 mmol/L (137-145)
[2021-08-19] MEDS: RIVAROXABAN 20 MG TABLET PO (17:27)
[2021-08-19] MEDS: ATORVASTATIN 20 MG TABLET PO (20:04)
[2021-08-20] VITALS (8 sets, daily range): BP systolic 111–132; BP diastolic 72–79; PULSE 67–95; RESP 16–18; TEMP 35.7–36.9; O2SAT 93–98
[2021-08-20 07:54] LABS: Glucose Point of Care 157 mg/dl (65-105)
[2021-08-20] MEDS: AMOXICILLIN 500 MG CAPSULE BY MOUTH ×2 (09:27→17:34)
[2021-08-20] MEDS: DOXYCYCLINE HYCLATE 100 MG TABLET PO (09:27)
[2021-08-20] MEDS: CARBIDOPA/LEVODOPA 12.5/50 MG 1 TABLET, CARBIDOPA/LEVODOPA 25/100 MG 1 TABLET 2 TABLET PO ×4 (09:27→20:39)
[2021-08-20] MEDS: METOPROLOL SUCCINATE EXT REL 50 MG TABCR PO (09:28)
[2021-08-20] MEDS: FUROSEMIDE 80 MG TABLET PO (09:28)
[2021-08-20] MEDS: POTASSIUM CHLORIDE 20 MEQ PACKET (FOR LIQUID) 40 MEQ PO (09:31)
--- NOTE | 2021-08-20 09:43 | PM.PNCARD ---
Progress Note: A&P Assessment and Plan (1) CHF exacerbation: Code(s): I50.9 - Heart failure, unspecified Status: Acute Assessment and Plan: Presented to the hospital with volume overload. Chest x-ray demonstrated some pulmonary congestion. Diastolic HF. Has been diuresed with IV furosemide. Improved. Now on oral furosemide. With reduction in diuretic, he does not need as much potassium supplementation. Will reduce his KCl down to 40 mg p.o. daily (2) Atrial fibrillation: Qualifiers: Atrial fibrillation type: unspecified chronic Qualified Code(s): I48.20 - Chronic atrial fibrillation, unspecified Code(s): I48.91 - Unspecified atrial fibrillation Status: Acute Assessment and Plan: History of atrial fibrillation that is followed by Dr. Neville. He is rate controlled on metoprolol. Continue Xarelto 20 mg daily (3) Bilateral edema of lower extremity: Code(s): R60.0 - Localized edema Status: Acute Assessment and Plan: Secondary to CHF and lower extremity venous insufficiency. Subjective Date/time seen: 08/20/21 09:43 Interval history: Follow-up visit in this 81-year-old man with: Chronic atrial fibrillation being managed with rate control and 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. Also with some diastolic heart failure and lower extremity edema on admission. Date of service 08/20/2021: He denies any chest pain, shortness breath, syncope. Still some mild swelling Review of Systems Constitutional: Constitutional: Reports lethargy Eyes: Eyes: Reports no additional eye complaints ENT: Reports system reviewed and no additional complaints, except as documented Cardiovascular: Cardiovascular: Reports as per HPI Respiratory: Respiratory: Reports no additional respiratory complaints Gastrointestinal: Gastrointestinal: Reports no additional gastrointestinal complaints Musculoskeletal: Musculoskeletal: Reports back pain and Reports arthralgias Integumentary/Breasts: Skin/Breast: Reports system reviewed and no additional complaints, except as docu Neurologic: Reports system reviewed and no additional complaints, except as documented Endocrine: Endocrine: Reports no additional endocrine complaints Hematologic/Lymphatic: Hematologic/Lymphatic: Reports no additional hematologic/lymphatic complaints Allergic/Immunologic: Allergic/Immunologic: Reports no additional allergic/immunologic complaints Exam Const: General: comfortable and no acute distress Other: Pleasant obese elderly man BMI 38 comfortable cooperative no distress HENMT: Mouth: Yes moist mucous membranes Eyes: Sclera: sclerae normal Pupils: Equal, round and reactive pupils present Neck: Neck: supple Other: No bruits, difficult to assess for JVD given his body habitus no obvious venous distention Resp: Effort & Inspection: normal respiratory effort Auscultation: clear to auscultation bilaterally Other: Breath sounds remarkably clear in both lung alfonso Cardio: Rhythm: abnormal rhythm irregularly irregular GI: Auscultation: normal bowel sounds Skin: General skin exam: normal color Neuro: Cognition (Neuro): normal cognition Extrem: General: abnormal to inspection and edema (Mild residual edema markedly improved) Objective Data Vital Signs Vital Signs: Vital Signs - 24 hr 08/19/21 12:00 08/19/21 16:00 08/19/21 18:00 Temperature 35.8 C L 36.0 C L Pulse Rate 94 93 Respiratory Rate 20 19 20 Blood Pressure 111/69 122/96 H Pulse Oximetry 100 100 08/19/21 20:00 08/20/21 00:18 08/20/21 04:43 Temperature 36.3 C L 36.1 C L 36.9 C Pulse Rate 88 67 94 Respiratory Rate 18 16 18 Blood Pressure 118/61 130/75 118/72 Pulse Oximetry 97 96 97 08/20/21 08:00 08/20/21 09:28 Temperature 35.7 C L Pulse Rate 95 95 Respiratory Rate 16 Blood Pressure 123/72 Pulse Oximetry 97 Intake/Output Intake/Output: Intake & Output 08/17/21 08/18/21 08/19/21 08/20/21 23:59 23:59 23:59
--- NOTE | 2021-08-20 10:43 | PM.IMPN ---
Progress Note: A&P Assessment and Plan (1) Pulmonary edema with congestive heart failure: Code(s): I50.1 - Left ventricular failure, unspecified Status: Acute Assessment and Plan: - Diastolic heart failure. - Changing to oral lasix today from IV. - Changing potassium supplementation dose to 40 mEq daily. - Repeat labs in AM. (2) Generalized weakness: Code(s): R53.1 - Weakness Status: Acute Assessment and Plan: - Generalized deconditioning secondary to overall heart failure. - PT and OT are evaluating and making recommendations and managing. - Pt. is agreeable to rehab if one available. - Will make sure case coordination is following pt. (3) Atrial fibrillation: Qualifiers: Atrial fibrillation type: unspecified chronic Qualified Code(s): I48.20 - Chronic atrial fibrillation, unspecified Code(s): I48.91 - Unspecified atrial fibrillation Status: Acute Assessment and Plan: - Continue BB for rate control. - Continue Xarelto 20 mg po Daily. (4) Parkinson's disease: Code(s): G20 - Parkinson's disease Status: Chronic Assessment and Plan: - Continue home meds (5) Urothelial carcinoma of bladder: Onset Date: ~11/2019 Code(s): C67.9 - Malignant neoplasm of bladder, unspecified Status: Chronic Assessment and Plan: - Follow-up with urology as outpatient (6) History of pulmonary embolism: Onset Date: ~2005 Code(s): Z86.711 - Personal history of pulmonary embolism Status: Acute Assessment and Plan: - Continue Xarelto 20 mg po daily. (7) IFG (impaired fasting glucose): Code(s): R73.01 - Impaired fasting glucose Status: Acute Assessment and Plan: - A1C not checked during this hospitalization thus far. It was 5.9 in October 2020. (8) CHF exacerbation: Qualifiers: Heart failure type: diastolic Qualified Code(s): I50.33 - Acute on chronic diastolic (congestive) heart failure Code(s): I50.9 - Heart failure, unspecified Status: Acute Assessment and Plan: - Cardiology managing. - Start PO Lasix today. - Accurate I&O, Daily weights Time Spent With Patient Time with patient: 15 - 25 minutes Subjective Date/time seen: 08/20/21 0745 This pt. as examined at the bedside in interval assessment. He appears very comfortable and in no acute distress. He has no complaints today of any pains, dyspnea and he has no N/V. He believes his swelling in his legs is improving, the RN who was here yesterday notes it is about the same actually. He has no other issues or symptoms to report. Cardiology changed his Lasix from IV to PO yesterday as he was beginning to appear that he was developing some prerenal azotemia. As a result, his Potassium supplementation has been changed to 40 mEq daily by Cardiology. The pt. reportedly lives at home with his as his primary healthcare consultant. At this point I am concerned regarding sending him home as it took both myself and the RN to help patient lean forward to even address lung sounds. I spoke with the pt. regarding a rehab facility when he is discharged and he is agreeable to this plan upon time to be discharged to help regain his strength. Review of Systems Review of Systems: A 12 point ROS was completed and is otherwise negative with exception of what is noted in HPI. All systems reviewed & are unremarkable except as noted in HPI and below Exam Narrative: Const: Appears weak. Requiring RN to feed him upon my entry into the room. Appearance: obese Orientation/consciousness: oriented to person, oriented to place, oriented to time, patient oriented x3 and No confusion Limitations: no limitations HENMT: Head: normal to inspection, normocephalic and atraumatic Neck: Neck: normal visual inspection, full ROM, no lymphadenopathy and no meningeal signs Chest: Chest palpation & inspection: normal inspection of the chest Resp
[2021-08-20 11:26] LABS: Anion Gap 6 mmol/L (8-16); Blood Urea Nitrogen 30 mg/dL (9-20); Calcium 8.3 mg/dL (8.4-10.2); Carbon Dioxide 32 mmol/L (22-30); Chloride 96 mmol/L (98-107); Estimated CRCL calculation 68 ml/min; Estimated Glomerular Filt Rate > 60; Glucose 159 mg/dL (65-110); Potassium 4.3 mmol/L (3.4-5.0); Sodium 134 mmol/L (137-145)
[2021-08-20] MEDS: RIVAROXABAN 20 MG TABLET PO (17:33)
[2021-08-21] VITALS (10 sets, daily range): BP systolic 102–128; BP diastolic 62–78; PULSE 80–103; RESP 17–19; TEMP 36.1–37.1; O2SAT 93–100
[2021-08-21] MEDS: CARBIDOPA/LEVODOPA 12.5/50 MG 1 TABLET, CARBIDOPA/LEVODOPA 25/100 MG 1 TABLET 2 TABLET PO ×4 (08:25→21:10)
[2021-08-21] MEDS: POTASSIUM CHLORIDE 20 MEQ PACKET (FOR LIQUID) 40 MEQ PO (08:27)
[2021-08-21] MEDS: AMOXICILLIN 500 MG CAPSULE BY MOUTH ×2 (08:27→17:27)
[2021-08-21] MEDS: FUROSEMIDE 80 MG TABLET PO (08:27)
[2021-08-21] MEDS: DOXYCYCLINE HYCLATE 100 MG TABLET PO ×2 (08:28→21:09)
[2021-08-21] MEDS: METOPROLOL SUCCINATE EXT REL 50 MG TABCR PO (08:28)
--- NOTE | 2021-08-21 11:27 | PM.IMPN ---
Progress Note: A&P Assessment and Plan (1) Pulmonary edema with congestive heart failure: Code(s): I50.1 - Left ventricular failure, unspecified Status: Acute Assessment and Plan: - Diastolic heart failure. - Changing to oral lasix today from IV. - Changing potassium supplementation dose to 40 mEq daily. - Repeat labs are pending for today. Close monitoring of Potassium and electrolytes are needed. - Cardiology managing heart failure. (2) Generalized weakness: Code(s): R53.1 - Weakness Status: Acute Assessment and Plan: - Generalized deconditioning secondary to overall heart failure and likely his degree of Parkinson's is contributing. - PT and OT are recommend SNF. Care Coordination is currently attempting to place. (3) Atrial fibrillation: Qualifiers: Atrial fibrillation type: unspecified chronic Qualified Code(s): I48.20 - Chronic atrial fibrillation, unspecified Code(s): I48.91 - Unspecified atrial fibrillation Status: Acute Assessment and Plan: - Continue BB for rate control. - Continue Xarelto 20 mg po Daily. - Monitor. (4) Parkinson's disease: Code(s): G20 - Parkinson's disease Status: Chronic Assessment and Plan: - Continue home meds Carbidopa-Levodopa (5) Urothelial carcinoma of bladder: Onset Date: ~11/2019 Code(s): C67.9 - Malignant neoplasm of bladder, unspecified Status: Chronic Assessment and Plan: - Follow-up with urology as outpatient (6) History of pulmonary embolism: Onset Date: ~2005 Code(s): Z86.711 - Personal history of pulmonary embolism Status: Acute Assessment and Plan: - Continue Xarelto 20 mg po daily. (7) IFG (impaired fasting glucose): Code(s): R73.01 - Impaired fasting glucose Status: Acute Assessment and Plan: - A1C not checked during this hospitalization thus far. It was 5.9 in October 2020. (8) CHF exacerbation: Qualifiers: Heart failure type: diastolic Qualified Code(s): I50.33 - Acute on chronic diastolic (congestive) heart failure Code(s): I50.9 - Heart failure, unspecified Status: Acute Assessment and Plan: - Cardiology managing. - Start PO Lasix today. - Accurate I&O, Daily weights (9) Change in mental status: Code(s): R41.82 - Altered mental status, unspecified Status: Acute Assessment and Plan: - Check Stat labs including CBC, CMP, Mag, UA, and check stat CT head for acute mental status change to assess for any acute infectious process vs. acute brain abnormality. - Suspicion acute on chronic dementia from his Parkinson's disease and also since he has been hospitalized for several days. Subjective Date/time seen: 08/21/21 0900 This pt. was examined at the bedside in interval assessment. He is notably more confused today, trying to focus on how to turn down the volume of the phone, when it was the TV that he was hearing. He then speaks of when you and I were both 13 years old, there is a tree... ......etc. When asked where he is, he tells me he is in [place]. No signs of acute distress, just confused. He did not eat a lot of his breakfast and when asked why, he states he is just not hungry. UA was checked three days ago and was negative, but will recheck another UA by straight cath based on his worsening of confusion. I suspect it is likely due to his level of dementia and being acutely hospitalized. Care coordination is following and is attempting to place patient. Review of Systems Review of Systems: ROS unobtainable: Yes unobtainable due to mental status Exam Narrative: Const: Appears weak and overall confused. Appearance: obese Orientation/consciousness: Acutely confused as compared to yesterday. HENMT: Head: normal to inspection, normocephalic and atraumatic Neck: Neck: normal visual inspection, full ROM, no lymphadenopathy and no meningeal signs
[2021-08-21 12:28] LABS: Basophils Absolute Auto 0.1 K/mm3 (0.0-0.1); Basophils Percent Auto 0.6 % (0.2-1.2); Eosinophils Absolute Auto 0.2 K/mm3 (0-0.3); Eosinophils Percent Auto 1.5 % (0-4.4); Hematocrit 46.8 % (42.0-52.0); Hemoglobin 15.7 g/dL (14.0-18.0); Immature Granulocyte Percent A 0.8 % (0-0.5); Lymphocytes Absolute Auto 1.73 K/mm3 (0.9-3.2); Lymphocytes Percent Auto 14.5 % (18.3-44.2); Mean Corpuscular HGB Conc 33.5 g/dl (32-36); Mean Corpuscular Hemoglobin 30.3 pg (26-34); Mean Corpuscular Volume 90.3 fl (80-100); Mean Platelet Volume 9.5 fl (7.4-10.4); Monocytes Absolute Auto 1.5 K/mm3 (0.1-0.6); Monocytes Percent Auto 12.8 % (2.6-8.5); Neutrophils Absolute Auto 8.3 K/mm3 (1.3-6.7); Neutrophils Percent Auto 69.8 % (45.5-73.1); Platelet Count Result 328 k/mm3 (150-375); Red Blood Count 5.18 M/mm3 (4.6-6.20); Red Cell Distribution Width 13.8 % (11.5-14.5); White Blood Count 11.9 K/mm3 (4.5-10.0)
[2021-08-21 12:38] LABS: Alanine Aminotransferase 9 U/L (4-50); Albumin Level 3.4 g/dL (3.5-5.1); Alkaline Phosphatase 67 U/L (38-126); Anion Gap 7 mmol/L (8-16); Aspartate Amino Transferase 37 U/L (17-59); Blood Urea Nitrogen 26 mg/dL (9-20); Calcium 8.2 mg/dL (8.4-10.2); Carbon Dioxide 28 mmol/L (22-30); Chloride 101 mmol/L (98-107); Estimated CRCL calculation 76 ml/min; Estimated Glomerular Filt Rate > 60; Glucose 142 mg/dL (65-110); Magnesium 2.1 mg/dL (1.6-2.3); Potassium 4.2 mmol/L (3.4-5.0); Sodium 136 mmol/L (137-145)
[2021-08-21 14:28] LABS: Add Urine Microscopic? YES; Appearance Urine Clear (Clear); Bilirubin Urine Negative (Negative); Blood Urine 2+ (Negative); Color Urine Yellow (Yellow); Glucose Urine UA Negative (Negative); Ketones Urine Negative (Negative); Leukocyte Esterase Ur Negative LEU/UL (Negative); Nitrate Urine Negative (Negative); Protein Urine Negative (Negative); RBC Urine 51-75 /hpf (0-2); Specific Grav Ur 1.015 (1.001-1.035); Squamous Epithelial Cell Urine Rare /hpf (Few); Urobilinogen Urine Negative mg/dL (<2.0)
--- NOTE | 2021-08-21 15:19 | PM.PNCARD ---
Progress Note: A&P Assessment and Plan (1) CHF exacerbation: Qualifiers: Heart failure type: diastolic Qualified Code(s): I50.33 - Acute on chronic diastolic (congestive) heart failure Code(s): I50.9 - Heart failure, unspecified Status: Acute Assessment and Plan: Presented to the hospital with volume overload. Chest x-ray demonstrated some pulmonary congestion. Diastolic HF. Has been diuresed with IV furosemide. Improved. Now on oral furosemide. And potassium supplementation. No changes from a cardiac perspective. (2) Atrial fibrillation: Qualifiers: Atrial fibrillation type: unspecified chronic Qualified Code(s): I48.20 - Chronic atrial fibrillation, unspecified Code(s): I48.91 - Unspecified atrial fibrillation Status: Acute Assessment and Plan: History of atrial fibrillation that is followed by Dr. Neville. He is rate controlled on metoprolol. Continue Xarelto 20 mg daily (3) Bilateral edema of lower extremity: Code(s): R60.0 - Localized edema Status: Acute Assessment and Plan: Secondary to CHF and lower extremity venous insufficiency. Subjective Date/time seen: 08/21/21 15:19 Interval history: Follow-up visit in this 81-year-old man with: Chronic atrial fibrillation being managed with rate control and 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. Also with some diastolic heart failure and lower extremity edema on admission. Date of service 08/20/2021: He denies any chest pain, shortness breath, syncope. Still some mild swelling Date of service 08/21/2021: He is acting more altered today. No chest pain or shortness of breath. CT scan brain performed showing no acute abnormality. Review of Systems Constitutional: Constitutional: Reports lethargy Eyes: Eyes: Reports no additional eye complaints ENT: Reports system reviewed and no additional complaints, except as documented Cardiovascular: Cardiovascular: Reports as per HPI Respiratory: Respiratory: Reports no additional respiratory complaints Gastrointestinal: Gastrointestinal: Reports no additional gastrointestinal complaints Musculoskeletal: Musculoskeletal: Reports back pain and Reports arthralgias Integumentary/Breasts: Skin/Breast: Reports system reviewed and no additional complaints, except as docu Neurologic: Reports system reviewed and no additional complaints, except as documented Endocrine: Endocrine: Reports no additional endocrine complaints Hematologic/Lymphatic: Hematologic/Lymphatic: Reports no additional hematologic/lymphatic complaints Allergic/Immunologic: Allergic/Immunologic: Reports no additional allergic/immunologic complaints Exam Const: General: comfortable and no acute distress Other: Pleasant obese elderly man BMI 38 comfortable cooperative no distress HENMT: Mouth: Yes moist mucous membranes Eyes: Sclera: sclerae normal Pupils: Equal, round and reactive pupils present Neck: Neck: supple Other: No bruits, difficult to assess for JVD given his body habitus no obvious venous distention Resp: Effort & Inspection: normal respiratory effort Auscultation: clear to auscultation bilaterally Other: Breath sounds remarkably clear in both lung alfonso Cardio: Rhythm: abnormal rhythm irregularly irregular GI: Auscultation: normal bowel sounds Skin: General skin exam: normal color Neuro: Cognition (Neuro): normal cognition Extrem: General: abnormal to inspection and edema (Mild residual edema markedly improved) Psych: Appearance: grossly normal Objective Data Vital Signs Vital Signs: Vital Signs - 24 hr 08/20/21 15:57 08/20/21 22:37 08/20/21 23:18 Temperature 36.1 C L 36.8 C 36.8 C Pulse Rate 90 92 92 Respiratory Rate 16 18 18 Blood Pressure 122/74 111/77 111/77 Pulse Oximetry 97 93 93 08/21/21 00:14 08/21/21 00:17 08/21/21 04:46 Temperature 37.1 C 37.1 C 36.7 C Pulse Rate 96 96 80 Respiratory Rate 18 18 18 Blood Pressure 112/78 112/78
--- NOTE | 2021-08-21 16:57 | PCPTNOTE ---
Per nursing hold patient for today as patient is confused and showing extreme exhaustion.
[2021-08-21] MEDS: RIVAROXABAN 20 MG TABLET PO (17:28)
[2021-08-21] MEDS: ATORVASTATIN 20 MG TABLET PO (21:10)
[2021-08-22] VITALS (7 sets, daily range): BP systolic 104–121; BP diastolic 66–82; PULSE 72–95; RESP 16–20; TEMP 35.8–36.8; O2SAT 94–98
[2021-08-22 08:37] LABS: Hematocrit 47.2 % (42.0-52.0); Hemoglobin 15.1 g/dL (14.0-18.0); Mean Corpuscular Hemoglobin 29.8 pg (26-34); Mean Corpuscular Volume 93.1 fl (80-100); Mean Platelet Volume 9.3 fl (7.4-10.4); Platelet Count Result 308 k/mm3 (150-375); Red Blood Count 5.07 M/mm3 (4.6-6.20); Red Cell Distribution Width 13.8 % (11.5-14.5); White Blood Count 11.8 K/mm3 (4.5-10.0)
[2021-08-22 08:49] LABS: Anion Gap 7 mmol/L (8-16); Blood Urea Nitrogen 28 mg/dL (9-20); Calcium 8.4 mg/dL (8.4-10.2); Carbon Dioxide 30 mmol/L (22-30); Chloride 98 mmol/L (98-107); Estimated CRCL calculation 67 ml/min; Estimated Glomerular Filt Rate > 60; Glucose 136 mg/dL (65-110); Potassium 3.5 mmol/L (3.4-5.0); Sodium 135 mmol/L (137-145)
[2021-08-22] MEDS: AMOXICILLIN 500 MG CAPSULE BY MOUTH ×2 (09:02→16:31)
[2021-08-22] MEDS: CARBIDOPA/LEVODOPA 12.5/50 MG 1 TABLET, CARBIDOPA/LEVODOPA 25/100 MG 1 TABLET 2 TABLET PO ×4 (09:02→20:00)
[2021-08-22] MEDS: POTASSIUM CHLORIDE 20 MEQ PACKET (FOR LIQUID) 40 MEQ PO (09:02)
[2021-08-22] MEDS: METOPROLOL SUCCINATE EXT REL 50 MG TABCR PO (09:02)
[2021-08-22] MEDS: FUROSEMIDE 80 MG TABLET PO (09:03)
[2021-08-22] MEDS: DOXYCYCLINE HYCLATE 100 MG TABLET PO ×2 (09:03→20:02)
--- NOTE | 2021-08-22 11:42 | PCDIET ---
Dietitian Screen for Length of Stay. Patient currently on a DBCC/Heart Healthy diet. Oral Intake has been fair about 60% of breakfast eaten today. Glucerna shakes ordered BID providing an additional 220 kcals and 10 gms protein. No further nutritional interventions needed at this time.
--- NOTE | 2021-08-22 12:58 | PM.DS ---
DS: Admitting Diagnosis Discharge Date 08/22/2021 Admitting Diagnosis CHF exacerbation DS: Discharge Diagnosis Discharge Diagnosis (1) Pulmonary edema with congestive heart failure: Code(s): I50.1 - Left ventricular failure, unspecified Status: Acute Assessment and Plan: Presented with increased leg swelling - Symptoms consistent with acute diastolic CHF exacerbation -BNP was not daily elevated for his age - He was diuresed with IV Lasix and had symptomatic improvement - Seen in consultation by cardiology - Transition to p.o. Lasix 80 mg daily per Cardiology recommendations - Potassium supplement increased in light of this to 40 mEq daily. Recheck BMP in 1 week - Monitor daily weights at nursing facility. Continue heart healthy diet - Follow-up with cardiology as an outpatient (2) Generalized weakness: Code(s): R53.1 - Weakness Status: Acute Assessment and Plan: Secondary to physical deconditioning, likely worsened by acute CHF exacerbation and Parkinson's disease - Participated in PT/OT during hospital stay - Recommendations for continued therapy at SNF - Patient was accepted to [facility] for continued therapy (3) Atrial fibrillation: Qualifiers: Atrial fibrillation type: unspecified chronic Qualified Code(s): I48.20 - Chronic atrial fibrillation, unspecified Code(s): I48.91 - Unspecified atrial fibrillation Status: Acute Assessment and Plan: Rate remained controlled - Continue Xarelto and metoprolol succinate 100 mg daily (4) Parkinson's disease: Code(s): G20 - Parkinson's disease Status: Chronic Assessment and Plan: Continue home regimen carbidopa-levodopa (5) Urothelial carcinoma of bladder: Onset Date: ~11/2019 Code(s): C67.9 - Malignant neoplasm of bladder, unspecified Status: Chronic Assessment and Plan: Established with urology - He underwent transurethral resection of bladder tumor in September 2020 - Continue with urology follow-up (6) Change in mental status: Code(s): R41.82 - Altered mental status, unspecified Status: Acute Assessment and Plan: Noted by previous provider to have increased confusion on 08/21/2021 - Stat labs including CBC, CMP, Mag unremarkable. UA not concerning for infection - Stat head CT showed no acute findings - [place] to be secondary to acute worsening of his dementia, likely related to hospitalization - Resolved on my encounter with the patient. He was A&O x2 and was consistent with his baseline. No acute confusion DS: Summary Hospital Course Hospital Course: Date of admission: 08/14/2021 Date of discharge: 08/22/2021 Ace Sharp is an 81-year-old male with a history Parkinson's disease, atrial fibrillation, bladder cancer, hypertension, DVT on chronic 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, atrial fibrillation, and chronic diastolic heart failure who presented to the emergency department on 08/14/2021 with complaints of increased leg swelling and weakness. He had recently been seen by his primary care provider who increased his Lasix from 40 mg to 60 mg, however he presented to the emergency department later that evening. He was then admitted to the hospitalist service for further evaluation and management was seen in consultation by cardiology. Please see above for further details. He had symptomatic improvement with diuresis his Lasix was increased to 80 mg daily. He will repeat a BMP in 1 week to check his renal function and potassium levels. He participated in PT/OT and will continue therapy at SNF. Noted by patient's primary care provider to have an episode of cellulitis at his visit on 08/14/2021 for which she was started on doxycycline. He completed his course of doxycycline during his hospital stay and this has been discontinued. Cellulitis had resolved on my exam. The patient was feeling improved and no longer required inpatient care. He
--- NOTE | 2021-08-22 13:05 | PM.PNCARD ---
Progress Note: A&P Assessment and Plan (1) CHF exacerbation: Qualifiers: Heart failure type: diastolic Qualified Code(s): I50.33 - Acute on chronic diastolic (congestive) heart failure Code(s): I50.9 - Heart failure, unspecified Status: Acute Assessment and Plan: Presented to the hospital with volume overload. Chest x-ray demonstrated some pulmonary congestion. Diastolic HF. Has been diuresed with IV furosemide. Improved. Now on oral furosemide. And potassium supplementation. No changes from a cardiac perspective. Repeat PA and lateral chest x-ray for follow-up of his CHF (2) Atrial fibrillation: Qualifiers: Atrial fibrillation type: unspecified chronic Qualified Code(s): I48.20 - Chronic atrial fibrillation, unspecified Code(s): I48.91 - Unspecified atrial fibrillation Status: Acute Assessment and Plan: History of atrial fibrillation that is followed by Dr. Neville. He is rate controlled on metoprolol. Continue Xarelto 20 mg daily (3) Bilateral edema of lower extremity: Code(s): R60.0 - Localized edema Status: Acute Assessment and Plan: Secondary to CHF and lower extremity venous insufficiency. Subjective Date/time seen: 08/22/21 13:05 Interval history: Follow-up visit in this 81-year-old man with: Chronic atrial fibrillation being managed with rate control and 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. Also with some diastolic heart failure and lower extremity edema on admission. Date of service 08/20/2021: He denies any chest pain, shortness breath, syncope. Still some mild swelling Date of service 08/21/2021: He is acting more altered today. No chest pain or shortness of breath. CT scan brain performed showing no acute abnormality. Date of service 08/22/2021: Much more awake alert today. Denies any chest pain or shortness of breath. Review of Systems Constitutional: Constitutional: Reports lethargy Eyes: Eyes: Reports no additional eye complaints ENT: Reports system reviewed and no additional complaints, except as documented Cardiovascular: Cardiovascular: Reports as per HPI Respiratory: Respiratory: Reports no additional respiratory complaints Gastrointestinal: Gastrointestinal: Reports no additional gastrointestinal complaints Musculoskeletal: Musculoskeletal: Reports back pain and Reports arthralgias Integumentary/Breasts: Skin/Breast: Reports system reviewed and no additional complaints, except as docu Neurologic: Reports system reviewed and no additional complaints, except as documented Endocrine: Endocrine: Reports no additional endocrine complaints Hematologic/Lymphatic: Hematologic/Lymphatic: Reports no additional hematologic/lymphatic complaints Allergic/Immunologic: Allergic/Immunologic: Reports no additional allergic/immunologic complaints Exam Const: General: comfortable and no acute distress Other: Pleasant obese elderly man BMI 38 comfortable cooperative no distress HENMT: Mouth: Yes moist mucous membranes Eyes: Sclera: sclerae normal Pupils: Equal, round and reactive pupils present Neck: Neck: supple Other: No bruits, difficult to assess for JVD given his body habitus no obvious venous distention Resp: Effort & Inspection: normal respiratory effort Auscultation: clear to auscultation bilaterally Other: Breath sounds remarkably clear in both lung alfonso Cardio: Rhythm: abnormal rhythm irregularly irregular GI: Auscultation: normal bowel sounds Skin: General skin exam: normal color Neuro: Cranial nerves: Yes Equal, round and reactive pupils present Cognition (Neuro): normal cognition Extrem: General: abnormal to inspection and edema (Mild residual edema markedly improved) Psych: Appearance: grossly normal Objective Data Vital Signs Vital Signs: Vital Signs - 24 hr 08/21/21 16:00 08/21/21 20:00 08/21/21 20:30 Temperature 36.3 C L 36.6 C Pulse Rate 92 89 89 Respiratory Rate 18 18 18 Bl
[2021-08-22] MEDS: RIVAROXABAN 20 MG TABLET PO (16:33)
[2021-08-22 17:05] LABS: EDCOVIDSCREEN Negative (Negative)
[2021-08-22] MEDS: ATORVASTATIN 20 MG TABLET PO (20:02)
== END 2021-08-22 20:57 | DRG 291 ==
LOC: ANHED 23:41 → ANH3MEDSUR 08-15 00:24
PROVIDERS: Internal Medicine; Nurse Practitioner; Nurse Practitioner Adult Health; Physician Assistant; Admitting Provider Internal Medicine; Emergency Provider Emergency Medicine; PCP Family Medicine; Visit Provider Family Medicine
DX: I11.0 Hypertensive heart disease with heart failure (principal); I50.33 Acute on chronic diastolic (congestive) heart failure; I48.20 Chronic atrial fibrillation, unspecified; Z20.822 Contact with and (suspected) exposure to COVID-19; R73.01 Impaired fasting glucose; R53.1 Weakness; G20 Parkinson's disease; F02.80 Dementia in other diseases classified elsewhere, unspecified severity, without behavioral disturbance, psychotic disturbance, mood disturbance, and anxiety; C67.9 Malignant neoplasm of bladder, unspecified; L71.9 Rosacea, unspecified; E78.00 Pure hypercholesterolemia, unspecified; M19.90 Unspecified osteoarthritis, unspecified site; I73.9 Peripheral vascular disease, unspecified; I87.2 Venous insufficiency (chronic) (peripheral); Z79.01 Long term (current) use of anticoagulants; Z86.711 Personal history of pulmonary embolism; Z86.718 Personal history of other venous thrombosis and embolism
CPT/HCPCS: 36415; 70450; 71045; 71046; 80048; 80053; 81001; 81003; 82948; 83605; 83735; 83880; 84439; 84484; 85025; 85027; 85610; 85730; 87040; 87086; 87426; 93005; 93971; 96374; 97110; 97161; 97530; 99285; A9270; C9803; J1940

== ENCOUNTER 2021-10-24 11:42 | Outpatient (CLI) | payer MEDICARE, SELFPAY ==
[2021-10-24 12:13] LABS: Anion Gap 5 mmol/L (8-16); Blood Urea Nitrogen 18 mg/dL (9-20); Calcium 8.5 mg/dL (8.4-10.2); Carbon Dioxide 32 mmol/L (22-30); Chloride 98 mmol/L (98-107); Estimated Glomerular Filt Rate > 60; Glucose 97 mg/dL (65-110); Potassium 4.1 mmol/L (3.4-5.0); Sodium 135 mmol/L (137-145)
== END 2021-10-24 11:43 | disposition home or self-care (01) ==
LOC: ANHLAB 11:46
PROVIDERS: PCP Family Medicine; Visit Provider Internal Medicine Cardiovascular Disease
DX: I50.32 Chronic diastolic (congestive) heart failure (principal)
CPT/HCPCS: 36415; 80048

== ENCOUNTER 2021-11-14 08:45 | Outpatient (CLI) | payer MEDICARE, SELFPAY | END 2021-11-14 08:46 | disposition home or self-care (01) | LOC: CHSLAB 08:47 | PROVIDERS: PCP Family Medicine; Visit Provider Family Medicine | DX: K52.9 Noninfective gastroenteritis and colitis, unspecified (principal) | CPT/HCPCS: 87045; 87177; 87209; 87324; 87427 ==

== ENCOUNTER 2021-12-04 10:27 | Inpatient (IN) | payer MEDICARE, SELFPAY ==
[2021-12-04] VITALS (12 sets, daily range): BP systolic 105–130; BP diastolic 67–84; PULSE 72–88; RESP 14–22; TEMP 36.3–37; O2SAT 97–99; BMI 32.8
--- NOTE | ~2021-12-04 | XR_ITS ---
EXAMINATION: XR chest 2V DATE: 12/04/2021 11:12 INDICATION: Weakness. TECHNIQUE: Frontal and lateral views of the chest were obtained. COMPARISON: Chest 2 views 08/22/2021, CT abdomen and pelvis 07/26/2020 FINDINGS: There is chronic mild elevation of right hemidiaphragm. There is a chronic diffuse intersti tial pattern in the lungs. No pleural effusion or pneumothorax. The heart size is normal. IMPRESSION: 1. Stable chronic interstitial lung disease. Reviewed, dictated and finalized at location B.
--- NOTE | ~2021-12-04 | XR_ITS ---
EXAMINATION: XR chest 1V portable DATE: 12/06/2021 13:05 INDICATION: Congestive heart failure. Assess fluid status TECHNIQUE: frontal view of the chest was obtained. COMPARISON: Chest radiograph dated 12/04/[address] abdomen dated 01/23/2021 FINDINGS: Continuous elevation of the right hemidiaphragm with underlying gas-filled colonic interposition. Chr onic mild bronchiectatic changes in the bilateral lower lung zones. No focal airspace opacities, pulm onary edema, pleural effusion or pneumothorax. The cardiomediastinal silhouette is within normal limi ts for AP technique. Mild to moderate degenerative skeletal changes in the spine and at both shoulder s. IMPRESSION: 1. Chronic mild bronchiectatic changes at the bilateral lower lung zones. No acute cardiopulmonary di sease. 2. Chronic elevation the right hemidiaphragm. Reviewed, dictated and finalized at location A. IMPRESSION: 1. Chronic mild bronchiectatic changes at the bilateral lower lung zones. No ac chava cardiopulmonary disease. 2. Chronic elevation the right hemidiaphragm.
--- NOTE | ~2021-12-04 | CT_ITS ---
EXAMINATION: CT brain wo con DATE: 12/04/2021 11:32 INDICATION: Generalized weakness. TECHNIQUE: Computed tomography (CT) of the head was performed without intravenous contrast. The mA wa s adjusted according to patient size. Iterative reconstruction technique was employed. The dose-lengt h product was 681.00 mGy-cm. COMPARISON: Head CT 08/21/2021 FINDINGS: There are scattered areas of low attenuation in the cerebral white matter. There is an old infarct involving the right basal ganglia and anterior limb right internal capsule. There is no intra cranial hemorrhage, acute infarction, or abnormal intracranial mass lesion. The ventricles are normal in size. There is mild mucosal thickening in the ethmoid sinuses. There are likely changes of ocular lens replacement surgeries. The mastoid air cells are normal. IMPRESSION: 1. Old infarct involving the right basal ganglia and anterior limb right internal capsule. 2. Stable moderate nonspecific cerebral white matter disease, which likely represents chronic small v essel ischemic disease. Reviewed, dictated and finalized at location B. IMPRESSION: 1. Old infarct involving the right basal ganglia and anterior limb right environmental health and safety intern al capsule. 2. Stable moderate nonspecific cerebral white matter disease, which likely repr esents chronic small vessel ischemic disease.
--- NOTE | 2021-12-04 10:56 | ECG_ITS ---
Measurements Intervals [place] Rate: 73 P: NC: 0 QRS: -16 QRSD: 81 T: -17 QT: 411 QTc: 454 Interpretive Statements ATRIAL FIBRILLATION INFERIOR MYOCARDIAL INFARCTION , OF INDETERMINATE AGE [40+ ms Q WAVE AND/OR ST/T ABNORMALITY IN II/aVF] Abnormal ECG COMPARED TO ECG 08/14/2021 22:41:36 MYOCARDIAL INFARCT FINDING NOW PRESENT Electronically Signed On 12-04-2021 13:39:33 CDT by Chong Roland M.D.
--- NOTE | 2021-12-04 10:58 | ED.WEAKNESS ---
HPI - Weakness General Chief complaint: Weakness Stated complaint: difficulty standing/walking Time Seen by Provider: 12/04/21 10:31 History of Present Illness HPI Narrative: Patient is an 81-year-old male with history of Parkinson's disease, diastolic HF, atrial fibrillation, DVT on chronic AC, here for evaluation of weakness today. Patient states that he was seated in his chair this morning and had difficulty getting up from seated. He states that his legs felt heavy . Patient remained seated in the chair and called his for assistance, and he presented to the emergency department. He had a similar episode 2 days ago but this improved with time, and patient was eventually able to ambulate with a walker, which is his baseline. He lives at home with his and notes that she has had trouble taking care of patient without assistance. He does have chronic swelling in his bilateral lower extremities due to CHF, for which he takes Lasix. He denies unilateral weakness, upper extremity weakness, pain in his legs, fevers, chills, shortness of breath, abdominal pain, chest pain. Related Data Home Medications Medication Instructions Recorded Confirmed carbidopa 25 mg-levodopa 100 mg 1.5 tablet PO QID 09/14/20 12/04/21 tablet Allergies Allergy/AdvReac Type Severity Reaction Status Date / Time No Known Allergies Allergy Verified 12/04/21 16:46 Review of Systems Review of Systems: Gen: Denies fevers or chills Eyes: Denies eye pain or visual change ENT: Denies congestion Respiratory: Denies shortness of breath or cough CV: Denies chest pain or palpitations GI: Denies abdominal pain nausea, emesis or diarrhea denies burning, urgency, frequency or hematuria Musculoskeletal: Denies back pain or muscle pain Neuro: Reports weakness in legs. Denies numbness, tingling Skin: Denies rash Except as documented, all other systems reviewed and negative [facility] Past Medical History Medical History Atrial fibrillation Bladder tumor Chronic diastolic heart failure Echocardiogram on 03/23/2020 showed normal left ventricular systolic function and size with mild concentric left ventricular hypertrophy and ejection fraction measured at 74%. Claudication in peripheral vascular disease 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 detention 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 CVA (cerebral vascular accident) chronic lacunar infarcts in the region of the anterior limb of the internal capsule bilaterally. There is nonspecific diminished attenuation of the subcortical and periventricular cerebral white matter. Deep venous thrombosis (~2005) Essential hypertension History of pulmonary embolism (~2005) On long-term 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. Hyperlipidemia Impaired fasting glucose Kidney stones Parkinson's disease Shuffling gait and right hand tremors. Persistent atrial fibrillation Primary osteoarthritis, unspecified site Pure hypercholesterolemia Rosacea Urothelial carcinoma of bladder (~11/2019) Followed by Dr. Craft. Cystoscopy in June 2020 demonstrated new lesions, scheduled for TURBT in September 2020. Surgical History Surgical History History of ankle surgery ORIF right ankle fracture. History of basal cell carcinoma excision Excised from the left brow. History of resection of small bowel (~01/2018) Secondary to closed loop bowel obstruction. Family History Family History Father Family history of diabetes mellitus in first degree relative Family history of coronary artery disease Sibling Family history of diabetes mellitus in first degree relative Family history of coronary artery disease Mother Family history of coronary artery disease Social History Social History Social History: The patient lives in [place] with his . 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
[2021-12-04 11:49] LABS: Basophils Percent Auto 0.2 % (0.2-1.2); Eosinophils Percent Auto 0.3 % (0-4.4); Hematocrit 42.5 % (42.0-52.0); Hemoglobin 13.6 g/dL (14.0-18.0); Immature Granulocyte Absolute 0.03 K/mm3 (0.00-0.031); Immature Granulocyte Percent A 0.5 % (0-0.5); Lymphocytes Absolute Auto 1.46 K/mm3 (0.9-3.2); Lymphocytes Percent Auto 22.2 % (18.3-44.2); Mean Corpuscular Hemoglobin 30.4 pg (26-34); Mean Corpuscular Volume 95.1 fl (80-100); Mean Platelet Volume 9.4 fl (7.4-10.4); Monocytes Absolute Auto 1.8 K/mm3 (0.1-0.6); Neutrophils Absolute Auto 3.2 K/mm3 (1.3-6.7); Neutrophils Percent Auto 48.8 % (45.5-73.1); Platelet Count Result 184 k/mm3 (150-375); Red Blood Count 4.47 M/mm3 (4.6-6.20); Red Cell Distribution Width 15.5 % (11.5-14.5); White Blood Count 6.6 K/mm3 (4.5-10.0)
[2021-12-04 13:14] LABS: Alanine Aminotransferase 6 U/L (6-50); Albumin Level 3.4 g/dL (3.5-5.1); Alkaline Phosphatase 62 U/L (38-126); Anion Gap 4 mmol/L (8-16); Aspartate Amino Transferase 20 U/L (17-59); Bilirubin,Total 0.6 mg/dL (0.2-1.3); Blood Urea Nitrogen 17 mg/dL (9-20); Carbon Dioxide 27 mmol/L (22-30); Chloride 101 mmol/L (98-107); Estimated CRCL calculation 79 ml/min; Estimated Glomerular Filt Rate > 60; Glucose 96 mg/dL (65-110); Potassium 3.5 mmol/L (3.4-5.0); Sodium 132 mmol/L (137-145)
[2021-12-04 13:26] LABS: NT Pro B Type Natriuretic Pept 981 pg/mL (5-100); Troponin I < 0.012 ng/mL (0.000-0.034)
[2021-12-04] MEDS: FUROSEMIDE INJ 40 MG/4 ML VIAL IV PUSH ×2 (13:43→21:11)
[2021-12-04 14:16] LABS: Creatine Kinase 29 U/L (55-170)
--- NOTE | 2021-12-04 14:30 | PM.IMHP ---
H&P: HPI History of Present Illness Date/Time: 12/04/21 14:30 Chief Complaint: Lower extremity weakness Narrative: Patient is an 81-year-old male with a past medical history of DVT, CVA, heart failure who presented to the ED with lower extremity weakness and inability to mobilize. His was present today interview and stated that on Friday the patient was up walking around Friday and Friday patient was a little bit weaker and was unable to move or walk. Patient did state that he does sleep in a chair mostly because of breathing. stated that when the patient lays flat the patient has coughing spells and is unable to stop coughing. Patient's also reported that the patient was confused when he got up today and did know what room he was in or the furniture that was in that room. She also stated that his right leg is more swollen the left leg. As patient denies any chest pain, shortness of breath, nausea, vomiting, palpitations. He did state that he was short of breath with walking and that he has been urinating a lot about every half an hour. He states that he does not feel like he is fully emptying his. Patient states that he has no pain at this time. He was able to move his legs upon examination. It was also noted that the patient has been having some diarrhea and stool studies were sent off by primary however came back negative. BNP upon arrival was 9081. Troponin was negative. Patient has 3+ pitting edema on the right lower extremity and about 2+ pitting edema on the left lower extremity. Patient seems to be doing well at this time. Patient is being admitted to the hospital service under observation at this time Review of Systems Review of Systems: All systems reviewed & are unremarkable except as noted in HPI and below [facility] Past Medical History Medical History Atrial fibrillation Bladder tumor Chronic diastolic heart failure Echocardiogram on 03/23/2020 showed normal left ventricular systolic function and size with mild concentric left ventricular hypertrophy and ejection fraction measured at 74%. 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 There is nonspecific diminished attenuation of the subcortical and periventricular cerebral white matter. Deep venous thrombosis (~2005) Essential hypertension History of pulmonary embolism (~2005) On long-term 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. Hyperlipidemia Impaired fasting glucose Kidney stones Parkinson's disease Shuffling gait and right hand tremors. Persistent atrial fibrillation Primary osteoarthritis, unspecified site Pure hypercholesterolemia Rosacea Urothelial carcinoma of bladder (~11/2019) Followed by Dr. Craft. Cystoscopy in June 2020 demonstrated new lesions, scheduled for TURBT in September 2020. Surgical History Surgical History History of ankle surgery ORIF right ankle fracture. History of basal cell carcinoma excision Excised from the left brow. History of resection of small bowel (~01/2018) Secondary to closed loop bowel obstruction. Family History Family History Father Family history of diabetes mellitus in first degree relative Family history of coronary artery disease Sibling Family history of diabetes mellitus in first degree relative Family history of coronary artery disease Mother Family history of coronary artery disease Social History Social History (Updated 12/04/21 @ 18:44 by VIPIN Chance) Social History: The patient lives in [place] with his . 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 Lifelong nonsmoker. Consumes perhaps 1 alcoholic beverage a
--- NOTE | 2021-12-04 16:15 | ADMGEN ---
This patient, Ace Sharp, was admitted to Medical Room 246-01. Patient/family oriented to hospital policies and general routines including ID bracelet, bed and alarms, visiting hours, pain management, procedures, bathroom and other care routines, personal items, smoking policy, room service/diet, and visiting hours. Information on how to activate the Rapid Response Team has been discussed. Patient/Family are encouraged to report perceived risks to care and to ask questions if they do not understand what they are told or what they should do.
[2021-12-04] MEDS: CARBIDOPA/LEVODOPA 12.5/50 MG TABLET 1 TABLET PO (21:11)
[2021-12-04] MEDS: CARBIDOPA/LEVODOPA 25/100 MG TABLET 1 TABLET PO (21:11)
[2021-12-04] MEDS: ATORVASTATIN 20 MG TABLET PO (21:11)
--- NOTE | 2021-12-05 | ECHO_ITS ---
Patient Info Name: Ace Sharp Age: 81 years : 1940 Gender: Male Ht: 67 in Wt: 209 lbs BSA: 2.15 m2 HR: 97 bpm BP: 113 / 68 mmHg Heart Rhythm: Sinus Rhythm Technical Quality: Fair Exam Date: 12/05/2021 10:12 AM Exam Location: [facility] Pulmonary Patient Status: Inpatient Admit Date: 12/04/2021 Staff Ordering Physician: Jesus Orozco Associate Biological Sales: Aurora Almeida RDCS Attending Provider: Nelson Schmidt MD Referring Physician: Ernesto RAMSEY; Exam Type: CA echo doppler color flow Study Info Indications - CHF Complete two-dimensional, color flow and Doppler transthoracic echocardiogram is performed. Summary 1. Complete two-dimensional, color flow and Doppler transthoracic echocardiogram is performed. 2. Left ventricular chamber dimension is normal. 3. Left ventricular systolic function is normal, estimated at 55-60%. 4. There is mildly increased left ventricular wall thickness. 5. The left ventricular diastolic function is indeterminate. 6. Right ventricular chamber dimension is mildly enlarged. 7. There is mild aortic valve stenosis with a peak velocity of 125 cm/s, mean gradient of 3 mmHg, and aortic valve area of 1.7 cm2. 8. There is mild mitral valve regurgitation. 9. The mitral valve annulus is moderately calcified. 10. There is mild tricuspid valve regurgitation. 11. There is mild pulmonic regurgitation. Left Ventricle Left ventricular chamber dimension is normal. Left ventricular systolic function is normal, estimated at 55-60%. There is mildly increased left ventricular wall thickness. The left ventricular diastolic function is indeterminate. Right Ventricle Right ventricular chamber dimension is mildly enlarged. Right ventricular systolic function is normal. Left Atria Left atrial chamber dimension is severely enlarged. Right Atria Right atrial chamber dimension is moderately enlarged. Atrial Septum Intact interatrial septum visualized by color flow imaging. Aortic Valve The aortic valve is trileaflet. There is mild aortic valve stenosis with a peak velocity of 125 cm/s, mean gradient of 3 mmHg, and aortic valve area of 1.7 cm2. There is trace aortic valve regurgitation. There is mild aortic valve calcification. Pulmonic Valve The pulmonic valve is normal. There is no pulmonic valve stenosis. There is mild pulmonic regurgitation. Mitral Valve There is no mitral valve stenosis. There is mild mitral valve regurgitation. The mitral valve annulus is moderately calcified. Tricuspid Valve The tricuspid valve leaflets are normal. There is no significant tricuspid valve stenosis. There is mild tricuspid valve regurgitation. No pulmonary hypertension, estimated pulmonary arterial systolic pressure is 33 mmHg. Pericardium/Pleural The pericardium appears normal. There is trivial pericardial effusion. Aorta The aortic root size at the sinus of Valsalva is borderline dilated. Left Ventricular Outflow Tract Name Value Normal LVOT 2D LVOT Diameter 2.1 cm LVOT Doppler LVOT Peak Gradient 1 mmHg LVOT Mean Gradien
[2021-12-05 03:21] VITALS: BP 113/68; PULSE 70; RESP 20; TEMP 36.3; O2SAT 98
[2021-12-05 05:31] LABS: Basophils Percent Auto 0.1 % (0.2-1.2); Eosinophils Absolute Auto 0.1 K/mm3 (0-0.3); Eosinophils Percent Auto 1.2 % (0-4.4); Hematocrit 43.4 % (42.0-52.0); Hemoglobin 14.2 g/dL (14.0-18.0); Immature Granulocyte Absolute 0.03 K/mm3 (0.00-0.031); Immature Granulocyte Percent A 0.4 % (0-0.5); Lymphocytes Absolute Auto 1.43 K/mm3 (0.9-3.2); Lymphocytes Percent Auto 19.1 % (18.3-44.2); Mean Corpuscular HGB Conc 32.7 g/dl (32-36); Mean Corpuscular Hemoglobin 30.4 pg (26-34); Mean Corpuscular Volume 92.9 fl (80-100); Mean Platelet Volume 9.7 fl (7.4-10.4); Monocytes Absolute Auto 1.5 K/mm3 (0.1-0.6); Monocytes Percent Auto 19.8 % (2.6-8.5); Neutrophils Absolute Auto 4.4 K/mm3 (1.3-6.7); Neutrophils Percent Auto 59.4 % (45.5-73.1); Platelet Count Result 200 k/mm3 (150-375); Red Blood Count 4.67 M/mm3 (4.6-6.20); White Blood Count 7.5 K/mm3 (4.5-10.0)
[2021-12-05 05:43] LABS: Albumin Level 3.6 g/dL (3.5-5.1); Alkaline Phosphatase 62 U/L (38-126); Anion Gap 6 mmol/L (8-16); Aspartate Amino Transferase 19 U/L (17-59); Bilirubin,Total 0.8 mg/dL (0.2-1.3); Blood Urea Nitrogen 15 mg/dL (9-20); Calcium 7.6 mg/dL (8.4-10.2); Carbon Dioxide 31 mmol/L (22-30); Chloride 98 mmol/L (98-107); Estimated CRCL calculation 78 ml/min; Estimated Glomerular Filt Rate > 60; Glucose 105 mg/dL (65-110); Magnesium 1.9 mg/dL (1.6-2.3); Potassium 3.1 mmol/L (3.4-5.0); Sodium 135 mmol/L (137-145)
[2021-12-05 05:56] LABS: Alanine Aminotransferase < 6 U/L (6-50)
[2021-12-05] MEDS: ASPIRIN 81 MG ENTERIC TABLET PO (08:30)
[2021-12-05 08:31] VITALS: PULSE 80
[2021-12-05] MEDS: CARBIDOPA/LEVODOPA 25/100 MG TABLET 1 TABLET PO ×4 (08:31→20:55)
[2021-12-05] MEDS: POTASSIUM CHLORIDE 20 MEQ TABLET.ER 40 MEQ PO (08:31)
[2021-12-05] MEDS: METOPROLOL SUCCINATE EXT REL 50 MG TABCR PO (08:31)
[2021-12-05] MEDS: FUROSEMIDE INJ 40 MG/4 ML VIAL IV PUSH ×2 (08:32→16:57)
[2021-12-05] MEDS: CARBIDOPA/LEVODOPA 12.5/50 MG TABLET 1 TABLET PO ×4 (09:36→20:55)
--- NOTE | 2021-12-05 11:00 | P.PNIM_ITS ---
Progress Note: A&P Assessment and Plan (1) CHF exacerbation: Qualifiers: Heart failure type: diastolic Qualified Code(s): I50.33 - Acute on chronic diastolic (congestive) heart failure Code(s): I50.9 - Heart failure, unspecified Status: Acute Assessment and Plan: * Complains of bilateral lower extremity edema * Chest x-ray shows stable chronic interstitial lung disease * BNP elevated at 981 * Continue furosemide 40 mg b.i.d. * Fluid restriction * Prudencio hose * Trend urine output * Weight decreasing from 95-92.1kg * Echo showed: EF of 50-55% with an indeterminant diastolic dysfunction (2) Generalized weakness: Code(s): R53.1 - Weakness Status: Acute Assessment and Plan: * Unable to move bilateral lower extremities * History of Parkinson's disease * Currently on carbidopa levodopa * PT and OT * Probably related to fluid overload (3) Parkinson disease: Code(s): G20 - Parkinson's disease Status: Acute Assessment and Plan: * Continue carbidopa levodopa * Consider Neurology * PT and OT (4) 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 nurse auditor 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: Code(s): Z79.01 - channel opener (current) use of anticoagulants Status: Acute Assessment and Plan: * History of DVT and PE * Currently in AFib * Continue home Xarelto (5) Persistent atrial fibrillation: Code(s): I48.19 - Other persistent atrial fibrillation Status: Chronic Assessment and Plan: * EKG found AFib * Continue Xarelto, metoprolol * Trend heart rate (6) Acute metabolic encephalopathy: Code(s): G93.41 - Metabolic encephalopathy Status: Acute Assessment and Plan: * reports confusion * 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 * Seems to be resolved at this time * Could be from fluid overload or old CVA * Continue to monitor orientation * Hold trazodone (7) Essential hypertension: Code(s): I10 - Essential (primary) hypertension Status: Chronic Assessment and Plan: * Current blood pressure 113/68 * Continue home metoprolol 50mg PO * Trend blood pressure * Adjust therapy as indicated (8) Hyperlipidemia: Code(s): E78.5 - Hyperlipidemia, unspecified Status: Acute Assessment and Plan: * Continue home atorvastatin Time Spent With Patient Time with patient: Greater than 35 minutes Subjective Date/time seen: 12/05/21 11:00 Interval history: 12/05/21 1100 Patient was lying in bed and stated that he was feeling little bit better but he was not feeling a whole lot better. He did state that he can lift his legs and move around but they are still very swollen. He was working with PT and OT. His swelling does look to be a little better. He denies any chest pain, shortness of breath, nausea, vomiting, diarrhea, constipation, weakness or fatigue. 12/04/21? 14:30 Patient is an 81-year-old male with a past medical history of DVT, CVA, heart failure who presented to the ED with lower extremity weakness and inability to mobilize.? His was present today interview and stated that on Friday the patient was up walking around Friday and Friday patient was a little bit weaker and was unable to move or walk.? Patient did state that he does sleep in a chair mostly because of breathing.? stated that wh
--- NOTE | 2021-12-05 11:00 | PM.IMPN ---
Progress Note: A&P Assessment and Plan (1) CHF exacerbation: Qualifiers: Heart failure type: diastolic Qualified Code(s): I50.33 - Acute on chronic diastolic (congestive) heart failure Code(s): I50.9 - Heart failure, unspecified Status: Acute Assessment and Plan: Complains of bilateral lower extremity edema Chest x-ray shows stable chronic interstitial lung disease BNP elevated at 981 Continue furosemide 40 mg b.i.d. Fluid restriction Prudencio hose Trend urine output Weight decreasing from 95-92.1kg Echo showed: EF of 50-55% with an indeterminant diastolic dysfunction (2) Generalized weakness: Code(s): R53.1 - Weakness Status: Acute Assessment and Plan: Unable to move bilateral lower extremities History of Parkinson's disease Currently on carbidopa levodopa PT and OT Probably related to fluid overload (3) Parkinson disease: Code(s): G20 - Parkinson's disease Status: Acute Assessment and Plan: Continue carbidopa levodopa Consider Neurology PT and OT (4) 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 exterminator 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: Code(s): Z79.01 - residential (current) use of anticoagulants Status: Acute Assessment and Plan: History of DVT and PE Currently in AFib Continue home Xarelto (5) Persistent atrial fibrillation: Code(s): I48.19 - Other persistent atrial fibrillation Status: Chronic Assessment and Plan: EKG found AFib Continue Xarelto, metoprolol Trend heart rate (6) Acute metabolic encephalopathy: Code(s): G93.41 - Metabolic encephalopathy Status: Acute Assessment and Plan: reports confusion 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 Seems to be resolved at this time Could be from fluid overload or old CVA Continue to monitor orientation Hold trazodone (7) Essential hypertension: Code(s): I10 - Essential (primary) hypertension Status: Chronic Assessment and Plan: Current blood pressure 113/68 Continue home metoprolol 50mg PO Trend blood pressure Adjust therapy as indicated (8) Hyperlipidemia: Code(s): E78.5 - Hyperlipidemia, unspecified Status: Acute Assessment and Plan: Continue home atorvastatin Time Spent With Patient Time with patient: Greater than 35 minutes Subjective Date/time seen: 12/05/21 11:00 Interval history: 12/05/21 1100 Patient was lying in bed and stated that he was feeling little bit better but he was not feeling a whole lot better. He did state that he can lift his legs and move around but they are still very swollen. He was working with PT and OT. His swelling does look to be a little better. He denies any chest pain, shortness of breath, nausea, vomiting, diarrhea, constipation, weakness or fatigue. 12/04/21? 14:30 Patient is an 81-year-old male with a past medical history of DVT, CVA, heart failure who presented to the ED with lower extremity weakness and inability to mobilize.? His was present today interview and stated that on Friday the patient was up walking around Friday and Friday patient was a little bit weaker and was unable to move or walk.? Patient did state that he does sleep in a chair mostly because of breathing.? stated that when the patient lays flat the patient has coughing spells and is unable to stop coughing.? Patient's also reported that the patient was confused when he got up today and did know what room he was in or the furniture that was in that room.? She also stated that his right leg is more swollen the left leg.? As patient denies any chest pain, shortness of breath, nausea, vomiting, palpitations.? He did state that he was short of breath with walking and that he has been urinating a lot about every half an hour.? He states that he does not feel like he is fully emptying his.? Patient states that he has
[2021-12-05 14:27] VITALS: BP 96/54; PULSE 82; RESP 20; TEMP 36.3; O2SAT 97
[2021-12-05] MEDS: RIVAROXABAN 20 MG TABLET PO (16:56)
[2021-12-05 19:19] VITALS: BP 104/67; PULSE 77; RESP 17; TEMP 36.6; O2SAT 98
[2021-12-05] MEDS: ATORVASTATIN 20 MG TABLET PO (20:55)
[2021-12-06 04:14] VITALS: BP 127/69; PULSE 87; RESP 17; TEMP 36.6; O2SAT 100
[2021-12-06 05:38] LABS: Basophils Percent Auto 0.3 % (0.2-1.2); Eosinophils Absolute Auto 0.1 K/mm3 (0-0.3); Hematocrit 42.3 % (42.0-52.0); Hemoglobin 13.5 g/dL (14.0-18.0); Immature Granulocyte Absolute 0.03 K/mm3 (0.00-0.031); Immature Granulocyte Percent A 0.5 % (0-0.5); Lymphocytes Absolute Auto 1.63 K/mm3 (0.9-3.2); Lymphocytes Percent Auto 27.7 % (18.3-44.2); Mean Corpuscular HGB Conc 31.9 g/dl (32-36); Mean Corpuscular Hemoglobin 30.3 pg (26-34); Mean Corpuscular Volume 94.8 fl (80-100); Mean Platelet Volume 9.9 fl (7.4-10.4); Monocytes Percent Auto 16.3 % (2.6-8.5); Neutrophils Absolute Auto 3.1 K/mm3 (1.3-6.7); Neutrophils Percent Auto 53.2 % (45.5-73.1); Platelet Count Result 183 k/mm3 (150-375); Red Blood Count 4.46 M/mm3 (4.6-6.20); Red Cell Distribution Width 14.9 % (11.5-14.5); White Blood Count 5.9 K/mm3 (4.5-10.0)
[2021-12-06 05:46] LABS: Alanine Aminotransferase 6 U/L (6-50); Albumin Level 3.4 g/dL (3.5-5.1); Alkaline Phosphatase 63 U/L (38-126); Anion Gap 3 mmol/L (8-16); Aspartate Amino Transferase 19 U/L (17-59); Bilirubin,Total 0.7 mg/dL (0.2-1.3); Blood Urea Nitrogen 18 mg/dL (9-20); Calcium 7.7 mg/dL (8.4-10.2); Carbon Dioxide 33 mmol/L (22-30); Chloride 100 mmol/L (98-107); Estimated CRCL calculation 78 ml/min; Estimated Glomerular Filt Rate > 60; Glucose 115 mg/dL (65-110); Magnesium 1.9 mg/dL (1.6-2.3); Potassium 3.3 mmol/L (3.4-5.0); Sodium 136 mmol/L (137-145)
[2021-12-06 09:20] VITALS: PULSE 84
[2021-12-06] MEDS: FUROSEMIDE INJ 40 MG/4 ML VIAL IV PUSH (09:20)
[2021-12-06] MEDS: METOPROLOL SUCCINATE EXT REL 50 MG TABCR PO (09:20)
[2021-12-06] MEDS: POTASSIUM CHLORIDE 20 MEQ TABLET.ER 40 MEQ PO (09:21)
[2021-12-06] MEDS: CARBIDOPA/LEVODOPA 25/100 MG TABLET 1 TABLET PO ×4 (09:22→21:10)
[2021-12-06] MEDS: CARBIDOPA/LEVODOPA 12.5/50 MG TABLET 1 TABLET PO ×4 (09:22→21:11)
[2021-12-06 09:23] VITALS: PULSE 84; RESP 18; O2SAT 98
[2021-12-06] MEDS: ASPIRIN 81 MG ENTERIC TABLET PO (09:23)
--- NOTE | 2021-12-06 11:30 | P.PNIM_ITS ---
Progress Note: A&P Assessment and Plan (1) CHF exacerbation: Code(s): I50.9 - Heart failure, unspecified Status: Acute Assessment and Plan: * Complains of bilateral lower extremity edema * Chest x-ray shows stable chronic interstitial lung disease * Repeat chest xray * BNP elevated at 981 * Continue furosemide 40 mg b.i.d. 4 doses given, change to 40 mg PO BID * Fluid restriction * Prudencio hose * Trend urine output * Weight decreasing from 95-92.1kg * Echo showed: EF of 50-55% with an indeterminant diastolic dysfunction (2) Generalized weakness: Code(s): R53.1 - Weakness Status: Acute Assessment and Plan: * Unable to move bilateral lower extremities * History of Parkinson's disease * Currently on carbidopa levodopa * PT and OT * Probably related to fluid overload (3) Parkinson disease: Code(s): G20 - Parkinson's disease Status: Acute Assessment and Plan: * Continue carbidopa levodopa * Consider Neurology * PT and OT (4) 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 residential 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: Code(s): Z79.01 - [facility] (current) use of anticoagulants Status: Acute Assessment and Plan: * History of DVT and PE * Currently in AFib * Continue home Xarelto (5) Persistent atrial fibrillation: Code(s): I48.19 - Other persistent atrial fibrillation Status: Chronic Assessment and Plan: * EKG found AFib * Continue Xarelto, metoprolol * Trend heart rate (6) Acute metabolic encephalopathy: Code(s): G93.41 - Metabolic encephalopathy Status: Acute Assessment and Plan: * reports confusion * 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 * Seems to be resolved at this time * Could be from fluid overload or old CVA * Continue to monitor orientation * Hold trazodone (7) Essential hypertension: Code(s): I10 - Essential (primary) hypertension Status: Chronic Assessment and Plan: * Current blood pressure 127/69 * Continue home metoprolol 50mg PO * Trend blood pressure * Adjust therapy as indicated (8) Hyperlipidemia: Code(s): E78.5 - Hyperlipidemia, unspecified Status: Acute Assessment and Plan: * Continue home atorvastatin Time Spent With Patient Time with patient: Greater than 35 minutes Subjective Date/time seen: 12/06/21 1130 Interval history: 12/06/21 113 Patient was sitting in chair sleeping. Patient stated that he is feeling a lot better today. His legs seem to be better today. Patient seems to be moving around a little bit better however is still needing a lot of support. He denies any chest pain, shortness of breath, nausea, vomiting, diarrhea, constipation, weakness or fatigue. 12/05/21 1100 Patient was lying in bed and stated that he was feeling little bit better but he was not feeling a whole lot better. He did state that he can lift his legs and move around but they are still very swollen. He was working with PT and OT. His swelling does look to be a little better. He denies any chest pain, shortness of breath, nausea, vomiting, diarrhea, constipation, weakness or fatigue. 12/04/21? 14:30 Patient is an 81-year-old male with a past medical history of DVT, CVA, heart failure who presented to the ED with lower extremity weakness and inability to mo
--- NOTE | 2021-12-06 11:30 | PM.IMPN ---
Progress Note: A&P Assessment and Plan (1) CHF exacerbation: Code(s): I50.9 - Heart failure, unspecified Status: Acute Assessment and Plan: Complains of bilateral lower extremity edema Chest x-ray shows stable chronic interstitial lung disease Repeat chest xray BNP elevated at 981 Continue furosemide 40 mg b.i.d. 4 doses given, change to 40 mg PO BID Fluid restriction Prudencio hose Trend urine output Weight decreasing from 95-92.1kg Echo showed: EF of 50-55% with an indeterminant diastolic dysfunction (2) Generalized weakness: Code(s): R53.1 - Weakness Status: Acute Assessment and Plan: Unable to move bilateral lower extremities History of Parkinson's disease Currently on carbidopa levodopa PT and OT Probably related to fluid overload (3) Parkinson disease: Code(s): G20 - Parkinson's disease Status: Acute Assessment and Plan: Continue carbidopa levodopa Consider Neurology PT and OT (4) 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 terminal make up operator 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: Code(s): Z79.01 - manager long term care (current) use of anticoagulants Status: Acute Assessment and Plan: History of DVT and PE Currently in AFib Continue home Xarelto (5) Persistent atrial fibrillation: Code(s): I48.19 - Other persistent atrial fibrillation Status: Chronic Assessment and Plan: EKG found AFib Continue Xarelto, metoprolol Trend heart rate (6) Acute metabolic encephalopathy: Code(s): G93.41 - Metabolic encephalopathy Status: Acute Assessment and Plan: reports confusion 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 Seems to be resolved at this time Could be from fluid overload or old CVA Continue to monitor orientation Hold trazodone (7) Essential hypertension: Code(s): I10 - Essential (primary) hypertension Status: Chronic Assessment and Plan: Current blood pressure 127/69 Continue home metoprolol 50mg PO Trend blood pressure Adjust therapy as indicated (8) Hyperlipidemia: Code(s): E78.5 - Hyperlipidemia, unspecified Status: Acute Assessment and Plan: Continue home atorvastatin Time Spent With Patient Time with patient: Greater than 35 minutes Subjective Date/time seen: 12/06/21 1130 Interval history: 12/06/21 113 Patient was sitting in chair sleeping. Patient stated that he is feeling a lot better today. His legs seem to be better today. Patient seems to be moving around a little bit better however is still needing a lot of support. He denies any chest pain, shortness of breath, nausea, vomiting, diarrhea, constipation, weakness or fatigue. 12/05/21 1100 Patient was lying in bed and stated that he was feeling little bit better but he was not feeling a whole lot better. He did state that he can lift his legs and move around but they are still very swollen. He was working with PT and OT. His swelling does look to be a little better. He denies any chest pain, shortness of breath, nausea, vomiting, diarrhea, constipation, weakness or fatigue. 12/04/21? 14:30 Patient is an 81-year-old male with a past medical history of DVT, CVA, heart failure who presented to the ED with lower extremity weakness and inability to mobilize.? His was present today interview and stated that on Friday the patient was up walking around Friday and Friday patient was a little bit weaker and was unable to move or walk.? Patient did state that he does sleep in a chair mostly because of breathing.? stated that when the patient lays flat the patient has coughing spells and is unable to stop coughing.? Patient's also reported that the patient was confused when he got up today and did know what room he was in or the furniture that was in that room.? She also stated that his right leg is more swollen the left leg.? As patient denies any
[2021-12-06] MEDS: POTASSIUM CHLORIDE 20 MEQ TABLET 40 MEQ PO (12:24)
[2021-12-06 14:00] VITALS: BP 118/58; PULSE 77; RESP 16; TEMP 36.4; O2SAT 99
[2021-12-06] MEDS: RIVAROXABAN 20 MG TABLET PO (16:23)
[2021-12-06] MEDS: FUROSEMIDE 40 MG TABLET PO (16:23)
[2021-12-06 20:03] VITALS: BP 100/59; PULSE 75; RESP 20; TEMP 36.4; O2SAT 96
[2021-12-06] MEDS: ATORVASTATIN 20 MG TABLET PO (21:11)
[2021-12-07] MEDS: HALOPERIDOL LACTATE 5 MG/ML VIAL IM (02:00)
--- NOTE | 2021-12-07 04:04 | PC.NURSE ---
COMPUTER DOWN TIME 1-4AM
--- NOTE | 2021-12-07 04:10 | PC.NURSE ---
[id number] PT EXTREMELY RESTLESS AND BECOMING COMBATIVE, DR MARCELO NOTIFIED
[2021-12-07 04:17] VITALS: BP 112/77; PULSE 88; RESP 20; TEMP 36.2; O2SAT 97
[2021-12-07 05:49] LABS: Basophils Percent Auto 0.1 % (0.2-1.2); Eosinophils Absolute Auto 0.1 K/mm3 (0-0.3); Eosinophils Percent Auto 1.7 % (0-4.4); Hematocrit 44.1 % (42.0-52.0); Hemoglobin 14.5 g/dL (14.0-18.0); Immature Granulocyte Absolute 0.02 K/mm3 (0.00-0.031); Immature Granulocyte Percent A 0.3 % (0-0.5); Lymphocytes Absolute Auto 1.69 K/mm3 (0.9-3.2); Lymphocytes Percent Auto 24.1 % (18.3-44.2); Mean Corpuscular HGB Conc 32.9 g/dl (32-36); Mean Corpuscular Hemoglobin 30.3 pg (26-34); Mean Corpuscular Volume 92.1 fl (80-100); Mean Platelet Volume 9.7 fl (7.4-10.4); Monocytes Absolute Auto 1.1 K/mm3 (0.1-0.6); Monocytes Percent Auto 15.1 % (2.6-8.5); Neutrophils Absolute Auto 4.1 K/mm3 (1.3-6.7); Neutrophils Percent Auto 58.7 % (45.5-73.1); Platelet Count Result 190 k/mm3 (150-375); Red Blood Count 4.79 M/mm3 (4.6-6.20); Red Cell Distribution Width 14.6 % (11.5-14.5)
[2021-12-07 06:13] LABS: Alanine Aminotransferase 6 U/L (6-50); Albumin Level 3.7 g/dL (3.5-5.1); Alkaline Phosphatase 69 U/L (38-126); Anion Gap 5 mmol/L (8-16); Aspartate Amino Transferase 23 U/L (17-59); Bilirubin,Total 0.7 mg/dL (0.2-1.3); Blood Urea Nitrogen 14 mg/dL (9-20); Calcium 7.9 mg/dL (8.4-10.2); Carbon Dioxide 32 mmol/L (22-30); Chloride 102 mmol/L (98-107); Estimated CRCL calculation 89 ml/min; Estimated Glomerular Filt Rate > 60; Glucose 133 mg/dL (65-110); Magnesium 1.9 mg/dL (1.6-2.3); Potassium 3.6 mmol/L (3.4-5.0); Sodium 139 mmol/L (137-145)
[2021-12-07] MEDS: CARBIDOPA/LEVODOPA 25/100 MG TABLET 1 TABLET PO ×4 (08:46→21:25)
[2021-12-07 08:47] VITALS: PULSE 82
[2021-12-07] MEDS: CARBIDOPA/LEVODOPA 12.5/50 MG TABLET 1 TABLET PO ×4 (08:47→21:33)
[2021-12-07] MEDS: POTASSIUM CHLORIDE 20 MEQ TABLET.ER 40 MEQ PO (08:47)
[2021-12-07] MEDS: FUROSEMIDE 40 MG TABLET PO ×2 (08:47→17:14)
[2021-12-07] MEDS: ASPIRIN 81 MG ENTERIC TABLET PO (08:47)
[2021-12-07] MEDS: METOPROLOL SUCCINATE EXT REL 50 MG TABCR PO (08:47)
--- NOTE | 2021-12-07 09:45 | PM.IMPN ---
Progress Note: A&P Assessment and Plan (1) CHF exacerbation: Code(s): I50.9 - Heart failure, unspecified Status: Acute Assessment and Plan: Complains of bilateral lower extremity edema Chest x-ray shows stable chronic interstitial lung disease Repeat chest xray Stable chronic lung disease (12/06/21) BNP elevated at 981 Continue furosemide 40 mg PO BID Fluid restriction Prudencio hose Trend urine output Weight decreasing from 95-92.1kg Echo showed: EF of 50-55% with an indeterminant diastolic dysfunction Acute exacerbation of diastolic heart failure (2) Generalized weakness: Code(s): R53.1 - Weakness Status: Acute Assessment and Plan: Unable to move bilateral lower extremities Getting better History of Parkinson's disease Currently on carbidopa levodopa PT and OT Probably related to fluid overload (3) Parkinson disease: Code(s): G20 - Parkinson's disease Status: Acute Assessment and Plan: Continue carbidopa levodopa Consider Neurology PT and OT (4) 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 terminal superintendent 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: Code(s): Z79.01 - terminal superintendent (current) use of anticoagulants Status: Acute Assessment and Plan: History of DVT and PE Currently in AFib Continue home Xarelto (5) Persistent atrial fibrillation: Code(s): I48.19 - Other persistent atrial fibrillation Status: Chronic Assessment and Plan: EKG found AFib Continue Xarelto, metoprolol Trend heart rate (6) Acute metabolic encephalopathy: Code(s): G93.41 - Metabolic encephalopathy Status: Acute Assessment and Plan: reports confusion 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 Seems to be resolved at this time Could be from fluid overload or old CVA Continue to monitor orientation Hold trazodone (7) Essential hypertension: Code(s): I10 - Essential (primary) hypertension Status: Chronic Assessment and Plan: Current blood pressure 127/69 Continue home metoprolol 50mg PO Trend blood pressure Adjust therapy as indicated (8) Hyperlipidemia: Code(s): E78.5 - Hyperlipidemia, unspecified Status: Acute Assessment and Plan: Continue home atorvastatin (9) COVID-19: Code(s): U07.1 - COVID-19 Status: Acute Assessment and Plan: Positive test on 12/06/21 No symptoms noted or reported Continue to trend fluid status Trend labs and vital signs Time Spent With Patient Time with patient: Greater than 35 minutes Subjective Date/time seen: 12/07/21 09:45 Interval history: 12/07/21 0945 Patient is doing ok today. He was able to get into the chair. He denies any chest pain, shortness of breath, nausea, vomiting, diarrhea, constipation. He is still very weak and is needing to use the [employer] to get around. Was planning for DC today however patient is COVID (+) and is not accepted by the facility that he was going to go to. Care coordination is working on different placement. Have accepting facility however will not be able to go until Friday. He does not exhibit any COVID symptoms. 12/06/21 1130 Patient was sitting in chair sleeping. Patient stated that he is feeling a lot better today. His legs seem to be better today. Patient seems to be moving around a little bit better however is still needing a lot of support. He denies any chest pain, shortness of breath, nausea, vomiting, diarrhea, constipation, weakness or fatigue. 12/05/21 1100 Patient was lying in bed and stated that he was feeling little bit better but he was not feeling a whole lot better. He did state that he can lift his legs and move around but they are still very swollen. He was working with PT and OT. His swelling does look to be a little better. He denies any chest pain, shortness of breath, nausea, vomiting, diarrhea, consti
--- NOTE | 2021-12-07 09:45 | P.PNIM_ITS ---
Progress Note: A&P Assessment and Plan (1) CHF exacerbation: Code(s): I50.9 - Heart failure, unspecified Status: Acute Assessment and Plan: * Complains of bilateral lower extremity edema * Chest x-ray shows stable chronic interstitial lung disease * Repeat chest xray Stable chronic lung disease (12/06/21) * BNP elevated at 981 * Continue furosemide 40 mg PO BID * Fluid restriction * Prudencio hose * Trend urine output * Weight decreasing from 95-92.1kg * Echo showed: EF of 50-55% with an indeterminant diastolic dysfunction * Acute exacerbation of diastolic heart failure (2) Generalized weakness: Code(s): R53.1 - Weakness Status: Acute Assessment and Plan: * Unable to move bilateral lower extremities * Getting better * History of Parkinson's disease * Currently on carbidopa levodopa * PT and OT * Probably related to fluid overload (3) Parkinson disease: Code(s): G20 - Parkinson's disease Status: Acute Assessment and Plan: * Continue carbidopa levodopa * Consider Neurology * PT and OT (4) 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 long term care administrator 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: Code(s): Z79.01 - watermaster (current) use of anticoagulants Status: Acute Assessment and Plan: * History of DVT and PE * Currently in AFib * Continue home Xarelto (5) Persistent atrial fibrillation: Code(s): I48.19 - Other persistent atrial fibrillation Status: Chronic Assessment and Plan: * EKG found AFib * Continue Xarelto, metoprolol * Trend heart rate (6) Acute metabolic encephalopathy: Code(s): G93.41 - Metabolic encephalopathy Status: Acute Assessment and Plan: * reports confusion * 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 * Seems to be resolved at this time * Could be from fluid overload or old CVA * Continue to monitor orientation * Hold trazodone (7) Essential hypertension: Code(s): I10 - Essential (primary) hypertension Status: Chronic Assessment and Plan: * Current blood pressure 127/69 * Continue home metoprolol 50mg PO * Trend blood pressure * Adjust therapy as indicated (8) Hyperlipidemia: Code(s): E78.5 - Hyperlipidemia, unspecified Status: Acute Assessment and Plan: * Continue home atorvastatin (9) COVID-19: Code(s): U07.1 - COVID-19 Status: Acute Assessment and Plan: * Positive test on 12/06/21 * No symptoms noted or reported * Continue to trend fluid status * Trend labs and vital signs Time Spent With Patient Time with patient: Greater than 35 minutes Subjective Date/time seen: 12/07/21 09:45 Interval history: 12/07/21 0945 Patient is doing ok today. He was able to get into the chair. He denies any chest pain, shortness of breath, nausea, vomiting, diarrhea, constipation. He is still very weak and is needing to use the [employer] to get around. Was planning for DC today however patient is COVID (+) and is not accepted by the facility that he was going to go to. Care coordination is working on different placement. Have accepting facility however will not be able to go until Friday. He does not exhibit any COVID symptoms. 12/06/21 1130 Patient was sitting in chair sleeping. Patient stated that he is feelin
[2021-12-07 09:52] LABS: EDCOVIDSCREEN Positive (Negative)
[2021-12-07 11:28] LABS: SARS-CoV-2 RNA PCR Positive
[2021-12-07 14:16] VITALS: BP 92/72; PULSE 92; RESP 12; TEMP 36.7; O2SAT 99
[2021-12-07] MEDS: RIVAROXABAN 20 MG TABLET PO (17:14)
[2021-12-07 19:49] VITALS: BP 139/71; PULSE 86; RESP 22; TEMP 36.2; O2SAT 100
[2021-12-07] MEDS: ATORVASTATIN 20 MG TABLET PO (21:25)
[2021-12-08 03:00] VITALS: BP 132/75; PULSE 79; RESP 20; TEMP 37; O2SAT 95
[2021-12-08] MEDS: ASPIRIN 81 MG ENTERIC TABLET PO (08:49)
[2021-12-08] MEDS: CARBIDOPA/LEVODOPA 25/100 MG TABLET 1 TABLET PO ×4 (08:49→21:07)
[2021-12-08 08:50] VITALS: PULSE 92
[2021-12-08] MEDS: CARBIDOPA/LEVODOPA 12.5/50 MG TABLET 1 TABLET PO ×4 (08:50→21:26)
[2021-12-08] MEDS: FUROSEMIDE 40 MG TABLET PO ×2 (08:50→16:22)
[2021-12-08] MEDS: METOPROLOL SUCCINATE EXT REL 50 MG TABCR PO (08:50)
[2021-12-08] MEDS: POTASSIUM CHLORIDE 20 MEQ TABLET.ER 40 MEQ PO (08:50)
--- NOTE | 2021-12-08 09:30 | PM.IMPN ---
Progress Note: A&P Assessment and Plan (1) CHF exacerbation: Code(s): I50.9 - Heart failure, unspecified Status: Acute Assessment and Plan: Complains of bilateral lower extremity edema Chest x-ray shows stable chronic interstitial lung disease Repeat chest xray Stable chronic lung disease (12/06/21) BNP elevated at 981 (12/04/21) Continue furosemide 40 mg PO BID Fluid restriction Prudencio hose Trend urine output Weight decreasing from 95-92.1kg Echo showed: EF of 50-55% with an indeterminant diastolic dysfunction Acute exacerbation of diastolic heart failure Bilateral edema better (2) Generalized weakness: Code(s): R53.1 - Weakness Status: Acute Assessment and Plan: Unable to move bilateral lower extremities Getting better History of Parkinson's disease Currently on carbidopa levodopa PT and OT Probably related to fluid overload (3) Parkinson disease: Code(s): G20 - Parkinson's disease Status: Acute Assessment and Plan: Continue carbidopa levodopa Consider Neurology PT and OT (4) 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 prison 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: Code(s): Z79.01 - custodial (current) use of anticoagulants Status: Acute Assessment and Plan: History of DVT and PE Currently in AFib Continue home Xarelto (5) Persistent atrial fibrillation: Code(s): I48.19 - Other persistent atrial fibrillation Status: Chronic Assessment and Plan: EKG found AFib Continue Xarelto, metoprolol Trend heart rate (6) Acute metabolic encephalopathy: Code(s): G93.41 - Metabolic encephalopathy Status: Acute Assessment and Plan: reports confusion 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 Seems to be resolved at this time Could be from fluid overload or old CVA Continue to monitor orientation Hold trazodone (7) Essential hypertension: Code(s): I10 - Essential (primary) hypertension Status: Chronic Assessment and Plan: Current blood pressure 132/75 Continue home metoprolol 50mg PO Trend blood pressure Adjust therapy as indicated (8) Hyperlipidemia: Code(s): E78.5 - Hyperlipidemia, unspecified Status: Acute Assessment and Plan: Continue home atorvastatin (9) COVID-19: Code(s): U07.1 - COVID-19 Status: Acute Assessment and Plan: Positive test on 12/06/21 No symptoms noted or reported Continue to trend fluid status Trend labs and vital signs (10) Delirium due to general medical condition: Code(s): F05 - Delirium due to known physiological condition Status: Acute Assessment and Plan: Seems to be having some delirium UA sent Will add melatonin for sleep health Encourage a day night sleep schedule Time Spent With Patient Time with patient: Greater than 35 minutes Subjective Date/time seen: 12/08/21 09:30 Interval history: 12/08/21929 Patient remains unchanged today. Still without complaints of chest pain, shortness of breath, nausea, vomiting, diarrhea, or constipation. Still very weak and requiring support for transfer and movement. He reports weakness. Bilateral lower extremities are better and edema is minimal. He does exhibit some signs of delirium and stated that he thinks his . He also stated that he was seeing 2 ceramic figures sitting next to the bed. 12/07/21944 Patient is doing ok today. He was able to get into the chair. He denies any chest pain, shortness of breath, nausea, vomiting, diarrhea, constipation. He is still very weak and is needing to use the [employer] to get around. Was planning for DC today however patient is COVID (+) and is not accepted by the facility that he was going to go to. Care coordination is working on different placement. Have accepting facility however will not be able to
--- NOTE | 2021-12-08 09:30 | P.PNIM_ITS ---
Progress Note: A&P Assessment and Plan (1) CHF exacerbation: Code(s): I50.9 - Heart failure, unspecified Status: Acute Assessment and Plan: * Complains of bilateral lower extremity edema * Chest x-ray shows stable chronic interstitial lung disease * Repeat chest xray Stable chronic lung disease (12/06/21) * BNP elevated at 981 (12/04/21) * Continue furosemide 40 mg PO BID * Fluid restriction * Prudencio hose * Trend urine output * Weight decreasing from 95-92.1kg * Echo showed: EF of 50-55% with an indeterminant diastolic dysfunction * Acute exacerbation of diastolic heart failure * Bilateral edema better (2) Generalized weakness: Code(s): R53.1 - Weakness Status: Acute Assessment and Plan: * Unable to move bilateral lower extremities * Getting better * History of Parkinson's disease * Currently on carbidopa levodopa * PT and OT * Probably related to fluid overload (3) Parkinson disease: Code(s): G20 - Parkinson's disease Status: Acute Assessment and Plan: * Continue carbidopa levodopa * Consider Neurology * PT and OT (4) 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 fdc 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: Code(s): 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 Status: Acute Assessment and Plan: * History of DVT and PE * Currently in AFib * Continue home Xarelto (5) Persistent atrial fibrillation: Code(s): I48.19 - Other persistent atrial fibrillation Status: Chronic Assessment and Plan: * EKG found AFib * Continue Xarelto, metoprolol * Trend heart rate (6) Acute metabolic encephalopathy: Code(s): G93.41 - Metabolic encephalopathy Status: Acute Assessment and Plan: * reports confusion * 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 * Seems to be resolved at this time * Could be from fluid overload or old CVA * Continue to monitor orientation * Hold trazodone (7) Essential hypertension: Code(s): I10 - Essential (primary) hypertension Status: Chronic Assessment and Plan: * Current blood pressure 132/75 * Continue home metoprolol 50mg PO * Trend blood pressure * Adjust therapy as indicated (8) Hyperlipidemia: Code(s): E78.5 - Hyperlipidemia, unspecified Status: Acute Assessment and Plan: * Continue home atorvastatin (9) COVID-19: Code(s): U07.1 - COVID-19 Status: Acute Assessment and Plan: * Positive test on 12/06/21 * No symptoms noted or reported * Continue to trend fluid status * Trend labs and vital signs (10) Delirium due to general medical condition: Code(s): F05 - Delirium due to known physiological condition Status: Acute Assessment and Plan: * Seems to be having some delirium * UA sent * Will add melatonin for sleep health * Encourage a day night sleep schedule Time Spent With Patient Time with patient: Greater than 35 minutes Subjective Date/time seen: 12/08/21 09:30 Interval history: 12/08/21929 Patient remains unchanged today. Still without complaints of chest pain, shortness of breath, nausea, vomiting, diarrhea, or constipation. Still very weak and requiring support for transfer and movement. He reports weakness. Vimala
[2021-12-08 14:00] VITALS: BP 109/60; PULSE 90; RESP 18; TEMP 36.9; O2SAT 99
[2021-12-08 15:14] LABS: Appearance Urine Clear (Clear); Bilirubin Urine 1+ (Negative); Blood Urine 3+ (Negative); Color Urine Yellow (Yellow); Glucose Urine UA Negative (Negative); Ketones Urine Trace mg/dL (Negative); Leukocyte Esterase Ur 2+ LEU/UL (Negative); Nitrate Urine Negative (Negative); Protein Urine 1+ mg/dL (Negative)
[2021-12-08 15:26] LABS: Add Urine Microscopic? YES; Bacteria Urine Trace /hpf; Mucus Urine Rare /lpf; RBC Urine >75 /hpf (0-2); Squamous Epithelial Cell Urine Rare /hpf (Few); WBC Urine 31-50 /hpf
[2021-12-08] MEDS: RIVAROXABAN 20 MG TABLET PO (16:23)
[2021-12-08 20:25] VITALS: BP 117/79; PULSE 78; RESP 18; TEMP 36.6; O2SAT 100
[2021-12-08] MEDS: ATORVASTATIN 20 MG TABLET PO (21:07)
[2021-12-08] MEDS: MELATONIN 5 MG TABLET PO (21:07)
[2021-12-09 04:16] VITALS: BP 144/70; PULSE 83; RESP 17; TEMP 36.6; O2SAT 99
[2021-12-09 05:21] LABS: Basophils Percent Auto 0.3 % (0.2-1.2); Eosinophils Absolute Auto 0.1 K/mm3 (0-0.3); Eosinophils Percent Auto 1.5 % (0-4.4); Hematocrit 43.5 % (42.0-52.0); Hemoglobin 14.4 g/dL (14.0-18.0); Immature Granulocyte Absolute 0.05 K/mm3 (0.00-0.031); Immature Granulocyte Percent A 0.5 % (0-0.5); Lymphocytes Absolute Auto 1.94 K/mm3 (0.9-3.2); Lymphocytes Percent Auto 20.7 % (18.3-44.2); Mean Corpuscular HGB Conc 33.1 g/dl (32-36); Mean Corpuscular Hemoglobin 30.7 pg (26-34); Mean Corpuscular Volume 92.8 fl (80-100); Mean Platelet Volume 9.9 fl (7.4-10.4); Monocytes Absolute Auto 1.5 K/mm3 (0.1-0.6); Monocytes Percent Auto 15.9 % (2.6-8.5); Neutrophils Absolute Auto 5.7 K/mm3 (1.3-6.7); Neutrophils Percent Auto 61.1 % (45.5-73.1); Platelet Count Result 225 k/mm3 (150-375); Red Blood Count 4.69 M/mm3 (4.6-6.20); Red Cell Distribution Width 14.3 % (11.5-14.5); White Blood Count 9.4 K/mm3 (4.5-10.0)
[2021-12-09 05:34] LABS: Albumin Level 3.5 g/dL (3.5-5.1); Alkaline Phosphatase 66 U/L (38-126); Anion Gap 4 mmol/L (8-16); Aspartate Amino Transferase 18 U/L (17-59); Bilirubin,Total 1.3 mg/dL (0.2-1.3); Blood Urea Nitrogen 13 mg/dL (9-20); Calcium 8.1 mg/dL (8.4-10.2); Carbon Dioxide 30 mmol/L (22-30); Chloride 101 mmol/L (98-107); Estimated CRCL calculation 77 ml/min; Estimated Glomerular Filt Rate > 60; Glucose 117 mg/dL (65-110); Magnesium 1.8 mg/dL (1.6-2.3); Potassium 3.6 mmol/L (3.4-5.0); Sodium 135 mmol/L (137-145)
[2021-12-09 05:51] LABS: Alanine Aminotransferase < 6 U/L (6-50)
[2021-12-09 08:04] VITALS: PULSE 84
[2021-12-09] MEDS: METOPROLOL SUCCINATE EXT REL 50 MG TABCR PO (08:04)
[2021-12-09] MEDS: ASPIRIN 81 MG ENTERIC TABLET PO (08:04)
[2021-12-09] MEDS: CARBIDOPA/LEVODOPA 12.5/50 MG TABLET 1 TABLET PO ×4 (08:04→20:03)
[2021-12-09] MEDS: FUROSEMIDE 40 MG TABLET PO ×2 (08:04→16:50)
[2021-12-09] MEDS: CARBIDOPA/LEVODOPA 25/100 MG TABLET 1 TABLET PO ×4 (08:04→20:02)
[2021-12-09] MEDS: POTASSIUM CHLORIDE 20 MEQ TABLET.ER 40 MEQ PO (08:05)
--- NOTE | 2021-12-09 08:45 | P.PNIM_ITS ---
Progress Note: A&P Assessment and Plan (1) CHF exacerbation: Code(s): I50.9 - Heart failure, unspecified Status: Acute Assessment and Plan: * Complains of bilateral lower extremity edema * Chest x-ray shows stable chronic interstitial lung disease * Repeat chest xray Stable chronic lung disease (12/06/21) * BNP elevated at 981 (12/04/21) * Continue furosemide 40 mg PO BID * Fluid restriction * Prudencio hose * Trend urine output * Weight today is 88.1 kg * Echo showed: EF of 50-55% with an indeterminant diastolic dysfunction * Acute exacerbation of diastolic heart failure * Bilateral edema better (2) Abnormal urinalysis: Code(s): R82.90 - Unspecified abnormal findings in urine Status: Acute Assessment and Plan: * UA shows 2+ leukocyte esterase, 31-50 white blood cells with trace bacteria * Ceftriaxone initiated * Cultures pending * Adjust antibiotics to culture results * Trend urine output (3) Acute metabolic encephalopathy: Code(s): G93.41 - Metabolic encephalopathy Status: Acute Assessment and Plan: * reports confusion * 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 * Seems to have some delirium * UA appears infective at this time * Antibiotics started * Melatonin added for sleep health * Could be from fluid overload or old CVA * Continue to monitor orientation * Hold trazodone (4) Generalized weakness: Code(s): R53.1 - Weakness Status: Acute Assessment and Plan: * Getting better * History of Parkinson's disease * Currently on carbidopa levodopa * PT and OT * Probably related to fluid overload (5) Parkinson disease: Code(s): G20 - Parkinson's disease Status: Acute Assessment and Plan: * Continue carbidopa levodopa * Consider Neurology * PT and OT (6) 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 retirement 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: Code(s): 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 Status: Acute Assessment and Plan: * History of DVT and PE * Currently in AFib * Continue home Xarelto (7) Persistent atrial fibrillation: Code(s): I48.19 - Other persistent atrial fibrillation Status: Chronic Assessment and Plan: * EKG found AFib * Controlled * Continue Xarelto, metoprolol * Trend heart rate (8) Essential hypertension: Code(s): I10 - Essential (primary) hypertension Status: Chronic Assessment and Plan: * Current blood pressure 132/75 * Continue home metoprolol 50mg PO * Trend blood pressure * Adjust therapy as indicated (9) Hyperlipidemia: Code(s): E78.5 - Hyperlipidemia, unspecified Status: Acute Assessment and Plan: * Continue home atorvastatin (10) COVID-19: Code(s): U07.1 - COVID-19 Status: Acute Assessment and Plan: * Positive test on 12/06/21 * No symptoms noted or reported * Continue to trend fluid status * Trend labs and vital signs Time Spent With Patient Time with patient: Greater than 35 minutes Subjective Date/time seen: 12/09/21 08:45 Interval history: 12/09/21 0845 Patient doing better today. He did state that he does not know why he told me his yesterday. He denies any pain currently nausea, v
--- NOTE | 2021-12-09 08:45 | PM.IMPN ---
Progress Note: A&P Assessment and Plan (1) CHF exacerbation: Code(s): I50.9 - Heart failure, unspecified Status: Acute Assessment and Plan: Complains of bilateral lower extremity edema Chest x-ray shows stable chronic interstitial lung disease Repeat chest xray Stable chronic lung disease (12/06/21) BNP elevated at 981 (12/04/21) Continue furosemide 40 mg PO BID Fluid restriction Prudencio hose Trend urine output Weight today is 88.1 kg Echo showed: EF of 50-55% with an indeterminant diastolic dysfunction Acute exacerbation of diastolic heart failure Bilateral edema better (2) Abnormal urinalysis: Code(s): R82.90 - Unspecified abnormal findings in urine Status: Acute Assessment and Plan: UA shows 2+ leukocyte esterase, 31-50 white blood cells with trace bacteria Ceftriaxone initiated Cultures pending Adjust antibiotics to culture results Trend urine output (3) Acute metabolic encephalopathy: Code(s): G93.41 - Metabolic encephalopathy Status: Acute Assessment and Plan: reports confusion 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 Seems to have some delirium UA appears infective at this time Antibiotics started Melatonin added for sleep health Could be from fluid overload or old CVA Continue to monitor orientation Hold trazodone (4) Generalized weakness: Code(s): R53.1 - Weakness Status: Acute Assessment and Plan: Getting better History of Parkinson's disease Currently on carbidopa levodopa PT and OT Probably related to fluid overload (5) Parkinson disease: Code(s): G20 - Parkinson's disease Status: Acute Assessment and Plan: Continue carbidopa levodopa Consider Neurology PT and OT (6) 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: Code(s): Z79.01 - group home (current) use of anticoagulants Status: Acute Assessment and Plan: History of DVT and PE Currently in AFib Continue home Xarelto (7) Persistent atrial fibrillation: Code(s): I48.19 - Other persistent atrial fibrillation Status: Chronic Assessment and Plan: EKG found AFib Controlled Continue Xarelto, metoprolol Trend heart rate (8) Essential hypertension: Code(s): I10 - Essential (primary) hypertension Status: Chronic Assessment and Plan: Current blood pressure 132/75 Continue home metoprolol 50mg PO Trend blood pressure Adjust therapy as indicated (9) Hyperlipidemia: Code(s): E78.5 - Hyperlipidemia, unspecified Status: Acute Assessment and Plan: Continue home atorvastatin (10) COVID-19: Code(s): U07.1 - COVID-19 Status: Acute Assessment and Plan: Positive test on 12/06/21 No symptoms noted or reported Continue to trend fluid status Trend labs and vital signs Time Spent With Patient Time with patient: Greater than 35 minutes Subjective Date/time seen: 12/09/21 08:45 Interval history: 12/09/21 0845 Patient doing better today. He did state that he does not know why he told me his yesterday. He denies any pain currently nausea, vomiting, diarrhea, constipation, weakness or fatigue. Legs and ankles do look better along with his feet. UA does look to be infected patient was started on IV antibiotics awaiting culture results. Called and gave his an update, left message as she did not answer. 12/08/21 0930 Patient remains unchanged today. Still without complaints of chest pain, shortness of breath, nausea, vomiting, diarrhea, or constipation. Still very weak and requiring support for transfer and movement. He reports weakness. Bilateral lower extremities are better and edema is minimal. He does exhibit some signs of delirium and stated that he thinks his . He also stated that he was seeing 2 ceram
[2021-12-09 14:00] VITALS: BP 101/59; PULSE 82; RESP 18; TEMP 36.4; O2SAT 100
[2021-12-09] MEDS: RIVAROXABAN 20 MG TABLET PO (16:50)
[2021-12-09 20:00] VITALS: PULSE 80; RESP 20; O2SAT 96
[2021-12-09] MEDS: ATORVASTATIN 20 MG TABLET PO (20:02)
[2021-12-09] MEDS: MELATONIN 5 MG TABLET PO (20:02)
[2021-12-09 20:13] VITALS: BP 125/78; PULSE 80; RESP 20; TEMP 35.9; O2SAT 96
[2021-12-10] VITALS (7 sets, daily range): BP systolic 106–119; BP diastolic 62–82; PULSE 72–94; RESP 16–22; TEMP 36.2–36.3; O2SAT 96–100
[2021-12-10 05:13] LABS: Basophils Percent Auto 0.3 % (0.2-1.2); Eosinophils Absolute Auto 0.3 K/mm3 (0-0.3); Eosinophils Percent Auto 2.9 % (0-4.4); Hematocrit 43.8 % (42.0-52.0); Hemoglobin 14.2 g/dL (14.0-18.0); Immature Granulocyte Absolute 0.08 K/mm3 (0.00-0.031); Immature Granulocyte Percent A 0.8 % (0-0.5); Lymphocytes Absolute Auto 1.84 K/mm3 (0.9-3.2); Mean Corpuscular HGB Conc 32.4 g/dl (32-36); Mean Corpuscular Hemoglobin 30.7 pg (26-34); Mean Corpuscular Volume 94.6 fl (80-100); Monocytes Absolute Auto 1.3 K/mm3 (0.1-0.6); Monocytes Percent Auto 13.4 % (2.6-8.5); Neutrophils Absolute Auto 6.1 K/mm3 (1.3-6.7); Neutrophils Percent Auto 63.6 % (45.5-73.1); Platelet Count Result 239 k/mm3 (150-375); Red Blood Count 4.63 M/mm3 (4.6-6.20); Red Cell Distribution Width 14.4 % (11.5-14.5); White Blood Count 9.7 K/mm3 (4.5-10.0)
[2021-12-10 05:27] LABS: Albumin Level 3.6 g/dL (3.5-5.1); Alkaline Phosphatase 66 U/L (38-126); Anion Gap 6 mmol/L (8-16); Aspartate Amino Transferase 17 U/L (17-59); Bilirubin,Total 0.9 mg/dL (0.2-1.3); Blood Urea Nitrogen 15 mg/dL (9-20); Calcium 8.1 mg/dL (8.4-10.2); Carbon Dioxide 31 mmol/L (22-30); Chloride 98 mmol/L (98-107); Estimated CRCL calculation 77 ml/min; Estimated Glomerular Filt Rate > 60; Glucose 116 mg/dL (65-110); Magnesium 1.9 mg/dL (1.6-2.3); Potassium 3.4 mmol/L (3.4-5.0); Sodium 135 mmol/L (137-145)
[2021-12-10 05:40] LABS: Alanine Aminotransferase < 6 U/L (6-50)
[2021-12-10] MEDS: AMPICILLIN TRIHYDRATE 500 MG CAPSULE PO ×2 (08:03→11:34)
[2021-12-10] MEDS: ASPIRIN 81 MG ENTERIC TABLET PO (08:03)
[2021-12-10] MEDS: FUROSEMIDE 40 MG TABLET PO ×2 (08:04→16:06)
[2021-12-10] MEDS: CARBIDOPA/LEVODOPA 25/100 MG TABLET 1 TABLET PO ×4 (08:04→20:42)
[2021-12-10] MEDS: METOPROLOL SUCCINATE EXT REL 50 MG TABCR PO (08:04)
[2021-12-10] MEDS: POTASSIUM CHLORIDE 20 MEQ TABLET.ER 40 MEQ PO (08:05)
[2021-12-10] MEDS: CARBIDOPA/LEVODOPA 12.5/50 MG TABLET 1 TABLET PO ×4 (08:07→20:42)
--- NOTE | 2021-12-10 11:30 | P.PNIM_ITS ---
Progress Note: A&P Assessment and Plan (1) CHF exacerbation: Code(s): I50.9 - Heart failure, unspecified Status: Acute Assessment and Plan: * Complains of bilateral lower extremity edema * Chest x-ray shows stable chronic interstitial lung disease * Repeat chest xray Stable chronic lung disease (12/06/21) * BNP elevated at 981 (12/04/21) * Continue 40 mg PO BID furosemide * Fluid restriction * Prudencio hose * Trend urine output * Weight decreasing 88.1 kg * Echo showed: EF of 50-55% with an indeterminant diastolic dysfunction * Acute exacerbation of diastolic heart failure (2) UTI (urinary tract infection): Code(s): N39.0 - Urinary tract infection, site not specified Status: Acute Assessment and Plan: * UA shows 2+ leukocyte esterase, 31-50 white blood cells with trace bacteria * Ceftriaxone, changed Augmentin and Bactrim * Cultures Kleb and enterococcus, sensitivities still pending on enterococcus * Trend urine output * Probably the reason for the Confusion * Would be considered complicated due to symptoms will need coverage for 7 days of Augmentin and 5 days of bacterium per ID pharmacist (3) Generalized weakness: Code(s): R53.1 - Weakness Status: Acute Assessment and Plan: * Getting better, seems to be resolved * History of Parkinson's disease * Currently on carbidopa levodopa * PT and OT * Probably related to fluid overload (4) Acute metabolic encephalopathy: Code(s): G93.41 - Metabolic encephalopathy Status: Acute Assessment and Plan: * reports confusion * 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 * Seems to have some delirium * UA appears infective at this time * Urine culture positive for Kleb and Enterococcus * Antibiotics changed to Augmentin and bacterium * Melatonin added for sleep health * Could be from fluid overload or old CVA * Continue to monitor orientation * Hold trazodone (5) Parkinson disease: Code(s): G20 - Parkinson's disease Status: Acute Assessment and Plan: * Continue carbidopa levodopa * Consider Neurology * PT and OT (6) 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 penitentiary 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: Code(s): Z79.01 - long-term (current) use of anticoagulants Status: Acute Assessment and Plan: * History of DVT and PE * Currently in AFib * Continue home Xarelto (7) Persistent atrial fibrillation: Code(s): I48.19 - Other persistent atrial fibrillation Status: Chronic Assessment and Plan: * EKG found AFib * Continue Xarelto, metoprolol * Trend heart rate (8) Essential hypertension: Code(s): I10 - Essential (primary) hypertension Status: Chronic Assessment and Plan: * Current blood pressure 115/82 * Continue home metoprolol 50mg PO * Trend blood pressure * Adjust therapy as indicated (9) Hyperlipidemia: Code(s): E78.5 - Hyperlipidemia, unspecified Status: Acute Assessment and Plan: * Continue home atorvastatin (10) COVID-19: Code(s): U07.1 - COVID-19 Status: Acute Assessment and Plan: * Positive test on 12/06/21 * No symptoms noted or reported * Continue to trend fluid status * Trend labs and vital signs
--- NOTE | 2021-12-10 11:30 | PM.IMPN ---
Progress Note: A&P Assessment and Plan (1) CHF exacerbation: Code(s): I50.9 - Heart failure, unspecified Status: Acute Assessment and Plan: Complains of bilateral lower extremity edema Chest x-ray shows stable chronic interstitial lung disease Repeat chest xray Stable chronic lung disease (12/06/21) BNP elevated at 981 (12/04/21) Continue 40 mg PO BID furosemide Fluid restriction Prudencio hose Trend urine output Weight decreasing 88.1 kg Echo showed: EF of 50-55% with an indeterminant diastolic dysfunction Acute exacerbation of diastolic heart failure (2) UTI (urinary tract infection): Code(s): N39.0 - Urinary tract infection, site not specified Status: Acute Assessment and Plan: UA shows 2+ leukocyte esterase, 31-50 white blood cells with trace bacteria Ceftriaxone, changed Augmentin and Bactrim Cultures Kleb and enterococcus, sensitivities still pending on enterococcus Trend urine output Probably the reason for the Confusion Would be considered complicated due to symptoms will need coverage for 7 days of Augmentin and 5 days of bacterium per ID pharmacist (3) Generalized weakness: Code(s): R53.1 - Weakness Status: Acute Assessment and Plan: Getting better, seems to be resolved History of Parkinson's disease Currently on carbidopa levodopa PT and OT Probably related to fluid overload (4) Acute metabolic encephalopathy: Code(s): G93.41 - Metabolic encephalopathy Status: Acute Assessment and Plan: reports confusion 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 Seems to have some delirium UA appears infective at this time Urine culture positive for Kleb and Enterococcus Antibiotics changed to Augmentin and bacterium Melatonin added for sleep health Could be from fluid overload or old CVA Continue to monitor orientation Hold trazodone (5) Parkinson disease: Code(s): G20 - Parkinson's disease Status: Acute Assessment and Plan: Continue carbidopa levodopa Consider Neurology PT and OT (6) 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 longterm 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: Code(s): Z79.01 - 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) 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 of anticoagulants Status: Acute Assessment and Plan: History of DVT and PE Currently in AFib Continue home Xarelto (7) Persistent atrial fibrillation: Code(s): I48.19 - Other persistent atrial fibrillation Status: Chronic Assessment and Plan: EKG found AFib Continue Xarelto, metoprolol Trend heart rate (8) Essential hypertension: Code(s): I10 - Essential (primary) hypertension Status: Chronic Assessment and Plan: Current blood pressure 115/82 Continue home metoprolol 50mg PO Trend blood pressure Adjust therapy as indicated (9) Hyperlipidemia: Code(s): E78.5 - Hyperlipidemia, unspecified Status: Acute Assessment and Plan: Continue home atorvastatin (10) COVID-19: Code(s): U07.1 - COVID-19 Status: Acute Assessment and Plan: Positive test on 12/06/21 No symptoms noted or reported Continue to trend fluid status Trend labs and vital signs Subjective Date/time seen: 12/10/21 11:30 Interval history: 12/10/21 1130 Patient was lying in bed. Patient seems to be doing okay today. He denies any chest pain, shortness of breath, nausea, vomiting, diarrhea, constipation, weakness or fatigue. Legs and seems still be better. Edema has significantly reduced. Patient did come up positive for UTI with Enterococcus Klebsiella will need to wait for sensitivities. 12/09/21 0845 Patient doing better today. He did state that he does not know why he told me his yesterday. He denies any pain currently nausea, vomiting, diarrhea, constipation, weakness or fatigue. Legs and ankles do look better along wi
[2021-12-10] MEDS: RIVAROXABAN 20 MG TABLET PO (16:06)
[2021-12-10] MEDS: MELATONIN 5 MG TABLET PO (20:42)
[2021-12-10] MEDS: AMOXICILLIN/CLAVULANATE K 875-125 MG TAB 1 TABLET PO (20:42)
[2021-12-10] MEDS: ATORVASTATIN 20 MG TABLET PO (20:42)
[2021-12-11 04:51] VITALS: BP 148/80; PULSE 90; RESP 20; TEMP 36; O2SAT 98
[2021-12-11 05:13] LABS: Basophils Percent Auto 0.3 % (0.2-1.2); Eosinophils Absolute Auto 0.3 K/mm3 (0-0.3); Eosinophils Percent Auto 2.8 % (0-4.4); Hematocrit 45.5 % (42.0-52.0); Hemoglobin 14.5 g/dL (14.0-18.0); Immature Granulocyte Absolute 0.09 K/mm3 (0.00-0.031); Immature Granulocyte Percent A 0.9 % (0-0.5); Lymphocytes Absolute Auto 1.63 K/mm3 (0.9-3.2); Lymphocytes Percent Auto 16.6 % (18.3-44.2); Mean Corpuscular HGB Conc 31.9 g/dl (32-36); Mean Corpuscular Hemoglobin 30.1 pg (26-34); Mean Corpuscular Volume 94.4 fl (80-100); Mean Platelet Volume 9.5 fl (7.4-10.4); Monocytes Absolute Auto 1.3 K/mm3 (0.1-0.6); Monocytes Percent Auto 13.5 % (2.6-8.5); Neutrophils Absolute Auto 6.5 K/mm3 (1.3-6.7); Neutrophils Percent Auto 65.9 % (45.5-73.1); Platelet Count Result 270 k/mm3 (150-375); Red Blood Count 4.82 M/mm3 (4.6-6.20); Red Cell Distribution Width 14.3 % (11.5-14.5); White Blood Count 9.8 K/mm3 (4.5-10.0)
[2021-12-11 05:26] LABS: Alanine Aminotransferase 6 U/L (6-50); Albumin Level 3.6 g/dL (3.5-5.1); Alkaline Phosphatase 66 U/L (38-126); Anion Gap 7 mmol/L (8-16); Aspartate Amino Transferase 16 U/L (17-59); Bilirubin,Total 0.7 mg/dL (0.2-1.3); Blood Urea Nitrogen 17 mg/dL (9-20); Calcium 8.2 mg/dL (8.4-10.2); Carbon Dioxide 26 mmol/L (22-30); Chloride 102 mmol/L (98-107); Estimated CRCL calculation 77 ml/min; Estimated Glomerular Filt Rate > 60; Glucose 127 mg/dL (65-110); Potassium 3.8 mmol/L (3.4-5.0); Sodium 135 mmol/L (137-145)
[2021-12-11] MEDS: CARBIDOPA/LEVODOPA 12.5/50 MG TABLET 1 TABLET PO (08:14)
[2021-12-11 08:15] VITALS: PULSE 81
[2021-12-11] MEDS: ASPIRIN 81 MG ENTERIC TABLET PO (08:15)
[2021-12-11] MEDS: FUROSEMIDE 40 MG TABLET PO (08:15)
[2021-12-11] MEDS: METOPROLOL SUCCINATE EXT REL 50 MG TABCR PO (08:15)
[2021-12-11] MEDS: AMOXICILLIN/CLAVULANATE K 875-125 MG TAB 1 TABLET PO (08:15)
[2021-12-11] MEDS: POTASSIUM CHLORIDE 20 MEQ TABLET.ER 40 MEQ PO (08:15)
[2021-12-11] MEDS: CARBIDOPA/LEVODOPA 25/100 MG TABLET 1 TABLET PO (08:15)
[2021-12-11 08:20] VITALS: BP 120/80; PULSE 81; O2SAT 99
--- NOTE | 2021-12-11 09:30 | P.DS_ITS ---
DS: Admitting Diagnosis Discharge Date 12/11/21929 Admitting Diagnosis CHF exacerbation/Bilateral lower extremity edema/UTI DS: Discharge Diagnosis Discharge Diagnosis (1) CHF exacerbation: Code(s): I50.9 - Heart failure, unspecified Status: Acute Assessment and Plan: * Complains of bilateral lower extremity edema * Chest x-ray shows stable chronic interstitial lung disease * Repeat chest xray Stable chronic lung disease (12/06/21) * BNP elevated at 981 (12/04/21) * Continue 40 mg PO BID * Fluid restriction * Prudencio hose * Trend urine output * Weight decreasing 88.1 kg * Echo showed: EF of 50-55% with an indeterminant diastolic dysfunction * Acute exacerbation of diastolic heart failure (2) UTI (urinary tract infection): Code(s): N39.0 - Urinary tract infection, site not specified Status: Acute Assessment and Plan: * UA shows 2+ leukocyte esterase, 31-50 white blood cells with trace bacteria * Ceftriaxone, changed Augmentin and Bactrim * Cultures Kleb and enterococcus * Trend urine output * Probably the reason for the Confusion * Would be considered complicated due to symptoms will need coverage for 7 days of Augmentin and 5 days of bacterium per ID pharmacist (3) Generalized weakness: Code(s): R53.1 - Weakness Status: Acute Assessment and Plan: * Getting better, seems to be resolved * History of Parkinson's disease * Currently on carbidopa levodopa * PT and OT * Probably related to fluid overload (4) Acute metabolic encephalopathy: Code(s): G93.41 - Metabolic encephalopathy Status: Acute Assessment and Plan: * reports confusion * 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 * Seems to have some delirium * UA appears infective at this time * Urine culture positive for Kleb and Enterococcus * Antibiotics changed to ampicillin * Melatonin added for sleep health * Could be from fluid overload or old CVA * Continue to monitor orientation * Hold trazodone (5) Parkinson disease: Code(s): G20 - Parkinson's disease Status: Acute Assessment and Plan: * Continue carbidopa levodopa * Consider Neurology * PT and OT (6) 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: Code(s): Z79.01 - 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 Status: Acute Assessment and Plan: * History of DVT and PE * Currently in AFib * Continue home Xarelto (7) Persistent atrial fibrillation: Code(s): I48.19 - Other persistent atrial fibrillation Status: Chronic Assessment and Plan: * EKG found AFib * Continue Xarelto, metoprolol * Trend heart rate (8) Essential hypertension: Code(s): I10 - Essential (primary) hypertension Status: Chronic Assessment and Plan: * Current blood pressure 148/80 * Continue home metoprolol 50mg PO * Trend blood pressure * Adjust therapy as indicated (9) Hyperlipidemia: Code(s): E78.5 - Hyperlipidemia, unspecified Status: Acute Assessment and Plan: * Continue home atorvastatin (10) COVID-19: Code(s): U07.1 - COVID-19 Status: Acute Assessment and Plan: * Positive test on 12/06/21 * No symptoms noted
--- NOTE | 2021-12-11 09:30 | PM.DS ---
DS: Admitting Diagnosis Discharge Date 12/11/21 0930 Admitting Diagnosis CHF exacerbation/Bilateral lower extremity edema/UTI DS: Discharge Diagnosis Discharge Diagnosis (1) CHF exacerbation: Code(s): I50.9 - Heart failure, unspecified Status: Acute Assessment and Plan: Complains of bilateral lower extremity edema Chest x-ray shows stable chronic interstitial lung disease Repeat chest xray Stable chronic lung disease (12/06/21) BNP elevated at 981 (12/04/21) Continue 40 mg PO BID Fluid restriction Prudencio hose Trend urine output Weight decreasing 88.1 kg Echo showed: EF of 50-55% with an indeterminant diastolic dysfunction Acute exacerbation of diastolic heart failure (2) UTI (urinary tract infection): Code(s): N39.0 - Urinary tract infection, site not specified Status: Acute Assessment and Plan: UA shows 2+ leukocyte esterase, 31-50 white blood cells with trace bacteria Ceftriaxone, changed Augmentin and Bactrim Cultures Kleb and enterococcus Trend urine output Probably the reason for the Confusion Would be considered complicated due to symptoms will need coverage for 7 days of Augmentin and 5 days of bacterium per ID pharmacist (3) Generalized weakness: Code(s): R53.1 - Weakness Status: Acute Assessment and Plan: Getting better, seems to be resolved History of Parkinson's disease Currently on carbidopa levodopa PT and OT Probably related to fluid overload (4) Acute metabolic encephalopathy: Code(s): G93.41 - Metabolic encephalopathy Status: Acute Assessment and Plan: reports confusion 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 Seems to have some delirium UA appears infective at this time Urine culture positive for Kleb and Enterococcus Antibiotics changed to ampicillin Melatonin added for sleep health Could be from fluid overload or old CVA Continue to monitor orientation Hold trazodone (5) Parkinson disease: Code(s): G20 - Parkinson's disease Status: Acute Assessment and Plan: Continue carbidopa levodopa Consider Neurology PT and OT (6) 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 terminal 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5 - Hyperlipidemia, unspecified Status: Acute Assessment and Plan: Continue home atorvastatin (10) COVID-19: Code(s): U07.1 - COVID-19 Status: Acute Assessment and Plan: Positive test on 12/06/21 No symptoms noted or reported Continue to trend fluid status Trend labs and vital signs DS: Summary Hospital Course Hospital Course: Patient is an 81-year-old male with a past medical history of Parkinson's, CHF, AFib who presented to the ED with bilateral lower extremity it edema and weakness. Patient was given 4 doses Lasix. Patient was also placed on a 1500 mL fluid restriction. PT and OT to work with the patient due to extremity weakness. Patient's weight has reduced and patient has been wearing compression hose. Echo showed EF of 50-55% with indeterminate diastolic dysfunction. Weights were on trend and patient has been trending down. Urine output has been says sufficient. Renal f
== END 2021-12-11 12:15 | DRG 291 ==
LOC: ANHED 10:56 → ANH2MED 15:11
PROVIDERS: Physician Assistant; Admitting Provider Chiropractor; Emergency Provider Emergency Medicine; PCP Family Medicine; Visit Provider Nurse Practitioner
DX: I11.0 Hypertensive heart disease with heart failure (principal); I50.33 Acute on chronic diastolic (congestive) heart failure; G93.41 Metabolic encephalopathy; U07.1 COVID-19; N39.0 Urinary tract infection, site not specified; I48.19 Other persistent atrial fibrillation; F05 Delirium due to known physiological condition; B96.1 Klebsiella pneumoniae [K. pneumoniae] as the cause of diseases classified elsewhere; B95.2 Enterococcus as the cause of diseases classified elsewhere; G20 Parkinson's disease; M19.90 Unspecified osteoarthritis, unspecified site; I73.9 Peripheral vascular disease, unspecified; E78.5 Hyperlipidemia, unspecified; L71.9 Rosacea, unspecified; Z86.711 Personal history of pulmonary embolism; Z86.718 Personal history of other venous thrombosis and embolism; Z86.73 Personal history of transient ischemic attack (TIA), and cerebral infarction without residual deficits; Z85.51 Personal history of malignant neoplasm of bladder; Z85.828 Personal history of other malignant neoplasm of skin; Z79.01 Long term (current) use of anticoagulants; Z87.442 Personal history of urinary calculi
CPT/HCPCS: 36415; 70450; 71045; 71046; 80053; 81001; 82550; 83735; 83880; 84484; 85025; 87077; 87086; 87147; 87181; 87186; 87426; 93005; 93306; 96374; 96376; 97110; 97161; 97165; 97530; 97535; 99285; A9270; C9803; G0378; J0696; J1630; J1940; U0003; U0005

== ENCOUNTER 2022-02-05 13:02 | Outpatient (RCR) | payer MEDICARE, SELFPAY ==
--- NOTE | 2022-02-05 14:17 | PTOPEVAL ---
Thank you for referring Ace Sharp to [facility].? The patient is scheduled to be seen for therapy? ____x/week for ___ weeks. Please review, sign, date and return this plan of care ASHA. I agree with and certify that the following plan of care is medically necessary. Referring Physician Date Admitting Provider: Attending Provider: Loy Florian MD Referring Provider: *PT Outpatient Evaluation Start: 02/05/22 13:18 Freq: Status: Active Protocol: Document 02/05/22 13:15 [facility] (Rec: 02/05/22 14:17 [facility] [id number]) Therapy Assessment Status Assessment Status Assessment Status Evaluation Outpatient Past Medical History Neurological History Hx Parkinson's Disease Yes: RT HAND SHAKES,SHUFFLING FEET Hx Transient Ischemic Attacks (TIA) Yes Cardiovascular History Hx Atrial Fibrillation Yes: HX Hx Congestive Heart Failure Yes Hx Deep Vein Thrombosis Yes: 2005. 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 Respiratory History Hx Pulmonary Embolism Yes: 2005 Gastrointestinal History Hx Bowel Surgery Yes: SMALL BOWEL RESECTION FOR OBSTRUCTION 2017 Hx Obstructive Bowel Yes: 2017 Genitourinary History Hx Urinary Tract Infection Yes Hx Other Genitourinary Disorders Yes: BLADDER TUMOR - TURBT NOVEMBER 2019 Musculoskeletal History Hx Arthritis Yes Hx Crutches or Walker Use Yes Query Text:If Yes, Enter Crutches, Walker, or Both in the Comment Hx Fractures Yes: RT LEG REPAIR 1975 Hx Orthopedic Surgery Yes Hematological History Hx Hematological Disorders No Significant History Endocrine History Hx Diabetes Yes: 2020 HEENT History Hx Cataracts Yes: BILAT SURG. Hx Other HEENT Disorders Yes: READING GLASSES Integumentary History Hx Skin Disorders No Significant History Reproductive History Hx Reproductive Disorders No Significant History Psychosocial History Hx Psychiatric Disorders No Significant History Pain History History of Any Previous or Ongoing No Significant History Instance of Pain Anesthesia History Hx Anesthesia Reactions No Significant History Other History Hx Cancer Yes: bladder cancer Evaluation Information Problem Diagnosis generalized weakness, unsteady gait Onset 12/04/21 Subjective Information patient reports he is wanting Query Text:As Reported By Patient/ to get to walking with his Family
--- NOTE | 2022-03-08 15:03 | PTOPDC ---
Assessment and note entered by JT File, PT Evaluation Information Assessment Status Evaluation Diagnosis generalized weakness, unsteady gait Onset 12/04/21 Subjective Information patient reports he feels good this date. he reports he has had no falls. he reports the only pain he has is in his L knee. he reports he is tring to walk more at home. Reported Pain Level Pain Score 4: Self Report Assessment PT Clinical Summary mr. rascon presents to skilled PT services for his 12th skilled PT visit as of this date, he has improved in his TUG time, 5x sit to stand time, and his LE strength. however, he still remains a fall risk due to his medical diagnosis, age, and tinetti score. patient has made progress towads goals, and despite his continued fall risk, plan is to DC therapy this date. he will continue with exercises and activities at fall prevention class and return to therapy for any future change in status. Plan of Care Treatment Frequency and DC to independent HEP and fall prevention class 2x Duration weekly
== END 2022-03-08 16:23 | disposition home or self-care (01) ==
LOC: CHSPT 13:02
PROVIDERS: PCP Family Medicine; Visit Provider Family Medicine
DX: R26.89 Other abnormalities of gait and mobility (principal); R26.9 Unspecified abnormalities of gait and mobility; R53.1 Weakness
CPT/HCPCS: 97110; 97116; 97161; 97530

== ENCOUNTER 2022-03-28 13:35 | Outpatient (CLI) | payer MEDICARE, SELFPAY ==
[2022-03-28 14:00] LABS: Anion Gap 8 mmol/L (8-16); Blood Urea Nitrogen 23 mg/dL (9-20); Calcium 8.7 mg/dL (8.4-10.2); Carbon Dioxide 28 mmol/L (22-30); Chloride 103 mmol/L (98-107); Estimated Glomerular Filt Rate > 60; Glucose 103 mg/dL (65-110); Potassium 4.5 mmol/L (3.4-5.0); Sodium 139 mmol/L (137-145)
== END 2022-03-28 13:36 | disposition home or self-care (01) ==
LOC: ANHLAB 13:37
PROVIDERS: PCP Family Medicine; Visit Provider Nurse Practitioner Adult Health
DX: I50.32 Chronic diastolic (congestive) heart failure (principal)
CPT/HCPCS: 36415; 80048

== ENCOUNTER 2022-05-29 07:27 | Outpatient (CLI) | payer MEDICARE, SELFPAY ==
[2022-05-29 07:41] LABS: Hematocrit 47.7 % (37.0-46.0); Hemoglobin 15.3 g/dL (12.4-15.3); Mean Corpuscular HGB Conc 32.1 g/dL (32.0-36.0); Mean Corpuscular Hemoglobin 30.7 pg (27.0-31.0); Mean Corpuscular Volume 95.8 fL (78.0-102.0); Mean Platelet Volume 9.5 fl (8.7-11.0); Platelet Count Result 206 K/mm3 (150-420); Red Blood Count 4.98 M/mm3 (4.70-6.10); Red Cell Distribution Width 13.2 % (11.6-14.4); White Blood Count 8.5 K/mm3 (4.8-10.8)
[2022-05-29 07:54] LABS: Hemoglobin A1C 6.1 % (<5.7)
[2022-05-29 08:21] LABS: Alanine Aminotransferase 20 U/L (16-63); Albumin Level 3.7 g/dL (3.4-5.0); Alkaline Phosphatase 71 U/L (46-116); Anion Gap 8 mmol/L (8-16); Aspartate Amino Transferase 17 U/L (15-37); Bilirubin,Total 0.6 mg/dL (0.00-1.00); Blood Urea Nitrogen 19 mg/dL (7-18); Calcium 8.4 mg/dL (8.5-10.1); Carbon Dioxide 33 mmol/L (21-32); Chloride 104 mmol/L (98-108); Cholesterol 132 mg/dL (0-200); Estimated Glomerular Filt Rate > 60; Glucose 108 mg/dL (70-99); HDL Direct 42 mg/dL (40-60); LDL Cholesterol Calculated 73 mg/dL (<130); Osmolality Calculated 303 mOsm/kg (285-295); Potassium 3.8 mmol/L (3.5-5.1); Sodium 145 mmol/L (136-145); Thyroid Stimulating Hormone 4.16 uIU/mL (0.36-3.74); Total Protein 6.7 g/dL (6.4-8.2); Triglycerides 85 mg/dL (0-150)
[2022-05-29 09:55] LABS: Bilirubin Urine Negative (Negative); Blood Urine 3+ (Negative); Glucose Urine UA Negative (Negative); Ketones Urine Negative (Negative); Leukocyte Esterase Ur 2+ (Negative); Nitrate Urine Negative (Negative); Protein Urine Negative (Negative); Specific Grav Ur 1.015 (1.010-1.020); Urobilinogen Urine 0.2 mg/dL (0.2-1.0); pH Urine 6.5 (5.0-8.0)
[2022-05-29 10:10] LABS: Add Urine Microscopic? YES; Appearance Urine Slightly Cloudy (Clear); Color Urine Light Yellow (Yellow); RBC Urine 51-75 /hpf (0-2)
[2022-05-29 10:11] LABS: Bacteria Urine 1+ /hpf; Renal Epithelial Cells Urine Few /hpf; Squamous Epithelial Cell Urine Few /hpf (Few)
== END 2022-05-29 07:28 | disposition home or self-care (01) ==
LOC: CHSLAB 07:29
PROVIDERS: PCP Family Medicine; Visit Provider Family Medicine
DX: E78.00 Pure hypercholesterolemia, unspecified (principal); E78.5 Hyperlipidemia, unspecified; I50.9 Heart failure, unspecified; R73.01 Impaired fasting glucose; I10 Essential (primary) hypertension; Z00.00 Encounter for general adult medical examination without abnormal findings
CPT/HCPCS: 36415; 80053; 80061; 81001; 83036; 84443; 85027

== ENCOUNTER 2022-07-15 10:54 | Outpatient (CLI) | payer MEDICARE, SELFPAY ==
[2022-07-15 11:29] LABS: Anion Gap 8 mmol/L (8-16); Blood Urea Nitrogen 24 mg/dL (7-18); Calcium 8.4 mg/dL (8.5-10.1); Carbon Dioxide 32 mmol/L (21-32); Chloride 102 mmol/L (98-108); Estimated Glomerular Filt Rate > 60; Glucose 112 mg/dL (70-99); Osmolality Calculated 299 mOsm/kg (285-295); Potassium 4.1 mmol/L (3.5-5.1); Sodium 142 mmol/L (136-145)
== END 2022-07-15 10:55 | disposition home or self-care (01) ==
LOC: CHSLAB 10:58
PROVIDERS: PCP Family Medicine; Visit Provider Internal Medicine Cardiovascular Disease
DX: I50.33 Acute on chronic diastolic (congestive) heart failure (principal)
CPT/HCPCS: 36415; 80048

== ENCOUNTER 2022-09-20 09:52 | Outpatient (CLI) | payer MEDICARE, SELFPAY ==
[2022-09-20 10:42] LABS: Bacteria Urine None Seen /hpf; Need Manual Microscopic Reviewed; Non Pathogenic Casts 0-2; RBC Urine >100 /hpf (0-2); Squamous Epithelial Cell Urine Moderate /hpf (Few); WBC Urine 51-100 /hpf (0-3)
[2022-09-20 10:44] LABS: Appearance Urine Cloudy (Clear); Bilirubin Urine 1+ (Negative); Blood Urine 3+ (Negative); Color Urine Red (Yellow); Glucose Urine UA Negative (Negative); Ketones Urine Negative (Negative); Leukocyte Esterase Ur 1+ LEU/UL (NEGATIVE); Nitrate Urine Negative (Negative); Protein Urine 2+ mg/dL (Negative); Specific Grav Ur 1.021 (1.001-1.035); pH Urine 5.5 (5.0-9.0)
[2022-09-20 10:46] LABS: Add Urine Microscopic? YES
== END 2022-09-20 09:53 | disposition home or self-care (01) ==
PROVIDERS: PCP Family Medicine; Visit Provider Physician Assistant
DX: R31.9 Hematuria, unspecified (principal); Z87.440 Personal history of urinary (tract) infections; N39.0 Urinary tract infection, site not specified
CPT/HCPCS: 81001; 87086; 87088

== ENCOUNTER 2022-11-06 07:58 | Outpatient (CLI) | payer MEDICARE, SELFPAY ==
--- NOTE | ~2022-11-06 | CT_ITS ---
EXAMINATION: CT abdomen pelvis wo/w con DATE: 11/06/2022 08:51 INDICATION: Gross hematuria TECHNIQUE: Computed tomography (CT) of the abdomen and pelvis was performed without and with 130 cc O mnipaque 350 intravenous contrast. The dose-length product was 2636.16 mGy-cm. Automated exposure con trol and iterative reconstruction technique were employed. COMPARISON: CT dated 01/23/2021 FINDINGS: There has been progression of chronic interstitial lung disease compared with prior CT. No significant pleural or pericardial effusion. Heart size normal. The liver, spleen, pancreas, adrenal glands and kidneys are unremarkable. Ureters are normal in course and caliber. There is focal thicken ing of the bladder wall on the right posteriorly and laterally with a pedunculated appearance, postco ntrast image 156. Cannot exclude transitional cell carcinoma. There is a similar appearance on the le ft, image 165. Nonobstructive bowel gas pattern. Normal appendix. No free air or free fluid. No signi ficant vascular abnormality. No lymphadenopathy. Severe thoracic and lumbar spondylosis with grade 1 spondylolisthesis at L4-5. IMPRESSION: 1. Multifocal pedunculated soft tissue within the bladder, suspicious for transitional cell carcinoma . Recommend correlation with cystoscopy. 2: Interval progression of chronic interstitial lung disease. Reviewed, dictated and finalized at location B. IMPRESSION: 1. Multifocal pedunculated soft tissue within the bladder, suspicious for trans itional cell carcinoma. Recommend correlation with cystoscopy. 2: Interval progression of chronic interstitial lung disease.
[2022-11-06 08:35] LABS: Estimated Glomerular Filt Rate > 60
== END 2022-11-06 07:59 | disposition home or self-care (01) ==
LOC: ANHIMG 07:59
PROVIDERS: PCP Family Medicine; Visit Provider Urology
DX: R31.0 Gross hematuria (principal); J84.9 Interstitial pulmonary disease, unspecified
CPT/HCPCS: 74178; Q9967

== ENCOUNTER 2022-11-12 10:07 | Outpatient (CLI) | payer MEDICARE, SELFPAY ==
[2022-11-12 11:20] LABS: Basophils Absolute Auto 0.1 K/mm3 (0.0-0.1); Basophils Percent Auto 0.6 % (0.2-1.2); Eosinophils Absolute Auto 0.3 K/mm3 (0-0.3); Eosinophils Percent Auto 2.5 % (0-4.4); Hematocrit 51.9 % (42.0-52.0); Hemoglobin 16.4 g/dL (14.0-18.0); Immature Granulocyte Absolute 0.05 K/mm3 (0.00-0.031); Immature Granulocyte Percent A 0.5 % (0-0.5); Lymphocytes Absolute Auto 1.76 K/mm3 (0.9-3.2); Mean Corpuscular HGB Conc 31.6 g/dl (32-36); Mean Corpuscular Hemoglobin 30.5 pg (26-34); Mean Corpuscular Volume 96.5 fl (80-100); Mean Platelet Volume 10.1 fl (7.4-10.4); Monocytes Absolute Auto 1.2 K/mm3 (0.1-0.6); Monocytes Percent Auto 11.8 % (2.6-8.5); Neutrophils Percent Auto 67.6 % (45.5-73.1); Platelet Count Result 230 k/mm3 (150-375); Red Blood Count 5.38 M/mm3 (4.6-6.20); White Blood Count 10.3 K/mm3 (4.5-10.0)
[2022-11-12 11:29] LABS: Anion Gap 7 mmol/L (8-16); Blood Urea Nitrogen 22 mg/dL (9-20); Calcium 8.9 mg/dL (8.4-10.2); Carbon Dioxide 34 mmol/L (22-30); Chloride 97 mmol/L (98-107); Estimated Glomerular Filt Rate > 60; Glucose 117 mg/dL (65-110); Potassium 3.9 mmol/L (3.4-5.0); Sodium 138 mmol/L (137-145)
[2022-11-12 11:33] LABS: Partial Thromboplastin Time 39.1 SECONDS (22.3-36.8); Prothrombin Time 23.6 Seconds (11.1-14.7)
== END 2022-11-12 10:08 | disposition home or self-care (01) ==
LOC: ANHSURGERY 10:13
PROVIDERS: PCP Family Medicine; Visit Provider Urology
DX: D49.4 Neoplasm of unspecified behavior of bladder (principal); Z01.818 Encounter for other preprocedural examination
CPT/HCPCS: 36415; 80048; 85025; 85610; 85730; 87086; 87088

== ENCOUNTER 2022-11-20 14:43 | Observation (INO) | payer MEDICARE, SELFPAY ==
[2022-11-05 14:35] VITALS: BMI 34.1
--- NOTE | 2022-11-05 15:02 | PC.NURSE ---
Report to the Outpatient Waiting Room, entrance under the green pavilion located off [facility], at time __11:00AM on date __11/19/22 . Planned Procedure Time: _1:00PM . Time changes happen often and if your time is changed the preop area will call you the afternoon before. - You and your visitor will be asked to self-screen and do not enter if you have any COVID symptoms. - A mask is optional within the hospital at this time. Patients may have clear liquids (water, carbonated beverages, clear teas, apple juice) until 3 hours prior to surgery with a maximum of 20 ounces. - No food from midnight until time of surgery Take the following medications with a SIP of water the morning of surgery: __AMOXICILLIN, CARBIDOPA-LEVODOPA, METOPROLOL DO NOT STOP ANY OF YOUR OTHER PRESCRIPTION MEDICATIONS PRIOR TO SURGERY ?EXCEPT THE FOLLOWING Medications to discontinue per physician ____HOLD XERALTO 2 DAYS PRE-OP- LAST DOSE 11/16/22. HOLD ALL VITAMINS/SUPPLEMENTS 3 DAYS PRE-OP PER ANESTHESIA- LAST DOSE 11/15/22. Please no make-up, nail cambodian, hairspray, perfume, deodorant, or body powder the day of surgery. No jewelry (including any body piercings) or valuables the day of surgery, leave them at home. Please take a shower or bath the night before, or the morning of, surgery with an antibacterial soap. Wear comfortable, loose fitting clothing. Children are encouraged to wear pajamas. - Jewelry must be removed prior to entering the operating room. Rings and piercings that are not removed may be cut off. - The hospital will not accept responsibility for valuables. - Please leave all valuables, including medications, at home the day of surgery. If you are going home after surgery, a licensed vacuum truck driver must drive you home. - NO public transportation without another adult if you receive anesthesia. - We recommend that an adult stay with you for 24 hours following discharge. - We also recommend that you do not drive, make important decision, drink alcoholic beverages, or take any drugs that were not prescribed by your health care provider for at least 24 hours after your discharge time. Follow any additional instructions given to you from your surgeon. If you or anyone in your household have experienced Covid symptoms in the past week, please notify your surgeon or the nurse liaison at the phone number below for possible testing. Telephone instructions given to _[facility]and asked if any additional questions and then verbalized understanding. Patient advised to call surgeon office or pre surgery nurse liaison [phone] if any additional questions.
[2022-11-19] VITALS (14 sets, daily range): BP systolic 101–143; BP diastolic 54–84; PULSE 66–83; RESP 13–20; TEMP 36.2–36.8; O2SAT 18–100; BMI 34.2
[2022-11-19] MEDS: LACTATED RINGERS 1,000 ML 30 ML IV CONT (11:39)
[2022-11-19 12:11] LABS: INR 1.1; Partial Thromboplastin Time 29.5 SECONDS (22.3-36.8)
--- NOTE | 2022-11-19 12:22 | WPDHPUPDATE1 ---
History and Physical Update Update Date/Time: 11/19/22 12:22 History and Physical has been reviewed, including an updated exam of the patient. There are NO changes in the patient's condition. Risks, benefits, and alternatives have been discussed and questions answered. Patient agrees to proceed with procedure. Proceed with cystoscopy, possible transurethral resection of bladder tumor
--- NOTE | 2022-11-19 12:31 | WPDANESEPPF ---
Anes - Initial Pre Proc Eval Procedure: Operation Date: 11/19/22 13:00 Proposed Procedures p Cystoscopy, - Johnnie Craft MD s Possible Trans Urethral Resection Bladder Tumor - Johnnie Craft MD Date/Time: 11/19/22 12:32 Surgeon: Johnnie Craft MD Pre Op Diagnosis: bladder CA, gross hematuria Patient Data Age: 82 Gender: M Height: 1.65 m Weight: 93.4 kg Last Vital Signs Temp 36.6 C 11/19/22 11:39 Pulse 81 11/19/22 11:39 Resp 16 11/19/22 11:39 BP 122/79 11/19/22 11:39 Pulse Ox 98 11/19/22 11:39 O2 Del Method Room Air 11/19/22 11:39 Allergies Allergy/AdvReac Type Severity Reaction Status Date / Time No Known Allergies Allergy Verified 11/05/22 14:29 Home Medications Medication Instructions Recorded Confirmed Type atorvastatin 20 mg tablet 20 mg PO QHS #90 tabs 04/29/22 11/05/22 Rx rivaroxaban 20 mg tablet (Xarelto) 20 mg PO DAILY #90 tabs 04/29/22 11/05/22 Rx carbidopa 25 mg-levodopa 100 mg 1.5 tablet PO QID #540 tabs 07/23/22 11/05/22 Rx tablet metoprolol succinate 100 mg 50 mg PO QAM #90 tabs 10/03/22 11/05/22 Rx tablet,extended release 24 hr potassium chloride 20 mEq 40 meq PO DAILY #180 tabs 10/03/22 11/05/22 Rx tablet,extended release amoxicillin 500 mg capsule 500 mg PO DAILY 11/05/22 11/05/22 History cholecalciferol (vitamin D3) 25 25 mcg PO DAILY 11/05/22 11/05/22 History mcg (1,000 unit) capsule furosemide 40 mg tablet 40 mg PO BID 11/05/22 11/05/22 History Laboratory Tests 11/19/22 11:33 PT 15.0 H Seconds (11.1-14.7) INR 1.1 APTT 29.5 SECONDS (22.3-36.8) Patient hx anesthesia problems: none Family hx anesthesia problems: none Results Review: All pre-operative results and documents have been reviewed as part of the pre-operative evaluation. [facility] Past Medical History Medical History Atrial fibrillation Bladder tumor Chronic diastolic heart failure Echocardiogram on 03/23/2020 showed normal left ventricular systolic function and size with mild concentric left ventricular hypertrophy and ejection fraction measured at 74%. Claudication in peripheral vascular disease 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 senior living 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 CVA (cerebral vascular accident) chronic lacunar infarcts in the region of the anterior limb of the internal capsule bilaterally. There is nonspecific diminished attenuation of the subcortical and periventricular cerebral white matter. Deep venous thrombosis (~2005) Essential hypertension History of pulmonary embolism (~2005) On long-term 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. Hyperlipidemia Impaired fasting glucose Interstitial lung disease Kidney stones Parkinson's disease Shuffling gait and right hand tremors. Persistent atrial fibrillation Primary osteoarthritis, unspecified site Pure hypercholesterolemia Rosacea Urothelial carcinoma of bladder (~11/2019) Followed by Dr. Craft. Cystoscopy in June 2020 demonstrated new lesions, scheduled for TURBT in September 2020. Surgical History Surgical History History of ankle surgery ORIF right ankle fracture. History of basal cell carcinoma excision Excised from the left brow. History of resection of small bowel (~01/2018) Secondary to closed loop bowel obstruction. Family History Family History Father Family history of diabetes mellitus in first degree relative Family history of coronary artery disease Sibling Family history of diabetes mellitus in first degree relative Family history of coronary artery disease Mother Family history of coronary artery disease Social History Social History Social History: The patient lives in [place] with his . 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
[2022-11-19] MEDS: ceFAZolin 2 GM/D5W 50 ML 2 GM/50 ML BAG IVPB (13:55)
--- NOTE | 2022-11-19 14:25 | SUR.OPER ---
eboni Quiroga CRNA and kt felix rn had lengthy discussion with patient and family to explain suspension of DNR order during surgical procedure. patient and family voiced understanding
[2022-11-19] MEDS: LIDOCAINE HCL 2% GEL UROJET 10 ML PKG MUCOUS MEM (14:40)
--- NOTE | 2022-11-19 14:42 | W.PM.PROC2 ---
Procedure Note - Detailed Date of Procedure 11/19/22 Pre-op Diagnosis bladder CA, gross hematuria Post-op Diagnosis Same Procedure Performed TURBT of a large area greater than 5 cm, urethral dilation Surgeon Johnnie Craft MD Anesthesia General Description of Procedure Patient is taken to the operative suite correctly identified. Once anesthesia was obtained he was placed in dorsal lithotomy position and prepped and draped usual sterile fashion. Urethra required dilatation to 26 Icelandic using male sounds. Twenty-four Icelandic resectoscope sheath was inserted in the bladder. He has extensive area of tumor involving the right floor right lateral wall a lesion at the dome of the bladder and then the left anterior wall of the bladder. We went ahead and resected these areas. At the started was difficult to find the right UO as the tumor was just adjacent to it. By the termination of the procedure we site efflux of urine coming from that orifice. The tumor was also very close to the left ureteral orifice. Specimens were sent for analysis. Fulguration was used for hemostasis. 2% viscous lidocaine was inserted into the urethra. Given extensive area of resection and placed a [address] and patient will be admitted overnight for CBI. This complete dictation please send a copy this to my office Drains Yes Packing No Pathology Yes Complications No immediate complications Condition Stable Disposition PACU
[2022-11-19] MEDS: fentaNYL CITRATE INJ (*CRX) 100 MCG/2 ML VIAL 25 MCG IV PUSH ×2 (15:36→15:38)
--- NOTE | 2022-11-19 16:36 | ADMGEN ---
This patient, Ace Sharp, was admitted to Medical Room 248-. Patient/family oriented to hospital policies and general routines including ID bracelet, bed and alarms, visiting hours, pain management, procedures, bathroom and other care routines, personal items, smoking policy, room service/diet, and visiting hours. Information on how to activate the Rapid Response Team has been discussed. Patient/Family are encouraged to report perceived risks to care and to ask questions if they do not understand what they are told or what they should do.
[2022-11-19] MEDS: DEXTROSE 5%/LACTATED RINGERS 1,000 ML 125 ML IV CONT ×2 (17:05→22:22)
[2022-11-19] MEDS: CARBIDOPA/LEVODOPA 12.5/50 MG TABLET 1 TABLET PO ×2 (18:54→22:16)
[2022-11-19] MEDS: DOCUSATE SODIUM 100 MG CAPSULE PO (18:54)
[2022-11-19] MEDS: CARBIDOPA/LEVODOPA 25/100 MG TABLET 1 TABLET PO ×2 (18:54→22:16)
[2022-11-19] MEDS: FUROSEMIDE 40 MG TABLET PO (18:54)
[2022-11-19] MEDS: ceFAZolin 1 GM/NS 50 ML 1 GM/50 ML BAG IVPB (22:14)
[2022-11-19] MEDS: ATORVASTATIN 20 MG TABLET PO (22:16)
[2022-11-20 02:05] VITALS: BP 117/98; PULSE 94; RESP 18; TEMP 37.1; O2SAT 98
[2022-11-20 05:17] VITALS: BP 109/77; PULSE 56; RESP 18; TEMP 36.9; O2SAT 95
[2022-11-20 05:33] LABS: Hematocrit 46.9 % (42.0-52.0); Hemoglobin 15.1 g/dL (14.0-18.0)
[2022-11-20] MEDS: ceFAZolin 1 GM/NS 50 ML 1 GM/50 ML BAG IVPB (05:33)
[2022-11-20 05:41] LABS: Anion Gap 5 mmol/L (8-16); Blood Urea Nitrogen 17 mg/dL (9-20); Carbon Dioxide 32 mmol/L (22-30); Chloride 98 mmol/L (98-107); Estimated CRCL calculation 66 ml/min; Estimated Glomerular Filt Rate > 60; Glucose 132 mg/dL (65-110); Potassium 3.8 mmol/L (3.4-5.0); Sodium 135 mmol/L (137-145)
--- NOTE | 2022-11-20 06:00 | PC.NURSE ---
Patient confused and screaming in room throughout night. Attempted to reorient patient multiple times throughout night. Patient still confused this AM. Patient refuses to believe he is in the hospital at times and states he did not have a surgery yesterday.
[2022-11-20 06:05] VITALS: BP 132/66; PULSE 86; RESP 18; TEMP 37.1; O2SAT 94
[2022-11-20] MEDS: POTASSIUM CHLORIDE 20 MEQ TABLET.ER 40 MEQ PO (08:49)
[2022-11-20] MEDS: CARBIDOPA/LEVODOPA 25/100 MG TABLET 1 TABLET PO ×4 (08:49→20:03)
[2022-11-20] MEDS: CARBIDOPA/LEVODOPA 12.5/50 MG TABLET 1 TABLET PO ×4 (08:49→20:03)
[2022-11-20] MEDS: FUROSEMIDE 40 MG TABLET PO ×2 (08:49→16:52)
[2022-11-20 08:51] VITALS: PULSE 84
[2022-11-20] MEDS: METOPROLOL SUCCINATE EXT REL 50 MG TABCR PO (08:51)
[2022-11-20] MEDS: DOCUSATE SODIUM 100 MG CAPSULE PO ×2 (08:53→16:55)
[2022-11-20] MEDS: CEPHALEXIN 500 MG CAPSULE PO ×3 (12:41→20:03)
--- NOTE | 2022-11-20 12:50 | PCPTNOTE ---
On 11/20/22, the student, [Destiny Beltre], provided care and completed [facility] documentation on this patient. I have reviewed the student's documentation and agree with the findings.
--- NOTE | 2022-11-20 12:56 | WPDUROPN2 ---
Progress Note: A&P Assessment and Plan (1) Bladder tumor: Code(s): D49.4 - Neoplasm of unspecified behavior of bladder Status: Acute Assessment and Plan: Urine is clear off CBI. Ok to be discharged home from a urologic standpoint with simeon. Will await instruction from care coordination regarding placement after discussion with his . (2) Generalized weakness: Code(s): R53.1 - Weakness Status: Acute Assessment and Plan: The patient was evaluated by PT/OT today and they did not recommend he go home with his as he required maximum assistance with a walker to ambulate. He was evaluated this time last year as well and had the same recommendation but went home with his at that time. Care Coordination has been consulted to discuss with the patients what is best for discharge placement. Subjective Subjective Date/Time Seen: 11/20/22 12:56 POD #1 TURBT with urethral dilation H&H stable Afebrile Patient is immobile and unable to walk without assistance and walker. He states he and his live alone and home and she takes care of him. His urine was pink this morning and CBI was restarted. CBI was then turned off around 11am, he was up with therapy after that and his urine remains clear off CBI. He is otherwise doing well tolerating diet and pain. Post Op day: 1 Review of Systems Cardiovascular: Cardiovascular: Denies chest pain Respiratory: Respiratory: Reports no additional respiratory complaints Gastrointestinal: Gastrointestinal: Denies abdominal pain, Denies nausea and Denies vomiting Genitourinary: Genitourinary: Denies hematuria, Denies dysuria, Denies flank pain, Denies urinary frequency, Denies urinary hesitancy and Denies urinary urgency Musculoskeletal: Musculoskeletal: Reports muscle weakness Exam Const: General: cooperative and comfortable Resp: Effort & Inspection: normal respiratory effort Cardio: Rate: regular rate GI: GI Palp: Yes Soft to palpation and No Tenderness to palpation present (GI) : General: Yes no CVA tenderness Urinary Catheter: Urinary Catheter: patent and draining and urine clear Extrem: Right lower extremity: no edema Left lower extremity: no edema Objective Data Vital Signs Vital Signs: Vital Signs - 24 hr 11/19/22 14:48 11/19/22 15:00 11/19/22 15:15 Temperature 97.2 F L Pulse Rate 73 75 73 Respiratory Rate 13 19 20 Blood Pressure 143/79 H 105/67 116/71 Pulse Oximetry 100 18 L 95 Oxygen Delivery Simple Face Mask Simple Face Mask Room Air Oxygen Flow Rate 10 10 11/19/22 15:30 11/19/22 15:45 11/19/22 16:00 Temperature Pulse Rate 74 79 76 Respiratory Rate 20 15 13 Blood Pressure 122/60 120/69 116/83 Pulse Oximetry 95 98 100 Oxygen Delivery Room Air Nasal Cannula Nasal Cannula Oxygen Flow Rate 2 2 11/19/22 16:15 11/19/22 16:20 11/19/22 16:35 Temperature 97.4 F L 97.4 F L Pulse Rate 75 81 82 Respiratory Rate 13 16 16 Blood Pressure 114/72 106/55 L 101/57 L Pulse Oximetry 97 95 98 Oxygen Delivery Room Air Oxygen Flow Rate 11/19/22 17:05 11/19/22 18:08 11/19/22 18:05 Temperature 97.3 F L 97.3 F L Pulse Rate 83 66 Respiratory Rate 16 16 Blood Pressure 101/54 L 103/59 L Pulse Oximetry 99 98 Oxygen Delivery Room Air Oxygen Flow Rate 11/19/22 20:21 11/19/22 22:05 11/20/22 02:05 Temperature 98.3 F 97.4 F L 98.8 F Pulse Rate 82 77 94 Respiratory Rate 18 18 18 Blood Pressure 116/84 110/67 117/98 H Pulse Oximetry 94 98 98 Oxygen Delivery Oxygen Flow Rate 11/20/22 05:17 11/20/22 06:05 11/20/22 08:51 Temperature 98.5 F 98.8 F Pulse Rate 56 L 86 84 Respiratory Rate 18 18 Blood Pressure 109/77 132/66 Pulse Oximetry 95 94 Oxygen Delivery Oxygen Flow Rate 11/20/22 08:00 11/20/22 11:39 11/20/22 11:56 Temperature Pulse Rate Respiratory Rate Blood Pressure Pulse Oximetry Oxygen Delivery Room Air Room Air Room Air Oxygen Fl
[2022-11-20 14:00] VITALS: BP 90/56; PULSE 73; RESP 18; TEMP 37.1; O2SAT 96
[2022-11-20] MEDS: LACTATED RINGERS 1,000 ML 100 ML IV CONT (14:30)
--- NOTE | 2022-11-20 14:47 | WPDANESPN ---
Anes - Prog Note Post-Op Date/Time: 11/20/22 14:47 Cardiovascular status: normal Respiratory status: normal Airway patency: baseline Mental status: baseline Post-Op hydration status: normal Vital Signs: Last Vital Signs Temp 98.7 F 11/20/22 14:00 Pulse 73 11/20/22 14:00 Resp 18 11/20/22 14:00 BP 90/56 L 11/20/22 14:00 Pulse Ox 96 11/20/22 14:00 O2 Del Method Room Air 11/20/22 11:56 O2 Flow Rate 2 11/19/22 16:00 Pain Score (VAS): 0 I/O: Intake & Output 11/19/22 11/20/22 11/20/22 23:59 07:59 15:59 Intake Total 1530 50 240 Output Total 7580 5200 Balance -6050 -5150 240 Laboratory Tests 11/20/22 05:11 11/20/22 05:11 11/20/22 05:11 Hgb 15.1 Hct 46.9 Sodium 135 L Potassium 3.8 Chloride 98 Carbon Dioxide 32 H Anion Gap 5 L BUN 17 Creatinine 0.80 Estim Creat Clear Calc 66 Estimated GFR > 60 Glucose 132 H Calcium 8.0 L Post-procedural complaints: none Patient Feedback: Patient satisfied with anesthetic care.
[2022-11-20] MEDS: ATORVASTATIN 20 MG TABLET PO (20:03)
[2022-11-20 20:25] VITALS: BP 122/77; PULSE 90; RESP 18; TEMP 36.8; O2SAT 97
[2022-11-21] MEDS: LACTATED RINGERS 1,000 ML 100 ML IV CONT (00:49)
[2022-11-21 01:00] VITALS: BP 102/62; PULSE 91; RESP 22; TEMP 37.3; O2SAT 94
[2022-11-21 05:50] VITALS: BP 108/70; PULSE 92; RESP 18; TEMP 37.2; O2SAT 96
[2022-11-21] MEDS: POTASSIUM CHLORIDE 20 MEQ TABLET.ER 40 MEQ PO (08:33)
[2022-11-21] MEDS: CEPHALEXIN 500 MG CAPSULE PO ×4 (08:33→19:41)
[2022-11-21] MEDS: CARBIDOPA/LEVODOPA 12.5/50 MG TABLET 1 TABLET PO ×4 (08:33→19:41)
[2022-11-21 08:34] VITALS: PULSE 97
[2022-11-21] MEDS: CARBIDOPA/LEVODOPA 25/100 MG TABLET 1 TABLET PO ×4 (08:34→19:41)
[2022-11-21] MEDS: DOCUSATE SODIUM 100 MG CAPSULE PO ×2 (08:34→17:09)
[2022-11-21] MEDS: FUROSEMIDE 40 MG TABLET PO ×2 (08:34→17:07)
[2022-11-21] MEDS: METOPROLOL SUCCINATE EXT REL 50 MG TABCR PO (08:34)
[2022-11-21 13:22] VITALS: BP 94/59; PULSE 99; RESP 86; TEMP 38; O2SAT 18
[2022-11-21 13:36] VITALS: TEMP 37.4
--- NOTE | 2022-11-21 15:44 | WPDUROPN2 ---
Subjective Subjective Date/Time Seen: 11/21/22 15:44 POD #2 Cystoscopy, TURBT/Urethral Dilation The patient is sitting up in bed today, tolerating his diet. He has no pain and is cleared to go to acute rehab at [facility]. Post Op day: 2 Review of Systems Cardiovascular: Cardiovascular: Denies chest pain Respiratory: Respiratory: Reports no additional respiratory complaints Gastrointestinal: Gastrointestinal: Denies abdominal pain, Denies nausea and Denies vomiting Genitourinary: Genitourinary: Denies hematuria, Denies dysuria, Denies flank pain, Denies urinary frequency, Denies urinary hesitancy and Denies urinary urgency Exam Const: General: cooperative Cardio: Rate: regular rate GI: GI Palp: Yes Soft to palpation and No Tenderness to palpation present (GI) : General: Yes no CVA tenderness Urinary Catheter: Urinary Catheter: patent and draining and urine clear Extrem: Right lower extremity: no edema Left lower extremity: no edema Objective Data Vital Signs Vital Signs: Vital Signs - 24 hr 11/20/22 20:25 11/20/22 20:00 11/21/22 01:00 Temperature 98.3 F 99.1 F Pulse Rate 90 91 Respiratory Rate 18 22 H Blood Pressure 122/77 102/62 Pulse Oximetry 97 94 Oxygen Delivery Room Air 11/21/22 05:50 11/21/22 08:34 11/21/22 08:00 Temperature 98.9 F Pulse Rate 92 97 Respiratory Rate 18 Blood Pressure 108/70 Pulse Oximetry 96 Oxygen Delivery Room Air 11/21/22 13:22 11/21/22 13:36 Temperature 100.4 F H 99.4 F Pulse Rate 99 Respiratory Rate 86 H Blood Pressure 94/59 L Pulse Oximetry 18 L Oxygen Delivery Intake/Output Intake/Output: Intake & Output 11/18/22 11/19/22 11/20/22 11/21/22 23:59 23:59 23:59 23:59 Intake Total 8062 602 3427 Output Total 9280 19466 3300 Balance -9586 -90303 -3542 Meds/Results Medications: Active Medications Generic Name Dose Route Start Last Admin Trade Name Freq PRN Reason Stop Dose Admin Hydrocodone Bitart/Acetaminophen 1 tab 11/19/22 16:20 Hydrocodone/Acetaminophen (*Crx) 5-325 Mg Tablet PO Q4H PRN Pain Rated 1-6 Atorvastatin Calcium 20 mg 11/19/22 21:00 11/20/22 20:03 Atorvastatin 20 Mg Tablet PO 20 mg QHS NAY Administration Carbidopa/Levodopa 1 tablet 11/19/22 17:00 11/21/22 12:00 Carbidopa/Levodopa 25/100 Mg Tablet PO 1 tablet QID NAY Administration Carbidopa/Levodopa 1 tablet 11/19/22 17:00 11/21/22 12:00 Carbidopa/Levodopa 12.5/50 Mg Tablet PO 1 tablet QID [facility] Administration Cephalexin HCl 500 mg 11/20/22 13:00 11/21/22 12:00 Cephalexin 500 Mg Capsule PO 500 mg QID [facility] Administration Docusate Sodium 100 mg 11/19/22 17:00 11/21/22 08:34 Docusate Sodium 100 Mg Capsule PO 100 mg BID NAY Administration Furosemide 40 mg 11/19/22 17:00 11/21/22 08:34 Furosemide 40 Mg Tablet PO 40 mg BID [facility] Administration Hyoscyamine 0.125 mg 11/19/22 16:20 Hyoscyamine Sulfate 0.125 Mg Tablet SUBLINGUAL Q6H PRN Bladder Spasm Lactated Ringer's 1,000 mls @ 100 mls/hr 11/20/22 14:15 11/21/22 00:49 Lr - Lactated Ringers Iv IV CONT 100 mls/hr .Q10H NAY Administration Metoprolol Succinate 50 mg 11/20/22 09:00 11/21/22 08:34 Metoprolol Succinate Ext Rel 50 Mg Tabcr PO 50 mg QAM [facility] Administration Miconazole Nitrate 1 applic 11/20/22 09:00 11/21/22 08:37 Miconazole 2% Antifungal Ointment 56 Gm TOPICAL 1 applic Q12HR [facility] Administration Morphine Sulfate 2 mg 11/19/22 16:20 Morphine Sulfate (*Crx) 2 Mg/Ml Inj IV PUSH Q2H PRN Pain Rated 7-10 Naloxone HCl 0.1 mg 11/19/22 16:20 Naloxone Hcl 0.4 Mg/Ml Vial IV PUSH Q2M PRN Opiate Reversal Ondansetron HCl 4 mg 11/19/22 16:20 Ondansetron Inj 4 Mg/2 Ml Vial IV PUSH Q12H PRN Nausea And Vomiting Potassium Chloride 40 meq 11/20/22 09:00 11/21/22 08:33 Potassium Chloride 20 Meq Tablet.Er PO 40 meq DAILY
--- NOTE | 2022-11-21 15:50 | WPDURCON ---
Assessment and Plan Assessment and plan (1) Bladder tumor: Code(s): D49.4 - Neoplasm of unspecified behavior of bladder Status: Acute Assessment and Plan: Ok to discharge to rehab with simeon catheter. Urology Consult Note HPI Date Seen: 11/21/22 Time Seen: 09:00 Requesting Physician: Johnnie Craft MD Primary Care Provider: Loy Florian MD Consult Narrative Reason for consult: Bladder Tumor Narrative: Ace Sharp is a 82 year old male who presented initially for TURBT and Cystoscopy in the OR with Dr. Craft. He was seen in the office by Dr. Craft on 10/30/22 for gross hematuria. A CT was then ordered and he was found to have a papillary mass. D/t His known immobility he was scheduled for a cystoscopy and TURBT in the OR. Ace Sharp is a 82 year old male who presented initially for TURBT and Cystoscopy in the OR with Dr. Craft. He underwent this procedure as an outpatient planned procedure on 11/19/22 and tolerated it well. He was seen yesterday afterward and was noted to have blood in his urine still off CBI, therefore, CBI was restarted. He was also noted to be non ambulatory before arrival and we requested a PT/OT evaluation as the nursing staff were unable to walk him post operative day one. PT/OT evaluated him yesterday and did determine he was unable to ambulate without maximum assistance and would need to be transferred to a facility for ongoing assistance or 24 hour care and not able to to go home. His was notified and agrees with this plan. He was kept overnight on CBI and urine remains clear today off CBI. He is tolerating his diet today and will be discharged to [facility] facility with his simeon catheter to be removed for a voiding trial on Friday. He will resume all home meds and activity as tolerated, as well as diet as tolerated Review of Systems Cardiovascular: Cardiovascular: Denies chest pain Respiratory: Respiratory: Reports no additional respiratory complaints Gastrointestinal: Gastrointestinal: Denies abdominal pain, Denies nausea and Denies vomiting Genitourinary: Genitourinary: Denies hematuria, Denies flank pain, Denies urinary frequency and Denies urinary urgency PMFSH Past Medical History Medical History Atrial fibrillation Bladder tumor Chronic diastolic heart failure Echocardiogram on 03/23/2020 showed normal left ventricular systolic function and size with mild concentric left ventricular hypertrophy and ejection fraction measured at 74%. Claudication in peripheral vascular disease 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 correction 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 CVA (cerebral vascular accident) chronic lacunar infarcts in the region of the anterior limb of the internal capsule bilaterally. There is nonspecific diminished attenuation of the subcortical and periventricular cerebral white matter. Deep venous thrombosis (~2005) Essential hypertension History of pulmonary embolism (~2005) On long-term 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. Hyperlipidemia Impaired fasting glucose Interstitial lung disease Kidney stones Parkinson's disease Shuffling gait and right hand tremors. Persistent atrial fibrillation Primary osteoarthritis, unspecified site Pure hypercholesterolemia Rosacea Urothelial carcinoma of bladder (~11/2019) Followed by Dr. Craft. Cystoscopy in June 2020 demonstrated new lesions, scheduled for TURBT in September 2020. Surgical History Surgical History History of ankle surgery ORIF right ankle fracture. History of basal cell carcinoma excision Excised from the left brow. History of resection of small bowel (~01/2018) Secondary to closed loop bowel obstruction. Family History Family History Father Family history of diabetes mellitus in first degree relative Family history of coronary artery disease Sibling Fa
--- NOTE | 2022-11-21 16:20 | PM.DS ---
DS: Admitting Diagnosis Discharge Date bladder tumor Admitting Diagnosis bladder tumor DS: Discharge Diagnosis Discharge Diagnosis Plan Ace Sharp is a 82 year old male who presented initially for TURBT and Cystoscopy in the OR with Dr. Craft. He underwent this procedure as an outpatient planned procedure on 11/19/22 and tolerated it well. He was seen yesterday afterward and was noted to have blood in his urine still off CBI, therefore, CBI was restarted. He was also noted to be non ambulatory before arrival and we requested a PT/OT evaluation as the nursing staff were unable to walk him post operative day one. PT/OT evaluated him yesterday and did determine he was unable to ambulate without maximum assistance and would need to be transferred to a facility for ongoing assistance or 24 hour care and not able to to go home. His was notified and agrees with this plan. He was kept overnight on CBI and urine remains clear today off CBI. He is tolerating his diet today and will be discharged to [facility] facility with his simeon catheter to be removed for a voiding trial on Friday. He will resume all home meds and activity as tolerated, as well as diet as tolerated DS: Summary Hospital Course Hospital Course: See note below Time spent discussing smoking cessation with patient: more than 10 minutes Time Spent with Patient Time attestation: Total time spent providing and/or coordinating discharge services: Exam Const: General: cooperative and comfortable Resp: Effort & Inspection: normal respiratory effort Cardio: Rate: regular rate GI: GI Palp: Yes Soft to palpation and No Tenderness to palpation present (GI) : General: Yes no CVA tenderness Urinary Catheter: Urinary Catheter: patent and draining and urine clear Extrem: Right lower extremity: no edema Left lower extremity: no edema DS: Data Data Completed and Pending Completed studies during hospitalization: Pending at discharge 11/19/22 14:28 Surgical [PTH] Routine Discharge Plan Discharge Attending physician on discharge: Johnnie Craft Discharging Clinician: Anitra Perera Anticipated Discharge Date/Time: 11/21/22 15:33 Patient Disposition: Inpatient Rehab Facility Activity: october shower Diet: as tolerated Discharge Instructions: Patient to keep simeon catheter in until Friday, November 25, 2022. Ok to remove early that morning, if unable to urinate or empty after 6-8 hours, ok to replace simeon with a 16fr catheter. Patient to follow up in the office in one month. If urine becomes grossly bloody or with clots, ok to irrigate PRN and push fluids. If patient develops a fever call the office or send to the ER. Stand Alone Forms: General Discharge Information Follow-up/Referrals: Johnnie Craft MD [Physician] - Discharge Medications: Continued furosemide 40 mg tablet 40 mg PO BID Rx Instructions: TAKE 1 TABLET BY MOUTH TWICE A DAY-MORNING AND AFTERNOON amoxicillin 500 mg capsule 500 mg PO DAILY Rx Instructions: ADULT ACNE cholecalciferol (vitamin D3) 25 mcg (1,000 unit) Capsule 25 mcg PO DAILY atorvastatin 20 mg tablet 20 mg PO QHS Qty: 90 2RF Xarelto 20 mg tablet 20 mg PO DAILY Qty: 90 2RF Rx Instructions: must administer with evening meal carbidopa-levodopa 25-100 mg tablet 1.5 tablet PO QID Qty: 540 2RF potassium chloride 20 mEq tablet extended release 40 meq PO DAILY Qty: 180 2RF metoprolol succinate 100 mg tablet extended release 24 hr 50 mg PO QAM Qty: 90 2RF Date of admission: 11/20/22 14:43 Primary Care Provider: oLy Florian Admitting Provider: Johnnie Craft Attending physician on admission: Johnnie Craft Condition: Stable
--- NOTE | 2022-11-21 18:36 | PC.NURSE ---
Discharge packet reviewed with . Verbalized understanding.
[2022-11-21] MEDS: ATORVASTATIN 20 MG TABLET PO (19:41)
[2022-11-21 20:04] VITALS: BP 119/88; PULSE 99; RESP 20; TEMP 37.3; O2SAT 94
== END 2022-11-21 20:20 ==
LOC: ANHSURGERY 15:00 → ANH2MED 15:01
PROVIDERS: Admitting Provider Urology; PCP Family Medicine; Visit Provider Urology
PROC: 0TJB8ZZ Inspection of Bladder, Via Natural or Artificial Opening Endoscopic (ICD-10-PCS; CPT 52000; principal; 2022-11-19 13:00)
PROC: 0TBB8ZZ Excision of Bladder, Via Natural or Artificial Opening Endoscopic (ICD-10-PCS; CPT 52235; 2022-11-19 13:00)
DX: C67.9 Malignant neoplasm of bladder, unspecified (principal); R31.0 Gross hematuria; I48.91 Unspecified atrial fibrillation; I11.0 Hypertensive heart disease with heart failure; I50.32 Chronic diastolic (congestive) heart failure; I95.9 Hypotension, unspecified; I73.9 Peripheral vascular disease, unspecified; R53.1 Weakness; E78.5 Hyperlipidemia, unspecified; R73.01 Impaired fasting glucose; J84.9 Interstitial pulmonary disease, unspecified; E66.9 Obesity, unspecified; Z68.34 Body mass index [BMI] 34.0-34.9, adult; F10.90 Alcohol use, unspecified, uncomplicated; Z86.73 Personal history of transient ischemic attack (TIA), and cerebral infarction without residual deficits; Z86.718 Personal history of other venous thrombosis and embolism; Z86.711 Personal history of pulmonary embolism; Z79.01 Long term (current) use of anticoagulants; Z79.899 Other long term (current) drug therapy; Z83.3 Family history of diabetes mellitus
CPT/HCPCS: 52235; 36415; 80048; 85014; 85018; 85610; 85730; 88305; 97110; 97161; 97165; 97530; A9270; G0378; J0690; J2405; J2704; J3010; J7120; J7121